=== PATIENT | male | born 1960 | race Caucasian/White ===

== ENCOUNTER 2016-10-26 22:23 | Emergency (ER) | payer BC, OTHER ==
[~2016-10-26] VITALS: Ht 188 cm; Wt 117.3 kg
[~2016-10-26 22:23] MED LIST: ACET-1256 PO; ASPI81TA21 PO; EZET10TA47 PO; GLC/500 PO; GLIP-197 PO; METO50TA7 PO; MULTTAB58 PO; OMEG10007 PO; ROSU40TA PO
[2016-10-26 22:45] VITALS: TEMP 37.2; Ht 188 cm; Wt 117.3 kg
[2016-10-26] MEDS ORDERED: ONDANSETRON INJ 2 MG/ML 2 ML VIAL IV STA (23:39)
[2016-10-26] MEDS ORDERED: MoRPHine SULFATE 10 MG/ML CARP/VIAL IV STA (23:39)
[2016-10-26] MEDS ORDERED: SODIUM CHLORIDE 0.9% 1000ML 1,000 ML IV STA (23:39)
--- NOTE | 2016-10-26 23:52 | EMERGENCY ROOM VISIT NOTE ---
History Report prepared by Yolanda: Fadi Negro Under the Supervision of: Dr. Yadiel Benitez M.D. First contact with patient: 23:32 Chief Complaint: CONGESTION Stated Complaint: CLL ACTING UP AND CHEST COLD Nursing Triage Summary: c/o non productive cough for a few days, body aches, neck pain. hx CLL. pt reports he has been soaking in steamy bath and breaks up his lungs and is able to cough up white sputum. denies fevers. History of Present Illness The patient is a 56 year old male with a history of CLL who presents to the Emergency Room with complaints of a persistent cough for the past three days. The cough produces white sputum. The patient has a history of CLL and feels like his lymph nodes are more swollen than baseline. He does not take any medications for CLL, including pain medications. He also has complaints of generalized body aches. He denies any fevers, sore throat, rhinorrhea, urinary symptoms or bowel changes. He had Ibuprofen at home. He was in the ED with similar symptoms last year. He has a contact at work with bronchitis. The patient was not vaccinated for influenza this year. Source of History: patient Onset: past three days Position: other (respiratory) Quality: other (cough) Timing: other (persistent) Associated Symptoms: No fevers, No sorethroat, No urinary symptoms Review of Systems See HPI for pertinent positives & negatives. A total of 10 systems reviewed and were otherwise negative. Past Medical & Surgical Medical Problems: (1) CAD (coronary artery disease) (2) DM2 (diabetes mellitus, type 2) (3) H/O cardiac arrest (4) History of left heart catheterization (5) HLD (hyperlipidemia) (6) HTN (hypertension) (7) ICD (implantable cardioverter-defibrillator) in place (8) Lymphadenopathy, abdominal Family History Diabetes mellitus FATHER FH: heart disease FATHER (CHF) BROTHER ( of aneurysm age 44) SISTER (Open Heart Surgery at age 18 ) Social History Smoking Status: Current Every Day Smoker Alcohol Use: none Drug Use: none Marital Status: Housing Status: lives with family Occupation Status: employed Current/Historical Medications Scheduled Aspirin Enteric Coated (Ecotrin Or Generic), 81 MG PO DAILY Ezetimibe (Zetia), 10 MG PO DAILY Fish Oil ([place]-3), 3 CAP PO DAILY Glipizide (Glipizide Er), 2 TAB PO DAILY Metformin Hcl (Glucophage), 1,000 MG PO DAILY Metoprolol Succ (Toprol Xl) (Toprol-Xl), 50 MG PO DAILY Multiple Vitamin (Multivitamin), 1 TAB PO DAILY Oseltamivir (Tamiflu), 75 MG PO BID Rosuvastatin Calcium (Crestor), 40 MG PO DAILY Scheduled PRN Acetaminophen (Tylenol), 500 MG PO DIRECTED PRN for Pain Allergies Coded Allergies: Latex (Verified Allergy, Mild, hives, 10/26/16) Amoxicillin (Verified Allergy, Unknown, HIVES, 10/26/16) Physical Exam Vital Signs Date Time Temp Pulse Resp B/P Pulse Ox O2 Delivery O2 Flow Rate FiO2 10/27/16 01:12 69 18 135/59 99 10/26/16 23:15 96 Room Air 10/26/16 22:45 37.2 82 20 144/82 96 Room Air 10/26/16 22:45 96 Room Air Physical Exam GENERAL: Patient is uncomfortable appearing and in moderate distress. HEENT: No acute trauma, normocephalic atraumatic, mucous membranes moist, no nasal congestion, no scleral icterus. NECK: No stridor, no adenopathy, no meningismus, trachea is midline. LUNGS: No dyspnea. Clear to auscultation and equal bilaterally. No wheeze, no rhonchi. Mild periodic cough. HEART: Regular rate and rhythm. No murmurs, rubs, gallops appreciated. ABDOMEN: Vague diffuse tenderness to palpation. Soft, bowel sounds positive, no masses appreciated, no peritonitis. BACK: No midline tenderness, no CVA tenderness EXTREMITIES: Normal motion all extremities, no cyanosis, no edema. NEUROLOGIC: Alert and oriented, no acute motor or sensory deficits, no focal weakness, cranial nerves grossly intact. SKIN: No rash, no jaundice, no diaphoresis. Medical Decision & Procedures ER Provider Diagnostic Interpretation: X ray results are stated below per my interpretation: Chest: 1 view: No infiltrate, no effusion, normal cardiac border. ICD left upper chest with leads intact. Laboratory Results 10/26/16 23:50 Red Blood Count 4.49, Mean Corpuscular Volume 86.2, Mean Corpuscular Hemoglobin 31.8, Mean Corpuscular Hemoglobin Concent 37.0, Mean Platelet Volume 10.1, Neutrophils (%) (Auto) 29.8, Lymphocytes (%) (Auto) 64.3, Monocytes (%) (Auto) 4.1, Eosinophils (%) (Auto) 1.5, Basophils (%) (Auto) 0.1, Neutrophils # (Auto) 3.17, Lymphocytes # (Auto) 6.82, Monocytes # (Auto) 0.43, Eosinophils # (Auto) 0.16, Basophils # (Auto) 0.01 10/26/16 23:50 Test 10/26/16 00:00 10/26/16 23:50 Influenza Type A Antigen Neg for Influ A (NEG) Influenza Type B Antigen POS for Influ B (NEG) White Blood Count 10.61 K/uL (4.8-10.8) Red Blood Count 4.49 M/uL (4.7-6.1) Hemoglobin 14.3 g/dL (14.0-18.0) Hematocrit 38.7 % (42-52) Mean Corpuscular Volume 86.2 fL (80-100) Mean Corpuscular Hemoglobin 31.8 pg (25-34) Mean Corpuscular Hemoglobin Concent 37.0 g/dl (32-36) Platelet Count 151 K/uL (130-400) Mean Platelet Volume 10.1 fL (7.4-10.4) Neutrophils (%) (Auto) 29.8 % Lymphocytes (%) (Auto) 64.3 % Monocytes (%) (Auto) 4.1 % Eosinophils (%) (Auto) 1.5 % Basophils (%) (Auto) 0.1 % Neutrophils # (Auto) 3.17 K/uL (1.4-6.5) Lymphocytes # (Auto) 6.82 K/uL (1.2-3.4) Monocytes # (Auto) 0.43 K/uL (0.11-0.59) Eosinophils # (Auto) 0.16 K/uL (0-0.5) Basophils # (Auto) 0.01 K/uL (0-0.2) RDW Standard Deviation 41.3 fL (36.4-46.3) RDW Coefficient of Variation 13.0 % (11.5-14.5) Immature Granulocyte % (Auto) 0.2 % Immature Granulocyte # (Auto) 0.02 K/uL (0.00-0.02) Smudge Cells PRESENT Anion Gap 7.0 mmol/L (3-11) Est Creatinine Clear Calc Drug Dose 132.1 ml/min Estimated GFR () 112.4 Estimated GFR (Non- 97.0 BUN/Creatinine Ratio 14.5 (10-20) Calcium Level 9.2 mg/dl (8.5-10.1) Total Bilirubin 0.6 mg/dl (0.2-1) Direct Bilirubin 0.1 mg/dl (0-0.2) Aspartate Amino Transf (AST/SGOT) 12 U/L (15-37) Alanine Aminotransferase (ALT/SGPT) 23 U/L (12-78) Alkaline Phosphatase 87 U/L (45-117) Troponin I < 0.015 ng/ml (0-0.045) Total Protein 7.1 gm/dl (6.4-8.2) Albumin 3.7 gm/dl (3.4-5.0) Lipase 148 U/L (73-393) Laboratory results as reviewed by me. Medications Administered Medications (Trade) Dose Ordered Sig/Radha Route Start Time Stop Time Status Last Admin Dose Admin Morphine Sulfate (MoRPHine SULFATE INJ) 6 mg NOW STAT IV 10/26/16 23:39 10/26/16 23:41 DC 10/27/16 00:05 6 MG Ondansetron HCl 4 mg 4 mg NOW STAT IV 10/26/16 23:39 10/26/16 23:41 DC 10/27/16 00:04 4 MG Sodium Chloride (Nss 1000ml) 1,000 ml @ 999 mls/hr Q1H1M STAT IV 10/26/16 23:39 10/27/16 00:39 DC 10/27/16 00:05 999 MLS/HR Oxycodone/ Acetaminophen (Percocet 5/ 325MG Home Pack) 1 homepack UD ONCE PO 10/27/16 01:15 10/27/16 01:16 DC 10/27/16 01:11 1 HOMEPACK Oseltamivir Phosphate (Tamiflu Cap) 75 mg NOW STAT PO 10/27/16 01:01 10/27/16 01:03 DC 10/27/16 01:01 75 MG ECG Indication: weakness Rate (beats per minute): 76 Rhythm: normal sinus Findings: no acute ischemic change, no ectopy ED Course 2333: The patient was evaluated in room C1B. A complete history and physical exam was performed. 2339: NSS 1000 ml @ 999 mls/hr, Zofran 4 mg IV, Morphine Sulfate 6 mg IV. 0100: The patient is feeling better. He is okay with going home. Discussed the findings with him. He understands the discharge instructions. 0101: Tamiflu 75 mg PO. 0115: The [place] Prescription Drug Monitoring Program was reviewed regarding this patient. He has had no recent narcotic prescriptions. 0115: Percocet 5/325 mg PO homepack. Medical Decision Differential: Sepsis, Infectious (UTI/Pneumonia/Meningitis/etc), Metabolic/ Electrolyte Abnormality, Cardiac, Hepatic, Endocrine, Toxicologic, Neurologic, amongst other pathologies entertained. 56 yr old with history of CLL and CAD arrives with body aches, chills, cough and fatigue. Flu B positive. WBC OK today without acute abnormlities. Labs look good. Unremarkable EKG and negative trop. Given IV fluids and small dose morphine for discomfort. Discussed flu care and with symptoms < 72 hours and medical history seems reasonable starting Tamiflu. Given initial dosing here. Stable and looking improved. Stressed rest, fluids, etc. RTED at any time if worsening or other concerns. [place] Drug Monitoring Program Search Results: patient reviewed within database, no issues identified Impression Primary Impression: Influenza B Scribe Attestation The scribe's documentation has been prepared under my direction and personally reviewed by me in its entirety. I confirm that the note above accurately reflects all work, treatment, procedures, and medical decision making performed by me. Departure Information Dispostion Home / Self-Care Prescriptions Oseltamivir (Tamiflu) 75 Mg Cap 75 MG PO BID, #10 CAP Prov: Yadiel Benitez M.D. 10/27/16 Referrals Demetrius Leung D.O. (PCP) Forms HOME CARE DOCUMENTATION FORM, IMPORTANT VISIT INFORMATION Patient Instructions ED Flu, My [facility] Additional Instructions You have received a narcotic pain medication. These medications may cause drowsiness and should not be used with other sedative medications. Do not drive , drink alcohol, perform dangerous activities, nor make important decisions after taking these medications. [facility] use or inappropriate use may lead to addiction.
[2016-10-27 00:12] LABS: HEMATOCRIT 38.7 % (42-52); MEAN CELL VOLUME 86.2 fL (80-100); MEAN CORPUSCULAR HEMOGLOBIN 31.8 pg (25-34); MEAN PLATELET VOLUME 10.1 fL (7.4-10.4); PLATELET COUNT 151 K/uL (130-400); RED BLOOD COUNT 4.49 M/uL (4.7-6.1); WHITE BLOOD COUNT 10.61 K/uL (4.8-10.8)
[2016-10-27 00:31] LABS: ALT/SGPT 23 U/L (12-78); AST/SGOT 12 U/L (15-37); BLOOD UREA NITROGEN 12 mg/dl (7-18); BUN/CREATININE RATIO 14.5 (10-20); CALCIUM 9.2 mg/dl (8.5-10.1); CARBON DIOXIDE 29 mmol/L (21-32); CHLORIDE 102 mmol/L (98-107); CREATININE 0.83 mg/dl (0.60-1.40); GLUCOSE 200 mg/dl (70-99); POTASSIUM 3.9 mmol/L (3.5-5.1); SODIUM 138 mmol/L (136-145)
[2016-10-27 00:36] LABS: ALKALINE PHOSPHATASE 87 U/L (45-117)
[2016-10-27 00:44] LABS: BASO % 0.1 %; BASO ABS # 0.01 K/uL (0-0.2); COMPLETE YES; EOS % 1.5 %; IG% 0.2 %; LYMPH % 64.3 %; LYMPH ABS # 6.82 K/uL (1.2-3.4); MONO % 4.1 %; NEUT % 29.8 %; SMUDGE CELLS PRESENT
[2016-10-27] MEDS ORDERED: OSELTAMIVIR PHOSPHATE 75 MG CAP PO STA (01:01)
[2016-10-27] MEDS ORDERED: OSEL75CA12 PO (01:02)
[2016-10-27 01:12] VITALS: BP 135/59; PULSE 69; O2SAT 99
[2016-10-27] MEDS ORDERED: PERCOCET HOME PACK PO ONE (01:15)
--- NOTE | 2016-10-27 08:05 | DIAGNOSTIC IMAGING REPORT ---
CHEST ONE VIEW PORTABLE CLINICAL HISTORY: cough, congestion dyspnea COMPARISON STUDY: 10/06/2015 FINDINGS: Stable fullness mid mediastinum. Lungs are considered clear. Slight chronic basilar interstitial prominence. Permanent unipolar cardiac pacemaker/defibrillator. IMPRESSION: Chronic change. No acute process. Electronically signed by: Hong Castro M.D. 10/27/2016 8:03 AM Dictated Date/Time: 10/27/2016 8:02 AM
== END 2016-10-27 01:16 | disposition home or self-care (01) ==
LOC: C.EDB 22:26 → C.EDC 10-27 01:16
DX: J11.1 Influenza due to unidentified influenza virus with other respiratory manifestations (principal); E11.9 Type 2 diabetes mellitus without complications; I10 Essential (primary) hypertension; E78.5 Hyperlipidemia, unspecified; I25.10 Atherosclerotic heart disease of native coronary artery without angina pectoris; Z98.61 Coronary angioplasty status; Z95.810 Presence of automatic (implantable) cardiac defibrillator; F17.200 Nicotine dependence, unspecified, uncomplicated; Z79.82 Long term (current) use of aspirin; Z79.84 Long term (current) use of oral hypoglycemic drugs; Z79.899 Other long term (current) drug therapy; Z88.1 Allergy status to other antibiotic agents; Z91.040 Latex allergy status; Z83.3 Family history of diabetes mellitus; Z82.49 Family history of ischemic heart disease and other diseases of the circulatory system

== ENCOUNTER 2017-11-19 | Observation (INO) | payer SELFPAY ==
[~2017-11-19] VITALS: Ht 188 cm; Wt 113.2 kg
[~2017-11-19] MED LIST changes: +ASPI-319 PO; -ASPI81TA21 PO; -METO50TA7 PO; +METO50TA8 PO
[2017-11-19 00:47] LABS: HEMATOCRIT 39.2 % (42-52); HEMOGLOBIN 14.4 g/dL (14.0-18.0); MEAN CELL VOLUME 86.9 fL (80-100); MEAN CORPUSCULAR HEMOGLOBIN 31.9 pg (25-34); MEAN CORPUSCULAR HGB CONC 36.7 g/dl (32-36); MEAN PLATELET VOLUME 9.5 fL (7.4-10.4); NUCLEATED RED BLOOD CELL ABS 0.08 K/uL (0-0); PLATELET COUNT 205 K/uL (130-400); RED CELL DISTRIBUTION WIDTH CV 13.2 % (11.5-14.5); RED CELL DISTRIBUTION WIDTH SD 41.7 fL (36.4-46.3); WHITE BLOOD COUNT 18.69 K/uL (4.8-10.8)
[2017-11-19] MEDS ORDERED: IBUP-1050 PO (00:59)
[2017-11-19 01:04] LABS: ALBUMIN 3.6 gm/dl (3.4-5.0); ALT/SGPT 16 U/L (12-78); AST/SGOT 8 U/L (15-37); BLOOD UREA NITROGEN 10 mg/dl (7-18); CARBON DIOXIDE 25 mmol/L (21-32); CREATININE 0.82 mg/dl (0.60-1.40); GLUCOSE 201 mg/dl (70-99); LIPASE 279 U/L (73-393); POTASSIUM 3.7 mmol/L (3.5-5.1); SODIUM 138 mmol/L (136-145)
[2017-11-19 01:09] LABS: ALKALINE PHOSPHATASE 89 U/L (45-117); TOTAL PROTEIN 7.3 gm/dl (6.4-8.2)
[2017-11-19 01:31] LABS: BASO % 0.2 %; BASO ABS # 0.04 K/uL (0-0.2); EOS % 1.5 %; EOS ABS # 0.28 K/uL (0-0.5); IG# 0.04 K/uL (0.00-0.02); LYMPH % 55.1 %; MONO % 8.8 %; MONO ABS # 1.65 K/uL (0.11-0.59); NEUT % 34.2 %; NEUT ABS # 6.38 K/uL (1.4-6.5)
[2017-11-19] MEDS ORDERED: MoRPHine SULFATE 4 MG/ML 1 ML CARP\\VIAL IV STA (02:22)
[2017-11-19] MEDS ORDERED: ONDANSETRON INJ 2 MG/ML 2 ML VIAL IV STA (02:22)
[2017-11-19] MEDS ORDERED: OPTIRAY 320 IV PRN (02:30)
[2017-11-19] MEDS ORDERED: NITROGLYCERIN 0.4 MG SL PER TAB CHARGE SL STA (03:24)
[2017-11-19] MEDS ORDERED: ASPIRIN 81 MG CHEW PO STA (03:24)
[2017-11-19] MEDS ORDERED: ACETAMINOPHEN 325 MG TAB PO PRN (04:30)
[2017-11-19] MEDS ORDERED: POLYETHYLENE (MIRALAX) 17 GM PACK PO PRN (04:30)
[2017-11-19] MEDS ORDERED: ONDANSETRON INJ 2 MG/ML 2 ML VIAL IV PRN (04:30)
[2017-11-19] MEDS ORDERED: NITROGLYCERIN 0.4 MG SL PER TAB CHARGE SL PRN (04:30)
[2017-11-19] MEDS ORDERED: GLUCAGON FOR INJ 1 MG VIAL SQ PRN (04:45)
[2017-11-19] MEDS ORDERED: DEXTROSE 50% 50 ML SYR IV PRN (04:45)
[2017-11-19] MEDS ORDERED: GLUCOSE 40% GEL 15 GM TUBE PO PRN (04:45)
[2017-11-19] MEDS ORDERED: GLUCOSE 10 TABS/TUBE PO PRN (04:45)
--- NOTE | 2017-11-19 04:52 | EMERGENCY ROOM VISIT NOTE ---
History First contact with patient: 00:08 Chief Complaint: REFERRED BY DOCTOR Stated Complaint: ABDOMINAL PAIN,CHEST-BACK PAIN,TOLD BY PCP TO COME History of Present Illness The patient is a 57 year old male who presents to the Emergency Room with complaints of chest pain that goes to his back with ongoing abdominal pain. Patient has CLL and has not been taking his medications for 2 years. He also has not been taking any of his other medications to include his is diabetic, heart and blood pressure and cholesterol medicines. He states he cannot afford them as he does not have insurance. Patient states he had CAT scans done on Monday agrees with this. He does not know the results. Patient states she has had chest pain for the past few days it is constant but goes to his back. He is mildly short of breath. Nothing makes it better or worse. He has had abdominal pain for the past 5 days. Pain is 7 out of 10 throughout the abdomen. Nothing makes it better or worse. Patient denies fever, chills, productive cough, vomiting, diarrhea, urinary symptoms. No leg pain or swelling. No history of PEs. He has had a heart attack in the past and has a stent. Review of Systems An 10 system review of systems was completed with positives and pertinent negatives listed in the HPI. Past Medical/Surgical History Medical Problems: (1) CAD (coronary artery disease) (2) Chest pain (3) DM2 (diabetes mellitus, type 2) (4) H/O cardiac arrest (5) History of left heart catheterization (6) HLD (hyperlipidemia) (7) HTN (hypertension) (8) ICD (implantable cardioverter-defibrillator) in place (9) Lymphadenopathy, abdominal Family History Diabetes mellitus FATHER FH: heart disease FATHER (CHF) BROTHER ( of aneurysm age 44) SISTER (Open Heart Surgery at age 18 ) Social History Smoking Status: Current Every Day Smoker Alcohol Use: none Drug Use: none Marital Status: Housing Status: lives with family Occupation Status: employed Current/Historical Medications Scheduled Multiple Vitamin (Multivitamin), 1 TAB PO DAILY Scheduled PRN Ibuprofen (Advil), 400 MG PO BID PRN for Pain Physical Exam Vital Signs Date Time Temp Pulse Resp B/P (MAP) Pulse Ox O2 Delivery O2 Flow Rate FiO2 11/19/17 02:56 64 18 134/66 94 Room Air 11/19/17 01:18 68 18 146/75 93 Room Air 11/19/17 00:35 71 11/19/17 00:09 36.8 81 18 159/81 98 Room Air Physical Exam VITALS: Vitals are noted on the nurse's note and reviewed by myself. Vital signs hypertensive. GENERAL: Pleasant male, in no acute distress, nondiaphoretic, well-developed well-nourished. SKIN: The skin was without rashes, erythema, edema, or bruising. There is no tenting of the skin. Capillary reflex less than 2 seconds. HEAD: Normocephalic atraumatic. EARS: External auditory canals clear, tympanic membranes pearly oro without erythema or effusion bilaterally. EYES: Pupils equal round and reactive to light and accommodation. Conjunctivae without injection, sclerae without icterus. Extraocular movements intact. NOSE: Patent, turbinates without inflammation or discharge MOUTH: Mucous membranes moist. Pharynx without erythema or exudate. Uvula midline. Airway patent. Tongue does not deviate. NECK: Supple without nuchal rigidity. No lymphadenopathy. No thyromegaly. Cervical spine is nontender. No JVD. HEART: Regular rate and rhythm without murmurs gallops or rubs. LUNGS: Clear to auscultation bilaterally without wheezes, rales or rhonchi. No retractions or accessory muscle use. ABDOMEN: Positive bowel sounds x 4. Normal tympanic percussion. Soft, mildly diffusely tender without localized pain, without masses or organomegaly. Don sign negative. No guarding or rebound tenderness. No CVA tenderness MUSCULOSKELETAL: No muscle atrophy, erythema, or edema noted. NEURO: Patient was alert and oriented to person place and time. Normal sensation to light and sharp touch. No focal neurological deficits. Medical Decision & Procedures Laboratory Results 11/19/17 00:35 Red Blood Count 4.51, Mean Corpuscular Volume 86.9, Mean Corpuscular Hemoglobin 31.9, Mean Corpuscular Hemoglobin Concent 36.7, Mean Platelet Volume 9.5, Neutrophils (%) (Auto) 34.2, Lymphocytes (%) (Auto) 55.1, Monocytes (%) (Auto) 8.8, Eosinophils (%) (Auto) 1.5, Basophils (%) (Auto) 0.2, Neutrophils # (Auto) 6.38, Lymphocytes # (Auto) 10.30, Monocytes # (Auto) 1.65, Eosinophils # (Auto) 0.28, Basophils # (Auto) 0.04 11/19/17 00:35 Test 11/19/17 00:35 11/19/17 00:36 White Blood Count 18.69 K/uL (4.8-10.8) Red Blood Count 4.51 M/uL (4.7-6.1) Hemoglobin 14.4 g/dL (14.0-18.0) Hematocrit 39.2 % (42-52) Mean Corpuscular Volume 86.9 fL (80-100) Mean Corpuscular Hemoglobin 31.9 pg (25-34) Mean Corpuscular Hemoglobin Concent 36.7 g/dl (32-36) Platelet Count 205 K/uL (130-400) Mean Platelet Volume 9.5 fL (7.4-10.4) Neutrophils (%) (Auto) 34.2 % Lymphocytes (%) (Auto) 55.1 % Monocytes (%) (Auto) 8.8 % Eosinophils (%) (Auto) 1.5 % Basophils (%) (Auto) 0.2 % Neutrophils # (Auto) 6.38 K/uL (1.4-6.5) Lymphocytes # (Auto) 10.30 K/uL (1.2-3.4) Monocytes # (Auto) 1.65 K/uL (0.11-0.59) Eosinophils # (Auto) 0.28 K/uL (0-0.5) Basophils # (Auto) 0.04 K/uL (0-0.2) RDW Standard Deviation 41.7 fL (36.4-46.3) RDW Coefficient of Variation 13.2 % (11.5-14.5) Immature Granulocyte % (Auto) 0.2 % Immature Granulocyte # (Auto) 0.04 K/uL (0.00-0.02) Nucleated RBC Absolute Count (auto) 0.08 K/uL (0-0) Nucleated Red Blood Cells % 0.4 % Smudge Cells PRESENT D-Dimer 610 ug/L FEU (0-500) Anion Gap 6.0 mmol/L (3-11) Est Creatinine Clear Calc Drug Dose 130.4 ml/min Estimated GFR () 112.2 Estimated GFR (Non- 96.8 BUN/Creatinine Ratio 12.6 (10-20) Calcium Level 9.0 mg/dl (8.5-10.1) Total Bilirubin 0.6 mg/dl (0.2-1) Direct Bilirubin 0.1 mg/dl (0-0.2) Aspartate Amino Transf (AST/SGOT) 8 U/L (15-37) Alanine Aminotransferase (ALT/SGPT) 16 U/L (12-78) Alkaline Phosphatase 89 U/L (45-117) Troponin I < 0.015 ng/ml (0-0.045) Total Protein 7.3 gm/dl (6.4-8.2) Albumin 3.6 gm/dl (3.4-5.0) Lipase 279 U/L (73-393) Bedside Troponin I < 0.030 ng/ml (0-0.045) Medications Administered Medications (Trade) Dose Ordered Sig/Radha Route Start Time Stop Time Status Last Admin Dose Admin Morphine Sulfate (MoRPHine SULFATE INJ) 4 mg NOW STAT IV 11/19/17 02:22 11/19/17 02:23 DC 11/19/17 02:52 4 MG Ondansetron HCl (Zofran Inj) 4 mg NOW STAT IV 11/19/17 02:22 11/19/17 02:23 DC 11/19/17 02:51 4 MG ED Course Prior records/ancillary studies reviewed. Triage Nursing notes reviewed. Additional history obtained from family. The patient's history was concerning for chest pain. Differential diagnosis: Etiologies such as cardiac ischemia, aortic dissection, pulmonary embolism, pneumonia, pneumothorax, musculoskeletal, infections, pericarditis, myocarditis , esophageal rupture, gastrointestinal, as well as others were entertained. Physical examination: As above. ER treatment provided: Morphine, Zofran, aspirin, nitroglycerin On reassessment the patient felt better. Diagnostic interpretation by me: The electrocardiogram was normal sinus, normal intervals, T-wave inversions in lead III and 4 with flattening in V5 and 6, rate is 70, EKG compared to prior EKG with new T-wave changes. Impression normal sinus rhythm with T-wave changes interpreted by myself The labs revealed negative troponin. Elevated d-dimer. Hyperglycemia without DKA Imaging studies: CTA was negative PE per stat radiology. Diffuse lymphadenopathy with patient's known CLL Chest x-ray with no acute consolidation, pneumothorax or free of my interpretation Consultation: A consultation was placed with the hospitalist, Dr Storey. The case was discussed and diagnostics were reviewed. The patient was evaluated in the ER for further treatment. HEART SCORE: Hx: high/mod/low suspicion: 1 ECG: ST depression/nonspecific changes/normal: 1 Age: Greater than 65/45-64/less than 45: 1 Risk factors: (Hypertension, hyperlipidemia, diabetes, coronary disease, tobacco use, cocaine use): 4 Troponin: Greater than 2 times normal limits/1-2 times normal limits/normal: 0 Total: 7 Exam and history seem consistent with chest pain with a person with multiple risk factors. Patient does have new EKG changes. First troponin was negative. CT is negative for PE. Patient has known CLL. Patient has not been on any medications in 2 years. He will be evaluated by medicine for possible admission. By the evaluation outlined above emergent etiologies such as cardiac ischemia, aortic dissection, pulmonary embolism, pneumonia, pneumothorax, infections, pericarditis, myocarditis, gastrointestinal, as well as others were deemed relatively unlikely. The pt informed about the findings as listed above. All questions were answered and pleased with the treatment Case reviewed with my attending The chart was completed utilizing [employer] Speech voice recognition software. Grammatical errors, random word insertions, pronoun errors, and incomplete sentences are an occassional consequence of this system due to software limitations, ambient noise, and hardware issues. Any formal questions or concerns about the content, text, or information contained within the body of this dictation should be directly addressed to the physician special events assistant for clarification. Medical Decision As above Medication Reconcilliation Current Medication List: was personally reviewed by me Blood Pressure Screening Patient's blood pressure: Elevated blood pressure Blood pressure disposition: Referred to PCP Impression Primary Impression: Precordial chest pain Additional Impression: CLL (chronic lymphocytic leukemia) Departure Information Dispostion Being Evaluated By Hospitalist Condition GOOD Referrals Indio Rebolledo M.D. (PCP) Patient Instructions My [facility] Problem Qualifiers
[2017-11-19] MEDS ORDERED: IV FLUIDS COMPLETED PRN (05:00)
[2017-11-19] MEDS ORDERED: MoRPHine SULFATE 4 MG/ML 1 ML CARP\\VIAL IV PRN (05:15)
[2017-11-19 05:37] VITALS: BP 150/68; PULSE 71; TEMP 36.7; O2SAT 97; BMI 31.6
--- NOTE | 2017-11-19 07:03 | DIAGNOSTIC IMAGING REPORT ---
CT ANGIOGRAM OF THE CHEST CLINICAL HISTORY: Atypical chest pain. COMPARISON STUDY: Chest CT dated 05/31/2011. Chest x-ray dated 11/19/2017. TECHNIQUE: Following the IV administration of 119 cc of Optiray 320, CT angiogram of the chest was performed from the upper abdomen to the thoracic inlet utilizing the pulmonary embolus protocol. Images are reviewed in the axial, sagittal, and coronal planes. 3-D MIPS images are created and assessed. IV contrast was administered without complication. A dose lowering technique was utilized adhering to the principles of ALARA. CT DOSE: 713.24 mGy.cm FINDINGS: Thyroid: Imaged portions of the thyroid gland are normal in size and attenuation. Thoracic aorta: There is mild atherosclerotic calcification of the thoracic aorta, which is normal in caliber and demonstrates standard 3-vessel arch anatomy. No dissection is seen. Pulmonary vasculature: The pulmonary trunk is normal in caliber. There are no filling defects identified in main, lobar, or segmental pulmonary branches to suggest pulmonary embolus. Heart: A single lead cardiac pacemaker is present in the left chest wall. The heart is top normal in size and without pericardial effusion. The coronary arteries are densely calcified. Lungs and pleural spaces: There is no airspace consolidation or pleural effusion. Mild diffuse peribronchial thickening suggests reactive airway disease. The trachea and central airways are clear. Lower neck: There is supraclavicular lymphadenopathy identified. The largest node is on the right measuring 4.0 x 2.4 cm. Mediastinum: There is bulky mediastinal lymphadenopathy. Prevascular nodes measure up to 1.3 cm in short axis. A left paratracheal node seen on image #199 measures 3.5 x 2.3 cm. A subcarinal node measures 7.1 x 2.5 cm. Key: There is bilateral hilar adenopathy. Hilar nodes measure up to 1.7 cm in short axis. Axillae: There is bulky bilateral axillary and subpectoral lymphadenopathy. The largest axillary node on the right measures 4.5 x 1.8 cm. Upper abdomen: There is upper abdominal lymphadenopathy. A portacaval node on image #7 measures 7.5 x 4.5 cm. Gastrohepatic nodes measure up to 2.1 cm in short axis. Retrocaval nodes measure up to 2.6 cm in short axis. Retrocrural nodes measure up to 1.5 cm in short axis. The spleen is enlarged, measuring over 15 cm in length. There is a 2.0 cm myelolipoma noted in the right adrenal gland. A tiny hiatal hernia is identified. Skeletal structures: No lytic or blastic bony lesions are seen. Mild degenerative change is seen in the shoulders and thoracic spine. IMPRESSION: 1. There is no evidence of pulmonary embolus in the main, lobar, or segmental pulmonary arteries. 2. There is no airspace consolidation or pleural effusion. Mild diffuse peribronchial thickening suggests reactive airway disease. Clinical correlation will be required. 3. There is bulky supraclavicular, axillary, mediastinal, hilar, upper abdominal, and retroperitoneal lymphadenopathy. The spleen is enlarged. The findings are most consistent with a lymphoproliferative disorder such as lymphoma. Correlation with the patient's medical/oncological history will be required. 4. A cardiac pacemaker is noted. Electronically signed by: Deepak Manuel M.D. 11/19/2017 7:02 AM Dictated Date/Time: 11/19/2017 6:52 AM
[2017-11-19] MEDS: ALUMINUM/MAGNESIUM/SIMETH (MAALOX MAX) 30 ML UDC PO PRN ×2 (07:30→19:25)
[2017-11-19] MEDS: EZETIMIBE 10MG TAB PO SCH (07:31)
[2017-11-19] MEDS: ASPIRIN 81 MG ECTAB PO SCH (07:31)
[2017-11-19] MEDS: MULTIVITAMIN TAB PO SCH (07:31)
[2017-11-19] MEDS: METOPROLOL SUCC 50MG EXT REL TAB PO SCH (07:31)
[2017-11-19 07:49] VITALS: BP 124/69; PULSE 84; TEMP 37; O2SAT 96
[2017-11-19] MEDS ORDERED: PNEUMOCOCCAL ADMINISTRATION CHARGE ONE (08:00)
[2017-11-19] MEDS ORDERED: PNEUMOCOCCAL POLYSACCHARIDES 25 MCG/0.5 ML VIAL/SYR IM. ONE (08:00)
[2017-11-19] MEDS: INSULIN ASPART 100 UNITS/ML 3 ML PEN SC SCH ×4 (08:15→21:00)
--- NOTE | 2017-11-19 08:19 | HISTORY & PHYSICAL EXAMINATION ---
DATE OF ADMISSION: 11/19/2017 CHIEF COMPLAINT: Abdominal pain, chest pain. HISTORY OF PRESENT ILLNESS: This is a 57-year-old male with a past medical history significant for CAD, status post stent, history of systolic CHF, type 2 diabetes, history of cardiac arrest, status post AICD, GERD, hypertension, CLL, hyperlipidemia, presents with chest pain and abdominal pain. The patient says, he is not taking his medications since about [id number] years, not following with his doctors regularly. The patient states since last several days he is having abdominal pain. He saw his family doctor and a CAT scan of the abdomen and pelvis was done, do not know the results, but then lately his pain is going to chest which prompted him to come to the ER. When he came in, the patient's pain was about 8-9/10 in severity. Chest pain was going into the back. Also having lower abdomen and right upper quadrant pain. Denies any associated shortness of breath, no sweating, no nausea, no vomiting, no dizziness, no headaches, no blurred visions, no headache. No runny nose, no sore throat, no difficulty swallowing. No cough. Appetite okay. He is generally constipated. Normal bladder movements. No swelling in the legs. Currently, resting comfortably and hemodynamically stable. ALLERGIES: TO AMOXICILLIN. PAST MEDICAL HISTORY: As above. PAST SURGICAL HISTORY: Cardiac catheterization, ICD implant. MEDICATIONS: The patient is not taking any medications, was supposed to be on aspirin and Zetia, fish oil, glipizide, metformin, Toprol-XL, multivitamins, and tramadol. FAMILY HISTORY: Significant for mother had diabetes, heart disease, CHF. Sister had open heart surgery at age of 18. SOCIAL HISTORY: . Smoking for a long time, but lately trying to cut back with only 1 pack per a week. No alcohol use, no drug use. REVIEW OF SYMPTOMS: As per HPI. Rest of review of systems are negative. PHYSICAL EXAMINATION: GENERAL: The patient is moderate built. The patient is obese, not in distress. VITAL SIGNS: Temperature 36.8, pulse 64, respiratory rate 18, blood pressure 130/66, oxygen 94% on room air. HEENT: No pallor, no icterus. Pupils equal, round, and reactive to light. NECK: No JVD, no neck masses, no carotid bruit. CARDIOVASCULAR SYSTEM: S1, S2 heard, regular rate and rhythm. No murmurs. ABDOMEN: Soft, bowel sounds present. Some mild discomfort in lower abdomen. No guarding or rigidity. No distention. CENTRAL NERVOUS SYSTEM: Cranial nerves II-XII grossly intact. Nonfocal. EXTREMITIES: No edema, no erythema. LABORATORIES: WBC 18, hemoglobin 14.4, hematocrit 39.2, platelets 205. Sodium 138, potassium 3.7, chloride 107, bicarb 25, BUN 10, creatinine 0.8, serum glucose 201, calcium 9. Total bilirubin 0.6, direct bilirubin 0.1, AST 8, ALT 16, alkaline phosphatase 89. Troponin 1 less than 0.015. Lipase 279. D-dimer 610. Chest x-ray, no acute findings. EKG: Normal sinus rhythm, rate of 70, some Q-waves in inferior leads, no acute ST changes seen. ASSESSMENT AND PLAN: This is a 57-year-old male who presents with abdominal pain, followed by chest pain, history of coronary artery disease, status post stent, history of cardiac arrest, status post ICD, noncompliant with medications, stating he is not taking his medications for the last [id number] year because he has no insurance.He was supposed to be on aspirin, Zetia, and Toprol-XL which we will place him on. We will check the fasting lipid profile. Initial troponin and EKG were negative. We will follow the serial cardiac enzymes, echocardiogram, and consult cardiology in the a.m. for further recommendation. 2. Abdominal pain. The patient has a history of mild hepatosplenomegaly from CLL, recently had a CAT scan done as an outpatient, do not have the results. We will monitor. 3. History of CLL. He has somewhat aggressive-type of CLL, hematology-oncology wanted to follow at a tertiary care center for any clinical trial, but the patient refused and he is supposed to be followed periodically regularly, but he is not following. We will advise him to follow with hematology-oncology and PCP on a regular basis. 4. Diabetes. He was supposed to be on Glucotrol and metformin, not taking his medications. We will check his HbA1c levels. We will place him on insulin sliding scale while the patient is in the hospital. 5. History of hypertension, not taking his medications. We will start Toprol-XL and monitor the blood pressure. 6. DVT prophylaxis, SCDs and TEDs for now. 7. Disposition: We will observe on tele floor. Expect to discharge home and follow with his family doctor. LEVEL 1 FULL CODE. Social Service to help with discharge planning and medications. MARIA VICTORIA
--- NOTE | 2017-11-19 08:26 | DIAGNOSTIC IMAGING REPORT ---
SINGLE VIEW CHEST CLINICAL HISTORY: Atypical chest pain. FINDINGS: An AP, portable, upright chest radiograph is compared to study dated 10/26/2016. The examination is degraded by portable technique and patient rotation. A single lead cardiac AICD partially obscures the left lower chest. The heart is top normal for projection and there is atherosclerotic calcification of the thoracic aorta. The pulmonary vasculature is noncongested. The lungs and pleural spaces are clear. No pneumothorax is seen. The bony thorax is grossly intact. IMPRESSION: No acute cardiopulmonary abnormality. Electronically signed by: Deepak Manuel M.D. 11/19/2017 8:24 AM Dictated Date/Time: 11/19/2017 8:23 AM
--- NOTE | 2017-11-19 09:47 | Progress Note ---
Internal Med Progress Note Date of Service: Nov 19, 2017. Provider Documentation: SUBJECTIVE: Seen and examined at bedside States having mild chest pain and abdominal pain Reports intermittent cough with clear expectoration States chest pain improved with NTG Last BM was 2 days ago Denies nausea, vomiting, blood in stools, diarrhea, SOB, dizziness Has been not taking medications for about 1 1/2 yrs secondary to financial issues OBJECTIVE: Vital Signs-as noted below Physical Exam: General Appearance:Moderately built and nourished, no apparent distress Head: normocephalic, Atraumatic Eyes: normal inspection, EOMI, PERRL Neck: supple, Trachea midline Respiratory/Chest: Normal breath sounds, CTA Cardiovascular: S1, S2, No murmur Abdomen/GI:Soft, epigastric, RLQ, LLQ, Hypogastric regions, Bowel sounds present Extremities/Musculoskelatal:normal inspection, no edema Neurologic/Psych:AAOX3, grossly no focal neurological deficits Skin: normal color, warm Lab data as noted below. ASSESSMENT & PLAN: Patient is a 57 yr male with PMH of CLL, DM II, CAD S/P stent S/P AICD and other problems who has not been taking medications for last 1 1/2 years presents with abdominal and chest pain. Chest Pain: R/O ACS Risk factors: H/O CAD s/p stent, cardiac arrest S/P AICD, HTN, HLP, Tobacco use disorder, DM II H/O non compliance to medications Troponin X 2:Negative EKG:No signs of acute Ischemia CTA: No evidence of PE, consolidation or pleural effusion ECHO: EF:55-60%, small pericardial effusion A1C: pending Continue Aspirin,Zetia, metoprolol, NTG PRN Oxygen PRN Cardiology consulted Abdominal pain: h/o mild hepatosplenomegaly from CLL CTA:consistent with a lymphoproliferative disorder, splenomegaly bowel regimen for constipation CT Abd on 11/13/17 done as outpatient: results pending Get ABD USD pain control monitor H/O CLL Not on any treatment currently Not following with Oncology Known to Advised to follow with tertiary care center for any clinical trial, but patient refused in past Oncology consulted DM II: Currently not taking meds Non compliance Was on Metformin and glipizide previously HbA1c:pending Continue ISS, Lantus Monitor BGs H/O HTN: No taking meds Started on Metoprolol monitor DVT Px: SCDs Code Status: Full Code Disposition: Expect to discharge home when stable Social Service to help with discharge planning and Insurance issues. PROCEDURES: ECHO: The left ventricle is normal in size. * There is moderate concentric left ventricular hypertrophy. * Left ventricular systolic function is normal. * Ejection Fraction = 55-60%. * Grade I diastolic dysfunction, (abnormal relaxation pattern). * No significant valvular pathology. * Small pericardial effusion. Vital Signs: Date Time Temp Pulse Resp B/P (MAP) Pulse Ox O2 Delivery O2 Flow Rate FiO2 11/19/17 08:00 Room Air 11/19/17 07:49 37.0 84 18 124/69 (87) 96 11/19/17 05:37 36.7 71 20 150/68 97 Room Air 11/19/17 04:58 76 18 138/84 98 Room Air 11/19/17 02:56 64 18 134/66 94 Room Air 11/19/17 01:18 68 18 146/75 93 Room Air 11/19/17 00:35 71 11/19/17 00:09 36.8 81 18 159/81 98 Room Air Lab Results: Results Past 24 Hours Test 11/19/17 00:35 11/19/17 00:36 11/19/17 06:36 11/19/17 06:37 Range/Units White Blood Count 18.69 4.8-10.8 K/uL Red Blood Count 4.51 4.7-6.1 M/uL Hemoglobin 14.4 14.0-18.0 g/dL Hematocrit 39.2 42-52 % Mean Corpuscular Volume 86.9 80-100 fL Mean Corpuscular Hemoglobin 31.9 25-34 pg Mean Corpuscular Hemoglobin Concent 36.7 32-36 g/dl Platelet Count 205 130-400 K/uL Mean Platelet Volume 9.5 7.4-10.4 fL Neutrophils (%) (Auto) 34.2 % Lymphocytes (%) (Auto) 55.1 % Monocytes (%) (Auto) 8.8 % Eosinophils (%) (Auto) 1.5 % Basophils (%) (Auto) 0.2 % Neutrophils # (Auto) 6.38 1.4-6.5 K/uL Lymphocytes # (Auto) 10.30 1.2-3.4 K/uL Monocytes # (Auto) 1.65 0.11-0.59 K/uL Eosinophils # (Auto) 0.28 0-0.5 K/uL Basophils # (Auto) 0.04 0-0.2 K/uL RDW Standard Deviation 41.7 36.4-46.3 fL RDW Coefficient of Variation 13.2 11.5-14.5 % Immature Granulocyte % (Auto) 0.2 % Immature Granulocyte # (Auto) 0.04 0.00-0.02 K/uL Nucleated RBC Absolute Count (auto) 0.08 0-0 K/uL Nucleated Red Blood Cells % 0.4 % Smudge Cells PRESENT D-Dimer 610 0-500 ug/L FEU Sodium Level 138 136-145 mmol/L Potassium Level 3.7 3.5-5.1 mmol/L Chloride Level 107 98-107 mmol/L Carbon Dioxide Level 25 21-32 mmol/L Anion Gap 6.0 3-11 mmol/L Blood Urea Nitrogen 10 7-18 mg/dl Creatinine 0.82 0.60-1.40 mg/dl Est Creatinine Clear Calc Drug Dose 130.4 ml/min Estimated GFR () 112.2 Estimated GFR (Non- 96.8 BUN/Creatinine Ratio 12.6 10-20 Random Glucose 201 70-99 mg/dl Calcium Level 9.0 8.5-10.1 mg/dl Total Bilirubin 0.6 0.2-1 mg/dl Direct Bilirubin 0.1 0-0.2 mg/dl Aspartate Amino Transf (AST/SGOT) 8 15-37 U/L Alanine Aminotransferase (ALT/SGPT) 16 12-78 U/L Alkaline Phosphatase 89 45-117 U/L Troponin I < 0.015 0-0.045 ng/ml Total Protein 7.3 6.4-8.2 gm/dl Albumin 3.6 3.4-5.0 gm/dl Lipase 279 73-393 U/L Bedside Troponin I < 0.030 0-0.045 ng/ml Triglycerides Level 170 0-150 mg/dl Cholesterol Level 186 0-200 mg/dl HDL Cholesterol 26 mg/dl LDL Cholesterol, Calculated 126 mg/dl VLDL Cholesterol, Calculated 34 mg/dl Cholesterol/HDL Ratio 7.2 Hepatitis C Antibody Screen NEG NEG Bedside Glucose 159 70-99 mg/dl
--- NOTE | 2017-11-19 09:55 | ECHOCARDIOGRAM REPORT ---
*NOTICE TO RECEIVING [employer] This information is strictly Confidential and protected under [place] law. [place] law prohibits you from making any further disclosure of this information unless further disclosure is expressly permitted by the written consent of the person to whom it pertains or is authorized by law. A general authorization for the release of medical or other information is not sufficient for this purpose. Hospital accepts no responsibility if the information is made available to any other person, INCLUDING THE PATIENT. Interpretation Summary * Name: BRY CRAWFORD Study Date: 11/19/2017 06:54 AM BP: 124/69 mmHg * Patient Location: C.2T\S\S242\S\2 HR: 63 * : 1960 (M/d/yyyy) Gender: Male Height: 74 in * Age: 57 yrs Ethnicity: [place] Weight: 251 lb * Ordering Physician: Robin Storey * Referring Physician: Indio Rebolledo * Performed By: Rico Tolliver RDCS * * Reason For Study: Chest pain * BSA: 2.4 m2 * -- Conclusions -- * The left ventricle is normal in size. * There is moderate concentric left ventricular hypertrophy. * Left ventricular systolic function is normal. * Ejection Fraction = 55-60%. * Grade I diastolic dysfunction, (abnormal relaxation pattern). * No significant valvular pathology. Procedure Details * A complete two-dimensional transthoracic echocardiogram was performed (2D, M-mode, Doppler and color flow Doppler). * The study was diagnostic quality. Left Ventricle * The left ventricle is normal in size. * There is moderate concentric left ventricular hypertrophy. * Left ventricular systolic function is normal. * Ejection Fraction = 55-60%. Right Ventricle * The right ventricle is normal size. * The right ventricular systolic function is normal. Atria * The left atrium is mildly dilated. * Right atrial size is normal. * The interatrial septum is intact with no evidence for an atrial septal defect. Mitral Valve * The mitral valve anatomy is normal. * Significant mitral regurgitation is absent. Tricuspid Valve * The tricuspid valve anatomy is normal. * Significant tricuspid regurgitation is absent. Aortic Valve * The aortic valve is normal in structure and function. Pulmonic Valve * The pulmonic valve is not well seen, but is grossly normal. * There is no significant pulmonary regurgitation. Great Vessels * The aortic root and proximal ascending aorta are normal sized. Pericardium/Pleural * Small pericardial effusion. Left Ventricular Diastolic Function * Grade I diastolic dysfunction, (abnormal relaxation pattern). MMode 2D Measurements and Calculations IVSd 1.3 cm IVSs 1.7 cm LVIDd 4.7 cm LVIDs 3.1 cm LVPWd 1.3 cm LVPWs 1.8 cm IVS/LVPW 1.0 FS 34.1 % EDV(Teich) 102.3 ml ESV(Teich) 37.8 ml EF(Teich) 63.1 % EDV(cubed) 103.7 ml ESV(cubed) 29.6 ml EF(cubed) 71.4 % % IVS thick 32.3 % % LVPW thick 44.4 % LV mass(C)d 231.3 grams LV mass(C)dI 96.6 grams/m\S\2 LV mass(C)s 217.6 grams LV mass(C)sI 90.9 grams/m\S\2 SV(Teich) 64.5 ml SI(Teich) 27.0 ml/m\S\2 SV(cubed) 74.1 ml SI(cubed) 31.0 ml/m\S\2 EPSS 0.85 cm Ao root diam 3.6 cm Ao root area 10.0 cm\S\2 ACS 2.1 cm LA dimension 4.5 cm asc Aorta Diam 3.6 cm LA/Ao 1.3 LVOT diam 2.3 cm LVOT area 4.3 cm\S\2 LVAd ap4 35.0 cm\S\2 LVLd ap4 9.0 cm EDV(MOD-sp4) 113.6 ml EDV(sp4-el) 116.1 ml LVAs ap4 20.9 cm\S\2 LVLs ap4 7.7 cm ESV(MOD-sp4) 49.3 ml ESV(sp4-el) 48.4 ml EF(MOD-sp4) 56.6 % EF(sp4-el) 58.3 % LVAd ap2 36.5 cm\S\2 LVLd ap2 9.7 cm EDV(MOD-sp2) 115.9 ml EDV(sp2-el) 117.6 ml LVAs ap2 21.1 cm\S\2 LVLs ap2 7.5 cm ESV(MOD-sp2) 50.5 ml ESV(sp2-el) 50.8 ml EF(MOD-sp2) 56.4 % EF(sp2-el) 56.8 % LVLd %diff 5.4 % EDV(MOD-bp) 123.9 ml LVLs %diff 1.9 % ESV(MOD-bp) 48.4 ml EF(MOD-bp) 60.9 % SV(MOD-sp4) 64.2 ml SI(MOD-sp4) 26.8 ml/m\S\2 SV(MOD-sp2) 65.4 ml SI(MOD-sp2) 27.3 ml/m\S\2 SV(MOD-bp) 75.5 ml SI(MOD-bp) 31.5 ml/m\S\2 SV(sp4-el) 67.7 ml SI(sp4-el) 28.3 ml/m\S\2 SV(sp2-el) 66.8 ml SI(sp2-el) 27.9 ml/m\S\2 Doppler Measurements and Calculations MV E max tremayne 78.2 cm/sec MV A max tremayne 102.7 cm/sec MV E/A 0.76 MV dec time 0.26 sec Ao V2 max 132.9 cm/sec Ao max PG 7.1 mmHg Ao max PG (full) 3.7 mmHg JEREMIAH(V,A) 3.0 cm\S\2 JEREMIAH(V,D) 3.0 cm\S\2 LV V1 max PG 3.4 mmHg LV V1 max 91.7 cm/sec PA V2 max 97.5 cm/sec PA max PG 3.8 mmHg
--- NOTE | 2017-11-19 10:00 | ECHOCARDIOGRAM REPORT ---
*NOTICE TO RECEIVING [employer] This information is strictly Confidential and protected under [place] law. [place] law prohibits you from making any further disclosure of this information unless further disclosure is expressly permitted by the written consent of the person to whom it pertains or is authorized by law. A general authorization for the release of medical or other information is not sufficient for this purpose. Hospital accepts no responsibility if the information is made available to any other person, INCLUDING THE PATIENT. Interpretation Summary * Name: BRY CRAWFORD Study Date: 11/19/2017 06:54 AM BP: 124/69 mmHg * Patient Location: C.2T\S\S242\S\2 HR: 63 * : 1960 (M/d/yyyy) Gender: Male Height: 74 in * Age: 57 yrs Ethnicity: [place] Weight: 251 lb * Ordering Physician: Robin Storey * Referring Physician: Indio Rebolledo * Performed By: Rico Tolliver RDCS * * Reason For Study: Chest pain * BSA: 2.4 m2 * -- Conclusions -- * The left ventricle is normal in size. * There is moderate concentric left ventricular hypertrophy. * Left ventricular systolic function is normal. * Ejection Fraction = 55-60%. * Grade I diastolic dysfunction, (abnormal relaxation pattern). * No significant valvular pathology. * Small pericardial effusion. Procedure Details * A complete two-dimensional transthoracic echocardiogram was performed (2D, M-mode, Doppler and color flow Doppler). * The study was diagnostic quality. Left Ventricle * The left ventricle is normal in size. * There is moderate concentric left ventricular hypertrophy. * Left ventricular systolic function is normal. * Ejection Fraction = 55-60%. Right Ventricle * The right ventricle is normal size. * The right ventricular systolic function is normal. Atria * The left atrium is mildly dilated. * Right atrial size is normal. * The interatrial septum is intact with no evidence for an atrial septal defect. Mitral Valve * The mitral valve anatomy is normal. * Significant mitral regurgitation is absent. Tricuspid Valve * The tricuspid valve anatomy is normal. * Significant tricuspid regurgitation is absent. Aortic Valve * The aortic valve is normal in structure and function. Pulmonic Valve * The pulmonic valve is not well seen, but is grossly normal. * There is no significant pulmonary regurgitation. Great Vessels * The aortic root and proximal ascending aorta are normal sized. Pericardium/Pleural * Small pericardial effusion. Left Ventricular Diastolic Function * Grade I diastolic dysfunction, (abnormal relaxation pattern). MMode 2D Measurements and Calculations IVSd 1.3 cm IVSs 1.7 cm LVIDd 4.7 cm LVIDs 3.1 cm LVPWd 1.3 cm LVPWs 1.8 cm IVS/LVPW 1.0 FS 34.1 % EDV(Teich) 102.3 ml ESV(Teich) 37.8 ml EF(Teich) 63.1 % EDV(cubed) 103.7 ml ESV(cubed) 29.6 ml EF(cubed) 71.4 % % IVS thick 32.3 % % LVPW thick 44.4 % LV mass(C)d 231.3 grams LV mass(C)dI 96.6 grams/m\S\2 LV mass(C)s 217.6 grams LV mass(C)sI 90.9 grams/m\S\2 SV(Teich) 64.5 ml SI(Teich) 27.0 ml/m\S\2 SV(cubed) 74.1 ml SI(cubed) 31.0 ml/m\S\2 EPSS 0.85 cm Ao root diam 3.6 cm Ao root area 10.0 cm\S\2 ACS 2.1 cm LA dimension 4.5 cm asc Aorta Diam 3.6 cm LA/Ao 1.3 LVOT diam 2.3 cm LVOT area 4.3 cm\S\2 LVAd ap4 35.0 cm\S\2 LVLd ap4 9.0 cm EDV(MOD-sp4) 113.6 ml EDV(sp4-el) 116.1 ml LVAs ap4 20.9 cm\S\2 LVLs ap4 7.7 cm ESV(MOD-sp4) 49.3 ml ESV(sp4-el) 48.4 ml EF(MOD-sp4) 56.6 % EF(sp4-el) 58.3 % LVAd ap2 36.5 cm\S\2 LVLd ap2 9.7 cm EDV(MOD-sp2) 115.9 ml EDV(sp2-el) 117.6 ml LVAs ap2 21.1 cm\S\2 LVLs ap2 7.5 cm ESV(MOD-sp2) 50.5 ml ESV(sp2-el) 50.8 ml EF(MOD-sp2) 56.4 % EF(sp2-el) 56.8 % LVLd %diff 5.4 % EDV(MOD-bp) 123.9 ml LVLs %diff 1.9 % ESV(MOD-bp) 48.4 ml EF(MOD-bp) 60.9 % SV(MOD-sp4) 64.2 ml SI(MOD-sp4) 26.8 ml/m\S\2 SV(MOD-sp2) 65.4 ml SI(MOD-sp2) 27.3 ml/m\S\2 SV(MOD-bp) 75.5 ml SI(MOD-bp) 31.5 ml/m\S\2 SV(sp4-el) 67.7 ml SI(sp4-el) 28.3 ml/m\S\2 SV(sp2-el) 66.8 ml SI(sp2-el) 27.9 ml/m\S\2 Doppler Measurements and Calculations MV E max tremayne 78.2 cm/sec MV A max tremayne 102.7 cm/sec MV E/A 0.76 MV dec time 0.26 sec Ao V2 max 132.9 cm/sec Ao max PG 7.1 mmHg Ao max PG (full) 3.7 mmHg JEREMIAH(V,A) 3.0 cm\S\2 JEREMIAH(V,D) 3.0 cm\S\2 LV V1 max PG 3.4 mmHg LV V1 max 91.7 cm/sec PA V2 max 97.5 cm/sec PA max PG 3.8 mmHg
[2017-11-19] MEDS ORDERED: DOCUSATE SODIUM 100 MG CAP PO PRN (10:15)
--- NOTE | 2017-11-19 11:36 | DIAGNOSTIC IMAGING REPORT ---
KUB CLINICAL HISTORY: Generalized abdominal pain. FINDINGS: 2 AP views of the abdomen are correlated with abdominal CT dated 10/05/2015. There is a nonobstructed abdominal bowel gas pattern noting moderate colonic fecal retention. No evidence of intraperitoneal free air is seen on these supine images. Excreted IV contrast is present in the bladder. There are no abnormal abdominal calcifications. The skeletal structures appear osteopenic. Mild spondylotic change is noted in the lumbar spine. A pacemaker lead is noted in the lower chest. IMPRESSION: Nonobstructed abdominal bowel gas pattern noting moderate colonic fecal retention. Electronically signed by: Deepak Manuel M.D. 11/19/2017 11:35 AM Dictated Date/Time: 11/19/2017 11:33 AM
--- NOTE | 2017-11-19 12:18 | DIAGNOSTIC IMAGING REPORT ---
ULTRASOUND ABDOMEN COMPLETE CLINICAL HISTORY: Generalized abdominal pain. COMPARISON STUDY: Abdominal CT dated 10/05/2015. TECHNIQUE: Real-time, grayscale, and color flow sonography of the abdomen was performed. Images are reviewed in the transverse and longitudinal planes. FINDINGS: Liver: The liver is enlarged, measuring 21.1 cm in length. The liver demonstrates heterogeneously increased echotexture consistent with hepatic steatosis. There is no intrahepatic biliary ductal dilatation. The main portal vein is patent. Gallbladder: The gallbladder is normal in appearance. No gallstones are identified. There is no gallbladder wall thickening or pericholecystic fluid. A sonographic Don's sign is reportedly absent. The common bile duct measures up to 0.3 cm in diameter. Pancreas: Visualized portions of the pancreatic head and body are normal in appearance. Spleen: The spleen is enlarged, measuring over 18 cm in length. The splenic vein is patent. Kidneys: The kidneys are normal in size and echotexture. There is no hydronephrosis. The right kidney measures 13.2 cm in length and the left kidney measures 14.1 cm in length. No shadowing calculi are identified. Abdominal vasculature: There is atherosclerotic calcification of the abdominal aorta. The distal abdominal aorta is ectatic and measures up to 2.7 cm. Ascites: None. Abdomen: Upper abdominal lymphadenopathy is identified. Aggregate measures 9.6 x 5.5 x 6.3 cm. IMPRESSION: 1. No acute sonographic abnormality is identified. No gallstones are seen. 2. Hepatomegaly and hepatic steatosis. 3. Splenomegaly. 4. Bulky upper abdominal lymphadenopathy is identified and suggests a lymphoproliferative order. Correlation with the medical/oncological history will be required. Electronically signed by: Deepak Manuel M.D. 11/19/2017 12:16 PM Dictated Date/Time: 11/19/2017 12:13 PM
[2017-11-19 12:25] VITALS: BP 136/74; PULSE 88; TEMP 36.9; O2SAT 99
[2017-11-19 13:09] LABS: CKMB < 0.5 ng/ml (0.5-3.6)
--- NOTE | 2017-11-19 13:17 | Cardiology Consultation ---
Cardiology Consultation Date of Service Nov 19, 2017. Cardiology Consultation Indication: Consultation for chest pain History: This is a 57-year-old male patient who in 2008 received a stent within the PDA of the left circumflex artery. He did well until 2010 and then had a cardiac arrest. He was transferred to [facility] in [place]. He underwent a cardiac catheterization that revealed an occlusion of the PDA of the left circumflex artery. He recovered neurologically and received a secondary prevention ICD. The patient has not been compliant with follow-up cardiac care. He follows with no local primary contracts specialist. He last saw Dr. Brewer, electrophysiology, at [facility] approximately a year ago. The patient also has chronic lymphocytic leukemia and has been under the care of Dr. Moore locally. He was admitted with abdominal discomfort and just not feeling well. During his interview he mentioned that the discomfort sometimes radiates into his chest. During my interview the patient states that this discomfort he does not feel is from his heart. The majority and the reason why he came into the hospital is for lower abdominal pain. He has had a CT of the chest that does not show pulmonary emboli but does show a lot of lymphadenopathy. His ultrasound shows hepatosplenomegaly along with lymphadenopathy. The findings are consistent with a lymphoproliferative disorder. Allergies: Latex Reported Home Medications Medications Dose Route/Sig Max Daily Dose Days Date Category Advil (Ibuprofen) 200 Mg Tab 400 Mg PO BID PRN 11/19/17 Reported Multivitamin (Multiple Vitamin) 1 Tab Tab 1 Tab PO DAILY 08/18/12 Reported Past medical history: As outlined above the patient has coronary artery disease with a previous stent to the PDA of the left circumflex artery in 2008. In 2010 he had a cardiac arrest at which time he had a repeat cardiac catheterization that revealed previous stent to be occluded. He received a secondary prevention ICD at [facility]. 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 He is on no chronic cardiac medications. He also has a history of CLL which is followed by hematology oncology locally. Social history: Patient is a non-smoker Family medical history: Noncontributory General: The patient denies weight change, night sweats, fever, chills. Head: The patient denies headache and prior head trauma. Cardiovascular: The patient denies chest pain or chest discomfort, dyspnea on exertion, palpitations, PND, orthopnea, edema, spontaneous shortness of breath, syncope and near syncope. Pulmonary: The patient denies cough, wheeze, pleurisy, hemoptysis, sputum, and excessive snoring. Gastrointestinal: The patient denies nausea, vomiting, diarrhea, constipation, bloating, hematemesis, hematochezia, and abdominal pain. Skin: The patient denies diaphoresis and rash. Musculoskeletal: The patient denies joint pain, joint swelling, myalgia, back pain, neck pain and prior injuries. Neurological: The patient denies prior stroke and seizures Vital Signs Past 12 Hours Date Time Temp Pulse Resp B/P (MAP) Pulse Ox O2 Delivery O2 Flow Rate FiO2 11/19/17 12:25 36.9 88 18 136/74 (94) 99 11/19/17 12:00 Room Air 11/19/17 08:00 Room Air 11/19/17 07:49 37.0 84 18 124/69 (87) 96 11/19/17 05:37 36.7 71 20 150/68 97 Room Air 11/19/17 04:58 76 18 138/84 98 Room Air 11/19/17 02:56 64 18 134/66 94 Room Air 11/19/17 01:18 68 18 146/75 93 Room Air General Appearance: Alert and Oriented x3. NAD. Head: Normocephalic Atraumatic. Eyes: PERRLA, EOMI, conjunctiva and sclera clear Neck: Supple. No carotid bruits noted. No JVD. No HJD. Respiratory: Breath sounds clear to auscultation bilaterally. No w/r/r. Cardiovascular: Reg rate and rhythm. S1 and S2 noted. No murmurs, rubs, gallops. PMI non displace. Abdomen: Normal bowel sounds, soft nontender. no abdominal bruits. Extremities: No edema, no clubbing or cyanosis. distal pulses 2/4 bilaterally. Neuro: No focal deficits. Psychiatric: Normal affect. Last 24 Hours Test 11/19/17 00:35 11/19/17 00:36 11/19/17 06:36 11/19/17 06:37 White Blood Count 18.69 K/uL Red Blood Count 4.51 M/uL Hemoglobin 14.4 g/dL Hematocrit 39.2 % Mean Corpuscular Volume 86.9 fL Mean Corpuscular Hemoglobin 31.9 pg Mean Corpuscular Hemoglobin Concent 36.7 g/dl Platelet Count 205 K/uL Mean Platelet Volume 9.5 fL Neutrophils (%) (Auto) 34.2 % Lymphocytes (%) (Auto) 55.1 % Monocytes (%) (Auto) 8.8 % Eosinophils (%) (Auto) 1.5 % Basophils (%) (Auto) 0.2 % Neutrophils # (Auto) 6.38 K/uL Lymphocytes # (Auto) 10.30 K/uL Monocytes # (Auto) 1.65 K/uL Eosinophils # (Auto) 0.28 K/uL Basophils # (Auto) 0.04 K/uL RDW Standard Deviation 41.7 fL RDW Coefficient of Variation 13.2 % Immature Granulocyte % (Auto) 0.2 % Immature Granulocyte # (Auto) 0.04 K/uL Nucleated RBC Absolute Count (auto) 0.08 K/uL Nucleated Red Blood Cells % 0.4 % Smudge Cells PRESENT D-Dimer 610 ug/L FEU Sodium Level 138 mmol/L Potassium Level 3.7 mmol/L Chloride Level 107 mmol/L Carbon Dioxide Level 25 mmol/L Anion Gap 6.0 mmol/L Blood Urea Nitrogen 10 mg/dl Creatinine 0.82 mg/dl Est Creatinine Clear Calc Drug Dose 130.4 ml/min Estimated GFR () 112.2 Estimated GFR (Non- 96.8 BUN/Creatinine Ratio 12.6 Random Glucose 201 mg/dl Calcium Level 9.0 mg/dl Total Bilirubin 0.6 mg/dl Direct Bilirubin 0.1 mg/dl Aspartate Amino Transf (AST/SGOT) 8 U/L Alanine Aminotransferase (ALT/SGPT) 16 U/L Alkaline Phosphatase 89 U/L Troponin I < 0.015 ng/ml Total Protein 7.3 gm/dl Albumin 3.6 gm/dl Lipase 279 U/L Bedside Troponin I < 0.030 ng/ml Triglycerides Level 170 mg/dl Cholesterol Level 186 mg/dl HDL Cholesterol 26 mg/dl LDL Cholesterol, Calculated 126 mg/dl VLDL Cholesterol, Calculated 34 mg/dl Cholesterol/HDL Ratio 7.2 Hepatitis C Antibody Screen NEG Bedside Glucose 159 mg/dl Test 11/19/17 12:06 11/19/17 12:11 Creatine Kinase MB < 0.5 ng/ml Creatine Kinase MB Ratio Troponin I < 0.015 ng/ml EKG reveals a sinus rhythm with an old inferior septal wall infarct Echocardiogram: * The left ventricle is normal in size. * There is moderate concentric left ventricular hypertrophy. * Left ventricular systolic function is normal. * Ejection Fraction = 55-60%. * Grade I diastolic dysfunction, (abnormal relaxation pattern). * No significant valvular pathology. * Small pericardial effusion. Impression: 1. Noncardiac chest pain 2. Medical noncompliance 3. Chronic lymphocytic leukemia Recommendations: The patient's cardiac markers thus far have been negative. I think his chest pain is atypical. He should be worked up for his abdominal pain and treated for his CLL. I do not believe any additional cardiac testing is indicated at this time.
[2017-11-19 16:05] VITALS: BP 136/73; PULSE 58; TEMP 37.1; O2SAT 98
[2017-11-19] MEDS: KETOROLAC TROMETHAMINE 15 MG/ML VIAL IV PRN (19:25)
[2017-11-19 20:33] VITALS: BP 158/72; PULSE 63; TEMP 37.1; O2SAT 96
[2017-11-19 20:56] LABS: CKMB 0.6 ng/ml (0.5-3.6)
[2017-11-19] MEDS: INSULIN GLARGINE SOLOSTAR 100 UNITS/ML 3 ML PEN SC SCH (21:13)
[2017-11-19] MEDS: DOCUSATE SODIUM/SENNA 50/8.6MG TAB PO SCH (21:14)
[2017-11-19 23:40] VITALS: BP 150/64; PULSE 61; TEMP 36.8; O2SAT 98
[2017-11-20] MEDS ORDERED: LACTULOSE SYRUP 20 GM/30 ML UDC PO STA (00:52)
[2017-11-20] MEDS ORDERED: BISACODYL 10 MG SUPP PR STA (00:52)
[2017-11-20] MEDS: KETOROLAC TROMETHAMINE 15 MG/ML VIAL IV PRN (01:05)
[2017-11-20 03:45] VITALS: BP 148/86; PULSE 66; TEMP 36.7; O2SAT 98
[2017-11-20 06:35] LABS: HEMOGLOBIN A1C 9.7 % (4.5-5.6)
[2017-11-20 07:09] LABS: HEMATOCRIT 39.7 % (42-52); HEMOGLOBIN 14.1 g/dL (14.0-18.0); MEAN CELL VOLUME 87.8 fL (80-100); MEAN CORPUSCULAR HEMOGLOBIN 31.2 pg (25-34); MEAN CORPUSCULAR HGB CONC 35.5 g/dl (32-36); MEAN PLATELET VOLUME 9.6 fL (7.4-10.4); PLATELET COUNT 188 K/uL (130-400); RED CELL DISTRIBUTION WIDTH CV 13.4 % (11.5-14.5); RED CELL DISTRIBUTION WIDTH SD 42.6 fL (36.4-46.3); WHITE BLOOD COUNT 16.62 K/uL (4.8-10.8)
[2017-11-20 07:44] LABS: CALCIUM 8.9 mg/dl (8.5-10.1); CREATININE 0.92 mg/dl (0.60-1.40); POTASSIUM 4.1 mmol/L (3.5-5.1)
[2017-11-20 08:06] LABS: BASO % 0.2 %; BASO ABS # 0.03 K/uL (0-0.2); EOS % 2.1 %; EOS ABS # 0.35 K/uL (0-0.5); IG# 0.03 K/uL (0.00-0.02); LYMPH % 56.4 %; LYMPH ABS # 9.38 K/uL (1.2-3.4); MONO % 5.4 %; MONO ABS # 0.89 K/uL (0.11-0.59); NEUT % 35.7 %; NEUT ABS # 5.94 K/uL (1.4-6.5)
[2017-11-20 08:39] VITALS: BP 155/79; PULSE 68; TEMP 36.6; O2SAT 99
[2017-11-20] MEDS: METOPROLOL SUCC 50MG EXT REL TAB PO SCH (08:49)
[2017-11-20] MEDS: EZETIMIBE 10MG TAB PO SCH (08:49)
[2017-11-20] MEDS: INSULIN GLARGINE SOLOSTAR 100 UNITS/ML 3 ML PEN SC SCH (08:54)
[2017-11-20] MEDS: INSULIN ASPART 100 UNITS/ML 3 ML PEN SC SCH ×2 (08:54→12:35)
[2017-11-20] MEDS: DOCUSATE SODIUM/SENNA 50/8.6MG TAB PO SCH (08:54)
[2017-11-20] MEDS: ALUMINUM/MAGNESIUM/SIMETH (MAALOX MAX) 30 ML UDC PO PRN (08:59)
[2017-11-20] MEDS: ASPIRIN 81 MG ECTAB PO SCH (09:59)
[2017-11-20] MEDS: MULTIVITAMIN TAB PO SCH (09:59)
--- NOTE | 2017-11-20 10:26 | Medical Consult ---
Consultation Date of Consultation: Nov 20, 2017. Attending Physician: Corwin Molina MD Reason for Consultation: Consultation for CLL while hospitalized as patient has been noncompliant with outpatient follow up History of Present Illness Mr. Jo is a 57 yo M known to the consulting Hematology service. He established with Dr. Moore for CLL and has not followed up since 2016. Reportedly he has not had insurance and also has been off all of his medications. He has a PMH significant for CAD with cardiac arrest, s/p AICD, T2DM, GERD, HTN. He came to [facility] over the weekend for persistent abdominal pain that started radiating to chest and back. He had a CT of chest/abdomen/pelvis on 11/13/17 with [email or web address] but this has not been yet resulted. His cardiac work up thus far has been negative. Cardiology was consulted and feels this is not cardiac in nature. He had CTA in work up which reveals neck and intrathoracic adenopathy. Negative for PE. Additional history obtained from the patient at bedside. He states over the past few weeks he has had abdominal pain associated with constipation and nausea. He had BM on Monday and another today. He is now taking stool softener. He states prior to admission pain was radiating into his chest and back. He states his pain is now dissipated from chest, less than 5/10 in abdomen. He states in 2010 he weighed 309 and during this hospitalization he weighs 244; he thinks he has lost weight over past few years. He denies fevers, sweats, recurrent infections and he has not noted his adenopathy. 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 Past Medical/Surgical History Medical Problems: (1) CLL (chronic lymphocytic leukemia) Status: Acute (2) Influenza B Status: Acute (3) Intra-abdominal lymphadenopathy Status: Acute (4) Intractable back pain Status: Acute (5) Precordial chest pain Status: Acute (6) Retroperitoneal lymphadenopathy Status: Acute Family History Diabetes mellitus FATHER FH: heart disease FATHER (CHF) BROTHER ( of aneurysm age 44) SISTER (Open Heart Surgery at age 18 ) Social History Smoking Status: Current Every Day Smoker Drug Use: none Marital Status: Housing Status: lives with family Occupation Status: employed Allergies Coded Allergies: Latex (Verified Allergy, Mild, hives, 10/26/16) Current Inpatient Medications Current Inpatient Medications Medications (Trade) Dose Ordered Sig/Radha Route Start Time Stop Time Status Last Admin Dose Admin Ioversol (Optiray 320) 100 ml UD PRN IV 11/19/17 02:30 11/23/17 02:29 Acetaminophen (Tylenol Tab) 650 mg Q4H PRN PO 11/19/17 04:30 12/19/17 04:29 Al Hydrox/Mg Hydrox/Simethicone (Maalox Max Susp) 15 ml Q4H PRN PO 11/19/17 04:30 12/19/17 04:29 11/20/17 08:59 15 ML Ondansetron HCl (Zofran Inj) 4 mg Q6H PRN IV 11/19/17 04:30 12/19/17 04:29 Nitroglycerin (Nitrostat Tab) 0.4 mg UD PRN SL 11/19/17 04:30 12/19/17 04:29 11/19/17 05:56 0.4 MG Polyethylene (Miralax Powder Packet) 17 gm DAILY PRN PO 11/19/17 04:30 12/19/17 04:29 11/19/17 12:16 17 GM Multivitamins (Multivitamin Tab) 1 tab DAILY PO 11/19/17 09:00 12/19/17 08:59 11/20/17 09:59 1 TAB Aspirin (Ecotrin Tab) 81 mg QAM PO 11/19/17 09:00 12/19/17 08:59 11/20/17 09:59 81 MG EZETIMIBE (Zetia Tab) 10 mg QAM PO 11/19/17 09:00 12/19/17 08:59 11/20/17 08:49 10 MG Metoprolol Succinate (Toprol Xl Tab) 50 mg QAM PO 11/19/17 09:00 12/19/17 08:59 11/20/17 08:49 50 MG Insulin Aspart (novoLOG ASPART) SLIDING SCALE G... ACHS SC 11/19/17 07:00 12/19/17 06:59 11/20/17 08:54 1 UNITS Glucose (Glucose 40% Gel) 15-30 GRAMS 15 GRAMS... UD PRN PO 11/19/17 04:45 12/19/17 04:44 Glucose (Glucose Chew Tab) 4-8 Tablets 4 Tabl... UD PRN PO 11/19/17 04:45 12/19/17 04:44 Dextrose (Dextrose 50% 50ML Syringe) 25-50ML OF 50% DW IV FOR... UD PRN IV 11/19/17 04:45 12/19/17 04:44 Glucagon (Glucagon Inj) 1 mg UD PRN SQ 11/19/17 04:45 12/19/17 04:44 Miscellaneous (Iv Fluids Completed) 1 ea PRN PRN N/A 11/19/17 05:00 11/19/18 04:59 Insulin Glargine (Lantus Solostar Pen) 5 units BID SC 11/19/17 21:00 12/19/17 20:59 11/20/17 08:54 5 UNITS Ketorolac Tromethamine (Toradol Inj) 15 mg Q6H PRN IV 11/19/17 17:00 11/21/17 16:59 11/20/17 01:05 15 MG Senna/Docusate Sodium (Senokot S Tab) 1 tab BID PO 11/19/17 21:00 12/19/17 20:59 11/19/17 21:14 1 TAB Review of Systems Constitutional: + weight loss, No fever, No chills, No fatigue Respiratory: No cough, No shortness of breath Cardiovascular: + chest pain, No edema Abdomen: + pain, + nausea, + constipation, No GI bleeding Neurologic: No vertigo Hematologic / Lymphatic: + swollen lymph nodes, No night sweats Physical Exam Date Time Temp Pulse Resp B/P (MAP) Pulse Ox O2 Delivery O2 Flow Rate FiO2 11/20/17 08:39 36.6 68 18 155/79 (104) 99 Room Air 11/20/17 04:00 Room Air 11/20/17 03:45 36.7 66 18 148/86 (106) 98 Room Air 11/20/17 00:00 Room Air 11/19/17 23:40 36.8 61 20 150/64 (92) 98 Room Air 11/19/17 20:33 37.1 63 16 158/72 (100) 96 Room Air 11/19/17 20:00 Room Air 11/19/17 16:05 37.1 58 18 136/73 (94) 98 Room Air 11/19/17 16:00 Room Air 11/19/17 12:25 36.9 88 18 136/74 (94) 99 11/19/17 12:00 Room Air General Appearance: WD/WN, no apparent distress ENT: hearing grossly normal Neck: supple, + adenopathy present Respiratory/Chest: lungs clear, normal breath sounds, no respiratory distress Cardiovascular: no edema Abdomen/GI: soft, no organomegaly (by palpation) Extremities/Musculoskelatal: no calf tenderness, no pedal edema Neurologic/Psych: alert, oriented x 3 Lymphatic: + axillary node abnormality (bilateral, right greater than left) Laboratory Results 11/19/17 00:35 Red Blood Count 4.51, Mean Corpuscular Volume 86.9, Mean Corpuscular Hemoglobin 31.9, Mean Corpuscular Hemoglobin Concent 36.7, Mean Platelet Volume 9.5, Neutrophils (%) (Auto) 34.2, Lymphocytes (%) (Auto) 55.1, Monocytes (%) (Auto) 8.8, Eosinophils (%) (Auto) 1.5, Basophils (%) (Auto) 0.2, Neutrophils # (Auto) 6.38, Lymphocytes # (Auto) 10.30, Monocytes # (Auto) 1.65, Eosinophils # (Auto) 0.28, Basophils # (Auto) 0.04 11/20/17 06:48 Red Blood Count 4.52, Mean Corpuscular Volume 87.8, Mean Corpuscular Hemoglobin 31.2, Mean Corpuscular Hemoglobin Concent 35.5, Mean Platelet Volume 9.6, Neutrophils (%) (Auto) 35.7, Lymphocytes (%) (Auto) 56.4, Monocytes (%) (Auto) 5.4, Eosinophils (%) (Auto) 2.1, Basophils (%) (Auto) 0.2, Neutrophils # (Auto) 5.94, Lymphocytes # (Auto) 9.38, Monocytes # (Auto) 0.89, Eosinophils # (Auto) 0.35, Basophils # (Auto) 0.03 11/19/17 00:35 11/20/17 06:48 Test 11/19/17 00:35 11/19/17 00:36 11/19/17 06:36 11/19/17 06:37 White Blood Count 18.69 K/uL (4.8-10.8) Red Blood Count 4.51 M/uL (4.7-6.1) Hemoglobin 14.4 g/dL (14.0-18.0) Hematocrit 39.2 % (42-52) Mean Corpuscular Volume 86.9 fL (80-100) Mean Corpuscular Hemoglobin 31.9 pg (25-34) Mean Corpuscular Hemoglobin Concent 36.7 g/dl (32-36) Platelet Count 205 K/uL (130-400) Mean Platelet Volume 9.5 fL (7.4-10.4) Neutrophils (%) (Auto) 34.2 % Lymphocytes (%) (Auto) 55.1 % Monocytes (%) (Auto) 8.8 % Eosinophils (%) (Auto) 1.5 % Basophils (%) (Auto) 0.2 % Neutrophils # (Auto) 6.38 K/uL (1.4-6.5) Lymphocytes # (Auto) 10.30 K/uL (1.2-3.4) Monocytes # (Auto) 1.65 K/uL (0.11-0.59) Eosinophils # (Auto) 0.28 K/uL (0-0.5) Basophils # (Auto) 0.04 K/uL (0-0.2) RDW Standard Deviation 41.7 fL (36.4-46.3) RDW Coefficient of Variation 13.2 % (11.5-14.5) Immature Granulocyte % (Auto) 0.2 % Immature Granulocyte # (Auto) 0.04 K/uL (0.00-0.02) Nucleated RBC Absolute Count (auto) 0.08 K/uL (0-0) Nucleated Red Blood Cells % 0.4 % Smudge Cells PRESENT D-Dimer 610 ug/L FEU (0-500) Anion Gap 6.0 mmol/L (3-11) Est Creatinine Clear Calc Drug Dose 130.4 ml/min Estimated GFR () 112.2 Estimated GFR (Non- 96.8 BUN/Creatinine Ratio 12.6 (10-20) Calcium Level 9.0 mg/dl (8.5-10.1) Total Bilirubin 0.6 mg/dl (0.2-1) Direct Bilirubin 0.1 mg/dl (0-0.2) Aspartate Amino Transf (AST/SGOT) 8 U/L (15-37) Alanine Aminotransferase (ALT/SGPT) 16 U/L (12-78) Alkaline Phosphatase 89 U/L (45-117) Troponin I < 0.015 ng/ml (0-0.045) Total Protein 7.3 gm/dl (6.4-8.2) Albumin 3.6 gm/dl (3.4-5.0) Lipase 279 U/L (73-393) Bedside Troponin I < 0.030 ng/ml (0-0.045) Estimated Average Glucose 232 mg/dl Hemoglobin A1c 9.7 % (4.5-5.6) Triglycerides Level 170 mg/dl (0-150) Cholesterol Level 186 mg/dl (0-200) HDL Cholesterol 26 mg/dl LDL Cholesterol, Calculated 126 mg/dl VLDL Cholesterol, Calculated 34 mg/dl Cholesterol/HDL Ratio 7.2 Hepatitis C Antibody Screen NEG (NEG) Bedside Glucose 159 mg/dl (70-99) Test 11/19/17 12:06 11/19/17 12:11 11/19/17 16:36 11/19/17 20:24 Bedside Glucose 151 mg/dl (70-99) 138 mg/dl (70-99) Creatine Kinase MB < 0.5 ng/ml (0.5-3.6) 0.6 ng/ml (0.5-3.6) Creatine Kinase MB Ratio (0-3.0) (0-3.0) Troponin I < 0.015 ng/ml (0-0.045) < 0.015 ng/ml (0-0.045) Test 11/19/17 20:38 11/20/17 06:48 11/20/17 07:06 11/20/17 08:28 Bedside Glucose 137 mg/dl (70-99) 146 mg/dl (70-99) White Blood Count 16.62 K/uL (4.8-10.8) Red Blood Count 4.52 M/uL (4.7-6.1) Hemoglobin 14.1 g/dL (14.0-18.0) Hematocrit 39.7 % (42-52) Mean Corpuscular Volume 87.8 fL (80-100) Mean Corpuscular Hemoglobin 31.2 pg (25-34) Mean Corpuscular Hemoglobin Concent 35.5 g/dl (32-36) Platelet Count 188 K/uL (130-400) Mean Platelet Volume 9.6 fL (7.4-10.4) Neutrophils (%) (Auto) 35.7 % Lymphocytes (%) (Auto) 56.4 % Monocytes (%) (Auto) 5.4 % Eosinophils (%) (Auto) 2.1 % Basophils (%) (Auto) 0.2 % Neutrophils # (Auto) 5.94 K/uL (1.4-6.5) Lymphocytes # (Auto) 9.38 K/uL (1.2-3.4) Monocytes # (Auto) 0.89 K/uL (0.11-0.59) Eosinophils # (Auto) 0.35 K/uL (0-0.5) Basophils # (Auto) 0.03 K/uL (0-0.2) RDW Standard Deviation 42.6 fL (36.4-46.3) RDW Coefficient of Variation 13.4 % (11.5-14.5) Immature Granulocyte % (Auto) 0.2 % Immature Granulocyte # (Auto) 0.03 K/uL (0.00-0.02) Smudge Cells PRESENT Anion Gap 6.0 mmol/L (3-11) Est Creatinine Clear Calc Drug Dose 115.7 ml/min Estimated GFR () 105.1 Estimated GFR (Non- 90.7 BUN/Creatinine Ratio 18.1 (10-20) Uric Acid 5.0 mg/dl (2.6-7.2) Calcium Level 8.9 mg/dl (8.5-10.1) Magnesium Level 2.0 mg/dl (1.8-2.4) Lactate Dehydrogenase 247 U/L (87-241) CTA from 11/19/17: Thyroid: Imaged portions of the thyroid gland are normal in size and attenuation. Thoracic aorta: There is mild atherosclerotic calcification of the thoracic aorta, which is normal in caliber and demonstrates standard 3-vessel arch anatomy. No dissection is seen. Pulmonary vasculature: The pulmonary trunk is normal in caliber. There are no filling defects identified in main, lobar, or segmental pulmonary branches to suggest pulmonary embolus. Heart: A single lead cardiac pacemaker is present in the left chest wall. The heart is top normal in size and without pericardial effusion. The coronary arteries are densely calcified. Lungs and pleural spaces: There is no airspace consolidation or pleural effusion. Mild diffuse peribronchial thickening suggests reactive airway disease. The trachea and central airways are clear. Lower neck: There is supraclavicular lymphadenopathy identified. The largest node is on the right measuring 4.0 x 2.4 cm. Mediastinum: There is bulky mediastinal lymphadenopathy. Prevascular nodes measure up to 1.3 cm in short axis. A left paratracheal node seen on image #199 measures 3.5 x 2.3 cm. A subcarinal node measures 7.1 x 2.5 cm. Key: There is bilateral hilar adenopathy. Hilar nodes measure up to 1.7 cm in short axis. Axillae: There is bulky bilateral axillary and subpectoral lymphadenopathy. The largest axillary node on the right measures 4.5 x 1.8 cm. Upper abdomen: There is upper abdominal lymphadenopathy. A portacaval node on image #7 measures 7.5 x 4.5 cm. Gastrohepatic nodes measure up to 2.1 cm in short axis. Retrocaval nodes measure up to 2.6 cm in short axis. Retrocrural nodes measure up to 1.5 cm in short axis. The spleen is enlarged, measuring over 15 cm in length. There is a 2.0 cm myelolipoma noted in the right adrenal gland. A tiny hiatal hernia is identified. Skeletal structures: No lytic or blastic bony lesions are seen. Mild degenerative change is seen in the shoulders and thoracic spine. Abdominal US from 11/19/17: Liver: The liver is enlarged, measuring 21.1 cm in length. The liver demonstrates heterogeneously increased echotexture consistent with hepatic steatosis. There is no intrahepatic biliary ductal dilatation. The main portal vein is patent. Gallbladder: The gallbladder is normal in appearance. No gallstones are identified. There is no gallbladder wall thickening or pericholecystic fluid. A sonographic Don's sign is reportedly absent. The common bile duct measures up to 0.3 cm in diameter. Pancreas: Visualized portions of the pancreatic head and body are normal in appearance. Spleen: The spleen is enlarged, measuring over 18 cm in length. The splenic vein is patent. Kidneys: The kidneys are normal in size and echotexture. There is no hydronephrosis. The right kidney measures 13.2 cm in length and the left kidney measures 14.1 cm in length. No shadowing calculi are identified. Abdominal vasculature: There is atherosclerotic calcification of the abdominal aorta. The distal abdominal aorta is ectatic and measures up to 2.7 cm. Ascites: None. Abdomen: Upper abdominal lymphadenopathy is identified. Aggregate measures 9.6 x 5.5 x 6.3 cm. Assessment & Plan 1. CLL 2. Diffuse bulky adenopathy 3. 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 with his diffuse bulky adenopathy * I recommended he have a biopsy of cervical or axillary nodes, but patient states he needs to leave hospital today and he is not going to wait to have a biopsy * Patient has been considerably noncompliant, likely due to lack of insurance * He states he understands the importance of follow up and that he will need close follow up after discharge to have biopsy done of his adenopathy * Explained that high grade lymphoma is treatable and he needs to be compliant * He repeatedly said he would follow up * I asked for his most current contact information and he states his cell is and email is [email or web address] Thanks for the consult. Discussed case with Drs. Bradshaw and Oscar. I have discussed the patient's case, impression and plan with Jessica Conroy. Her note reflects my findings and plan. Patient was discharged before I could see him in the hospital. Patient is known to Dr. moore, he will continue to have follow-up with her. Dr. Connor Bradshaw Hem/Onc
--- NOTE | 2017-11-20 11:20 | PROGRESS NOTE ---
DATE: 11/20/2017 The patient seen and examined. Chart, medications, telemetry reviewed. SUBJECTIVE: The patient notes no complaints since last night, had a large bowel movement and feels substantially improved. Notes no chest pain, shortness of breath, tachy palpitations. Does freely admit he has not been taking his medications as previously prescribed. Notes no recent anginal symptoms. Notes no tachy palpitations, orthopnea, PND or peripheral edema. Notes no defibrillator activation. Appetite has been generally good. Notes no acute weight loss or gain. Notes no signs or symptoms of fluid retention. OBJECTIVE: VITAL SIGNS: Heart rate is 68, blood pressure is 155/79. NECK: Thick. There is no distinct jugular venous distention. LUNGS: Clear to auscultation. CARDIOVASCULAR: Regular with normal S1, S2. There is no S3 gallop. ABDOMEN: Soft, nontender. EXTREMITIES: Without cyanosis or clubbing. There is no peripheral edema. DATA: EKG reviewed in the morning reveals sinus rhythm, poor R-wave progression across the anterior precordial leads consistent with prior anterior infarct unchanged. No acute ST segment abnormalities. Laboratory studies since admission revealed normal troponins. Echocardiogram as per review by Dr. Cruz yesterday demonstrates generally preserved LV systolic function and acute cardiac findings. IMPRESSION: A 57-year-old male admitted with atypical pain and discomfort appears noncardiac in nature. RECOMMENDATIONS: We would recommend the patient to resume usual cardiac medications with the patient long absence. The patient previously on Toprol-XL, aspirin, Zetia, diabetes medications as per primary service. We would recommend discharge to outpatient management with stress testing to be performed in the next 2-3 weeks' time as routine followup. We would be glad to see patient in a routine cardiac clinic visit to establish our cardiac care closer to the local area with continued EP follow up with Dr. Brewer. Patient to be seen as an outpatient in the next months' time.
[2017-11-20 11:47] VITALS: Ht 188 cm; Wt 113.2 kg
[2017-11-20 12:00] VITALS: BP 154/89; PULSE 59; TEMP 37.1; O2SAT 97
--- NOTE | 2017-11-20 12:02 | Progress Note ---
Internal Med Progress Note Date of Service: Nov 20, 2017. Provider Documentation: SUBJECTIVE: Seen and examined at bedside Constipation resolved Minimal abdominal pain Eager to get discharged Denies chest pain, nausea, SOB, dizziness Discussed with case management regarding discharge planning OBJECTIVE: Vital Signs-as noted below Physical Exam: General Appearance:Moderately built and nourished, no apparent distress Head: normocephalic, Atraumatic Eyes: normal inspection, EOMI, PERRL Neck: supple, Trachea midline Respiratory/Chest: Normal breath sounds, CTA Cardiovascular: S1, S2, No murmur Abdomen/GI:Soft, non tender, Bowel sounds present Extremities/Musculoskelatal:normal inspection, no edema Neurologic/Psych:AAOX3, grossly no focal neurological deficits Skin: normal color, warm Lab data as noted below. ASSESSMENT & PLAN: Patient is a 57 yr male with PMH of CLL, DM II, CAD S/P stent S/P AICD and other problems who has not been taking medications for last 1 1/2 years presents with abdominal and chest pain. Chest Pain: R/O ACS Risk factors: H/O CAD s/p stent, cardiac arrest S/P AICD, HTN, HLP, Tobacco use disorder, DM II H/O non compliance to medications Troponin X 2:Negative EKG:No signs of acute Ischemia CTA: No evidence of PE, consolidation or pleural effusion ECHO: EF:55-60%, small pericardial effusion Continue Aspirin,Zetia, metoprolol, NTG PRN Oxygen PRN Appreciate Cardiology Input Needs stress test as outpatient Abdominal pain: h/o mild hepatosplenomegaly from CLL CTA:consistent with a lymphoproliferative disorder, splenomegaly bowel regimen for constipation CT Abd on 11/13/17 done as outpatient: results pending ABD USD:Hepatomegaly and hepatic steatosis, Splenomegaly abdominal lymphadenopathy KUB:Nonobstructed abdominal bowel gas pattern noting moderate colonic fecal retention. pain control monitor H/O CLL Not on any treatment currently Not following with Oncology Known to Advised to follow with tertiary care center for any clinical trial, but patient refused in past Oncology consulted DM II: Currently not taking meds Non compliance Was on Metformin and glipizide previously HbA1c:9.7 Continue ISS, Lantus Monitor BGs Patient prefers to be discharged on only oral meds for now Advised to follow up with PCP regarding Insulin therapy H/O HTN: No taking meds continue Metoprolol monitor DVT Px: SCDs Code Status: Full Code Disposition: Plan to discharge home today Social Service to help with discharge planning and Insurance issues. Follow up with on 11/24/17 at 12:45pm Follow up with your Oncologist Follow up with your Electric Locomotive Crane Operator on 11/22/17 AT 3:15PM Seek immediate medical attention if your symptoms reoccur or worsen PROCEDURES: ECHO: The left ventricle is normal in size. * There is moderate concentric left ventricular hypertrophy. * Left ventricular systolic function is normal. * Ejection Fraction = 55-60%. * Grade I diastolic dysfunction, (abnormal relaxation pattern). * No significant valvular pathology. * Small pericardial effusion. Vital Signs: Date Time Temp Pulse Resp B/P (MAP) Pulse Ox O2 Delivery O2 Flow Rate FiO2 11/20/17 08:39 36.6 68 18 155/79 (104) 99 Room Air 11/20/17 08:00 Room Air 11/20/17 04:00 Room Air 11/20/17 03:45 36.7 66 18 148/86 (106) 98 Room Air 11/20/17 00:00 Room Air 11/19/17 23:40 36.8 61 20 150/64 (92) 98 Room Air 11/19/17 20:33 37.1 63 16 158/72 (100) 96 Room Air 11/19/17 20:00 Room Air 11/19/17 16:05 37.1 58 18 136/73 (94) 98 Room Air 11/19/17 16:00 Room Air 11/19/17 12:25 36.9 88 18 136/74 (94) 99 Lab Results: Results Past 24 Hours Test 11/19/17 16:36 11/19/17 20:24 11/19/17 20:38 11/20/17 06:48 Range/Units Bedside Glucose 138 137 70-99 mg/dl Creatine Kinase MB 0.6 0.5-3.6 ng/ml Creatine Kinase MB Ratio 0-3.0 Troponin I < 0.015 0-0.045 ng/ml White Blood Count 16.62 4.8-10.8 K/uL Red Blood Count 4.52 4.7-6.1 M/uL Hemoglobin 14.1 14.0-18.0 g/dL Hematocrit 39.7 42-52 % Mean Corpuscular Volume 87.8 80-100 fL Mean Corpuscular Hemoglobin 31.2 25-34 pg Mean Corpuscular Hemoglobin Concent 35.5 32-36 g/dl Platelet Count 188 130-400 K/uL Mean Platelet Volume 9.6 7.4-10.4 fL Neutrophils (%) (Auto) 35.7 % Lymphocytes (%) (Auto) 56.4 % Monocytes (%) (Auto) 5.4 % Eosinophils (%) (Auto) 2.1 % Basophils (%) (Auto) 0.2 % Neutrophils # (Auto) 5.94 1.4-6.5 K/uL Lymphocytes # (Auto) 9.38 1.2-3.4 K/uL Monocytes # (Auto) 0.89 0.11-0.59 K/uL Eosinophils # (Auto) 0.35 0-0.5 K/uL Basophils # (Auto) 0.03 0-0.2 K/uL RDW Standard Deviation 42.6 36.4-46.3 fL RDW Coefficient of Variation 13.4 11.5-14.5 % Immature Granulocyte % (Auto) 0.2 % Immature Granulocyte # (Auto) 0.03 0.00-0.02 K/uL Smudge Cells PRESENT Sodium Level 137 136-145 mmol/L Potassium Level 4.1 3.5-5.1 mmol/L Chloride Level 103 98-107 mmol/L Carbon Dioxide Level 28 21-32 mmol/L Anion Gap 6.0 3-11 mmol/L Blood Urea Nitrogen 17 7-18 mg/dl Creatinine 0.92 0.60-1.40 mg/dl Est Creatinine Clear Calc Drug Dose 115.7 ml/min Estimated GFR () 105.1 Estimated GFR (Non- 90.7 BUN/Creatinine Ratio 18.1 10-20 Random Glucose 142 70-99 mg/dl Uric Acid 5.0 2.6-7.2 mg/dl Calcium Level 8.9 8.5-10.1 mg/dl Magnesium Level 2.0 1.8-2.4 mg/dl Test 11/20/17 07:06 11/20/17 08:28 Range/Units Bedside Glucose 146 70-99 mg/dl Lactate Dehydrogenase 247 87-241 U/L
[2017-11-20] MEDS ORDERED: GLC500 PO ×2 (12:22→12:36)
[2017-11-20] MEDS ORDERED: ASPI-320 PO ×2 (12:22→12:36)
[2017-11-20] MEDS ORDERED: GLIP10TA10 PO ×2 (12:22→12:36)
[2017-11-20] MEDS ORDERED: EZET10TA47 PO (12:22)
[2017-11-20] MEDS ORDERED: ATOR-54 PO (12:36)
[2017-11-20] MEDS ORDERED: DOCU-94 PO (12:36)
[2017-11-20] MEDS ORDERED: TPRSR50 PO (12:36)
--- NOTE | 2017-11-20 12:38 | Discharge Summary ---
Discharge Summary Date of Service Nov 20, 2017. Discharge Summary Admission Date: Nov 19, 2017 at 04:30 Discharge Date: Nov 20, 2017 Discharge Disposition: Home Principal Diagnosis: Atypical chest pain, abdominal pain Procedures: CTA: 1. There is no evidence of pulmonary embolus in the main, lobar, or segmental pulmonary arteries. 2. There is no airspace consolidation or pleural effusion. Mild diffuse peribronchial thickening suggests reactive airway disease. Clinical correlation will be required. 3. There is bulky supraclavicular, axillary, mediastinal, hilar, upper abdominal, and retroperitoneal lymphadenopathy. The spleen is enlarged. The findings are most consistent with a lymphoproliferative disorder such as lymphoma. Correlation with the patient's medical/oncological history will be required. 4. A cardiac pacemaker is noted. ABD USD: 1. No acute sonographic abnormality is identified. No gallstones are seen. 2. Hepatomegaly and hepatic steatosis. 3. Splenomegaly. 4. Bulky upper abdominal lymphadenopathy is identified and suggests a lymphoproliferative order. Correlation with the medical/oncological history will be required. KUB: Nonobstructed abdominal bowel gas pattern noting moderate colonic fecal retention. ECHO: * The left ventricle is normal in size. * There is moderate concentric left ventricular hypertrophy. * Left ventricular systolic function is normal. * Ejection Fraction = 55-60%. * Grade I diastolic dysfunction, (abnormal relaxation pattern). * No significant valvular pathology. * Small pericardial effusion. Consultations: Cardiology, Oncology Pending Studies/Follow-Up: Follow up with on 11/24/17 at 12:45pm Follow up with your Oncologist Follow up with your Outfitter Cabin on 11/22/17 AT 3:15PM Seek immediate medical attention if your symptoms reoccur or worsen Medication Reconciliation New Medications: Atorvastatin (Lipitor) 20 Mg Tab 1 TAB PO DAILY for 30 Days, #30 TAB 1 Refill Docusate Sodium (Colace) 100 Mg Cap 1 CAP PO BID PRN for constipation for 15 Days, #30 CAP Metoprolol Succinate (Metoprolol Succinate ER) 50 Mg Tabcr 50 MG PO QAM for 30 Days, #30 EA 1 Refill Continued Medications: Aspirin (Aspirin EC Low Dose) 81 Mg Ectab 81 MG PO DAILY for 30 Days, #30 EA 1 Refill (This prescription has been renewed) Glipizide (Glipizide) 10 Mg Tab 10 MG PO BIDM for 30 Days, #60 TAB 1 Refill (This prescription has been renewed) Ibuprofen (Advil) 200 Mg Tab 400 MG PO BID PRN for Pain, TAB Metformin HCl (Metformin HCl) 500 Mg Tab 500 MG PO BID for 30 Days, #60 TAB 1 Refill (This prescription has been renewed) Multiple Vitamin (Multivitamin) 1 Tab Tab 1 TAB PO DAILY, TAB Discontinued Medications: Ezetimibe (Zetia) 10 Mg Tab 1 TAB PO DAILY for 30 Days, #30 TAB 5 Refills Admission Information HPI (per Admitting provider): CHIEF COMPLAINT: Abdominal pain, chest pain. HISTORY OF PRESENT ILLNESS: This is a 57-year-old male with a past medical history significant for CAD, status post stent, history of systolic CHF, type 2 diabetes, history of cardiac arrest, status post AICD, GERD, hypertension, CLL, hyperlipidemia, presents with chest pain and abdominal pain. The patient says, he is not taking his medications since about [id number] years, not following with his doctors regularly. The patient states since last several days he is having abdominal pain. He saw his family doctor and a CAT scan of the abdomen and pelvis was done, do not know the results, but then lately his pain is going to chest which prompted him to come to the ER. When he came in, the patient's pain was about 8-9/10 in severity. Chest pain was going into the back. Also having lower abdomen and right upper quadrant pain. Denies any associated shortness of breath, no sweating, no nausea, no vomiting, no dizziness, no headaches, no blurred visions, no headache. No runny nose, no sore throat, no difficulty swallowing. No cough. Appetite okay. He is generally constipated. Normal bladder movements. No swelling in the legs. Currently, resting comfortably and hemodynamically stable. Physical Exam (per Admitting): PHYSICAL EXAMINATION: GENERAL: The patient is moderate built. The patient is obese, not in distress. VITAL SIGNS: Temperature 36.8, pulse 64, respiratory rate 18, blood pressure 130/66, oxygen 94% on room air. HEENT: No pallor, no icterus. Pupils equal, round, and reactive to light. NECK: No JVD, no neck masses, no carotid bruit. CARDIOVASCULAR SYSTEM: S1, S2 heard, regular rate and rhythm. No murmurs. ABDOMEN: Soft, bowel sounds present. Some mild discomfort in lower abdomen. No guarding or rigidity. No distention. CENTRAL NERVOUS SYSTEM: Cranial nerves II-XII grossly intact. Nonfocal. EXTREMITIES: No edema, no erythema. Hospital Course Patient is a 57 yr male with PMH of CLL, DM II, CAD S/P stent S/P AICD and other problems who has not been taking medications for last 1 1/2 years presents with abdominal and chest pain. Chest Pain: R/O ACS Risk factors: H/O CAD s/p stent, cardiac arrest S/P AICD, HTN, HLP, Tobacco use disorder, DM II H/O non compliance to medications Troponin X 2:Negative EKG:No signs of acute Ischemia CTA: No evidence of PE, consolidation or pleural effusion ECHO: EF:55-60%, small pericardial effusion Continue Aspirin,Zetia, metoprolol, NTG PRN Oxygen PRN Appreciate Cardiology Input Needs stress test as outpatient Abdominal pain: h/o mild hepatosplenomegaly from CLL CTA:consistent with a lymphoproliferative disorder, splenomegaly bowel regimen for constipation CT Abd on 11/13/17 done as outpatient: results pending ABD USD:Hepatomegaly and hepatic steatosis, Splenomegaly abdominal lymphadenopathy KUB:Nonobstructed abdominal bowel gas pattern noting moderate colonic fecal retention. 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 Follow up with on 11/24/17 at 12:45pm Follow up with your Oncologist as advised Follow up with your Outfitter Cabin on 11/22/17 AT 3:15PM Seek immediate medical attention if your symptoms reoccur or worsen PROCEDURES: ECHO: The left ventricle is normal in size. * There is moderate concentric left ventricular hypertrophy. * Left ventricular systolic function is normal. * Ejection Fraction = 55-60%. * Grade I diastolic dysfunction, (abnormal relaxation pattern). * No significant valvular pathology. * Small pericardial effusion. Total time spent on discharge = 33 minutes This includes examination of the patient, discharge planning, medication reconciliation, and communication with other providers. Discharge Instructions Discharge Instructions Date of Service Nov 20, 2017. Admission Reason for Admission: Chest Pain Discharge Discharge Diagnosis / Problem: Atypical chest pain, abdominal pain Discharge Goals Goal(s): Decrease discomfort, Improve function Activity Recommendations Activity Limitations: resume your previous activity Exercise/Sports Limitations: as tolerated . Instructions / Follow-Up Instructions / Follow-Up Follow up with on 11/24/17 at 12:45pm Follow up with your Oncologist Follow up with your Outfitter Cabin on 11/22/17 AT 3:15PM Seek immediate medical attention if your symptoms reoccur or worsen Current Hospital Diet Patient's current hospital diet: AHA Diet (Heart Healthy), Diabetes Type 2 Diet Discharge Diet Recommended Diet: AHA Diet (Heart Healthy), Diabetes Type 2 Diet Pending Studies Studies pending at discharge: no Laboratory Results Hemoglobin A1c Test 11/19/17 06:36 Range/Units Estimated Average Glucose 232 mg/dl Hemoglobin A1c 9.7 H 4.5-5.6 % Lipid Panel Test 11/19/17 06:36 Range/Units Triglycerides Level 170 H 0-150 mg/dl Cholesterol Level 186 0-200 mg/dl HDL Cholesterol 26 mg/dl Cholesterol/HDL Ratio 7.2 LDL Cholesterol, Calculated 126 mg/dl Medical Emergencies . Who to Call and When: Medical Emergencies: If at any time you feel your situation is an emergency, please call 911 immediately. . Non-Emergent Contact Non-Emergency issues call your: Primary Care Provider, Outfitter Cabin, Oncologist Call Non-Emergent contact if: you have a fever, your pain is not controlled, your pain is worsening, your pain is unusual for you, your pain is concerning you, you have any medication questions Seek immediate medical attention if your symptoms reoccur or worsen . . "Provider Documentation" section prepared by Corwin Molina. . <Electronically signed by Corwin Molina MD> Signed: 11/20/17 1237 Signed: The status of this report is Signed * If report status is Draft, the document has not been finalized by the responsible provider.
[2017-11-20 13:20] VITALS: BP 154/89; PULSE 59; TEMP 37.1; O2SAT 97
== END 2017-11-20 13:55 | disposition home or self-care (01) ==
LOC: C.EDB 00:01 → C.2T 04:30 → ENRESERV 04:43
PROVIDERS: ADMIT Internal Medicine; ATTEND Internal Medicine
DX: R07.89 Other chest pain (principal); R10.9 Unspecified abdominal pain; C91.10 Chronic lymphocytic leukemia of B-cell type not having achieved remission; Z91.19 Patient's noncompliance with other medical treatment and regimen; E11.9 Type 2 diabetes mellitus without complications; K21.9 Gastro-esophageal reflux disease without esophagitis; I25.10 Atherosclerotic heart disease of native coronary artery without angina pectoris; F17.200 Nicotine dependence, unspecified, uncomplicated; I10 Essential (primary) hypertension; Z91.040 Latex allergy status; Z95.810 Presence of automatic (implantable) cardiac defibrillator; Z83.3 Family history of diabetes mellitus; Z82.49 Family history of ischemic heart disease and other diseases of the circulatory system

== ENCOUNTER 2017-12-05 10:38 | Day surgery (SDC) | payer OTHER ==
[2017-12-01 13:41] VITALS: BMI 31.0
[~2017-12-05] VITALS: Ht 188 cm; Wt 109.5 kg
[~2017-12-05 10:38] MED LIST changes: -ASPI-319 PO; +ASPI81TA28 PO; +ATOR-22 PO; +ATROPINE SULFATE 0.1 MG/ML 5ML SYR IV PRN; +DOCU100C31 PO; -EZET10TA47 PO; +EpHEDrine SULFATE INJ 50 MG/ML AMP IV PRN; -GLIP-197 PO; +GLIP10TA10 PO; +HYDROmorphone INJ 2 MG/ML SYR/VIAL IV PRN; +LACTATED RINGER'S 1000ML 1,000 ML IV SCH; +MORP15TA PO; +ONDANSETRON INJ 2 MG/ML 2 ML VIAL IV PRN; +PHENYLEPHRINE 100MCG/ML 5ML SYR IV PRN; -ROSU40TA PO
[2017-12-05 11:08] VITALS: BP 124/81; PULSE 80; TEMP 36.6; O2SAT 96; Ht 188 cm; Wt 109.5 kg
[2017-12-05] MEDS ORDERED: PROPOFOL IV EMULSION 10 MG/ML 20 ML VIAL ONE (12:31)
[2017-12-05] MEDS ORDERED: DEXAMETHASONE SOD INJ 4 MG/ML VIAL ONE (12:31)
[2017-12-05] MEDS ORDERED: LIDOCAINE HCL 2% 2 ML VIAL (20MG/ML) ONE (12:31)
[2017-12-05] MEDS ORDERED: FENTANYL CITRATE INJ 50 MCG/1 ML 2 ML VIAL ONE (12:31)
[2017-12-05] MEDS ORDERED: MIDAZOLAM HCL 1 MG/ML 2ML VIAL ONE ×2 (12:31→13:05)
[2017-12-05] MEDS ORDERED: ONDANSETRON INJ 2 MG/ML 2 ML VIAL ONE (12:31)
[2017-12-05] MEDS ORDERED: BUPIVACAINE 0.5 % 5 MG/1 ML MPF 30ML VIAL ONE (12:36)
--- NOTE | 2017-12-05 12:52 | History & Physical Bridge Note ---
H&P Re-Evaluation Bridge Note: I have examined the patient, reviewed the History & Physical and in the interval since the performance of the History & Physical I have noted the following changes of clinical significance: No changes noted
[2017-12-05] MEDS ORDERED: LIDOCAINE/EPINEPHRINE 1% 20 ML VIAL ONE (13:19)
[2017-12-05] MEDS ORDERED: FLUMAZENIL 0.1 MG/1 ML 10 ML VIAL IV ONE (13:31)
[2017-12-05] MEDS ORDERED: SODIUM CHLORIDE 0.9% 1000ML 1,000 ML IV SCH (13:44)
--- NOTE | 2017-12-05 13:44 | [facility] Post Operative Brief Note ---
Immediate Operative Summary Operative Date December 05, 2017. Pre-Operative Diagnosis Lymphadenopathy Post-Operative Diagnosis Lymphadenopathy Procedure(s) Performed Excisional biopsy of left inguinal lymph node Surgeon Dr. Hong Fontana MD Fast Brim Pouncer Surgeon(s) None Estimated Blood Loss 2ml Findings Consistent with Post-Op Diagnosis Specimens A. Left inguinal lymph node Drains None Anesthesia Type MAC Complication(s) none
[2017-12-05] MEDS ORDERED: IBUPROFEN 600 MG TAB PO PRN (13:45)
[2017-12-05] MEDS ORDERED: ONDANSETRON INJ 2 MG/ML 2 ML VIAL IV PRN (13:45)
[2017-12-05] MEDS ORDERED: OXYCODONE/ACETAMINOPHEN 5-325 TAB PO PRN (13:45)
--- NOTE | 2017-12-05 13:49 | Discharge Instructions ---
Discharge Instructions Date of Service December 05, 2017. Admission Reason for Admission: Enlarged Lymph Nodes Discharge Discharge Diagnosis / Problem: Same Discharge Goals Goal(s): Diagnostic testing Activity Recommendations Activity Limitations: per Instructions/Follow-up section Lifting Limitations: no more than 10 pounds (for 1 week) Shower/Bathe: tomorrow (shower only) . Instructions / Follow-Up Instructions / Follow-Up MEDICATIONS: Resume previous medications unless instructed otherwise by your surgeon. * Ibuprofen 600 mg every 6 hours with food * Tylenol 650 mg every 4 hours, as needed for pain SPECIAL CARE INSTRUCTIONS: * May shower in 24 hours. Let water run over area and pat dry. * Leave steri-strips on for 7 days and then remove. * Call the surgeon's office with any questions or concerns - (ex. temperature higher than 101 degrees F, excessive bleeding or pain). FOLLOW UP VISIT: If not already scheduled, please call the office to schedule a one week follow- up appointment. Office number Current Hospital Diet Patient's current hospital diet: Discharge Diet Recommended Diet: Regular Diet Procedures Procedures Performed: Excisional biopsy of left inguinal lymph node Pending Studies Studies pending at discharge: yes List of pending studies: Pathology Laboratory Results Hemoglobin A1c Test 11/19/17 06:36 Range/Units Estimated Average Glucose 232 mg/dl Hemoglobin A1c 9.7 H 4.5-5.6 % Lipid Panel Test 11/19/17 06:36 Range/Units Triglycerides Level 170 H 0-150 mg/dl Cholesterol Level 186 0-200 mg/dl HDL Cholesterol 26 mg/dl Cholesterol/HDL Ratio 7.2 LDL Cholesterol, Calculated 126 mg/dl Medical Emergencies . Who to Call and When: Medical Emergencies: If at any time you feel your situation is an emergency, please call 911 immediately. . Non-Emergent Contact Non-Emergency issues call your: Primary Care Provider, Surgeon Call Non-Emergent contact if: your pain is worsening, wound has increased redness, wound has increased pain . "Provider Documentation" section prepared by Hong Fontana. .
--- NOTE | 2017-12-05 14:06 | Anesthesiology Progress Note ---
Anesthesia Post Op Note Date & Time December 05, 2017 at 14:05 Vital Signs Pain Intensity: 0 Vital Signs Past 12 Hours Date Time Temp Pulse Resp B/P (MAP) Pulse Ox O2 Delivery O2 Flow Rate FiO2 12/05/17 14:00 67 15 113/72 100 Oxymask 10 12/05/17 13:50 36.1 67 13 108/68 100 Oxymask 10 12/05/17 11:08 36.6 80 16 124/81 (95) 96 Room Air Notes Mental Status: alert / awake / arousable, participated in evaluation Pt Amnestic to Procedure: Yes Nausea / Vomiting: adequately controlled Pain: adequately controlled Airway Patency, RR, SpO2: stable & adequate BP & HR: stable & adequate Hydration State: stable & adequate Anesthetic Complications: no major complications apparent
--- NOTE | 2017-12-05 14:18 | OPERATIVE REPORT ---
DATE OF OPERATION: 12/05/2017 PREOPERATIVE DIAGNOSIS: Lymphadenopathy. POSTOPERATIVE DIAGNOSIS: Same. PROCEDURE: Excisional biopsy of left inguinal lymph node. SURGEON: Hong Fontana MD FINDINGS: The patient had an approximately 1 cm lymph node in the left inguinal region. There were other lymph nodes that were palpable, but they were much deeper. The lymph node was round. There was no hilum. It was somewhat friable. TECHNIQUE: The patient was given intravenous sedation and the area was prepped and draped in the usual sterile fashion. The area had been previously marked and the incision area was then anesthetized with a 50:50 mixture of 1% Xylocaine with epinephrine and 0.5% Marcaine. A skin incision was made, carried down through the subcutaneous tissue to the external fascia which was opened. The lymph node was easily identified. It was away from the surrounding tissues using the LigaSure device. Once it was completely freed, it was sent for pathology. The wound was irrigated. It was inspected for bleeding and none was seen. The deep tissues were closed with running 2-0 Vicryl. The superficial subcutaneous tissue was closed with running 3-0 Vicryl and skin was closed with 4-0 Monocryl in a running subcuticular fashion. Skin was cleansed, dried, benzoin placed, Steri-Strips applied. The estimated blood loss was 2 mL. Sponge, needle and instrument counts were correct prior to closure. The patient tolerated the surgical procedure without complication and was transferred to recovery. I attest to the content of the Intraoperative Record and any orders documented therein. Any exception s are noted below.
[2017-12-05 14:20] VITALS: BP 121/72; PULSE 67; TEMP 36.9; O2SAT 95
[2017-12-05 14:50] VITALS: BP 130/75; PULSE 64; O2SAT 95
[2017-12-05 15:20] VITALS: BP 109/65; PULSE 70; TEMP 37; O2SAT 97
== END 2017-12-05 15:30 | disposition home or self-care (01) ==
LOC: C.ACU 10:38
PROVIDERS: ATTEND Surgery
DX: C91.10 Chronic lymphocytic leukemia of B-cell type not having achieved remission (principal); I25.10 Atherosclerotic heart disease of native coronary artery without angina pectoris; I10 Essential (primary) hypertension; E11.9 Type 2 diabetes mellitus without complications; E78.5 Hyperlipidemia, unspecified; F17.200 Nicotine dependence, unspecified, uncomplicated; I25.2 Old myocardial infarction; Z98.61 Coronary angioplasty status; Z79.82 Long term (current) use of aspirin

== ENCOUNTER → 2017-12-13 | Outpatient (CLI) | payer OTHER ==
[~2017-12-13] MED LIST changes: -ATROPINE SULFATE 0.1 MG/ML 5ML SYR IV PRN; -EpHEDrine SULFATE INJ 50 MG/ML AMP IV PRN; -HYDROmorphone INJ 2 MG/ML SYR/VIAL IV PRN; -LACTATED RINGER'S 1000ML 1,000 ML IV SCH; -MORP15TA PO; -MULTTAB58 PO; -ONDANSETRON INJ 2 MG/ML 2 ML VIAL IV PRN; -PHENYLEPHRINE 100MCG/ML 5ML SYR IV PRN
--- NOTE | 2017-12-14 08:05 | DIAGNOSTIC IMAGING REPORT ---
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 TECHNIQUE: PET/CT was performed from the skull base through the proximal thighs following the intravenous administration of 9.858 mCi of F18-FDG. Blood glucose level 64 mg/dL. The injection was performed at 1:45 PM and imaging began at 2:[address] was performed for attenuation correction purposes and anatomic localization. COMPARISON: Noncontrast CT of the abdomen and pelvis from 10/05/2015 and CTA chest from 11/19/2017. CT DOSE (mGy.cm): The estimated cumulative dose is 1156.30. FINDINGS: Head and neck: Numerous FDG avid and pathologically enlarged lymph nodes in the bilateral cervical regions involving the anterior and posterior cervical triangles. Index right cervical node measures 4.0 x 1.7 cm (series 2 image 47; max SUV 9.50). Chest: Left subclavian implanted cardiac device with single lead to the right ventricular apex. Numerous FDG avid pathologically enlarged lymph nodes in the bilateral axillae, supraclavicular fossae, mediastinum, and celia. Index right axillary lymph node measures 4.8 x 2.3 cm (series 2 image 72; max SUV 7.03). Atherosclerosis of the aorta. Normal heart size. Coronary artery calcification. No pericardial or pleural effusion. No FDG avid focal infiltrate or nodule. Airways patent. Abdomen and pelvis: Numerous FDG avid pathologically enlarged retroperitoneal lymph nodes throughout the abdomen and pelvis. These minimally extends into the inguinal regions bilaterally. Index right common iliac lymph node measures 3.9 x 3.5 cm (series 2 image 186; max SUV 8.19). The spleen is enlarged, measuring 17.4 cm in maximal sagittal dimension. FDG avidity of the spleen (max SUV 3.23) is only minimally elevated relative to the liver (max SUV 2.77). Normal distribution of radiotracer in the genitourinary and gastrointestinal tracts. Gallstones suggested. Musculoskeletal: No FDG-avid or destructive osseous lesion. IMPRESSION: 1. Initial PET/CT demonstrates multifocal FDG avid lymphadenopathy throughout the neck, chest, abdomen, and pelvis consistent with lymphoproliferative disease. The spleen may also be involved. Electronically signed by: Abe Wheeler M.D. 12/14/2017 8:04 AM Dictated Date/Time: 12/13/2017 4:19 PM
== END | disposition home or self-care (01) ==
LOC: C.PET 12:04
PROVIDERS: ATTEND Internal Medicine Hematology & Oncology
DX: C91.90 Lymphoid leukemia, unspecified not having achieved remission (principal)

== ENCOUNTER 2021-05-17 20:07 | Observation (INO) ==
[2021-05-17] MEDS ORDERED: VANCOMYCIN CONSULT ACTIVE PRN (22:30)
[2021-05-17] MEDS ORDERED: PIPERACILLIN/TAZOBACTAM 4.5 GM/120 ML BAG IV ONE (22:30)
[2021-05-17] MEDS ORDERED: PIPERACILL/TAZOBAC CONSULT ACTIVE PRN (22:30)
[2021-05-17] MEDS ORDERED: SODIUM CHLORIDE 0.9% 1000ML 1,000 ML IV SCH (22:30)
[2021-05-17] MEDS ORDERED: VANCOMYCIN HCL 2,250 MG in SODIUM CHLORIDE 0.9% 500 ML IV ONE (22:30)
--- NOTE | 2021-05-17 22:39 | Emergency Department Note ---
History of Present Illness General Chief complaint: Infection, Wound Stated complaint: R INFECTED FOOT Time Seen by Provider: 05/17/21 22:19 History of Present Illness Maximum Pain Intensity: 7 This is a 60-year-old male presenting to the emergency department for evaluation of right fifth toe redness worsening over the past few days. The patient had a corn/callus removed from the toe earlier this week, and subsequently has developed redness and swelling. The patient is a diabetic and with history of CLL. Additionally he has established coronary artery disease with previous cardiac arrest and neuropathy. He rates his current discomfort a 7/10 and believes that his shoes may be contributing to some of his discomfort. He has not had fever or chills. He is able to ambulate. He has not noticed any significant drainage or discharge from the toe. He is not compliant with his diabetic medication. Home Medications Medication Instructions Recorded Confirmed Type omega 2-cxa-cxg-fish oil 60 mg-90 2 cap PO DAILY #60 cap 07/16/19 05/17/21 Rx mg-500 mg capsule (Fish Oil) metoprolol succinate 50 mg 50 mg PO QAM #90 tab 09/25/19 05/17/21 Rx tablet,extended release 24 hr metformin 500 mg tablet 2,000 mg PO DAILY tab 03/12/20 05/17/21 History glipizide 10 mg tablet, extended 20 mg PO DAILY #60 tab 12/07/20 05/17/21 Rx release 24 hr rosuvastatin 40 mg tablet 40 mg PO DAILY 05/17/21 05/17/21 History Allergies Allergy/AdvReac Type Severity Reaction Status Date / Time aluminum Allergy Intermediate TEETH Verified 05/17/21 22:55 TINGLE latex Allergy Mild hives Verified 05/17/21 22:55 CASSANDRA Inhibitors Allergy Unknown Unknown Verified 05/18/21 02:58 Penicillins Allergy Unknown Amoxicillin Verified 05/18/21 02:58 okay, per patient Past Med/Surg History Medical History Anemia Cancer CLL (CHEMO TX) LAST TX 05/31/18 Cardiac arrest 2010 Chronic lymphocytic leukemia (CLL), B-cell Constipation Diabetes mellitus, type 2 DM2 (diabetes mellitus, type 2) Dyslipidemia H/O cardiac arrest HTN (hypertension) Hyperlipidemia Hypertension 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 (implantable cardioverter-defibrillator) in place 2010 IMPLANTED Lung nodule Male erectile disorder of organic origin Migraine with aura and without status migrainosus, not intractable Myocardial Infarction 2002 Nausea Osteoarthritis Pacemaker IMPLANTED 2010 ([facility]) MONITORS DEVICE Peripheral neuropathy Sciatica Sudden cardiac Thoracic back pain Surgical History History of anesthesia reaction APPY PROCEDURE-COULDN'T BREATHE>COMBATIVE History of appendectomy History of arthroscopy RT History of arthroscopy of knee History of cardiac cath 2003 History of colonoscopy History of heart artery stent 2002 (1 STENT) History of tooth extraction History of vascular access device A-PORT INSERTION Family History Father Diabetes Sister Congenital heart disease Diabetes Mother Hypertension Brother Myocardial infarction Denies family history of Ovarian cancer Prostate cancer Breast cancer Colorectal cancer Social History Smoking Status: Current every day smoker Tobacco Type: Cigarettes Cigarettes Per Day: 1/2 PPD; Second Hand Exposure: Yes (PAST HISTORY); Hx Alcohol Use: No Hx Substance Use: No Preferred Language: Kazakh Communication Ability: Effective Process Project Engineer Required: No Beliefs That Will Affect Care: None Current Living Situation: Alone Feels Safe at Home: Yes Safety Concerns: Feels Safe At This Time Assistive Devices: Glasses Review of Systems A total of 10 systems reviewed and were otherwise negative Physical Exam Vital Signs Vital Signs - 24 hr 05/17/21 20:09 05/18/21 01:00 Temperature 36.6 C Temperature Source Temporal Artery Scan Pulse Rate 90 Pulse Rate [Right Finger] 67 Respiratory Rate 16 19 Respiratory Effort / Characteristics Non-Labored Respiratory Depth Normal Blood Pressure [Right Arm] 139/75 Blood Pressure Mean [Right Arm] 96 Pulse Oximetry 96 98 Oxygen Delivery Method Room Air Room Air Sepsis Recent Fever Within 48 Hours No Sepsis New/Unexplained Change in Mental Status No Sepsis Action Taken by Nursing No Action Required VITALS: Vitals are noted on the nurse's note and reviewed by myself. Vital signs stable. GENERAL: Well-developed, well-nourished, white male, who is in no acute distress and resting comfortably. Patient is cooperative with the examination. HEAD: Normocephalic atraumatic. HEART: Regular rate and rhythm without murmurs gallops or rubs. LUNGS: Clear to auscultation bilaterally without wheezes, rales or rhonchi. No retractions or accessory muscle use. ABDOMEN: Positive normal bowel sounds x 4. Soft, nontender, without masses or organomegaly. No guarding or rebound tenderness. MUSCULOSKELETAL: There appears to be erythematous ulceration along the lateral aspect of the right fifth toe. There is purulent drainage and discharge which was sent for culture. Lymphangitic streaking is noted from the toe into the top of the right foot. NEURO: Patient was alert and oriented to person place and time. CN II through XII grossly intact. Course Administered Medications Piperacillin Sod/Tazobactam (Sod 3.375 gm/ Dextrose) 115 mls @ 28.75 mls/hr IV Q8H [facility] [place]; Protocol Stop: 05/25/21 05:59 Last Admin: 05/18/21 04:59 Dose: 28.8 mls/hr Documented by: [id number] Insulin Aspart (Insulin Aspart 100 Units/Ml 3 Ml Pen) 0 units SC ACHS [facility] [place] Stop: 06/17/21 03:59 Last Admin: 05/18/21 04:58 Dose: 6 units Documented by: [id number] Cosigned by: [id number] Insulin Glargine (Insulin Glargine Solostar 100 Units/Ml 3 Ml Pen) 10 units SC DAILY [facility] [place] Stop: 06/17/21 03:59 Last Admin: 05/18/21 04:58 Dose: 10 units Documented by: [id number] Cosigned by: [id number] Discontinued Medications Hydrocodone Bitart/Acetaminophen (Hydrocodone/Acetamophen 5/325mg Tab) Confirm Administered Dose 1 tab PO .STK-MED ONE Stop: 05/18/21 03:07 Last Admin: 05/18/21 03:09 Dose: 1 tab Documented by: [id number] Sodium Chloride (Nss 1000ml) 1,000 mls @ 999 mls/hr IV .Q1H1M [facility] Stop: 05/17/21 23:30 Last Infusion: 05/18/21 01:04 Dose: 0 mls/hr Documented by: [id number] Admin: 05/17/21 23:43 Dose: 999 mls/hr Documented by: [id number] Vancomycin HCl 2,250 mg/ (Sodium Chloride) 545 mls @ 200 mls/hr IV NOW ONE Stop: 05/18/21 01:13 Last Infusion: 05/18/21 04:29 Dose: 0 mls/hr Documented by: [id number] Admin: 05/18/21 01:01 Dose: 200 mls/hr Documented by: [id number] Piperacillin Sod/Tazobactam Sod (Zosyn) 4.5 gm in 120 mls @ 240 mls/hr IV NOW ONE Stop: 05/17/21 22:59 Last Infusion: 05/18/21 00:23 Dose: 0 mls/hr Documented by: [id number] Admin: 05/17/21 23:43 Dose: 240 mls/hr Documented by: [id number] Medical Decision Making Differential Diagnosis Differential diagnosis includes: Etiologies such as cellulitis, abscess, osteomyelitis, MRSA infection, DVT, necrotizing fasciitis, dermatitis, drug eruption, as well as others were entertained Laboratory Data Result diagrams: 05/18/21 05:30 05/17/21 23:38 Lab Results 05/17/21 05/17/21 05/17/21 Range/Units 21:48 23:05 23:05 WBC 9.71 (4.8-10.8) K/uL RBC 4.19 L (4.7-6.1) M/uL Hgb 13.2 L (14.0-18.0) g/dL Hct 37.0 L (42-52) % MCV 88.3 (80-100) fL MCH 31.5 (25-34) pg MCHC 35.7 (32-36) g/dL RDW Std Deviation 41.2 (36.4-46.3) fL RDW Coeff of Francisco 12.8 (11.5-14.5) % Plt Count 179 (130-400) K/uL MPV 9.8 (7.4-10.4) fL Immature Gran % (Auto) 0.2 % Neut % (Auto) 75.1 % Lymph % (Auto) 16.3 % Sampson % (Auto) 5.8 % Eos % (Auto) 2.3 % Baso % (Auto) 0.3 % Neut # (Auto) 7.30 H (1.4-6.5) K/uL Lymph # (Auto) 1.58 (1.2-3.4) K/uL Sampson # (Auto) 0.56 (0.11-0.59) K/uL Eos # (Auto) 0.22 (0-0.5) K/uL Baso # (Auto) 0.03 (0-0.2) K/uL Immature Gran # (Auto) 0.02 (0.00-0.02) K/uL ESR (0-20) mm/hr Sodium (136-145) mmol/L Potassium (3.5-5.1) mmol/L Chloride (98-107) mmol/L Carbon Dioxide (21-32) mmol/L Anion Gap (3-11) BUN (7-18) mg/dl Creatinine (0.6-1.4) mg/dl Est Cr Clr Drug Dosing ml/min Est GFR ( Amer) ml/min Est GFR (Non-Af Amer) ml/min BUN/Creatinine Ratio (10-20) Glucose (70-99) mg/dl Lactate (0.4-2.0) mmol/L Uric Acid (2.6-7.2) mg/dl Calcium (8.5-10.1) mg/dl Total Bilirubin (0.2-1) mg/dl AST (15-37) U/L ALT (12-78) U/L Alkaline Phosphatase (45-117) U/L C-Reactive Protein (0-0.29) mg/dl Total Protein (6.4-8.2) gm/dl Albumin (3.4-5.0) gm/dl Globulin (2.5-4.0) gm/dl Albumin/Globulin Ratio (0.9-2) Beta-Hydroxybutyric Acd (0.2-2.81) mg/dl COVID-19 Eval Order Covid19 at [facility] SARS-CoV-2 (PCR) NEGATIVE (Negative) 05/17/21 05/17/21 05/17/21 Range/Units 23:38 23:38 Unknown WBC (4.8-10.8) K/uL RBC (4.7-6.1) M/uL Hgb (14.0-18.0) g/dL Hct (42-52) % MCV (80-100) fL MCH (25-34) pg MCHC (32-36) g/dL RDW Std Deviation (36.4-46.3) fL RDW Coeff of Francisco (11.5-14.5) % Plt Count (130-400) K/uL MPV (7.4-10.4) fL Immature Gran % (Auto) % Neut % (Auto) % Lymph % (Auto) % Sampson % (Auto) % Eos % (Auto) % Baso % (Auto) % Neut # (Auto) (1.4-6.5) K/uL Lymph # (Auto) (1.2-3.4) K/uL Sampson # (Auto) (0.11-0.59) K/uL Eos # (Auto) (0-0.5) K/uL Baso # (Auto) (0-0.2) K/uL Immature Gran # (Auto) (0.00-0.02) K/uL ESR 43 H (0-20) mm/hr Sodium 134 L (136-145) mmol/L Potassium 4.0 (3.5-5.1) mmol/L Chloride 102 (98-107) mmol/L Carbon Dioxide 25 (21-32) mmol/L Anion Gap 6.0 (3-11) BUN 15 (7-18) mg/dl Creatinine 1.12 (0.6-1.4) mg/dl Est Cr Clr Drug Dosing 90.1 ml/min Est GFR ( Amer) 81.2 ml/min Est GFR (Non-Af Amer) 70.0 ml/min BUN/Creatinine Ratio 13.2 (10-20) Glucose 426 H* (70-99) mg/dl Lactate 1.0 (0.4-2.0) mmol/L Uric Acid 5.7 (2.6-7.2) mg/dl Calcium 9.2 (8.5-10.1) mg/dl Total Bilirubin 0.7 (0.2-1) mg/dl AST 6 L (15-37) U/L ALT 11 L (12-78) U/L Alkaline Phosphatase 104 (45-117) U/L C-Reactive Protein 4.45 H (0-0.29) mg/dl Total Protein 6.7 (6.4-8.2) gm/dl Albumin 3.2 L (3.4-5.0) gm/dl Globulin 3.5 (2.5-4.0) gm/dl Albumin/Globulin Ratio 0.9 (0.9-2) Beta-Hydroxybutyric Acd 2.18 (0.2-2.81) mg/dl COVID-19 Eval Order SARS-CoV-2 (PCR) (Negative) MDM Narrative Physical exam and history were performed. Nursing notes, EMR, and Medication List were personally reviewed. Patient appears to have ulceration that appears infected to the right fifth toe. The patient is diabetic with multiple comorbidities including CAD. IV access was established and labs were obtained. X-ray was performed. Blood and wound cultures were gathered. The patient was empirically started on vancomycin and Zosyn here in the ER. The patient's blood work is as above and was reviewed. He does not have a significantly elevated white blood cell count or gross anemia. Glucose is elevated at over 400. He does have an elevated sed rate and CRP. Transaminases are not diagnostic. Covid is negative. X-ray was performed and does not show obvious foreign body with official radiology read pending at the time of this dictation. Overall the patient does not appear well for discharge home. He is a diabetic with infected ulcer and labs concerning for possible osteomyelitis. The case was discussed with the on-call hospitalist team who agreed to evaluate the patie nt here in the ER. Please see their dictation for further patient course, plan, and disposition. The chart was completed utilizing [employer] Speech Voice Recognition Software. Grammatical errors, random word insertions, pronoun errors, and incomplete sentences are an occasional consequence of this system due to software limitations, ambient noise, and hardware issues. Any formal questions or conc erns about the content, text, or information contained within the body of this dictation should be directly addressed to the provider for clarification. . Impression & Plan Ulcer of toe due to diabetes, Cellulitis, Hyperglycemia due to type 2 diabetes mellitus Discharge Plan Visit Data Chief Complaint: Infection, Wound Stated Complaint: R INFECTED FOOT ED Provider: Gustavo Schwarz ED Midlevel Provider: Alphonso Fair Discharge Problem: Ulcer of toe due to diabetes, Cellulitis, Hyperglycemia due to type 2 diabetes mellitus Patient Disposition: Admitted As Inpatient Discharge Instructions Interventions: ED Discharge Assessment Last Done: 05/18/21 01:53
[2021-05-17 23:02] LABS: Basophils # (auto) 0.03 K/uL (0-0.2); Basophils % (auto) 0.3 %; Eosinophils # (auto) 0.22 K/uL (0-0.5); Eosinophils % (auto) 2.3 %; Hemoglobin 13.2 g/dL (14.0-18.0); Immature Granulocytes # (auto) 0.02 K/uL (0.00-0.02); Immature Granulocytes % (auto) 0.2 %; Lymphocytes # (auto) 1.58 K/uL (1.2-3.4); Lymphocytes % (auto) 16.3 %; Mean Corpuscular Hemoglobin 31.5 pg (25-34); Mean Corpuscular Hgb Conc 35.7 g/dL (32-36); Mean Corpuscular Volume 88.3 fL (80-100); Mean Platelet Volume 9.8 fL (7.4-10.4); Monocytes # (auto) 0.56 K/uL (0.11-0.59); Monocytes % (auto) 5.8 %; Neutrophils % (auto) 75.1 %; Platelet Count 179 K/uL (130-400); RDW Coefficient of Variation 12.8 % (11.5-14.5); RDW Standard Deviation 41.2 fL (36.4-46.3); Red Blood Count 4.19 M/uL (4.7-6.1); White Blood Count 9.71 K/uL (4.8-10.8)
[2021-05-18 00:20] LABS: Albumin Globulin Ratio 0.9 (0.9-2); Albumin Level 3.2 gm/dl (3.4-5.0); BUN Creatinine Ratio 13.2 (10-20); Bilirubin,Total 0.7 mg/dl (0.2-1); C Reactive Protein 4.45 mg/dl (0-0.29); Calcium 9.2 mg/dl (8.5-10.1); Creatinine Clr Calc Pharmacy 90.1 ml/min; Est GFR (African American) 81.2 ml/min; Globulin 3.5 gm/dl (2.5-4.0); Total Protein 6.7 gm/dl (6.4-8.2)
[2021-05-18 00:46] LABS: Beta-Hydroxybutyrate 2.18 mg/dl (0.2-2.81)
--- NOTE | 2021-05-18 01:38 | History & Physical Report ---
Date of Service May 18, 2021 Assessment & Plan (1) Ulcer of toe due to diabetes: Plan: Mr. Jo is a 60 yo gentleman with PMHx of uncontrolled type II diabetes who presented to the ED for evaluation of a R toe ulcer. - ulcer appears to be infected with ascending lymphangitis - SIRS criteria not met, not septic - patient is predisposed to foot ulcers due to underlying diabetes and neuropathy - associated elevated ESR and CRP - Foot XR read pending - consider ordering MRI in morning to rule out osteomyelitis (of note, patient will need to have ICD made MRI compatible by device rep before MRI can be obtained) - wound culture obtained, follow - blood culture obtained, follow - continue empiric IV vanco and zosyn - deescalate as culture results become available - HECTOR ordered given hx of diabetic ulcer, dyslipidemia and tobacco use (2) Uncontrolled type 2 diabetes mellitus with neurologic complication: Plan: - last A1c was 9.8 in 01/2021 - check A1c on admission - home regimen consists of Metformin 2,000mg daily and glipizide 20mg daily - hold oral agents while inpatient - blood sugar checks ACHS - start basal insulin 10 units and SSI - adjust as necessary - patient would benefit from diabetes education (3) Dyslipidemia: Plan: - continue Crestor - consider starting daily baby ASA (4) Tinea pedis: Plan: - lotramin ordered (5) Tobacco abuse: Plan: - current smoker - nicotine patch ordered - recommend cessation DVT ppx: Lovenox Dispo: Med/Surg Diet; Heart healthy, carb consistent Code: Full, I discussed with patient History of Present Illness Primary Care Provider: Ez Hassan MD Mr. Jo is a 60 yo gentleman with a PMHx of poorly controlled type II diabetes, HTN, HLD and current tobacco smoker who came to the ED for evaluation of a painful toe. He got new shoes about 2 weeks ago - the lateral edges of the shoes have been rubbing against his pinky toes. He says he developed a corn initially on both pinky toes - however today the heaped up skin feel off on the right, exposing an underlying wound. The right pinky toe is red, slightly swollen and painful. He has seen a wet spot in his sock, so he believes the toe is draining fluid. He denies any fever/chills. He is able to ambulate without difficulty. Of note, he had a cardiac arrest during a previous admission. He subsequently had an ICD placed. No personal or family history of gout. Sx: Current tobacco smoker; 1/2 pack per day. No etoh. In the ED, he afebrile with normal vitals. His WBC was normal, lactate not elevated. ESR was 43, CRP at 4.45. hgb was mildly low at 13.2, MCV at 88. His glucose was 426; beta hydroxybutyrate was not elevated. CMP was otherwise normal. Wound and blood cultures obtained. covid 19 neg. Foot XR obtained. He was started on IV vanco and zosyn. Allergies Allergy/AdvReac Type Severity Reaction Status Date / Time aluminum Allergy Intermediate TEETH Verified 05/17/21 22:55 TINGLE latex Allergy Mild hives Verified 05/17/21 22:55 CASSANDRA Inhibitors Allergy Unknown Unknown Verified 05/18/21 02:58 Penicillins Allergy Unknown Amoxicillin Verified 05/18/21 02:58 okay, per patient Home Medications Medication Instructions Recorded Confirmed Type omega 5-vvu-uhb-fish oil 60 mg-90 2 cap PO DAILY #60 cap 07/16/19 05/17/21 Rx mg-500 mg capsule (Fish Oil) metoprolol succinate 50 mg 50 mg PO QAM #90 tab 09/25/19 05/17/21 Rx tablet,extended release 24 hr metformin 500 mg tablet 2,000 mg PO DAILY tab 03/12/20 05/17/21 History glipizide 10 mg tablet, extended 20 mg PO DAILY #60 tab 12/07/20 05/17/21 Rx release 24 hr rosuvastatin 40 mg tablet 40 mg PO DAILY 05/17/21 05/17/21 History Past Med/Surg History Medical History Anemia Cancer CLL (CHEMO TX) LAST TX 05/31/18 Cardiac arrest 2010 Chronic lymphocytic leukemia (CLL), B-cell Constipation Diabetes mellitus, type 2 DM2 (diabetes mellitus, type 2) Dyslipidemia H/O cardiac arrest HTN (hypertension) Hyperlipidemia Hypertension 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 (implantable cardioverter-defibrillator) in place 2010 IMPLANTED Lung nodule Male erectile disorder of organic origin Migraine with aura and without status migrainosus, not intractable Myocardial Infarction 2002 Nausea Osteoarthritis Pacemaker IMPLANTED 2010 ([facility] [facility]) MONITORS DEVICE Peripheral neuropathy Sciatica Sudden cardiac Thoracic back pain Surgical History History of anesthesia reaction APPY PROCEDURE-COULDN'T BREATHE>COMBATIVE History of appendectomy History of arthroscopy RT History of arthroscopy of knee History of cardiac cath 2002 History of colonoscopy History of heart artery stent 2002 (1 STENT) History of tooth extraction History of vascular access device A-PORT INSERTION Family History Father Diabetes Sister Congenital heart disease Diabetes Mother Hypertension Brother Myocardial infarction Denies family history of Ovarian cancer Prostate cancer Breast cancer Colorectal cancer Social History Smoking Status: Current every day smoker Tobacco Type: Cigarettes Cigarettes Per Day: 1/2 PPD; Second Hand Exposure: Yes (PAST HISTORY); Hx Alcohol Use: No Hx Substance Use: No Preferred Language: Yi Communication Ability: Effective Train Conductor Required: No Beliefs That Will Affect Care: None Current Living Situation: Alone Feels Safe at Home: Yes Safety Concerns: Feels Safe At This Time Assistive Devices: Glasses Review of Systems Review of Systems: All systems reviewed & are unremarkable except as noted in HPI & below Physical Exam Constitutional: WD/WN, vitals as above cooperative; no acute distress Eyes: + anicteric sclerae ENMT: external ear and nose normal, oropharynx normal Neck: trachea midline Respiratory: normal respiratory effort; no labored breathing Auscultation: + wheezes (on expiration ); no crackles, no rales and no rhonchi Cardiovascular: RRR, no murmur, no edema Heart Sounds: normal S1 and normal S2 Extremities: + pedal edema (on R) Gastrointestinal (Abdomen): normal bowel sounds, soft, nontender, no hepatosplenomegaly Musculoskeletal: Head/Neck/Chest: normocephalic and head atraumatic Skin: no rashes, warm and dry + ulcer (lateral aspect of R pinky toe; no obivous drainage; surrounding erythema) and + nails dystrophic + scale in between toes Neurologic: erythema appears to be ascending up foot Psychiatric: A+Ox3, euthymic affect Results & Data Results & Data ([facility]) Vital Signs (Past 12 Hours) Vital Signs Temp Pulse Pulse Resp BP Pulse Ox 05/18/21 01:00 67 19 139/75 98 05/17/21 20:09 36.6 C 90 16 96 Supervising Physician Co-Signing Physician Notes Attending addendum: I have physically seen this patient, have supervised the medical residents activities, and agree with the H&P unless as otherwise noted. Assessment and Plan: Diabetic foot infection/right toe ulcer- Vancomycin IV and Zosyn IV empirically Foot x-ray initially not suggestive of osteomyelitis Further imaging may be needed, such as MRI ABIs ordered Diabetes mellitus-uncontrolled with last A1c 9.8 on 02/10 Placed on Accu-Cheks before meals and at bedtime with NovoLog coverage per scale For now, start basal Lantus insulin 10 units every morning Dyslipidemia- Continue rosuvastatin Check fasting lipid panel Tobacco abuse- Encourage cessation Remaining orders and notations as noted Resident Activity Tracking Resident Involvement: Resident Care Provided Care Provided: Adult Hospital Medicine
[2021-05-18] MEDS ORDERED: DEXTROSE 50% 50 ML SYRINGE IV PRN (02:10)
[2021-05-18] MEDS ORDERED: GLUCOSE 40% GEL 15 GM TUBE PO PRN (02:10)
[2021-05-18] MEDS ORDERED: CARBOHYDRATES FOR HYPOGLYCEMIA PO PRN (02:10)
[2021-05-18] MEDS ORDERED: POLYETHYLENE (MIRALAX) 17 GM PACK PO PRN (02:10)
[2021-05-18] MEDS ORDERED: ONDANSETRON INJ 2 MG/ML 2 ML VIAL IV PRN (02:10)
[2021-05-18] MEDS ORDERED: ACETAMINOPHEN 325 MG TAB PO PRN (02:10)
[2021-05-18] MEDS ORDERED: GLUCAGON FOR INJ 1 MG VIAL SQ PRN (02:10)
[2021-05-18] MEDS ORDERED: GLUCOSE 10 TABS/TUBE PO PRN (02:10)
[2021-05-18] MEDS ORDERED: HYDROCODONE/ACETAMOPHEN 5/325MG TAB PO PRN ×2 (02:15)
[2021-05-18] MEDS ORDERED: HYDROCODONE/ACETAMOPHEN 5/325MG TAB PO ONE (03:06)
[2021-05-18 03:13] LABS: Uric Acid 5.7 mg/dl (2.6-7.2)
[2021-05-18] MEDS ORDERED: INSULIN GLARGINE SOLOSTAR 100 UNITS/ML 3 ML PEN SC SCH (04:00)
[2021-05-18] MEDS: INSULIN ASPART 100 UNITS/ML 3 ML PEN SC SCH ×5 (04:58→21:35)
[2021-05-18] MEDS: PIPERACILLIN/TAZOBACTAM 3.375 GM in DEXTROSE 5% 100 ML IV SCH ×3 (04:59→22:25)
[2021-05-18 05:40] LABS: Basophils # (auto) 0.02 K/uL (0-0.2); Basophils % (auto) 0.2 %; Eosinophils # (auto) 0.21 K/uL (0-0.5); Eosinophils % (auto) 2.4 %; Immature Granulocytes # (auto) 0.01 K/uL (0.00-0.02); Immature Granulocytes % (auto) 0.1 %; Lymphocytes # (auto) 1.39 K/uL (1.2-3.4); Lymphocytes % (auto) 16.1 %; Mean Corpuscular Hemoglobin 30.8 pg (25-34); Mean Corpuscular Hgb Conc 35.3 g/dL (32-36); Mean Corpuscular Volume 87.4 fL (80-100); Mean Platelet Volume 9.7 fL (7.4-10.4); Monocytes # (auto) 0.39 K/uL (0.11-0.59); Monocytes % (auto) 4.5 %; Neutrophils # (auto) 6.61 K/uL (1.4-6.5); Neutrophils % (auto) 76.7 %; Platelet Count 173 K/uL (130-400); RDW Standard Deviation 41.7 fL (36.4-46.3); Red Blood Count 3.89 M/uL (4.7-6.1); White Blood Count 8.63 K/uL (4.8-10.8)
--- NOTE | 2021-05-18 07:51 | XRay Report ---
XR foot RT min 3V routine CLINICAL HISTORY: R 5th toe infx with streaking to foot. Diabetic. TECHNIQUE: 3 views of the right foot were obtained. Comparison: None available at the time of this dictation. FINDINGS: No fractures are present. The alignment is anatomic. No bony erosions are seen. Soft tissue swelling is seen about the fifth digit. IMPRESSION: No bony erosions are seen to suggest acute osteomyelitis. ACT 112: Negative or not required by law. Electronically signed by: Bautista Jenkins M.D. 05/18/2021 7:49 AM
[2021-05-18 08:16] LABS: Estimated Average Glucose 358 mg/dl; Hemoglobin A1C 14.1 % (4.5-5.6)
--- NOTE | 2021-05-18 10:36 | Ultrasound Report ---
US ankle/brachial index comp CLINICAL HISTORY: foot ulcers COMPARISON STUDY: None. FINDINGS: The right ankle-brachial index measured with the dorsalis pedis artery was 0.92 and the pos terior tibial artery was 1.01. The left ankle-brachial index measured with the dorsalis pedis artery was 0.91 and the posterior tibial artery was 1.01. IMPRESSION: Normal bilateral ankle brachial indices as described above. ACT 112: Negative or not required by law. Electronically signed by: Sergio Lind M.D. 05/18/2021 10:34 AM
[2021-05-18] MEDS: ENOXAPARIN INJ 40 MG/0.4 ML SYR SQ SCH (10:45)
[2021-05-18] MEDS: CLOTRIMAZOLE 1% CR 15 GM TUBE EXT SCH ×2 (10:45→20:55)
[2021-05-18] MEDS: NICOTINE 14 MG/24 HR PATCH TD SCH (10:46)
[2021-05-18] MEDS: ROSUVASTATIN CALCIUM 20 MG TAB PO SCH (10:46)
[2021-05-18] MEDS: METOPROLOL SUCC 50MG EXT REL TAB PO SCH (10:46)
[2021-05-18] MEDS ORDERED: VANCOMYCIN HCL 1,250 MG in SODIUM CHLORIDE 0.9% 250 ML IV SCH (12:00)
--- NOTE | 2021-05-18 13:52 | Hospitalist Progress Note ---
Date of Service May 18, 2021 Assessment & Plan (1) Cellulitis: Plan: -Mild cellulitis coming from a diabetic foot ulcer on the right fifth toe -Patient afebrile without leukocytosis but does have a mildly elevated ESR and CRP -No evidence of sepsis syndrome -Patient on Zosyn (which I agree with as it provides both gram-positive but also gram-negative including antipseudomonal coverage in the setting of diabetes mellitus) -No history of MRSA. Hold off on MRSA agents for now -Arterial Doppler orderedresults pending -obtain a CT scan of the lower extremity to further assess for obvious abscess/osteomyelitis. Cannot obtain an MRI given ICD (2) Ulcer of toe due to diabetes: Plan: -See above -Consult wound nurse-- appreciate recommendations. For now, clean with soap and water. pat dry. apply santyl. cover with nonadherent pad and cover with gauze. -WC obtained (3) Hyperglycemia due to type 2 diabetes mellitus: Plan: -Lengthy discussion with patient regarding the importance of good glycemic control and complications of uncontrolled diabetes mellitus/hyperglycemia -Patient has been initiated on Lantus/log -Increase Lantus per weight and current blood sugar readings and continue analog with sliding scale/correction dosing -Patient will go home on insulin. Consult certified adaptive physical educator and nutritionappreciate recommendations -Since new start insulin, will stop SQ given risk of hypoglycemia. -Patient may be continued on his Metformin; however, will hold for now given CT scan with contrast being done and risk for contrast nephropathy (4) Neuropathy: Plan: -See above (5) CAD (coronary artery disease): Plan: -Lengthy discussion with patient regarding importance of good glycemic control and link to CAD. He vocalizes understanding -Patient is on statin therapy but noted to not be on aspirin. Will consider addition of aspirin following CT scan (to ensure patient will not need surgical intervention) -Continue beta-blockade (6) HTN (hypertension): Plan: -Continue metoprolol as prior to hospitalization Plan: -Plan of care discussed with Dr. Sellers. Further orders as warranted. Admission and Anticipated Discharge Date Admission Date: May 18, 2021 Subjective Patient seen on daily rounds today. Hospitalized the overnight hours with a diabetic foot ulcer and hyperglycemia (426) in the setting of uncontrolled diabetes mellitus. Patient reports to a longstanding history of uncontrolled diabetes mellitus. Takes Metformin 2000 mg daily and glipizide 20 mg daily. Subsequently, because of his uncontrolled diabetes mellitusdoes have diabetic neuropathy. Recently bought a new pair of boots and has been working 19 hours a days and subsequently got a blister on his right fifth toe. 2 to 3 days ago, noticed that his sock was wet from drainage from the toe. Last evening, he had redness spanning from the toe and up the top of the foot prompting him to come to the emergency department. He denies any fevers or chills. Patient was hemodynamically stable and afebrile. His white blood cell count was normal. His sed rate was however slightly elevated at 43 with a mildly elevated CRP of 4.45. Again, blood sugar was elevated at 426 with a normal anion gap and normal beta hydroxybutyric acid. X-ray of the foot showed evidence of ulcer without osteomyelitis. He was subsequently hospitalized for further evaluation and care. Review of Systems Review of Systems: All systems reviewed and are unremarkable except as noted in HPI and below Denies fevers, chills, headache, nasal congestion, sore throat, cough, chest pain, shortness of breath, palpitations, orthopnea, PND, abdominal pain, nausea, vomiting, diarrhea, constipation, dysuria, hematuria, frequency, back pain, joint pain or swelling, easy bruising or bleeding. Physical Exam Physical Exam: General: Resting comfortably in his hospital bed. He does not appear ill or toxic. NAD. HEENT: Head is AT/NC buccal mucosa is moist and pink Neck: No JVD. Negative hepatojugular reflex Cardiac: RRR but distant heart sounds Lungs: Distant without W/R/R Abdomen: Normoactive X4. Soft and nontender in all quadrants. Extremities: No peripheral clubbing cyanosis or edema Neuro: A&O X4 cranial nerves II through XII are grossly intact no focal neuro deficits Skin: Right fifth toe with lateral stage II ulcer with surrounding erythema and lymphangitic streaking along the top of the foot. No purulent drainage noted. Psych: Appropriate affect pleasant and cooperative Results & Data Results & Data ([facility]) Vital Signs (Past 12 Hours) Vital Signs Temp Pulse Pulse Resp BP BP Pulse Ox 05/18/21 08:00 36.6 C 70 18 112/80 98 05/18/21 02:27 36.6 C 78 18 139/69 98 05/18/21 01:53 65 19 138/76 99 Diagnostic Findings 05/18/21 05:30 05/17/21 23:38 ESR: 43 CRP: 4.45 Lactic acid: 1.0 Anion gap: 6.0 Beta hydroxybutyric acid: 2.18 A1C: 14.1% PG Care Time/CCT Total # of Minutes Spent Total Time Spent with Patient: Total time spent is greater than 50% in coordination of care (as documented) at patient's floor/unit and/or counseling patient: Coding Level of Care Code None Diagnoses Cellulitis L03.90 Ulcer of toe due to diabetes E11.621; L97.509 Hyperglycemia due to type 2 diabetes mellitus E11.65 Neuropathy G62.9 CAD (coronary artery disease) I25.10 HTN (hypertension) I10
[2021-05-18] MEDS: COLLAGENASE OINT 30 GM TUBE EXT SCH (15:25)
[2021-05-18] MEDS ORDERED: OPTIRAY 320 100ml IV ONE (17:53)
--- NOTE | 2021-05-18 19:48 | Billing Data ---
Date of Service May 18, 2021 Coding Level of Care Code 01767 Initial Inpt Care Lvl 3
--- NOTE | 2021-05-18 20:23 | CT Scan Report ---
CT foot RT w con HISTORY: 60 years-old Male ? osteo/abscess chronic pain and swelling of the right foot. Soft tissue infection of the fifth toe. COMPARISON: Right foot radiographs 05/17/2021 TECHNIQUE: Multiple axial CT images of the right foot were obtained following the intravenous adminis tration of 93 of Optiray 320. A dose lowering technique was used consistent with the principals of SABRINA CRAWFORD. FINDINGS: Arterial calcifications. Diffuse muscle atrophy, likely secondary to chronic denervation changes. Mil d to moderate subcutaneous edema is most pronounced dorsally and also within the fifth digit. No absc ess. Tendons and ligaments are better evaluated by MRI technique. No gross tendon or ligamentous inju ry identified. There is no large joint effusion. Moderate sized enthesophytes of the calcaneus. Mild to moderate multifocal osteoarthritis of the foot . No acute fracture, dislocation or definite osseous erosion identified. Midfoot alignment appears an atomic. No osteochondral defects of the talus. IMPRESSION: 1. Mild to moderate subcutaneous edema of the foot, most pronounced within the fifth digit. No absces s. 2. No acute fracture, dislocation or osseous erosion. 3. Mild to moderate multifocal osteoarthritis. ACT 112: Negative or not required by law. The above report was generated using voice recognition software. It may contain grammatical, syntax o r spelling errors. Electronically signed by: Carroll Dee M.D. 05/18/2021 8:22 PM
[2021-05-18] MEDS: INSULIN GLARGINE SOLOSTAR 100 UNITS/ML 3 ML PEN SC SCH (21:36)
[2021-05-19] MEDS: PIPERACILLIN/TAZOBACTAM 3.375 GM in DEXTROSE 5% 100 ML IV SCH ×3 (05:44→21:08)
[2021-05-19 06:08] LABS: Basophils # (auto) 0.02 K/uL (0-0.2); Basophils % (auto) 0.2 %; Eosinophils # (auto) 0.23 K/uL (0-0.5); Eosinophils % (auto) 2.8 %; Hematocrit (blood only) 34.9 % (42-52); Hemoglobin 12.2 g/dL (14.0-18.0); Immature Granulocytes # (auto) 0.01 K/uL (0.00-0.02); Immature Granulocytes % (auto) 0.1 %; Lymphocytes % (auto) 19.7 %; Mean Corpuscular Hemoglobin 30.7 pg (25-34); Mean Corpuscular Volume 87.7 fL (80-100); Mean Platelet Volume 9.3 fL (7.4-10.4); Monocytes % (auto) 4.9 %; Neutrophils # (auto) 5.86 K/uL (1.4-6.5); Neutrophils % (auto) 72.3 %; Platelet Count 169 K/uL (130-400); RDW Standard Deviation 41.9 fL (36.4-46.3); Red Blood Count 3.98 M/uL (4.7-6.1); White Blood Count 8.12 K/uL (4.8-10.8)
[2021-05-19 06:46] LABS: BUN Creatinine Ratio 11.2 (10-20); Calcium 8.7 mg/dl (8.5-10.1); Creatinine Clr Calc Pharmacy 109.7 ml/min; Est GFR (African American) 102.9 ml/min; Est GFR (Non-African American) 88.8 ml/min; Magnesium 2.1 mg/dl (1.8-2.4); Potassium 3.9 mmol/L (3.5-5.1)
[2021-05-19] MEDS: INSULIN GLARGINE SOLOSTAR 100 UNITS/ML 3 ML PEN SC SCH ×2 (09:37→21:10)
[2021-05-19] MEDS: INSULIN ASPART 100 UNITS/ML 3 ML PEN SC SCH ×4 (09:37→21:09)
[2021-05-19] MEDS: ROSUVASTATIN CALCIUM 20 MG TAB PO SCH (09:38)
[2021-05-19] MEDS: NICOTINE 14 MG/24 HR PATCH TD SCH (09:38)
[2021-05-19] MEDS: METOPROLOL SUCC 50MG EXT REL TAB PO SCH (09:38)
[2021-05-19] MEDS: CLOTRIMAZOLE 1% CR 15 GM TUBE EXT SCH ×2 (09:39→21:08)
[2021-05-19] MEDS: COLLAGENASE OINT 30 GM TUBE EXT SCH (09:39)
[2021-05-19] MEDS: ENOXAPARIN INJ 40 MG/0.4 ML SYR SQ SCH (13:40)
--- NOTE | 2021-05-19 15:20 | Hospitalist Progress Note ---
Date of Service May 19, 2021 Assessment & Plan (1) Ulcer of toe due to diabetes: Plan: Mr. Jo is a 60 yo gentleman with PMHx of uncontrolled type II diabetes who presented to the ED for evaluation of a R toe ulcer. - ulcer appears to be infected with ascending lymphangitis (prelim culture: Staph Aureus) - SIRS criteria not met, not septic - patient is predisposed to foot ulcers due to underlying diabetes and neuropathy - associated elevated ESR and CRP - CT done with contrast (as patient with ICD and could not do MRI) but no evidence of abscess or osteo - HECTOR showing adequate flow - Zosyn/Vanco given in the Ed. Zosyn continued (given DM and risk fo Gram - infection). Prelim culture showing Staph. Add Dapto (as opposed to Vanco as will take time to become therapeutic). Will tailor abx regimen based on final culture data. (2) Uncontrolled type 2 diabetes mellitus with neurologic complication: Plan: -Uncontrolled. A1c significantly elevated at 14.1% -Lengthy discussion with patient regarding the importance of good glycemic control and complications of uncontrolled diabetes mellitus/hyperglycemia -Patient has been initiated on Lantus/log. Blood sugars coming down nicely (130-190 and patient does not have any S/S of hypoglycemia with this) -Increase Lantus slightly with continued monitoring. Continue log. Plan will be for likely discharge with both Lantus and log -chemical educator and nutrition consultedappreciate recommendations -JACOB stopped due to addition of insulin and risk for hypoglycemia -Metformin is currently on hold given CT scan with contrast given yesterday and risk for contrast nephropathy but plan will be to resume this upon discharge - (3) Dyslipidemia: Plan: - continue Crestor - consider starting daily baby ASA (4) Tinea pedis: Plan: - lotramin ordered (5) Tobacco abuse: Plan: - current smokerlengthy discussion with patient regarding importance of tobacco cessation and this impeding wound healing - nicotine patch ordered - recommend cessation Plan: -Awaiting final culture data -Plan for hopeful discharge within the next 18 to 24 hours -Plan of care will be discussed with Dr. Sellers. Further orders as warranted. Admission and Anticipated Discharge Date Admission Date: May 18, 2021 Subjective Patient seen on daily rounds today. Overall vocalizes no significant complaints or concerns. Remains on IV antibiotic therapy (Zosyn) for diabetic foot ulcer. In addition, started on insulin due to hyperglycemia in the setting of uncontrolled diabetes mellitus. Blood sugars are coming down nicely and averaging 1 30-1 90. He reports that he believes the numbness/tingling in his feet seems better with control of his blood sugars. He is not feeling dizzy/lightheaded, palpitations, diaphoresis or any other signs/symptoms of hypoglycemia. Is receiving Santyl to the right diabetic foot ulcer. On exam today, it seems like the top has unroofed and he is now having purulent drainage but I was able to express. I did obtain a wound culture that is now showing preliminary growth of a staph species. Was given vancomycin upfront in the ED. Currently on Zosyn. Review of Systems Review of Systems: All systems reviewed and are unremarkable except as noted in HPI and below Denies fevers, chills, headache, nasal congestion, sore throat, cough, chest pain, shortness of breath, palpitations, orthopnea, PND, abdominal pain, nausea, vomiting, diarrhea, constipation, dysuria, hematuria, frequency, back pain, joint pain or swelling, easy bruising or bleeding, skin lesions or rashes. Physical Exam Physical Exam: General: Resting comfortably in his hospital bed. Does not appear ill or toxic. NAD. HEENT: Head is AT/NC buccal mucosa is moist and pink Neck: No JVD. Negative hepatojugular reflex Cardiac: RRR without M/G/R Lungs: CTA without W/R/R Abdomen: Normoactive X4. Soft and nontender in all quadrants. Extremities: Patient's right fifth toe has a superficial (stage I-II) ulcer that has since unroofed. I am able to express mucopurulent drainage from the lateral aspect. The erythema on top of the foot has overall improved. It remains but no longer has lymphangitic streaking. Neuro: A&O X4 cranial nerves II through XII are grossly intact no focal neuro deficits Skin: No obvious skin lesions or rashes Psych: Appropriate affect pleasant and cooperative Results & Data Results & Data ([facility]) Vital Signs (Past 12 Hours) Vital Signs Temp Pulse Resp BP Pulse Ox 05/19/21 07:35 37 C 60 16 127/65 96 Laboratory Results 05/19/21 05:53 05/19/21 05:53 Comments: Comment Right 5th toe abscess/ulcer Procedure Result Verified Site Gram Stain Final 05/18/21 Gram Stain Result Rare WBCs Seen Moderate Gram Positive Cocci Surface Wound Culture Preliminary 05/19/21 Organism 1 Staphylococcus species Quantity Many Sens Sensitivities to Follow +MixWound Plus Low Counts of Probable Skin Kim Diagnostic Findings HECTOR: IMPRESSION: Normal bilateral ankle brachial indices as described above. CT scan of the right lower extremity (with contrast): IMPRESSION: 1. Mild to moderate subcutaneous edema of the foot, most pronounced within the fifth digit. No abscess. 2. No acute fracture, dislocation or osseous erosion. 3. Mild to moderate multifocal osteoarthritis. PG Care Time/CCT Total # of Minutes Spent Total Time Spent with Patient: Total time spent is greater than 50% in coordination of care (as documented) at patient's floor/unit and/or counseling patient: Coding Level of Care Code 94354 Subseq Hosp Care Lvl 3 Diagnoses Ulcer of toe due to diabetes E11.621; L97.509 Uncontrolled type 2 diabetes mellitus with neurologic complication E11.49; E11.65 Dyslipidemia E78.5 Tinea pedis B35.3 Tobacco abuse Z72.0
[2021-05-19] MEDS ORDERED: DAPTOmycin 325 MG in SYRINGE 0 ML IV SCH (16:00)
[2021-05-20] MEDS: PIPERACILLIN/TAZOBACTAM 3.375 GM in DEXTROSE 5% 100 ML IV SCH ×2 (05:29→13:29)
[2021-05-20 07:07] LABS: Basophils # (auto) 0.02 K/uL (0-0.2); Basophils % (auto) 0.3 %; Eosinophils # (auto) 0.22 K/uL (0-0.5); Eosinophils % (auto) 2.8 %; Hematocrit (blood only) 36.4 % (42-52); Hemoglobin 12.5 g/dL (14.0-18.0); Immature Granulocytes # (auto) 0.01 K/uL (0.00-0.02); Immature Granulocytes % (auto) 0.1 %; Lymphocytes # (auto) 1.51 K/uL (1.2-3.4); Lymphocytes % (auto) 19.1 %; Mean Corpuscular Hemoglobin 30.6 pg (25-34); Mean Corpuscular Hgb Conc 34.3 g/dL (32-36); Mean Corpuscular Volume 89.2 fL (80-100); Mean Platelet Volume 9.7 fL (7.4-10.4); Monocytes % (auto) 5.1 %; Neutrophils # (auto) 5.74 K/uL (1.4-6.5); Neutrophils % (auto) 72.6 %; Platelet Count 191 K/uL (130-400); RDW Coefficient of Variation 12.8 % (11.5-14.5); RDW Standard Deviation 41.1 fL (36.4-46.3); Red Blood Count 4.08 M/uL (4.7-6.1)
[2021-05-20 07:39] LABS: BUN Creatinine Ratio 10.7 (10-20); C Reactive Protein 4.36 mg/dl (0-0.29); Calcium 8.9 mg/dl (8.5-10.1); Est GFR (African American) 94.2 ml/min; Est GFR (Non-African American) 81.3 ml/min; Magnesium 1.9 mg/dl (1.8-2.4)
[2021-05-20] MEDS: METOPROLOL SUCC 50MG EXT REL TAB PO SCH (08:39)
[2021-05-20] MEDS: ENOXAPARIN INJ 40 MG/0.4 ML SYR SQ SCH (08:39)
[2021-05-20] MEDS: NICOTINE 14 MG/24 HR PATCH TD SCH (08:41)
[2021-05-20] MEDS: INSULIN ASPART 100 UNITS/ML 3 ML PEN SC SCH ×2 (10:41→13:21)
[2021-05-20] MEDS: INSULIN GLARGINE SOLOSTAR 100 UNITS/ML 3 ML PEN SC SCH (10:45)
[2021-05-20] MEDS: COLLAGENASE OINT 30 GM TUBE EXT SCH (10:46)
[2021-05-20] MEDS: CLOTRIMAZOLE 1% CR 15 GM TUBE EXT SCH (10:46)
--- NOTE | 2021-05-20 16:35 | Discharge Summary ---
Date of Service May 20, 2021 Admission HPI Per Admitting Provider Mr. Jo is a 60 yo gentleman with a PMHx of poorly controlled type II diabetes, HTN, HLD and current tobacco smoker who came to the ED for evaluation of a painful toe. He got new shoes about 2 weeks ago - the lateral edges of the shoes have been rubbing against his pinky toes. He says he developed a corn initially on both pinky toes - however today the heaped up skin feel off on the right, exposing an underlying wound. The right pinky toe is red, slightly swollen and painful. He has seen a wet spot in his sock, so he believes the toe is draining fluid. He denies any fever/chills. He is able to ambulate without difficulty. Of note, he had a cardiac arrest during a previous admission. He subsequently had an ICD placed. No personal or family history of gout. Sx: Current tobacco smoker; 1/2 pack per day. No etoh. In the ED, he afebrile with normal vitals. His WBC was normal, lactate not elevated. ESR was 43, CRP at 4.45. hgb was mildly low at 13.2, MCV at 88. His glucose was 426; beta hydroxybutyrate was not elevated. CMP was otherwise normal. Wound and blood cultures obtained. covid 19 neg. Foot XR obtained. He was started on IV vanco and zosyn. Principal Diagnosis 1. Infected diabetic foot ulcerMSSA with michelle sensitivity 2. Hyperglycemia 3. Uncontrolled diabetes mellitus with A1c of 14.1%new start to insulin 4. Tobacco abuse Discharge Exam General: Resting comfortably in his hospital bed. Does not appear ill or toxic. NAD. HEENT: Head is AT/NC buccal mucosa is moist and pink Neck: No JVD. Negative hepatojugular reflex Cardiac: RRR without M/G/R Lungs: CTA without W/R/R Abdomen: Normoactive X4. Soft and nontender in all quadrants. Extremities: Patient's right fifth toe has a superficial (stage I-II) ulcer that has since unroofed. Granulomatous sloughing noted. The bright erythema on the top of the foot has improved. He does have some vascular changes noted. No longer with lymphangitic streaking. Peripheral pulses intact and symmetrical. Cap refill +2. Neuro: A&O X4 cranial nerves II through XII are grossly intact no focal neuro deficits Skin: No obvious skin lesions or rashes Psych: Appropriate affect pleasant and cooperative Discharge Data Allergies Allergy/AdvReac Type Severity Reaction Status Date / Time aluminum Allergy Intermediate TEETH Verified 05/17/21 22:55 TINGLE latex Allergy Mild hives Verified 05/17/21 22:55 CASSANDRA Inhibitors Allergy Unknown Unknown Verified 05/18/21 02:58 Penicillins Allergy Unknown Amoxicillin Verified 05/18/21 02:58 john, per patient Consultations 05/18/21 01:08 ED Decision to Admit Stat 05/20/21 12:22 Consult [facility] lisw Routine To schedule for wound clinic follow-up Ordered Studies 05/18/21 10:00 US ankle/brachial index comp Routine IMPRESSION: Normal bilateral ankle brachial indices as described above. 05/18/21 12:39 CT foot RT w con Routine IMPRESSION: 1. Mild to moderate subcutaneous edema of the foot, most pronounced within the fifth digit. No abscess. 2. No acute fracture, dislocation or osseous erosion. 3. Mild to moderate multifocal osteoarthritis. Diabetes Follow up Diabetes Follow-up Needed for HgbA1c >9% Hospital Course (1) Ulcer of toe due to diabetes: Mr. Jo is a 60 yo gentleman with PMHx of uncontrolled type II diabetes who presented to the ED for evaluation of a R toe ulcer. - started after buying a new pair of boots and working 10+ hours a day for 19 consecutive days. Developed a blister/corn on the right fifth toe that subsequently developed into an ulcer - ulcer appears to be infected with ascending lymphangitis - SIRS criteria not met, not septic - patient is predisposed to foot ulcers due to underlying diabetes and neuropathy - associated elevated ESR (43) and CRP (4.45). Did not have fever or leukocytosis. - CT done with contrast (as patient with ICD and could not do MRI) but no evidence of abscess or osteo - HECTOR showing adequate flow - Zosyn/Vanco given empirically - Overall improvement noted of the lymphangitic streaking/superimposed cellulitis. Does have vascular changes noted at the base of the toe (dusky rubor). - wound care provided and patient given Santyl initially which causes deroofing of ulcer. At this time, will follow up with wound clinic +/- debridement. Otherwise, to keep wound clean and dry. Use soap and water. Pat dry. Apply triple antibiotic. Nonadherent pad. Wrap with gauze. Leave open to air when sleeping - stable for D/C to home with continued abx therapy (duricef given PCN allergy)-- MSSA with pansensitivity (2) Uncontrolled type 2 diabetes mellitus with neurologic complication: -Uncontrolled. A1c significantly elevated at 14.1% -Lengthy discussion with patient regarding the importance of good glycemic cont rol and complications of uncontrolled diabetes mellitus/hyperglycemia -Initiated lantus/log with uptitration while in house. Current BS: 133 - 172 - 179 - 194 -in service educator and nutrition consultedappreciate recommendations -JACOB stopped due to addition of insulin and risk for hypoglycemia -Metformin held while in house given CT scan with contrast given and risk for contrast nephropathy but will resume this upon D/C -D/C to home today with insulin and Metformin. Stop Glipizide --Lantus 26 units it am (am instead of pm as largest meal in the am and would fit lifestyle better) --Novolog 6U TID with meals -PCP to further titrate insulin accordingly based on blood sugars (see recommendations as outlined in patient instructions) (3) Dyslipidemia: - continue Crestor - consider starting daily baby ASA (4) Tinea pedis: - lotramin ordered (5) Tobacco abuse: - current smokerlengthy discussion with patient regarding importance of tobacco cessation and this impeding wound healing - nicotine patch ordered - recommend cessation Total Time Total Time Spent Total Time Spent (In Minutes): 60 min including time spent with patient/education, preparation documentation and coordination of care Discharge Plan Discharge Items Patient Disposition: Home - Home Health Services Reason For Visit: DIABETIC ULCER Discharge Diagnosis: 1. Infected Diabetic Foot Ulcer 2. Uncontrolled Diabetes 3. Hyperglycemic-- improving Activity: Resume your previous activity Non-emergency contact: Primary Care Provider and Specialist Call non-emergency contact if: you have any medication questions Follow-up/Referrals: Ez Hassan MD [Primary Care Provider] - 05/25/21 11:00 am (APPT WITH [facility]) Raiza Nielson DO, FACEP [Physician] - 06/02/21 10:00 am Diet: Carb Consistent or DM2 Addtl Attending Provider Instructions: - you were hospitalized with an infected diabetic foot ulcer (Staph. Aureus-- Sensitive--> NOT MRSA) - Complete full course of antibiotic therapy - follow wound care instructions: keep area clean and dry (antibacterial soap and water). Pat dry. Apply triple antibiotic ointment. Cover with nonadherent (just over the wound) pad and then wrap with gauze. Do this daily. - I would advise that you leave the foot OPEN TO AIR to sleep - Follow up with the wound clinic. Further wound care at their discretion - In addition to this wound, you were hospitalized given your elevated blood sugars (>400). - your A1c (remember that this is the average of your blood sugars over the past 3 months) was 14.1% (We would like to see this <7.5% - You have been started on insulin -Lantus 26 Units in the morning (this is the long acting that we talking about) -Novolog 6 units with breakfast, lunch and dinner (This is short acting). Ideally, would be given ~15 min prior to you starting your meal. SKIP THIS IF YOU SKIP A MEAL!!!! - You can continue your Metformin but stop the Glipizide (as this in conjunction with insulin can cause HYPOglycemia-- or a blood sugar that is too low) - as discussed, the insulin pens do not need to be refrigerated. - Check your blood sugars 4x/day (for now)-- 2 hours after each meal (goal is a blood sugar <180) and at bedtime (goal is blood sugar of <120). - In addition to insulin, you need to maintain a carb consistent diet (45 gram of TOTAL CARBS per meal and a total of 45 grams/24 hours in snacks-- this can be 1 snack or multiple throughout the day totaling 45G) - If you feel as if your blood sugars is too low (shaky, sweaty, nervous, heart racing, nausea, vomiting, confused)-- CHECK YOU BLOOD SUGAR. If your blood sugar is <70, Remember the "Rule of 15"=eat 15 grams of carbs and repeat blood sugars in 15 min. Repeat this until your blood sugar is >70 - Keep track of your dietary intake and your blood gars readings and follow up with your PCP: 7-10 days - As we discussed, uncontrolled blood sugars will not only cause issues with wound healing but also increase the risk of heart attack, limb loss, renal failure, loss of vision, erectile dysfunction, stroke and progressive neuropathy. Remember, the blood carries oygen and with your blood sugars being uncontrolled, this affects the ability of your blood to oxygenate your eyes, legs, kidneys, heart, brain, etc. - Last, you need to stop smoking (as this also poses issues with getting oxygen to your organs/legs) and this wound might not heal - Return to the ED for new or worsening symptoms Pending Studies at Discharge: Yes Stand-Alone Forms: [facility], Opioid Pain Management, Work/School Release, Smoking Cessation Medications and DC Order Prescriptions: New cefadroxil 500 mg capsule 500 mg PO BID Qty: 17 RF: 0 Lantus Solostar U-100 Insulin 100 unit/mL (3 mL) insulin pen 26 unit subcut DAILY Qty: 15 RF: 0 insulin aspart U-100 [Novolog Flexpen U-100 Insulin] 100 unit/mL (3 mL) insulin pen 6 unit subcut .TIDac Qty: 15 RF: 0 (DME) pen needle, diabetic [BD Ally 2nd Gen Pen Needle] 32 gauge x 5/32" needle See Rx Instructions .Route Qty: 100 RF: 0 alcohol swabs [Alcohol Pads] Pads, Medicated 1 pad topical DIRECTED Qty: 200 RF: 0 hydrocodone-acetaminophen 5-325 mg Tablet 1 tab PO Q6H PRN (Reason: pain) Qty: 24 RF: 0 Continued metoprolol succinate 50 mg tablet extended release 24 hr 50 mg PO QAM Qty: 90 RF: 3 metformin 500 mg tablet 2,000 mg PO DAILY RF: 0 omega 6-koo-tvb-fish oil [Fish Oil] 60-90-500 mg capsule 2 cap PO DAILY Qty: 60 RF: 6 rosuvastatin 40 mg tablet 40 mg PO DAILY RF: 0 Discontinued glipizide 10 mg tablet extended release 24hr 20 mg PO DAILY Qty: 60 RF: 1 Discharge Orders: Discharge Order (Routine); Ordered 05/20/21 Ordered By: Sandy Marshall/Other Patient Handouts: Facts About Dietary Fat, Hypoglycemia (Low Blood Sugar), Diabetes Treat Severe Foot Infecs, Hypoglycemia Steps Admission Data Admit Date/Time: 05/18/21 01:28 Attending Provider: Jose D Sellers Admit Provider: Gisella Villanueva Primary Care Provider: Ez Hassan Other Providers: Jose D Sellers Other Interventions: Discharge Summary Assessment (RN) Last Done: 05/20/21 16:12 Supervising Physician Co-Signing Physician Notes I supervised Sandy Coombs PA-C on the care of this patient. I interviewed and examined the patient independently of her. The plan is as written in her note except for any following changes/exceptions: None Doing well today. No major issues. Sugars are 215 after lunch. Discharge on oral abx and new insulin regimen for his diabetes. Coding Level of Care Code 79657 OBS Care - Discharge Diagnoses Ulcer of toe due to diabetes E11.621; L97.509 Uncontrolled type 2 diabetes mellitus with neurologic complication E11.49; E11.65 Dyslipidemia E78.5 Tinea pedis B35.3 Tobacco abuse Z72.0
== END 2021-05-20 16:53 | disposition home health service (06) ==
LOC: EDINP 20:07 → ED 20:07 → SUATTDRO 05-18 01:28 → EDINP 05-18 01:53 → 3N 05-18 19:12
DX: F17.200 Nicotine dependence, unspecified, uncomplicated; Z95.0 Presence of cardiac pacemaker; Z91.040 Latex allergy status; I25.2 Old myocardial infarction; L97.519 Non-pressure chronic ulcer of other part of right foot with unspecified severity; Z88.8 Allergy status to other drugs, medicaments and biological substances; E11.65 Type 2 diabetes mellitus with hyperglycemia; E78.5 Hyperlipidemia, unspecified; I10 Essential (primary) hypertension; E11.42 Type 2 diabetes mellitus with diabetic polyneuropathy; Z79.899 Other long term (current) drug therapy; M19.90 Unspecified osteoarthritis, unspecified site; Z88.0 Allergy status to penicillin; B35.3 Tinea pedis; C91.10 Chronic lymphocytic leukemia of B-cell type not having achieved remission; Z79.84 Long term (current) use of oral hypoglycemic drugs

== ENCOUNTER 2022-09-07 16:48 | Observation (INO) ==
--- NOTE | 2022-09-07 16:59 | ED Triage Note ---
Date of Service September 07, 2022 History of Present Illness This patient was briefly evaluated while in triage. An abbreviated physical exam was performed. This patient is a 61-year-old Male with past medical history of heart disease, diabetes, cardiac arrest, who presents to the ED for evaluation of strokelike symptoms. Patient was texting his daughter and she reports that he was not making any sense. Symptoms started 3 hours ago. Physical Exam VITALS: Vitals are noted on the nurse's note and reviewed by myself. GENERAL: This is a 61-year-old male, in no acute distress, well-developed well- nourished. SKIN: The skin was without rashes. NEURO: Patient was alert and oriented, does seem to have some trouble word finding. Initial orders for labs and / or imaging were placed and patient was placed in the waiting area until a bed is available. Please see further documentation for the full ED course.
--- NOTE | 2022-09-07 17:03 | Emergency Department Note ---
Impression & Plan Stroke-like symptom, CAD (coronary artery disease), HTN (hypertension), Tobacco abuse ED Provider Note NAME: BRY CRAWFORD AGE: 61 SEX: M : 1960 ARRIVES VIA: Walk-In INFORMANT: Patient, ED PROVIDER(S): Lloyd Monae MD CHIEF COMPLAINT: leg weakness, ambulatory dysfunction, strokelike symptoms MEDICAL DECISION MAKING: Code stroke was initiated in triage due to the patient's acute symptom onset. The patient was immediately taken to CT where the patient did have CT head CT angiography was ordered along with IV established and blood work completed. I did initiate a telestroke phone call as the patient did have some symptoms last week but seem to acutely worsen at 2 PM. I did speak w/ Dr. Taylor who did evaluate the patient on the stroke cart. Decision was made that the patient is not a TNK candidate as the patient has had some the symptoms since Monday. The patient's blood work did show very mild leukocytosis with a white count of 11. Mild anemia hemoglobin of 13. Platelet count is normal. Kidney function grossly unremarkable. BSG was elevated in the 200s. Magnesium slightly low and was ordered for replete meant. I did discuss the case with the on-call stroke teleneurologist who recommended an MRI of the brain. If the patient did have signs of stroke the patient may receive Plavix. He did recommend that the patient receive 324 of aspirin at this time. Given the patient strokelike symptoms I did speak the on-call hospitalist Dr. Hendrix and the patient was admitted to the medicine service. Critical Care: I have personally spent 37 minutes of critical care time in direct management of this patient. This includes bedside care, interpretation of diagnostic studies, and testing, discussion with consultants, patient, and family members, and other require inpatient management activities. This 37 minutes is in excess of all separately billable procedures. Prior /Outside records reviewed: I did review the patient's most recent primary care note with Dr. Villanueva. During his most recent visit he was advised to resume taking his baby aspirin but apparently was not taking at that time. The patient had resumed taking his Crestor per outpatient provider. Did review the pat ient's CT with and without IV contrast of the brain completed by [facility] from January 25, 2019 showed no acute abnormality. Differential diagnosis: Infection, dehydration, metabolic abnormality, hypo/hyperglycemia, electrolyte disturbance, anemia, hypoxia, cardiac sources, intracerebral event, toxicologic, neurologic, as well as other pathologies. Diagnostics, as interpreted by me: ECG: Normal sinus rhythm, rate of 78, normal intervals and normal axis no significant change from comparison EKG. Cardiac monitoring: An order was placed for continuous cardiac monitoring. The monitor shows a rate of 72 with sinus rhythm. Patient was placed on pulse oximetry Medical decision rules: none Imaging studies: See below HPI: Initial history was obtained from the daughter who was present at bedside. She states that he did have some symptoms last week including some gait imbalance and disequilibrium with associated vertigo for which she was prescribed meclizine but not taking but seem to acutely worsen around 2 PM today where the patient did have lightheadedness and dizziness and then had some difficulty with moving his right leg to where she thought that she might have some associated foot drop. Patient also does have ambulatory dysfunction where he would seem to sway. No reported recent falls. Patient is a smoker but no reported alcohol or drug use. Daughter states that he is compliant with his medications. Per review of medical history the patient is a prior history of hypertension hyperlipidemia AICD in place status post cardiac arrest and known history of CAD. Patient is on aspirin. PAST MEDICAL HISTORY: See Below PAST SURGICAL HISTORY: See Below SOCIAL HISTORY: See Below HOME MEDICATIONS: See Below ALLERGIES: See Below VITALS: See Below PHYSICAL EXAMINATION: GENERAL: NAD, wearing a mask, non-toxic. EYE EXAM: Normal conjunctiva. PERRL, no anisocoria and EOM's grossly intact w/o pain. NECK: Supple, no nuchal rigidity, no adenopathy, non-tender. No signs of meningismus. FROM of the neck with good chin to chest and neck extension. No stridor. LUNGS: Clear to auscultation. Normal chest wall mechanics. HEART: NSR, no MRG. ABDOMEN: Abdomen soft, non-tender, normo-active bowel sounds, no masses, no rebound or guarding. BACK: No CVA TTP. SKIN: No rashes and no bruising. UPPER EXTREMITIES: Upper extremities are grossly normal. LOWER EXTREMITIES: Grossly normal, no edema. NEURO EXAM: A&O x3, cranial nerves II-XII grossly intact, normal speech, moves all 4 extremities, mild weakness and drift of RLE. No sensory deficits. 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 Dyslipidemia H/O cardiac arrest HTN (hypertension) Hyperlipidemia Hypertension 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 (implantable cardioverter-defibrillator) in place 2010 IMPLANTED Lung nodule Male erectile disorder of organic origin Myocardial Infarction 2002 Osteoarthritis Pacemaker IMPLANTED 2010 ([employer] [facility]) MONITORS DEVICE Peripheral neuropathy Personal history of diabetic foot ulcer Sciatica Thoracic back pain Surgical History History of anesthesia reaction APPY PROCEDURE-COULDN'T BREATHE>COMBATIVE History of appendectomy History of arthroscopy RT History of arthroscopy of knee History of cardiac cath 2002 History of colonoscopy History of heart artery stent 2002 (1 STENT) History of tooth extraction History of vascular access device A-PORT INSERTION Family History Father Diabetes Sister Congenital heart disease Diabetes Mother Hypertension Brother Myocardial infarction Denies family history of Ovarian cancer Prostate cancer Breast cancer Colorectal cancer Social History Smoking Status: Current every day smoker Tobacco Type: Cigarettes Cigarettes Per Day: 0.5 packs/day; Second Hand Exposure: No; Do You Dip or Chew Tobacco: No; Tobacco Cessation Education Requested by Patient: No Hx Alcohol Use: Yes Alcohol type: beer Alcohol Intake Frequency: Monthly or Less Hx Substance Use: No Preferred Language: Danish Communication Ability: Effective [employer] Required: No Beliefs That Will Affect Care: None Current Living Situation: Alone Current Living Situation Comment: Lives along Other Information That Helps Us Care for You: No Feels Safe at Home: Yes Safety Concerns: Feels Safe At This Time caffeine: Yes Assistive Devices: Glasses Allergies Allergies Allergy/AdvReac Type Severity Reaction Status Date / Time aluminum Allergy Intermediate TEETH Verified 09/05/22 10:48 TINGLE latex Allergy Mild hives Verified 09/05/22 10:48 CASSANDRA Inhibitors Allergy Unknown Unknown Verified 09/05/22 10:48 Home Meds Previous Rx's Medication Instructions Recorded insulin glargine 100 unit/mL (3 45 unit (0.45 mL) subcut DAILY #15 08/19/22 mL) subcutaneous pen (Lantus mL Solostar U-100 Insulin) flash glucose sensor (FreeStyle #2 ea 08/23/22 Semaj 2 Sensor kit) insulin aspart U-100 100 unit/mL 15 unit (0.15 mL) subcut .COMPLEX 08/23/22 (3 mL) subcutaneous pen (Novolog #15 mL FlexPen U-100 Insulin aspart) losartan 25 mg tablet 25 mg PO DAILY #30 tabs 08/23/22 metformin 500 mg tablet 2,000 mg PO DAILY #360 tabs 08/23/22 pen needle, diabetic 32 gauge x #100 ea 08/23/22" (BD Ally 2nd Gen Pen Needle) rosuvastatin 40 mg tablet 40 mg PO DAILY 90 days #90 tabs 08/23/22 aspirin 81 mg tablet,delayed 81 mg PO DAILY #30 tabs 09/05/22 release (Adult Aspirin Regimen) metoprolol succinate 50 mg 50 mg PO QAM #90 tabs 09/05/22 tablet,extended release 24 hr Results & Data (ED) Vital Signs Vital Signs - 24 hr 09/07/22 16:50 09/07/22 17:21 09/07/22 17:23 Pulse Rate 84 Pulse Rate [Apical] 77 Pulse Rate from SpO2 Sensor Pulse Rhythm [Apical] Regular Respiratory Rate 18 18 Respiratory Effort / Characteristics Non-Labored Spontaneous Non-Labored Spontaneous Respiratory Depth Normal Normal Respiratory Pattern Regular Blood Pressure 158/87 H Blood Pressure [Right Arm] 195/87 H Blood Pressure Mean 110 Blood Pressure Mean [Right Arm] 123 Blood Pressure Position [Right Arm] Lying Pulse Oximetry 98 98 98 Oxygen Delivery Method Room Air Room Air Room Air Sepsis Recent Fever Within 48 Hours No Sepsis New/Unexplained Change in Mental Status N/A Sepsis Action Taken by Nursing No Action Required 09/07/22 18:14 09/07/22 17:24 09/07/22 17:30 Pulse Rate 79 77 74 Pulse Rate [Apical] Pulse Rate from SpO2 Sensor 77 Pulse Rhythm [Apical] Respiratory Rate 20 19 Respiratory Effort / Characteristics Respiratory Depth Respiratory Pattern Blood Pressure Blood Pressure [Right Arm] Blood Pressure Mean Blood Pressure Mean [Right Arm] Blood Pressure Position [Right Arm] Pulse Oximetry 98 Oxygen Delivery Method Sepsis Recent Fever Within 48 Hours Sepsis New/Unexplained Change in Mental Status Sepsis Action Taken by Nursing 09/07/22 17:38 09/07/22 17:38 09/07/22 18:01 Pulse Rate 77 76 Pulse Rate [Apical] Pulse Rate from SpO2 Sensor Pulse Rhythm [Apical] Respiratory Rate 23 19 Respiratory Effort / Characteristics Respiratory Depth Respiratory Pattern Blood Pressure 146/90 H Blood Pressure [Right Arm] Blood Pressure Mean 108 Blood Pressure Mean [Right Arm] Blood Pressure Position [Right Arm] Pulse Oximetry Oxygen Delivery Method Sepsis Recent Fever Within 48 Hours Sepsis New/Unexplained Change in Mental Status Sepsis Action Taken by Nursing 09/07/22 18:30 09/07/22 18:39 09/07/22 18:49 Pulse Rate 70 83 Pulse Rate [Apical] Pulse Rate from SpO2 Sensor Pulse Rhythm [Apical] Respiratory Rate 16 32 H Respiratory Effort / Characteristics Respiratory Depth Respiratory Pattern Blood Pressure 167/89 H Blood Pressure [Right Arm] Blood Pressure Mean 115 Blood Pressure Mean [Right Arm] Blood Pressure Position [Right Arm] Pulse Oximetry Oxygen Delivery Method Sepsis Recent Fever Within 48 Hours Sepsis New/Unexplained Change in Mental Status Sepsis Action Taken by [facility] Medications Current Medication List: was personally reviewed by me Laboratory Data Attestation: I reviewed the patient's lab results. 09/08/22 07:50 09/08/22 07:50 Lab Results 09/07/22 09/07/22 09/07/22 Range/Units 17:19 17:21 17:21 WBC 11.05 H (4.8-10.8) K/ul RBC 4.26 L (4.70-6.10) M/uL Hgb 13.0 L (14.0-18.0) g/dl Hct 36.7 L (42.0-52.0) % MCV 86.2 (80.0-100.0) fL MCH 30.5 (25.0-34.0) pg MCHC 35.4 (32.0-36.0) g/dL RDW Std Deviation 40.1 (36.4-46.3) fL RDW Coeff of Francisco 13.0 (11.5-14.5) % Plt Count 212 (130-400) K/uL MPV 10.2 (9.4-12.4) fL Immature Gran % (Auto) 0.4 % Neut % (Auto) 69.5 % Lymph % (Auto) 21.4 % Sear[place] % (Auto) 5.1 % Eos % (Auto) 3.0 % Baso % (Auto) 0.6 % Neut # (Auto) 7.68 H (1.40-6.50) K/uL Lymph # (Auto) 2.37 (1.2-3.4) K/uL [place] # (Auto) 0.56 (0.11-0.59) K/uL Eos # (Auto) 0.33 (0-0.50) K/uL Baso # (Auto) 0.07 (0-0.2) K/uL Immature Gran # (Auto) 0.04 (0.01-0.20) K/uL PT 10.3 (9.0-12.0) Seconds INR 1.0 (0.9-1.1) APTT 25.4 (21.0-31.0) Seconds PTT Ratio 0.9 Sodium (136-145) mmol/L Potassium (3.5-5.1) mmol/L Chloride (98-107) mmol/L Carbon Dioxide (21-32) mmol/L Anion Gap (3-11) BUN (6-23) mg/dl Creatinine (0.6-1.4) mg/dl Est Cr Clr Drug Dosing ml/min Est GFR ( Amer) ml/min Est GFR (Non-Af Amer) ml/min BUN/Creatinine Ratio (10-20) Glucose (70-99(Fasting)) mg/dl POC Glucose 205 H (70-99) mg/dl Calcium (8.5-10.1) mg/dl Magnesium (1.7-2.4) mg/dl Total Bilirubin (0.2-1.0) mg/dl AST (13-39) U/L ALT (7-52) U/L Alkaline Phosphatase (34-104) U/L Troponin I High Sens (0-20) pg/ml Total Protein (6.0-8.3) gm/dl Albumin (3.4-5.0) gm/dl Globulin (2.5-4.0) gm/dl Albumin/Globulin Ratio (0.9-2) SARS-CoV-2, RNA, NAAT (NEGATIVE) 09/07/22 09/07/22 Range/Units 17:21 19:05 WBC (4.8-10.8) K/ul RBC (4.70-6.10) M/uL Hgb (14.0-18.0) g/dl Hct (42.0-52.0) % MCV (80.0-100.0) fL MCH (25.0-34.0) pg MCHC (32.0-36.0) g/dL RDW Std Deviation (36.4-46.3) fL RDW Coeff of Francisco (11.5-14.5) % Plt Count (130-400) K/uL MPV (9.4-12.4) fL Immature Gran % (Auto) % Neut % (Auto) % Lymph % (Auto) % Searcy % (Auto) % Eos % (Auto) % Baso % (Auto) % Neut # (Auto) (1.40-6.50) K/uL Lymph # (Auto) (1.2-3.4) K/uL Searcy # (Auto) (0.11-0.59) K/uL Eos # (Auto) (0-0.50) K/uL Baso # (Auto) (0-0.2) K/uL Immature Gran # (Auto) (0.01-0.20) K/uL PT (9.0-12.0) Seconds INR (0.9-1.1) APTT (21.0-31.0) Seconds PTT Ratio Sodium 136 (136-145) mmol/L Potassium 4.2 (3.5-5.1) mmol/L Chloride 105 (98-107) mmol/L Carbon Dioxide 27 (21-32) mmol/L Anion Gap 4 (3-11) BUN 23 (6-23) mg/dl Creatinine 1.10 (0.6-1.4) mg/dl Est Cr Clr Drug Dosing 79.9 ml/min Est GFR ( Amer) 82.4 ml/min Est GFR (Non-Af Amer) 71.1 ml/min BUN/Creatinine Ratio 20.9 H (10-20) Glucose 206 H (70-99(Fasting)) mg/dl POC Glucose (70-99) mg/dl Calcium 9.5 (8.5-10.1) mg/dl Magnesium 1.6 L (1.7-2.4) mg/dl Total Bilirubin 0.5 (0.2-1.0) mg/dl AST 11 L (13-39) U/L ALT 12 (7-52) U/L Alkaline Phosphatase 74 (34-104) U/L Troponin I High Sens 11.5 (0-20) pg/ml Total Protein 6.6 (6.0-8.3) gm/dl Albumin 4.1 (3.4-5.0) gm/dl Globulin 2.5 (2.5-4.0) gm/dl Albumin/Globulin Ratio 1.6 (0.9-2) SARS-CoV-2, RNA, NAAT NEGATIVE (NEGATIVE) Administered Medications Insulin Aspart (Insulin Aspart Per Unit) 0 units SC ACHS CRISTINA Stop: 10/07/22 21:39 Last Admin: 09/08/22 12:01 Dose: 5 units Documented By: MISAEL Co-signed By: JAYANT Admin: 09/08/22 08:27 Dose: 6 units Documented By: MISAEL Co-signed By: AMELIE Admin: 09/08/22 01:59 Dose: Not Given Documented By: SOBIA Losartan Potassium (Losartan Potassium 25 Mg Tab) 25 mg PO DAILY CRISTINA Stop: 10/08/22 08:59 Last Admin: 09/08/22 08:13 Dose: 25 mg Documented By: MISAEL Metoprolol Succinate (Metoprolol Succ 50mg Ext Rel Tab) 50 mg PO QAM CRISTINA Stop: 10/08/22 08:59 Last Admin: 09/08/22 08:13 Dose: 50 mg Documented By: MISAEL Rosuvastatin Calcium (Rosuvastatin Calcium 20 Mg Tab) 40 mg PO DAILY CRISTINA Stop: 10/08/22 08:59 Last Admin: 09/08/22 08:13 Dose: 40 mg Documented By: MISAEL Discontinued Medications Aspirin (Aspirin Chew 324 Mg) 324 mg PO NOW STA Stop: 09/07/22 18:28 Last Admin: 09/07/22 18:44 Dose: 324 mg Documented By: JOYAW Magnesium Sulfate/Dextrose (Magnesium Sulfate / D5w) 1 gm in 100 mls @ 100 mls/hr IV Q1H CRISTINA Stop: 09/07/22 20:27 Last Infusion: 09/07/22 20:54 Dose: 0 mls/hr Documented By: Admin: 09/07/22 19:54 Dose: 100 mls/hr Documented By: Infusion: 09/07/22 19:53 Dose: 0 mls/hr Documented By: Admin: 09/07/22 18:45 Dose: 100 mls/hr Documented By: NDW Insulin Glargine (Lantus Per Unit Charge) 23 units SQ BID CRISTINA Stop: 10/07/22 21:39 Last Admin: 09/08/22 01:57 Dose: 23 units Documented By: SOBIA Co-signed By: OSIEL Ioversol (Optiray 320 500ml) 108 ml IV ONCE ONE Stop: 09/07/22 17:11 Last Admin: 09/07/22 17:12 Dose: 108 ml Documented By: JOHNATHON Imaging Data Radiologist's Impression: Head CT 09/07/22 16:58 CT OF THE HEAD WITHOUT CONTRAST CLINICAL HISTORY: neuro deficit, acute stroke suspected COMPARISON STUDY: Head CT May 31, 2011. TECHNIQUE: Helical axial images of the head were obtained without IV contrast. Automated exposure control was utilized for the study. A dose lowering technique was utilized adhering to the principles of ALARA. FINDINGS: No acute intracranial hemorrhage, midline shift or mass effect is present. White matter hypodensity suggests small vessel disease. The ventricular system is unremarkable. The basal cisterns are patent. No extra-axial collections are present. There are no findings to suggest acute dural sinus thrombosis or acute territorial infarct. There are secretions within the right maxillary sinus. IMPRESSION: No acute intracranial findings. ACT 112: Negative or not required by law. Electronically signed by: Cody Lawson M.D. 09/07/2022 5:24 PM Head CTA 09/07/22 16:58 CT angio head w con CLINICAL HISTORY: neuro deficit, acute stroke suspected TECHNIQUE: Contiguous axial CT images of the head were acquired from the base of the skull to the vertex without intravenous contrast administration. CT angiography of the head and neck was performed following intravenous administration of iodinated contrast. Coronal and sagittal MIPS were obtained from the axial data set and were submitted for review. Automated dose lowering techniques and/or adjustment according to patient size were utilized for this examination. All measurements were calculated based on NASCET criteria. Comparison: Comparison is made to CT head 09/07/2022 FINDINGS: CTA Head: The anterior and posterior cerebral circulations are patent. There is stenosis of the right A2 segment which is likely chronic. IMPRESSION: Stenosis of the right A2 segment is noted, likely chronic. No abnormalities of the posterior circulation. Assessment of stenosis of the internal carotid arteries is based on NASCET crite [email or web address]. ACT 112: Negative or not required by law. Electronically signed by: Bautista Jenkins M.D. 09/07/2022 5:51 PM Neck CTA 09/07/22 16:58 CT angio neck with con CLINICAL HISTORY: neuro deficit, acute stroke suspected TECHNIQUE: Contiguous axial CT images of the head were acquired from the base of the skull to the vertex without intravenous contrast administration. CT angiography of the head and neck was performed following intravenous administration of iodinated contrast. Coronal and sagittal MIPS were obtained from the axial data set and were submitted for review. Automated dose lowering techniques and/or adjustment according to patient size were utilized for this examination. All measurements were calculated based on NASCET criteria. CT DOSE: 1497.88 mGy.cm Comparison: None available at the time of this dictation. FINDINGS: Lungs and soft tissues are unremarkable. CTA Neck: A 3 vessel aortic arch is shown. There is no significant atherosclerotic plaque in the aortic arch or the origins of the innominate, left common carotid, and left subclavian arteries. The common carotid, external carotid, cervical segments of the internal carotid arteries, and the cervical segments of the vertebral arteries are patent without hemodynamically significant stenosis. The vertebral arteries are codominant. There is nonhemodynamically significant stenosis of the left V4 segment. CTA Head: The anterior and posterior cerebral circulations are patent. No hemodynamically significant stenosis, aneurysm, dissection, or arteriovenous malformation is shown. IMPRESSION: 1. No occlusion, hemodynamically significant stenosis, or dissection in the major cervical arteries. Nonhemodynamically significant stenosis is seen in the left V4 segment. 2. No occlusion, hemodynamically significant stenosis, aneurysm, dissection, or arteriovenous malformation in the major intracranial arteries. Assessment of stenosis of the internal carotid arteries is based on NASCET criteria. ACT 112: Negative or not required by law. Electronically signed by: Bautista Jenkins M.D. 09/07/2022 5:31 PM Discharge Plan Visit Data Chief Complaint: Stroke/CVA Symptoms Stated Complaint: EQUILIBRIUM ISSUES,HEADACHE,LOSS BALANCE ED Provider: Lloyd Monae Discharge Problem: Stroke-like symptom, CAD (coronary artery disease), HTN (hypertension), Tobacco abuse Patient Disposition: Admitted As Inpatient Discharge Instructions Interventions: ED Discharge Assessment Last Done: 09/07/22 21:41
[2022-09-07] MEDS ORDERED: OPTIRAY 320 500ml IV ONE (17:10)
--- NOTE | 2022-09-07 17:27 | CT Scan Report ---
CT OF THE HEAD WITHOUT CONTRAST CLINICAL HISTORY: neuro deficit, acute stroke suspected COMPARISON STUDY: Head CT May 31, 2011. TECHNIQUE: Helical axial images of the head were obtained without IV contrast. Automated exposure con trol was utilized for the study. A dose lowering technique was utilized adhering to the principles o f ALARA. FINDINGS: No acute intracranial hemorrhage, midline shift or mass effect is present. White matter hyp odensity suggests small vessel disease. The ventricular system is unremarkable. The basal cisterns ar e patent. No extra-axial collections are present. There are no findings to suggest acute dural sinus thrombosis or acute territorial infarct. There are secretions within the right maxillary sinus. IMPRESSION: No acute intracranial findings. ACT 112: Negative or not required by law. Electronically signed by: Cody Lawson M.D. 09/07/2022 5:24 PM
--- NOTE | 2022-09-07 17:33 | CT Scan Report ---
CT angio neck with con CLINICAL HISTORY: neuro deficit, acute stroke suspected TECHNIQUE: Contiguous axial CT images of the head were acquired from the base of the skull to the alex jorge without intravenous contrast administration. CT angiography of the head and neck was performed f ollowing intravenous administration of iodinated contrast. Coronal and sagittal MIPS were obtained fr om the axial data set and were submitted for review. Automated dose lowering techniques and/or adjus tment according to patient size were utilized for this examination. All measurements were calculated based on NASCET criteria. CT DOSE: 1497.88 mGy.cm Comparison: None available at the time of this dictation. FINDINGS: Lungs and soft tissues are unremarkable. CTA Neck: A 3 vessel aortic arch is shown. There is no significant atherosclerotic plaque in the aor tic arch or the origins of the innominate, left common carotid, and left subclavian arteries. The c ommon carotid, external carotid, cervical segments of the internal carotid arteries, and the cervical segments of the vertebral arteries are patent without hemodynamically significant stenosis. The vert ebral arteries are codominant. There is nonhemodynamically significant stenosis of the left V4 segmen t. CTA Head: The anterior and posterior cerebral circulations are patent. No hemodynamically significan t stenosis, aneurysm, dissection, or arteriovenous malformation is shown. IMPRESSION: 1. No occlusion, hemodynamically significant stenosis, or dissection in the major cervical arteries. Nonhemodynamically significant stenosis is seen in the left V4 segment. 2. No occlusion, hemodynamically significant stenosis, aneurysm, dissection, or arteriovenous malfor mation in the major intracranial arteries. Assessment of stenosis of the internal carotid arteries is based on NASCET criteria. ACT 112: Negative or not required by law. Electronically signed by: Bautista Jenkins M.D. 09/07/2022 5:31 PM
[2022-09-07 17:44] LABS: Basophils # (auto) 0.07 K/uL (0-0.2); Basophils % (auto) 0.6 %; Eosinophils # (auto) 0.33 K/uL (0-0.50); Hematocrit (blood only) 36.7 % (42.0-52.0); Immature Granulocytes # (auto) 0.04 K/uL (0.01-0.20); Immature Granulocytes % (auto) 0.4 %; Lymphocytes # (auto) 2.37 K/uL (1.2-3.4); Lymphocytes % (auto) 21.4 %; Mean Corpuscular Hemoglobin 30.5 pg (25.0-34.0); Mean Corpuscular Hgb Conc 35.4 g/dL (32.0-36.0); Mean Corpuscular Volume 86.2 fL (80.0-100.0); Mean Platelet Volume 10.2 fL (9.4-12.4); Monocytes # (auto) 0.56 K/uL (0.11-0.59); Monocytes % (auto) 5.1 %; Neutrophils # (auto) 7.68 K/uL (1.40-6.50); Neutrophils % (auto) 69.5 %; Platelet Count 212 K/uL (130-400); RDW Standard Deviation 40.1 fL (36.4-46.3); Red Blood Count 4.26 M/uL (4.70-6.10); White Blood Count 11.05 K/ul (4.8-10.8)
--- NOTE | 2022-09-07 17:52 | CT Scan Report ---
CT angio head w con CLINICAL HISTORY: neuro deficit, acute stroke suspected TECHNIQUE: Contiguous axial CT images of the head were acquired from the base of the skull to the alex jorge without intravenous contrast administration. CT angiography of the head and neck was performed f ollowing intravenous administration of iodinated contrast. Coronal and sagittal MIPS were obtained fr om the axial data set and were submitted for review. Automated dose lowering techniques and/or adjus tment according to patient size were utilized for this examination. All measurements were calculated based on NASCET criteria. Comparison: Comparison is made to CT head 09/07/2022 FINDINGS: CTA Head: The anterior and posterior cerebral circulations are patent. There is stenosis of the righ t A2 segment which is likely chronic. IMPRESSION: Stenosis of the right A2 segment is noted, likely chronic. No abnormalities of the posterior circulat ion. Assessment of stenosis of the internal carotid arteries is based on NASCET criteria. ACT 112: Negative or not required by law. Electronically signed by: Bautista Jenkins M.D. 09/07/2022 5:51 PM
[2022-09-07 17:58] LABS: Albumin Globulin Ratio 1.6 (0.9-2); Albumin Level 4.1 gm/dl (3.4-5.0); BUN Creatinine Ratio 20.9 (10-20); Bilirubin,Total 0.5 mg/dl (0.2-1.0); Calcium 9.5 mg/dl (8.5-10.1); Creatinine Clr Calc Pharmacy 79.9 ml/min; Est GFR (African American) 82.4 ml/min; Est GFR (Non-African American) 71.1 ml/min; Globulin 2.5 gm/dl (2.5-4.0); Magnesium 1.6 mg/dl (1.7-2.4); Potassium 4.2 mmol/L (3.5-5.1); Total Protein 6.6 gm/dl (6.0-8.3)
[2022-09-07 18:03] LABS: Troponin I High Sensitivity 11.5 pg/ml (0-20)
[2022-09-07 18:12] LABS: Partial Thromboplastin Ratio 0.9; Partial Thromboplastin Time 25.4 Seconds (21.0-31.0); Prothrombin Time 10.3 Seconds (9.0-12.0)
[2022-09-07] MEDS ORDERED: ASPIRIN CHEW 324 MG PO STA (18:27)
--- NOTE | 2022-09-07 18:41 | History & Physical Report ---
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 Is not compliant with aspirin. Balance worsened 2 PM day of admission with additional right leg weakness CThead no acute findings. CTA-H/N without acute findings, significant stenosis, or dissection - Given is noncompliant with aspirin recommend resuming this - Not a TNKase candidate due to sx beginning as early as last Monday - MRI pending? Compatibility, pending review - If evidence of CVA on MRI --> Load with plaavix, then daily. - AICD pending interrogation - Echo pending - SBP goal <180 - Mg low, repletion ordered. Trend Reviewed medication with patient extensively at bedside. Discussed importance of antiplatelet, lipid agent, DM control to help minimize risk of stroke recurrence and the limited treatments available for stroke. Patient expressed understanding of this, and is willing to take antiplatelet daily in addition to statin Rossi medications at this time. CAD Inferior wall [place] 09/2008 with PCI of left PDA and SUNG Continue aspirin daily Sudden cardiac arrest May 2011 with ROSC. Occluded distal left circumflex, chronic, was treated medically ICD placed for secondary prevention. Device replaced 09/2021. No further episodes of V. tach since initial episode 2018 -hs trop normal, 2 hour pending - AICD interrogation pending Hypertension Losartan continued Metoprolol continued Hyperlipidemia: Rosuvastatin continued. Lipids pending T2DM - Basal 9u BID, CF 45, Ratio 15 weight based - Based on home basal of 45u: lantus 23u BID CF 20 Ratio 6 - Pharmacy consulted given significant difference between weight/basal dosing calcuations DVT prophylaxis: Lovenox Diet: Heart healthy Disposition: Telemetry for CVA eval Code: Full (2) ICD (implantable cardioverter-defibrillator) battery depletion: (3) History of ventricular tachycardia: (4) HTN (hypertension): (5) Hyperlipidemia: (6) Dyslipidemia: (7) Diabetic peripheral neuropathy associated with type 2 diabetes mellitus: (8) Chronic lymphocytic leukemia (CLL), B-cell: (9) CAD (coronary artery disease): History of Present Illness Primary Care Provider: Ez Hassan MD Patient is a 61-year-old male with past medical history of ICD for sudden cardiac successfully resuscitated, hyperlipidemia, CAD, hypertension, CLLB-cell, type II DM with neuropathy, and diabetic foot ulcer who presents for stroke/CVA eval. Patient was given aspirin in the ER and magnesium.Patient presented as a stroke alert due to acute onset of gait and balance and vertigo. Patient with vertigo for which she takes meclizine at home, but with acute worsening around 2 PM with lightheadedness and dizziness followed by weakness of the right leg and concern for foot drop. Patient is on aspirin. No prior strokes, does have a history of hypertension/hyperlipidemia/AICD 2/2 cardiac arrest and CAD, and with history of tobacco use. ER evaluation: CTA head/neck: No signs nephric and stenosis, occlusion, dissection, or AV malformation. CThead is without acute findings. Patient has a WBC of 11, coags are normal, sodium/potassium are normal, renal function is normal at baseline and admitting creatinine is 1.10, glucose is 206, magnesium is low at 1.6, high-sensitivity troponin is normal. Patient seen at the bedside. 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 He reports he is on multiple medications, but that these also make him feel poorly and has not been taking his aspirin lately. Has not taken metformin recently. Is frustrated by his blood sugars, and notes that the medicines sometimes make him feel poor and does not have a clear understanding of why he is on several of these. Reviewed med list extensively with patient at bedside, discussed stroke and LA risk. Patient reports he was told to stop taking a baby aspirin despite having history of a stent, thinks this is because it was occluded and was unlikely to help him. Denies chest pain, chest pressure, fever, chills, sweats, nausea, vomiting at time of assessment. Feels generally normal at bedside, was a little dizzy after going to the bathroom but is not dizzy at time of assessment. He feels his real estate services coordinator strength remains at his poor baseline, but is not acutely worsened. Strength in his right leg feels normal. Medical History: Reviewed Medications: Reviewed Surgical History: Reviewed Allergies: Reviewed Social History: Reviewed Code Status: Full Code Allergies Allergy/AdvReac Type Severity Reaction Status Date / Time aluminum Allergy Intermediate TEETH Verified 09/05/22 10:48 TINGLE latex Allergy Mild hives Verified 09/05/22 10:48 CASSANDRA Inhibitors Allergy Unknown Unknown Verified 09/05/22 10:48 Home Medications Medication Instructions Recorded Confirmed Type insulin glargine 100 unit/mL (3 45 unit (0.45 mL) subcut DAILY #15 08/19/22 09/07/22 Rx mL) subcutaneous pen (Lantus mL Solostar U-100 Insulin) flash glucose sensor (FreeStyle #2 ea 08/23/22 09/07/22 Rx Semaj 2 Sensor kit) insulin aspart U-100 100 unit/mL 15 unit (0.15 mL) subcut .COMPLEX 08/23/22 09/07/22 Rx (3 mL) subcutaneous pen (Novolog #15 mL FlexPen U-100 Insulin aspart) losartan 25 mg tablet 25 mg PO DAILY #30 tabs 08/23/22 09/07/22 Rx metformin 500 mg tablet 2,000 mg PO DAILY #360 tabs 08/23/22 09/07/22 Rx pen needle, diabetic 32 gauge x #100 ea 08/23/22 09/07/22 Rx 5/32" (BD Ally 2nd Gen Pen Needle) rosuvastatin 40 mg tablet 40 mg PO DAILY 90 days #90 tabs 08/23/22 09/07/22 Rx aspirin 81 mg tablet,delayed 81 mg PO DAILY #30 tabs 09/05/22 09/07/22 Rx release (Adult Aspirin Regimen) metoprolol succinate 50 mg 50 mg PO QAM #90 tabs 09/05/22 09/07/22 Rx tablet,extended release 24 hr Past Med/Surg History Medical History Anemia Cancer CLL (CHEMO TX) LAST TX 05/31/18 Cardiac arrest 2010 Chronic lymphocytic leukemia (CLL), B-cell Diabetic peripheral neuropathy associated with type 2 diabetes mellitus Dyslipidemia H/O cardiac arrest HTN (hypertension) Hyperlipidemia Hypertension 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 (implantable cardioverter-defibrillator) in place 2010 IMPLANTED Lung nodule Male erectile disorder of organic origin Myocardial Infarction 2002 Osteoarthritis Pacemaker IMPLANTED 2010 ([facility]ARD[facility]) MONITORS DEVICE Peripheral neuropathy Personal history of diabetic foot ulcer Sciatica Thoracic back pain Surgical History History of anesthesia reaction APPY PROCEDURE-COULDN'T BREATHE>COMBATIVE History of appendectomy History of arthroscopy RT History of arthroscopy of knee History of cardiac cath 2002 History of colonoscopy History of heart artery stent 2002 (1 STENT) History of tooth extraction History of vascular access device A-PORT INSERTION Family History Father Diabetes Sister Congenital heart disease Diabetes Mother Hypertension Brother Myocardial infarction Denies family history of Ovarian cancer Prostate cancer Breast cancer Colorectal cancer Social History Smoking Status: Current every day smoker Tobacco Type: Cigarettes Cigarettes Per Day: 1/2 PPD; Second Hand Exposure: Yes (PAST HISTORY); Hx Alcohol Use: No Hx Substance Use: No Preferred Language: Maori Communication Ability: Effective 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 NAD. Cooperative. HEENT: Atraumatic, normocephalic. PERLAA. EoM intact. Vision/hearing intact Pulm: CTAB A&P. -wheezes, -rales, -rhonchi. Symmetrical chest rise. No increased work of breathing. No respiratory distress. Cardiac: RRR, -mrg. Radial pulses intact and symmetrical. Abdominal: Nontender, nondistended, soft. BS present. Ext: 5/5 hip flexion, ankle dorsiflexion/plantarflexion, and real estate services coordinator strength although real estate services coordinator fatigues easily and R hip flexion qualitatively weaker than L. Sensation to soft touch intactin all 4 extremities. Results & Data Results & Data ([facility]) Vital Signs (Past 12 Hours) Vital Signs Pulse Pulse Resp BP BP Pulse Ox O2 Del Method 09/07/22 18:14 79 09/07/22 17:23 77 18 195/87 H 98 Room Air 09/07/22 17:21 98 Room Air 09/07/22 16:50 84 18 158/87 H 98 Room Air PG Care Time/CCT Total # of Minutes Spent Total Time Spent with Patient: Total time spent is greater than 50% in coordination of care (as documented) at patient's floor/unit and/or counseling patient: Coding Level of Care Code 30639 INT INP/OBS CARE MIN Diagnoses Stroke-like symptom R29.90 ICD (implantable cardioverter-defibrillator) battery depletion Z45.02 History of ventricular tachycardia Z86.79 HTN (hypertension) I10 Hyperlipidemia E78.5 Dyslipidemia E78.5 Diabetic peripheral neuropathy associated with type 2 diabetes mellitus E11.42 Chronic lymphocytic leukemia (CLL), B-cell C91.10 CAD (coronary artery disease) I25.10
[2022-09-07] MEDS: MAGNESIUM SULFATE / D5W 1 GM/100 ML BAG IV SCH ×2 (18:45→19:54)
[2022-09-07] MEDS ORDERED: CARBOHYDRATES FOR HYPOGLYCEMIA PO PRN (21:40)
[2022-09-07] MEDS ORDERED: ACETAMINOPHEN 325 MG TAB PO PRN (21:40)
[2022-09-07] MEDS ORDERED: PHARMACIST DISCHARGE MED REC CONSULT PRN (21:40)
[2022-09-07] MEDS ORDERED: GLUCOSE 40% GEL 15 GM TUBE PO PRN (21:40)
[2022-09-07] MEDS ORDERED: GLUCOSE 10 TAB/TUBE PO PRN (21:40)
[2022-09-07] MEDS ORDERED: PHARMACY GLYCEMIC MGMT CONSULT PRN (21:40)
[2022-09-07] MEDS ORDERED: GLUCAGON FOR INJ 1 MG VIAL SQ PRN (21:40)
[2022-09-07] MEDS ORDERED: LANTUS PER UNIT CHARGE SQ SCH (21:40)
[2022-09-07] MEDS ORDERED: DEXTROSE 50% 50 ML SYRINGE IV PRN (21:40)
[2022-09-08] MEDS: INSULIN ASPART PER UNIT SC SCH ×3 (01:59→12:01)
[2022-09-08 08:30] LABS: Basophils # (auto) 0.05 K/uL (0-0.2); Basophils % (auto) 0.6 %; Eosinophils # (auto) 0.33 K/uL (0-0.50); Eosinophils % (auto) 3.7 %; Hematocrit (blood only) 38.2 % (42.0-52.0); Hemoglobin 13.5 g/dl (14.0-18.0); Immature Granulocytes # (auto) 0.03 K/uL (0.01-0.20); Immature Granulocytes % (auto) 0.3 %; Lymphocytes # (auto) 2.05 K/uL (1.2-3.4); Lymphocytes % (auto) 22.7 %; Mean Corpuscular Hemoglobin 30.3 pg (25.0-34.0); Mean Corpuscular Hgb Conc 35.3 g/dL (32.0-36.0); Mean Corpuscular Volume 85.8 fL (80.0-100.0); Mean Platelet Volume 10.2 fL (9.4-12.4); Monocytes # (auto) 0.42 K/uL (0.11-0.59); Monocytes % (auto) 4.6 %; Neutrophils # (auto) 6.16 K/uL (1.40-6.50); Neutrophils % (auto) 68.1 %; Platelet Count 197 K/uL (130-400); RDW Coefficient of Variation 13.2 % (11.5-14.5); RDW Standard Deviation 40.6 fL (36.4-46.3); Red Blood Count 4.45 M/uL (4.70-6.10); White Blood Count 9.04 K/ul (4.8-10.8)
[2022-09-08 08:47] LABS: BUN Creatinine Ratio 18.8 (10-20); Calcium 9.3 mg/dl (8.5-10.1); Creatinine Clr Calc Pharmacy 108.8 ml/min; Est GFR (African American) 97.1 ml/min; Est GFR (Non-African American) 83.8 ml/min; Potassium 4.5 mmol/L (3.5-5.1)
[2022-09-08] MEDS ORDERED: LOSARTAN POTASSIUM 25 MG TAB PO SCH (09:00)
[2022-09-08] MEDS ORDERED: ROSUVASTATIN CALCIUM 20 MG TAB PO SCH (09:00)
[2022-09-08] MEDS ORDERED: METOPROLOL SUCC 50MG EXT REL TAB PO SCH (09:00)
--- NOTE | 2022-09-08 09:10 | Hospitalist Progress Note ---
Date of Service September 08, 2022 Assessment & Plan (1) Stroke-like symptom: Plan: Acute issue possible serious risk consider TIA with initial imaging negative pending MRI brain Waxing and waning symptoms as an outpatient with associated right leg weakness CThead no acute findings. CTA-H/N without acute findings, significant stenosis, or dissection -Resuming antiplatelet on aspirin - Not a TNKase candidate due to sx beginning as early as last Monday outside of timeframe window for thrombolytic therapy - - AICD pending interrogation - Echo pending -Acute hypomagnesemia which may affect arrhythmia, repletion Admitting physician reviewed medication with patient extensively at bedside. Discussed importance of antiplatelet, lipid agent, DM control to help minimize risk of stroke recurrence and the limited treatments available for stroke. Patient expressed understanding of this, and is willing to take antiplatelet daily in addition to statin Rossi medications at this time. CAD chronic and stable Inferior wall [place] 09/2008 with PCI of left PDA and SUNG Continue aspirin daily Sudden cardiac arrest May 2011 with ROSC. Occluded distal left circumflex, chronic, was treated medically ICD placed for secondary prevention. Device replaced 09/2021. No further episodes of V. tach since initial episode 2018 -hs trop normal, 2 hour pending - AICD interrogation pending Hypertension chronic and stable continue home management with losartan and metoprolol Hyperlipidemia: Chronic and stable continue rosuvastatin lipid labs reviewed in the morning of 216 showed total cholesterol of 111 T2DM chronic continue patient treatment unclear if stable hemoglobin A1c is pending - Basal 9u BID, CF 45, Ratio 15 weight based - Based on home basal of 45u: lantus 23u BID CF 20 Ratio 6 - Pharmacy consulted given significant difference between weight/basal dosing calculations DVT prophylaxis: Lovenox Diet: Heart healthy Disposition: Telemetry for CVA eval Code: Full (2) ICD (implantable cardioverter-defibrillator) battery depletion: (3) History of ventricular tachycardia: (4) HTN (hypertension): (5) Hyperlipidemia: (6) Dyslipidemia: (7) Diabetic peripheral neuropathy associated with type 2 diabetes mellitus: (8) Chronic lymphocytic leukemia (CLL), B-cell: (9) CAD (coronary artery disease): Admission and Anticipated Discharge Date Admission Date: September 07, 2022 Results & Data Results & Data ([facility]) Vital Signs (Past 12 Hours) Vital Signs Temp Pulse Pulse Pulse Resp BP Pulse Ox 09/08/22 07:55 97.5 F L 63 16 133/74 95 09/08/22 01:46 69 09/08/22 05:00 97.7 F 68 18 160/89 H 97 09/08/22 05:20 97.7 F 65 18 156/75 H 95 09/08/22 01:15 97.7 F 68 18 160/89 H 97 09/07/22 21:46 67 20 172/77 H 97 09/07/22 21:46 09/07/22 21:26 66 Pulse Ox O2 Del Method O2 Del Method 09/08/22 07:55 Room Air 09/08/22 01:46 09/08/22 05:00 Room Air 09/08/22 05:20 Room Air 09/08/22 01:15 Room Air 09/07/22 21:46 Room Air 09/07/22 21:46 97 Room Air 09/07/22 21:26 PG Care Time/CCT Total # of Minutes Spent Total Time Spent with Patient: Total time spent is greater than 50% in coordination of care (as documented) at patient's floor/unit and/or counseling patient: Coding Diagnoses Stroke-like symptom R29.90 ICD (implantable cardioverter-defibrillator) battery depletion Z45.02 History of ventricular tachycardia Z86.79 HTN (hypertension) I10 Hyperlipidemia E78.5 Dyslipidemia E78.5 Diabetic peripheral neuropathy associated with type 2 diabetes mellitus E11.42 Chronic lymphocytic leukemia (CLL), B-cell C91.10 CAD (coronary artery disease) I25.10
--- NOTE | 2022-09-08 10:10 | Electrocardiogram Report ---
Test Reason : Blood Pressure : / mmHG Vent. Rate : 078 BPM Atrial Rate : 078 BPM P-R Int : 174 ms QRS Dur : 106 ms QT Int : 416 ms P-R-T Axes : 026 000 -29 degrees QTc Int : 474 ms Normal sinus rhythm possible Inferior infarct , age undetermined Abnormal ECG When compared with ECG of 20-NOV-2017 06:44, No significant change was found Confirmed by Ez Polk ([id number]) on 09/08/2022 10:10:24 AM Referred By: REFERRED SELF Confirmed By:Mirza Polk
[2022-09-08 11:39] LABS: Estimated Average Glucose 194 mg/dl; Hemoglobin A1C 8.4 % (4.5-5.6)
--- NOTE | 2022-09-08 13:36 | Magnetic Resonance Report ---
MR brain wo con HISTORY: 61 years-old Male RLE drift/weakness acute dizziness with weakness and strokelike symptoms COMPARISON: Head CT 09/07/2022 TECHNIQUE: Multiplanar multisequence MRI of the brain was obtained without the use of IV contrast. 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 There is no restricted diffusio n to suggest acute or subacute infarct. Midline structures are unremarkable. Degenerative changes of the cervical spine. Partially empty sella. No acute intracranial hemorrhage, midline shift, abnormal extra-axial collection, hydrocephalus or intracranial mass. Mild involutional changes. Mild T2/FLAIR hyperintense foci noted throughout the white matter. Probable hemangioma the left parietal calvarium, 2.4 cm. Cerebral venous sinuses and major arterial f low voids are patent. Unremarkable orbits and soft tissues. Mild to moderate mucosal thickening of th e right maxillary sinus with air-fluid level. Mastoid air cells are clear. IMPRESSION: 1. No acute intracranial abnormality. No acute or subacute infarct. 2. Suggestion of mild chronic microvascular ischemic disease. 3. Mild to moderate right maxillary sinus disease. ACT 112: Negative or not required by law. The above report was generated using voice recognition software. It may contain grammatical, syntax o r spelling errors. Electronically signed by: Carroll Dee M.D. 09/08/2022 1:34 PM
--- NOTE | 2022-09-08 14:03 | Pharmacy Report ---
Pharmacy Glycemic Short Note 2 - Date of Service September 08, 2022 - Glycemic Short BSG Results (Last 24 hours): 09/07/22 09/07/22 09/07/22 17:19 17:21 22:22 Glucose 206 H POC Glucose 205 H 132 H 09/08/22 09/08/22 09/08/22 01:46 07:43 07:50 Glucose 119 H POC Glucose 125 H 124 H 09/08/22 11:37 Glucose POC Glucose 130 H OUTPATIENT ANTIDIABETIC REGIMEN: * Novolog 15 units prior to meals/snacks - max of 60 units/day * Lantus 35 units SQ daily ASSESSMENT: * 61 y/o M admitted for stroke like symptoms. Patient with history of Type 2 diabetes managed at home on basal and bolus insulins. * Patient received 23 units of basal insulin last night. Fasting BSG today was 119 m/dl. Continued basal insulin at same dose tonight. * Novolog was ordered based on wt and stress of 2. Carb ratio tightened slightly this morning. PLAN FOR INPATIENT GLYCEMIC CONTROL: * Basal insulin * Lantus 23 units SQ HS * Bolus insulin * NovoLog per scale ACHS or Q6hrs while NPO * Goal Range: Low 110 mg/dL - High 140 mg/dL * Correction Factor: 20 mg/dL/unit * Nutritional / Prandial insulin per carb ratio of 1 unit per 9 grams CHO consumed
[2022-09-08] MEDS ORDERED: STROKE PATIENT DISCHARGE STA (16:07)
--- NOTE | 2022-09-08 16:49 | Discharge Summary ---
Date of Service September 08, 2022 Admission HPI Per Admitting Provider Patient is a 61-year-old male with past medical history of ICD for sudden cardiac successfully resuscitated, hyperlipidemia, CAD, hypertension, CLLB-cell, type II DM with neuropathy, and diabetic foot ulcer who presents for stroke/CVA eval. Patient was given aspirin in the ER and magnesium.Patient presented as a stroke alert due to acute onset of gait and balance and vertigo. Patient with vertigo for which she takes meclizine at home, but with acute worsening around 2 PM with lightheadedness and dizziness followed by weakness of the right leg and concern for foot drop. Patient is on aspirin. No prior strokes, does have a history of hypertension/hyperlipidemia/AICD 2/2 cardiac arrest and CAD, and with history of tobacco use. ER evaluation: CTA head/neck: No signs nephric and stenosis, occlusion, dissection, or AV malformation. CThead is without acute findings. Patient has a WBC of 11, coags are normal, sodium/potassium are normal, renal function is normal at baseline and admitting creatinine is 1.10, glucose is 206, magnesium is low at 1.6, high-sensitivity troponin is normal. Patient seen at the bedside. Reports he has had balance issues in the last week, right leg weakness which was worse today but may have been present Monday, and chronically worsened narcotics agent strength which he thinks has been worse for the last 3 days. He reports he is on multiple medications, but that these also make him feel poorly and has not been taking his aspirin lately. Has not taken metformin recently. Is frustrated by his blood sugars, and notes that the medicines sometimes make him feel poor and does not have a clear understanding of why he is on several of these. Reviewed med list extensively with patient at bedside, discussed stroke and VT risk. Patient reports he was told to stop taki ng a baby aspirin despite having history of a stent, thinks this is because it was occluded and was unlikely to help him. Denies chest pain, chest pressure, fever, chills, sweats, nausea, vomiting at time of assessment. Feels generally normal at bedside, was a little dizzy after going to the bathroom but is not dizzy at time of assessment. He feels his narcotics agent strength remains at his poor baseline, but is not acutely worsened. Strength in his right leg feels normal. Medical History: Reviewed Medications: Reviewed Surgical History: Reviewed Allergies: Reviewed Social History: Reviewed Code Status: Full Code Principal Diagnosis TIA Discharge Exam The patient appeared stable Vital signs as documented. Lungs are clear to auscultation and appear unlabored Cardiac exam, Rhythm is regular.. No murmurs, rubs or gallops. Neurologic exam is alert and oriented,still some lower extremity weakness Discharge Data Allergies Allergy/AdvReac Type Severity Reaction Status Date / Time aluminum Allergy Intermediate TEETH Verified 09/05/22 10:48 TINGLE latex Allergy Mild hives Verified 09/05/22 10:48 CASSANDRA Inhibitors Allergy Unknown Unknown Verified 09/05/22 10:48 Ordered Studies 09/07/22 16:58 CT angio head w con Stat CT angio neck with con Stat CT head/brain wo con Stat 09/08/22 18:27 MR brain wo con Stat Hospital Course (1) Stroke-like symptom: Acute issue possible serious risk consider TIA patient MRI of brain did not confirm any strokelike injury. Education was gi soni to the patient regarding dual antiplatelet therapy for 3 weeks plus to importance of modifying his risk factors both medication and lifestyle modification with the hopes that lifestyle modification could lead to reduction of medications in the long run Outpatient physical therapy ordered CThead no acute findings. CTA-H/N without acute findings, significant stenosis, or dissection -Resuming antiplatelet on aspirin - Not a TNKase candidate due to sx beginning as early as last Monday outside of timeframe window for thrombolytic therapy - - AICD ordered interrogation not completed prior to discharge -Acute hypomagnesemia which may affect arrhythmia, repletion Admitting physician reviewed medication with patient extensively at bedside. Discussed importance of antiplatelet, lipid agent, DM control to help minimize risk of stroke recurrence and the limited treatments available for stroke. Patient expressed understanding of this, and is willing to take antiplatelet daily in addition to statin and diabetic medications at this time. 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 Occluded distal left circumflex, chronic, was treated medically ICD placed for secondary prevention. Device replaced 09/2021. No further episodes of V. tach since initial episode 2018 -Troponin negative x2 Hypertension chronic and stable continue home management with losartan and metoprolol Hyperlipidemia: Chronic and stable continue rosuvastatin lipid labs reviewed in the morning of 09/08 showed total cholesterol of 111 T2DM chronic continue patient treatment unclear if stable hemoglobin A1c is pending -Resume home Lantus and standard short acting insulin 15 units 3 times daily recommend conversation with primary care provider and possible outpatient consumer educator to initiate sliding scale insulin therapy at home rather than the standard dosing these on also continue his metformin (2) ICD (implantable cardioverter-defibrillator) battery depletion: (3) History of ventricular tachycardia: (4) HTN (hypertension): (5) Hyperlipidemia: (6) Dyslipidemia: (7) Diabetic peripheral neuropathy associated with type 2 diabetes mellitus: (8) Chronic lymphocytic leukemia (CLL), B-cell: (9) CAD (coronary artery disease): Total Time Total Time Spent Total Time Spent (In Minutes): It required greater than 30 minutes to prepare this patient for discharge Discharge Plan Discharge Items Patient Disposition: Home - Self-Care Reason For Visit: EQUILIBRIUM ISSUES,HEADACHE,LOSS BALANCE Discharge Diagnosis: tia Activity: Per Instructions section Activity Comment: follow up with Physical therapy Non-emergency contact: Primary Care Provider Call non-emergency contact if: your symptoms worsen Follow-up/Referrals: Ez Hassan MD [Primary Care Provider] - 09/19/22 2:00 pm (APPT. WITH Buck SIDHU PA-C) Diet: Carb Consistent or DM2 Addtl Attending Provider Instructions: please take you home medicines as below and add plavix therapy, after 3 weeks stop aspirin and take plavix therapy alone follow up with your primary care for discussion about sliding scale insulin and if appropriate referral to nutrition and consumer educator Risk Factors for Stroke: You can reduce your chances of stroke by working with your medical provider to adopt a healthy lifestyle. Some specific ways to lower your chance of stroke are: * If you are a smoker, now is the time to stop smoking cigarettes * If you are diabetic, improve the control of your blood sugars * Avoid excessive amounts of alcohol * Control high blood pressure * Lose weight if you are overweight * Be sure to lead an active lifestyle * Eat a healthy diet low in salt, cholesterol and fat You should know about other risk factors for stroke that you are unable to control. These include: * Age 55 years or older * Male gender * Certain racial groups: , or / * Family History of Stroke, Mini stroke or Heart Attack * Sickle Cell Disease Follow Up: It is important for you to keep your follow up appointments with your medical provider. Who to Call and When: Medical Emergencies: Call 911 immediately if you experience any of the following warning signs and symptoms of Stroke: * Sudden numbness or weakness of the face, arm or leg, especially on one side of the body * Sudden confusion, trouble speaking or understanding * Sudden trouble seeing in one or both eyes * Sudden trouble walking, dizziness, loss of balance or coordination * Sudden severe headache with no cause Do not delay calling 911 if you experience any warning signs or symptoms of a stroke. Delay in seeking medical attention may affect what treatments can be given to you. . Pending Studies at Discharge: No Stand-Alone Forms: My [facility] [employer], Smoking Cessation, Medications to Prevent Stroke Medications and DC Order Prescriptions: New clopidogrel [Plavix] 75 mg tablet 75 mg PO DAILY Qty: 30 3RF Rx Instructions: tia treatment Continued insulin glargine [Lantus Solostar U-100 Insulin] 100 unit/mL (3 mL) insulin pen 45 unit subcut DAILY Qty: 15 5RF (DME) FreeStyle Semaj 2 Sensor Kit See Rx Instructions .Route Qty: 2 11RF Rx Instructions: As directed aspirin [Adult Aspirin Regimen] 81 mg tablet,delayed release (DR/EC) 81 mg PO DAILY Qty: 30 2RF metoprolol succinate 50 mg tablet extended release 24 hr 50 mg PO QAM Qty: 90 3RF rosuvastatin 40 mg tablet 40 mg PO DAILY 90 Days Qty: 90 3RF metformin 500 mg tablet 2,000 mg PO DAILY Qty: 360 3RF insulin aspart U-100 [Novolog FlexPen U-100 Insulin] 100 unit/mL (3 mL) insulin pen 15 unit subcut .COMPLEX Qty: 15 4RF Rx Instructions: 15 units subcutaneously ; 15 min prior to meals or snacks. SKIP DOSE IF YOU SKIP A MEAL. Max 60 units/day; (DME) pen needle, diabetic [BD Ally 2nd Gen Pen Needle] 32 gauge x 5/32" needle See Rx Instructions .Route Qty: 100 11RF Rx Instructions: TESTS 4 TIMES DAILY losartan 25 mg tablet 25 mg PO DAILY Qty: 30 2RF Discharge Orders: Discharge Order (Routine); Ordered 09/08/22 Ordered By: Elias Marshall/Other Patient Handouts: Managing Type 2 Diabetes Admission Data Admit Date/Time: 09/07/22 19:06 Attending Provider: Elias Leiva Admit Provider: Abe Hednrix Primary Care Provider: Ez Hassan Other Interventions: Discharge Summary Assessment (RN) Last Done: 09/08/22 16:11 Coding Level of Care Code HOSP INP/OBS DISCH >30 MIN Diagnoses Stroke-like symptom R29.90 ICD (implantable cardioverter-defibrillator) battery depletion Z45.02 History of ventricular tachycardia Z86.79 HTN (hypertension) I10 Hyperlipidemia E78.5 Dyslipidemia E78.5 Diabetic peripheral neuropathy associated with type 2 diabetes mellitus E11.42 Chronic lymphocytic leukemia (CLL), B-cell C91.10 CAD (coronary artery disease) I25.10 Associated angina: without angina Coronary Disease-Associated Artery/Lesion type: [place] artery [place] vs. transplanted heart: [place] heart
[2022-09-08] MEDS ORDERED: ENOXAPARIN INJ 40 MG/0.4 ML SYR SQ SCH (19:15)
[2022-09-08] MEDS ORDERED: LANTUS PER UNIT CHARGE SQ SCH (21:00)
--- NOTE | 2022-09-09 10:02 | Pharmacy Report ---
Pharmacist Stroke Counseling - Date of Service September 09, 2022 - Scope: Pharmacy has been consulted to provide medication discharge counseling for this patient admitted with possible transient ischemic attack as per the Pharmacist Discharge Counseling for Stroke Patients Protocol. - Medications on Discharge: New Rx's Medication Instructions Recorded insulin glargine 100 unit/mL (3 45 unit (0.45 mL) subcut DAILY #15 08/19/22 mL) subcutaneous pen (Lantus mL Solostar U-100 Insulin) flash glucose sensor (FreeStyle #2 ea 08/23/22 Semaj 2 Sensor kit) insulin aspart U-100 100 unit/mL 15 unit (0.15 mL) subcut .COMPLEX 08/23/22 (3 mL) subcutaneous pen (Novolog #15 mL FlexPen U-100 Insulin aspart) losartan 25 mg tablet 25 mg PO DAILY #30 tabs 08/23/22 metformin 500 mg tablet 2,000 mg PO DAILY #360 tabs 08/23/22 pen needle, diabetic 32 gauge x #100 ea 08/23/2232" (BD Ally 2nd Gen Pen Needle) rosuvastatin 40 mg tablet 40 mg PO DAILY 90 days #90 tabs 08/23/22 aspirin 81 mg tablet,delayed 81 mg PO DAILY #30 tabs 09/05/22 release (Adult Aspirin Regimen) metoprolol succinate 50 mg 50 mg PO QAM #90 tabs 09/05/22 tablet,extended release 24 hr clopidogrel 75 mg tablet (Plavix) 75 mg PO DAILY #30 tabs 09/08/22 - Action: The above medications, specifically ones for stroke treatment/prophylaxis, have been reviewed in detail with the patient via phone on day after discharge. This includes indication, common adverse reactions, drug interactions, and medication administration. Medication counseling has been employed using the teach-back method to ensure understanding. - Outcome: The patient demonstrated understanding of the medications. Additional comments: Spoke over the phone with patient today- he was very pleasant and receptive to counseling. Reviewed new medications to prevent stroke including Aspirin, Plavix and Rosuvastatin (which he was already on). Emphasized to take Aspirin + Plavix for 21 days then stop the Aspirin. Patient repeated this back to me and verbalized understanding. Discussed why they are being used and common side effects in great detail. Reviewed how to use the medications, what to do if doses are missed, common drug interactions, common side effects, what to watch out for while using the medications. Also mentioned to him about the Metformin and Insulin therapies. He said he had no questions regarding these but his glucometer broke. Asked him to contact his PCP's office about replacement since it was important to check his blood sugars while on insulin. I left call back number if any questions about medications. Thank you for allowing pharmacy to be involved in the care of this patient. Please call [phone] with any additional questions
== END 2022-09-08 17:13 | disposition home or self-care (01) ==
LOC: ED 16:48 → EDINP 16:48 → SUATTDRO 19:06 → 2W 21:41

== ENCOUNTER 2022-10-12 17:40 | Inpatient (IN) ==
[2022-10-12] MEDS ORDERED: SODIUM CHLORIDE 0.9% 1000ML 1,000 ML IV ONE ×2 (18:02→21:10)
--- NOTE | 2022-10-12 18:06 | Emergency Department Note ---
Impression & Plan Headache, Arm paresthesia, right, Chest pain ED Provider Note NAME: BRY CRAWFORD AGE: 61 SEX: M : 1960 ARRIVES VIA: Walk-In INFORMANT: Patient ED PROVIDER(S): Christian Sutherland DO CHIEF COMPLAINT: FORD and right arm numb HPI: Patient is a 61-year-old male with a past medical history of V. tach, cardiac arrest, CAD, hypertension, diabetes and hyperlipidemia with a TIA that presents to the ER for headache and right arm numbness. He notes he went to bed last night around 830 and got up around 730 and noticed the headache and the right arm numbness. Headache is in the frontal regions. Denies any noticeable weakness. No change in vision but does have some blurriness. No chest pain or shortness of breath currently but he did have some chest pain earlier today. No belly pain, nausea, vomiting, or diarrhea. No dysuria, urgency, or frequency. No other exacerbating or remitting factors. PAST MEDICAL HISTORY:See Below PAST SURGICAL HISTORY:See Below FAMILY HISTORY:See Below SOCIAL HISTORY:See Below HOME MEDICATIONS:See Below ALLERGIES:See Below VITALS:See Below PHYSICAL EXAMINATION: GENERAL: Sitting up in bed, alert, well appearing, well nourished, no distress, non-toxic EYE EXAM: normal conjunctiva. PERRL and EOM's intact. OROPHARYNX: no exudate, no erythema, lips, buccal mucosa, and tongue normal and mucous membranes are moist NECK: supple, no nuchal rigidity, no adenopathy, non-tender LUNGS: Clear to auscultation. Normal chest wall mechanics HEART: no murmurs, S1 normal and S2 normal ABDOMEN: abdomen soft, non-tender, normo-active bowel sounds, no masses, no rebound or guarding. BACK: Back is symmetrical on inspection and there is no deformity, no midline tenderness, no CVA tenderness. SKIN: no rashes and no bruising UPPER EXTREMITIES: upper extremities are grossly normal. LOWER EXTREMITIES: No pitting edema. NEURO EXAM: Normal sensorium, cranial nerves II-XII intact, normal speech, no weakness of arms, no weakness of legs. No drift. Finger to nose intact. Gross sensation intact. MEDICAL DECISION MAKING: Patient is a 61-year-old male who presents ER for above-stated complaint which include right arm numbness, headache and chest pain. IV was established blood work was obtained. Labs show no significant leukocytosis or anemia. BMP with a slightly elevated chloride at 108. LFTs bilirubin was unremarkable. COVID was negative. CT angios of the head and neck show moderate stenosis of the right A2 segment but no other acute pathology. Patient was updated bedside. Symptoms started over 12 hours ago. Not a candidate for tPA. Updated bedside. Discussed with the hospitalist admitted for further work-up Dr. Espinosa. Triage Nursing notes reviewed. Limited review of prior medical records performed Vital Signs: reviewed and remarkable for HTN Differential diagnosis: Differential Diagnosis includes but is not limited to headache, tension headache, cluster headache, migraine, subarachnoid hemorrhage, meningitis, mass, central venous thrombus, concussion, trauma and epidural/subdural hemorrhage. ER treatment provided: See below Diagnostics interpreted by me include EKG and cardiac monitoring as listed below: -Cardiac Monitoring: An order was placed for continuous cardiac monitoring. The monitor shows a rate of 65 with sius rhythm. -ECG: Sinus rhythm at 64 Normal axis No PVCs QTc 451 -Laboratory studies:Interpreted by me as stated above in MDM and shown below. 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 IMPLANTED Lung nodule Male erectile disorder of organic origin Myocardial Infarction 2002 Osteoarthritis Pacemaker IMPLANTED 2010 ([employer]) MONITORS DEVICE Peripheral neuropathy Personal history of diabetic foot ulcer Sciatica Thoracic back pain Surgical History History of anesthesia reaction APPY PROCEDURE-COULDN'T BREATHE>COMBATIVE History of appendectomy History of arthroscopy RT History of arthroscopy of knee History of cardiac cath 2003 History of colonoscopy History of heart artery stent 2002 (1 STENT) History of tooth extraction History of vascular access device A-PORT INSERTION Family History Father Diabetes Sister Congenital heart disease Diabetes Mother Hypertension Brother Myocardial infarction Denies family history of Ovarian cancer Prostate cancer Breast cancer Colorectal cancer Social History Smoking Status: Never smoker Tobacco Type: Cigarettes Cigarettes Per Day: 0.5 packs/day; Second Hand Exposure: No; Hx Alcohol Use: Yes Alcohol type: beer Alcohol Intake Frequency: Monthly or Less Hx Substance Use: No Preferred Language: Kazakh Communication Ability: Effective Speech/Language Therapist Required: No Beliefs That Will Affect Care: None Current Living Situation: Alone Current Living Situation Comment: Lives along Feels Safe at Home: Yes caffeine: Yes Assistive Devices: Walker Allergies Allergies Allergy/AdvReac Type Severity Reaction Status Date / Time CASSANDRA Inhibitors Allergy Unknown Unknown Verified 10/12/22 18:35 Home Meds Previous Rx's Medication Instructions Recorded metformin 500 mg tablet 2,000 mg PO DAILY #360 tabs 08/23/22 pen needle, diabetic 32 gauge x #100 ea 08/23/22" (BD Ally 2nd Gen Pen Needle) rosuvastatin 40 mg tablet 40 mg PO DAILY 90 days #90 tabs 08/23/22 metoprolol succinate 50 mg 50 mg PO QAM #90 tabs 09/05/22 tablet,extended release 24 hr clopidogrel 75 mg tablet (Plavix) 75 mg PO DAILY #30 tabs 09/08/22 flash glucose sensor (FreeStyle #2 ea 09/09/22 Semaj 2 Sensor kit) insulin aspart U-100 100 unit/mL 15 unit (0.15 mL) subcut .COMPLEX 09/09/22 (3 mL) subcutaneous pen (Novolog #15 mL FlexPen U-100 Insulin aspart) insulin glargine 100 unit/mL (3 42 unit (0.42 mL) subcut DAILY #15 09/09/22 mL) subcutaneous pen (Lantus mL Solostar U-100 Insulin) losartan 50 mg tablet 50 mg PO DAILY 30 days #30 tabs 09/16/22 Results & Data (ED) Vital Signs Vital Signs - 24 hr 10/12/22 17:43 10/12/22 18:10 10/12/22 18:23 Temperature 36.4 C L Temperature Source Temporal Artery Scan Pulse Rate 74 64 Pulse Rate [Left Apical] 67 Respiratory Rate 20 18 Respiratory Effort / Characteristics Non-Labored Spontaneous Respiratory Depth Normal Respiratory Pattern Regular Blood Pressure 188/93 H Blood Pressure [Right Arm] 145/86 H Blood Pressure Mean 124 Blood Pressure Mean [Right Arm] 105 Pulse Oximetry 99 100 Oxygen Delivery Method Room Air Room Air Sepsis Recent Fever Within 48 Hours No Sepsis New/Unexplained Change in Mental Status No Sepsis Action Taken by Nursing No Action Required 10/12/22 18:10 10/12/22 18:30 10/12/22 18:55 Temperature Temperature Source Pulse Rate 66 67 Pulse Rate [Left Apical] Respiratory Rate Respiratory Effort / Characteristics Respiratory Depth Respiratory Pattern Blood Pressure 145/86 H 126/77 Blood Pressure [Right Arm] Blood Pressure Mean 105 93 Blood Pressure Mean [Right Arm] Pulse Oximetry 100 99 97 Oxygen Delivery Method Room Air Room Air Sepsis Recent Fever Within 48 Hours Sepsis New/Unexplained Change in Mental Status Sepsis Action Taken by Nursing 10/12/22 19:00 10/12/22 19:30 10/12/22 20:30 Temperature Temperature Source Pulse Rate 60 66 62 Pulse Rate [Left Apical] Respiratory Rate 20 15 21 Respiratory Effort / Characteristics Respiratory Depth Respiratory Pattern Blood Pressure 131/73 134/79 149/79 H Blood Pressure [Right Arm] Blood Pressure Mean 92 97 102 Blood Pressure Mean [Right Arm] Pulse Oximetry 98 100 Oxygen Delivery Method Sepsis Recent Fever Within 48 Hours Sepsis New/Unexplained Change in Mental Status Sepsis Action Taken by Nursing 10/12/22 21:00 Temperature Temperature Source Pulse Rate 58 L Pulse Rate [Left Apical] Respiratory Rate 14 Respiratory Effort / Characteristics Respiratory Depth Respiratory Pattern Blood Pressure 159/82 H Blood Pressure [Right Arm] Blood Pressure Mean 107 Blood Pressure Mean [Right Arm] Pulse Oximetry 96 Oxygen Delivery Method Sepsis Recent Fever Within 48 Hours Sepsis New/Unexplained Change in Mental Status Sepsis Action Taken by Nursing Laboratory Data 10/12/22 19:07 10/12/22 19:07 Lab Results 10/12/22 10/12/22 10/12/22 Range/Units 19:07 19:07 21:23 WBC 9.63 (4.8-10.8) K/ul RBC 4.49 L (4.70-6.10) M/uL Hgb 13.7 L (14.0-18.0) g/dl Hct 39.7 L (42.0-52.0) % MCV 88.4 (80.0-100.0) fL MCH 30.5 (25.0-34.0) pg MCHC 34.5 (32.0-36.0) g/dL RDW Std Deviation 43.5 (36.4-46.3) fL RDW Coeff of Francisco 13.3 (11.5-14.5) % Plt Count 213 (130-400) K/uL MPV 10.0 (9.4-12.4) fL Immature Gran % (Auto) 0.3 % Neut % (Auto) 67.2 % Lymph % (Auto) 24.5 % Izard % (Auto) 4.5 % Eos % (Auto) 3.0 % Baso % (Auto) 0.5 % Neut # (Auto) 6.47 (1.40-6.50) K/uL Lymph # (Auto) 2.36 (1.2-3.4) K/uL Izard # (Auto) 0.43 (0.11-0.59) K/uL Eos # (Auto) 0.29 (0-0.50) K/uL Baso # (Auto) 0.05 (0-0.2) K/uL Immature Gran # (Auto) 0.03 (0.01-0.20) K/uL Sodium 139 (136-145) mmol/L Potassium 4.4 (3.5-5.1) mmol/L Chloride 108 H (98-107) mmol/L Carbon Dioxide 25 (21-32) mmol/L Anion Gap 6 (3-11) BUN 21 (6-23) mg/dl Creatinine 1.10 (0.6-1.4) mg/dl Est Cr Clr Drug Dosing 92.6 ml/min Est GFR ( Amer) 82.4 ml/min Est GFR (Non-Af Amer) 71.1 ml/min BUN/Creatinine Ratio 19.1 (10-20) Glucose 169 H (70-99(Fasting)) mg/dl Calcium 9.7 (8.6-10.3) mg/dl Total Bilirubin 0.7 (0.2-1.0) mg/dl AST 11 L (13-39) U/L ALT 12 (7-52) U/L Alkaline Phosphatase 83 (34-104) U/L Troponin I High Sens 10.6 (0-20) pg/ml Total Protein 6.9 (6.0-8.3) gm/dl Albumin 4.2 (3.4-5.0) gm/dl Globulin 2.7 (2.5-4.0) gm/dl Albumin/Globulin Ratio 1.6 (0.9-2) SARS-CoV-2, RNA, NAAT NEGATIVE (NEGATIVE) Administered Medications Discontinued Medications Diphenhydramine HCl (Diphenhydramine 50 Mg/Ml Vial) 25 mg IV NOW STA Stop: 10/12/22 21:11 Last Admin: 10/12/22 21:17 Dose: 25 mg Documented By: ALANNAH Sodium Chloride (Nss 1000ml) 1,000 mls @ 999 mls/hr IV .Q1H1M ONE Stop: 10/12/22 19:02 Last Infusion: 10/12/22 19:22 Dose: 0 mls/hr Documented By: Admin: 10/12/22 18:08 Dose: 999 mls/hr Documented By: [facility] Sodium Chloride (Nss 1000ml) 1,000 mls @ 999 mls/hr IV .Q1H1M ONE Stop: 10/12/22 22:10 Last Infusion: 10/12/22 22:18 Dose: 0 mls/hr Documented By: Admin: 10/12/22 21:17 Dose: 999 mls/hr Documented By: ALANNAH Ioversol (Optiray 320 500ml) 112 ml IV ONCE ONE Stop: 10/12/22 20:15 Last Admin: 10/12/22 20:14 Dose: 112 ml Documented By: JOHNATHON Ketorolac Tromethamine (Ketorolac Tromethamine 15 Mg/Ml Vial) 10 mg IV NOW ONE Stop: 10/12/22 21:11 Last Admin: 10/12/22 21:17 Dose: 10 mg Documented By: ALANNAH Imaging Data Radiologist's Impression: Head CTA 10/12/22 18:02 Exam(s): CTA HEAD W/WO Contrast EXAM: CT Angiography Head Without and With Intravenous Contrast CLINICAL HISTORY: Reason for exam: FORD r arm numb. TECHNIQUE: Axial computed tomographic angiography images of the head without and with intravenous contrast. CTDI is 29.7 mGy and DLP is 14.85 mGy-cm. Automated exposure control was utilized for the study. A dose lowering technique was utilized adhering to the principles of ALARA. MIP reconstructed images were created and reviewed. CONTRAST: 112 mL Optiray 320. COMPARISON: MRI brain 09/08/22 FINDINGS: VASCULATURE: Right internal carotid artery: Calcific plaque intracranial right ICA without stenosis. No aneurysm. Right anterior cerebral artery: Moderate-severe stenosis right A2 segment (series 5, images 1 [id number]). Right MAXIMO otherwise adequately patent. No aneurysm. Right middle cerebral artery: Unremarkable. No occlusion or significant stenosis. No aneurysm. Right posterior cerebral artery: Unremarkable. No occlusion or significant stenosis. No aneurysm. Right vertebral artery: Unremarkable as visualized. Left internal carotid artery: Calcific plaque intracranial left ICA without stenosis. No aneurysm. Left anterior cerebral artery: Unremarkable. No occlusion or significant stenosis. No aneurysm. Left middle cerebral artery: Unremarkable. No occlusion or significant stenosis. No aneurysm. Left posterior cerebral artery: Unremarkable. No occlusion or significant stenosis. No aneurysm. Left vertebral artery: Unremarkable as visualized. Basilar artery: Unremarkable. No occlusion or significant stenosis. No aneurysm. HEAD: Brain: Intracranial atherosclerosis. Chronic lacunar infarct right putamen and left internal capsule. Moore-white matter differentiation maintained. No acute intracranial hemorrhage, mass-effect, or edema. Age-related cortical cerebral volume loss. Ventricles: Unremarkable. No ventriculomegaly. Bones/joints: Unremarkable. Soft tissues: Unremarkable. Sinuses: Mucosal thickening in the right maxillary sinus, similar to prior exam. Paranasal sinuses otherwise clear. Mastoid air cells: Unremarkable as visualized. No mastoid effusion. IMPRESSION: 1. Patent intracranial circulation. 2. Intracranial atherosclerosis. 3. Moderate-severe stenosis A2 segment of the right MAXIMO. Electronically signed by: José Luis Candelario M.D. 10/12/22 20:43 PM Neck CTA 10/12/22 18:02 Exam(s): CTA NECK With Contrast EXAM: CT Angiography Neck With Intravenous Contrast CLINICAL HISTORY: Reason for exam: FORD r arm numb. TECHNIQUE: Routine carotid CT angiography protocol was performed with intravenous contrast. NASCET criteria using the distal ICAs for comparison were used for evaluation of stenoses. CTDI is 15.22 mGy and DLP is 627.68 mGy-cm. Automated exposure control was utilized for the study. A dose lowering technique was utilized adhering to the principles of ALARA. MIP reconstructed images were created and reviewed. CONTRAST: 112 mL Optiray 320 COMPARISON: 09/07/22 FINDINGS: VASCULATURE: Right common carotid artery: Unremarkable. No occlusion or significant stenosis. No dissection. Right internal carotid artery: Unremarkable. Extracranial segment is patent with no occlusion or significant stenosis. No dissection. Right external carotid artery: Unremarkable. No occlusion. Right vertebral artery: Unremarkable. No occlusion or significant stenosis. No dissection. Left common carotid artery: Unremarkable. No occlusion or significant stenosis. No dissection. Left internal carotid artery: Unremarkable. Extracranial segment is patent with no occlusion or significant stenosis. No dissection. Left external carotid artery: Unremarkable. No occlusion. Left vertebral artery: Unremarkable. No occlusion or significant stenosis. No dissection. Other vasculature: Conventional aortic arch branch anatomy. NECK: Bones/joints: Unremarkable. No acute fracture or dislocation. Soft tissues: Unremarkable. Lung apices: Visualized lung grijalva are clear. Tubes, lines and devices: Left chest wall ICD. CAROTID STENOSIS REFERENCE USING NASCET CRITERIA: % ICA stenosis = (1 - narrowest ICA diameter/diameter of distal cervical ICA) x 100. Mild - <50% stenosis. Moderate - 50-69% stenosis. Severe - 70-94% stenosis. Near occlusion - 95-99% stenosis. Occluded - 100% stenosis. IMPRESSION: No dissection, hemodynamically significant stenosis, or occlusion. Electronically signed by: José Luis Candelario M.D. 10/12/22 20:48 PM Discharge Plan Visit Data Chief Complaint: Headache Stated Complaint: BAD MIGRAINE,NUMBNESS IN ARMS ED Provider: Christian Sutherland Discharge Problem: Headache, Arm paresthesia, right, Chest pain Patient Disposition: Admitted As Inpatient Discharge Instructions Interventions: ED Discharge Assessment Last Done: 10/12/22 22:59
[2022-10-12 19:36] LABS: Basophils # (auto) 0.05 K/uL (0-0.2); Basophils % (auto) 0.5 %; Eosinophils # (auto) 0.29 K/uL (0-0.50); Hematocrit (blood only) 39.7 % (42.0-52.0); Hemoglobin 13.7 g/dl (14.0-18.0); Immature Granulocytes # (auto) 0.03 K/uL (0.01-0.20); Immature Granulocytes % (auto) 0.3 %; Lymphocytes # (auto) 2.36 K/uL (1.2-3.4); Lymphocytes % (auto) 24.5 %; Mean Corpuscular Hemoglobin 30.5 pg (25.0-34.0); Mean Corpuscular Hgb Conc 34.5 g/dL (32.0-36.0); Mean Corpuscular Volume 88.4 fL (80.0-100.0); Monocytes # (auto) 0.43 K/uL (0.11-0.59); Monocytes % (auto) 4.5 %; Neutrophils # (auto) 6.47 K/uL (1.40-6.50); Neutrophils % (auto) 67.2 %; Platelet Count 213 K/uL (130-400); RDW Coefficient of Variation 13.3 % (11.5-14.5); RDW Standard Deviation 43.5 fL (36.4-46.3); Red Blood Count 4.49 M/uL (4.70-6.10); White Blood Count 9.63 K/ul (4.8-10.8)
[2022-10-12 19:48] LABS: Albumin Globulin Ratio 1.6 (0.9-2); Albumin Level 4.2 gm/dl (3.4-5.0); BUN Creatinine Ratio 19.1 (10-20); Bilirubin,Total 0.7 mg/dl (0.2-1.0); Calcium 9.7 mg/dl (8.6-10.3); Creatinine Clr Calc Pharmacy 92.6 ml/min; Est GFR (African American) 82.4 ml/min; Est GFR (Non-African American) 71.1 ml/min; Globulin 2.7 gm/dl (2.5-4.0); Potassium 4.4 mmol/L (3.5-5.1); Total Protein 6.9 gm/dl (6.0-8.3)
[2022-10-12 19:55] LABS: Troponin I High Sensitivity 10.6 pg/ml (0-20)
[2022-10-12] MEDS ORDERED: OPTIRAY 320 500ml IV ONE (20:14)
--- NOTE | 2022-10-12 20:44 | CT Scan Report ---
Exam(s): CTA HEAD W/WO Contrast EXAM: CT Angiography Head Without and With Intravenous Contrast CLINICAL HISTORY: Reason for exam: FORD r arm numb. TECHNIQUE: Axial computed tomographic angiography images of the head without and with intravenous contrast. CTDI is 29.7 mGy and DLP is 14.85 mGy-cm. Automated exposure control was utilized for the study. A dose lowering technique was utilized adhering to the principles of ALARA. MIP reconstructed images were created and reviewed. CONTRAST: 112 mL Optiray 320. COMPARISON: MRI brain 09/08/22 FINDINGS: VASCULATURE: Right internal carotid artery: Calcific plaque intracranial right ICA without stenosis. No aneurysm. Right anterior cerebral artery: Moderate-severe stenosis right A2 segment (series 5, images 1 [id number]). Right MAXIMO otherwise adequately patent. No aneurysm. Right middle cerebral artery: Unremarkable. No occlusion or significant stenosis. No aneurysm. Right posterior cerebral artery: Unremarkable. No occlusion or significant stenosis. No aneurysm. Right vertebral artery: Unremarkable as visualized. Left internal carotid artery: Calcific plaque intracranial left ICA without stenosis. No aneurysm. Left anterior cerebral artery: Unremarkable. No occlusion or significant stenosis. No aneurysm. Left middle cerebral artery: Unremarkable. No occlusion or significant stenosis. No aneurysm. Left posterior cerebral artery: Unremarkable. No occlusion or significant stenosis. No aneurysm. Left vertebral artery: Unremarkable as visualized. Basilar artery: Unremarkable. No occlusion or significant stenosis. No aneurysm. HEAD: Brain: Intracranial atherosclerosis. Chronic lacunar infarct right putamen and left internal capsule. Moore-white matter differentiation maintained. No acute intracranial hemorrhage, mass-effect, or edema. Age-related cortical cerebral volume loss. Ventricles: Unremarkable. No ventriculomegaly. Bones/joints: Unremarkable. Soft tissues: Unremarkable. Sinuses: Mucosal thickening in the right maxillary sinus, similar to prior exam. Paranasal sinuses otherwise clear. Mastoid air cells: Unremarkable as visualized. No mastoid effusion. IMPRESSION: 1. Patent intracranial circulation. 2. Intracranial atherosclerosis. 3. Moderate-severe stenosis A2 segment of the right MAXIMO. Electronically signed by: José Luis Candelario M.D. 10/12/22 20:43 PM
--- NOTE | 2022-10-12 20:49 | CT Scan Report ---
Exam(s): CTA NECK With Contrast EXAM: CT Angiography Neck With Intravenous Contrast CLINICAL HISTORY: Reason for exam: FORD r arm numb. TECHNIQUE: Routine carotid CT angiography protocol was performed with intravenous contrast. NASCET criteria using the distal ICAs for comparison were used for evaluation of stenoses. CTDI is 15.22 mGy and DLP is 627.68 mGy-cm. Automated exposure control was utilized for the study. A dose lowering technique was utilized adhering to the principles of ALARA. MIP reconstructed images were created and reviewed. CONTRAST: 112 mL Optiray 320 COMPARISON: 09/07/22 FINDINGS: VASCULATURE: Right common carotid artery: Unremarkable. No occlusion or significant stenosis. No dissection. Right internal carotid artery: Unremarkable. Extracranial segment is patent with no occlusion or significant stenosis. No dissection. Right external carotid artery: Unremarkable. No occlusion. Right vertebral artery: Unremarkable. No occlusion or significant stenosis. No dissection. Left common carotid artery: Unremarkable. No occlusion or significant stenosis. No dissection. Left internal carotid artery: Unremarkable. Extracranial segment is patent with no occlusion or significant stenosis. No dissection. Left external carotid artery: Unremarkable. No occlusion. Left vertebral artery: Unremarkable. No occlusion or significant stenosis. No dissection. Other vasculature: Conventional aortic arch branch anatomy. NECK: Bones/joints: Unremarkable. No acute fracture or dislocation. Soft tissues: Unremarkable. Lung apices: Visualized lung grijalva are clear. Tubes, lines and devices: Left chest wall ICD. CAROTID STENOSIS REFERENCE USING NASCET CRITERIA: % ICA stenosis = (1 - narrowest ICA diameter/diameter of distal cervical ICA) x 100. Mild - <50% stenosis. Moderate - 50-69% stenosis. Severe - 70-94% stenosis. Near occlusion - 95-99% stenosis. Occluded - 100% stenosis. IMPRESSION: No dissection, hemodynamically significant stenosis, or occlusion. Electronically signed by: José Luis Candelario M.D. 10/12/22 20:48 PM
[2022-10-12] MEDS ORDERED: diphenhydrAMINE 50 MG/ML VIAL IV STA (21:10)
[2022-10-12] MEDS ORDERED: KETOROLAC TROMETHAMINE 15 MG/ML VIAL IV ONE (21:10)
--- NOTE | 2022-10-12 22:22 | History & Physical Report ---
Date of Service October 12, 2022 Assessment & Plan (1) Headache: Plan: 61yo male presenting with headache - bifrontal with sharp right temporal pain. He reports some transient right facial numbness and some ongoing right forearm numbness. Recent hospitalization for TIA. Patient has completed 21 days of DAPT with ASA and Plavix and now continues on daily Plavix. He is on high dose Rosuvastatin as well. He reports compliance with his medications. No neurological deficits - right facial tingling has resolved. He still has right forearm numbness. CTA Head and neck with no acute findings - Right A2 stenosis again noted. -Observation to medical with telemetry -Neuro checks per protocol -Continue Plavix and Rosuvastatin -Check ESR with AM labs -Tylenol as needed for headache Consider use of Toradol for short term as needed if Tylenol is not sufficient (2) Chest pain: Plan: Patient with very brief episode of substernal chest discomfort, now resolved. Troponin is unremarkable. EKG with no acute ischemic changes. He has an AICD in place following sudden cardiac with successful resuscitation - no discharges reported. -Trend troponin -Continue Plavix and Rosuvastatin (3) HTN (hypertension): Plan: Blood pressure elevated at 159/82 -Continue Metoprolol XL 50 mg po daily -Continue Losartan 50 mg po daily -Continue to monitor (4) Diabetes: Plan: Last PwaP1N=4.4 on 09/08/22 -Lantus 20u BID, ISS -Goal blood sugar 110 - 140 (5) Hyperlipidemia: Plan: Chronic -Continue Rosuvastatin (6) CAD (coronary artery disease): Plan: With brief episode of chest pain as above. Troponin and EKG unremarkable. Patient with no further episodes of chest pain -front desk monitor -Trend troponin -Continue Plavix and Crestor -Continue Metoprolol and Losartan (7) ICD (implantable cardioverter-defibrillator) in place: Plan: Noted. No discharges F/E/N -[place]ock. Electroltyes WNL. AHA/CC diet as tolerated Ppx - SCD Code - DNR/DNI per discussion with patient Dispo - Observation to medical with telemetry History of Present Illness Chief Complaint: head ache, facial tingling, chest discomfort Primary Care Provider: Gisella Villanueva MD Alcidesqueenie Jo is a pleasant 61yo male with history of sudden cardiac s/p successful resuscitation with subsequent ICD placement, HTN, HLP, DM and CAD presenting with headache, facial tingling and chest discomfort. Patient woke this morning and noted to have a headache - the headache did not wake him from sleep. Pain is fairly severe, bandlike across his forehead, constant pressure. He also has a severe stabbing pain over his right samaritan that is worse with coughing. He had some right facial tingling last evening before going to bed which as since resolved. He denies facial droop, slurred speech. He has some dental pain, specifically front maxillary teeth where he has a bridge in place. Also with episode of blurry vision which has resolved. He had a brief episode of substernal chest discomfort prior to arrival this evening which has since resolved. He denies fever, chills, cough, SOB, abdominal pain, nausea, vomiting, diarrhea or constipation He denies focal numbness/tingling or weakness. He denies ear pain, jaw claudication, congestion No additional complaints at this time Patient was admitted 09/07 - 09/08/22 with TIA symptoms. No stroke found. CTA head with right A2 stenosis most likely chronic. Allergies Allergy/AdvReac Type Severity Reaction Status Date / Time CASSANDRA Inhibitors Allergy Unknown Unknown Verified 10/12/22 18:35 Home Medications Medication Instructions Recorded Confirmed Type metformin 500 mg tablet 2,000 mg PO DAILY #360 tabs 08/23/22 10/12/22 Rx pen needle, diabetic 32 gauge x #100 ea 08/23/22 09/16/22 Rx 5/32" (BD Ally 2nd Gen Pen Needle) rosuvastatin 40 mg tablet 40 mg PO DAILY 90 days #90 tabs 08/23/22 10/12/22 Rx metoprolol succinate 50 mg 50 mg PO QAM #90 tabs 09/05/22 10/12/22 Rx tablet,extended release 24 hr clopidogrel 75 mg tablet (Plavix) 75 mg PO DAILY #30 tabs 09/08/22 10/12/22 Rx flash glucose sensor (FreeStyle #2 ea 09/09/22 09/16/22 Rx Semaj 2 Sensor kit) insulin aspart U-100 100 unit/mL 15 unit (0.15 mL) subcut .COMPLEX 09/09/22 10/12/22 Rx (3 mL) subcutaneous pen (Novolog #15 mL FlexPen U-100 Insulin aspart) insulin glargine 100 unit/mL (3 42 unit (0.42 mL) subcut DAILY #15 09/09/22 0 10/12/22 Rx mL) subcutaneous pen (Lantus mL Solostar U-100 Insulin) losartan 50 mg tablet 50 mg PO DAILY 30 days #30 tabs 09/16/22 10/12/22 Rx Past Med/Surg History Medical History (Updated 10/13/22 @ 01:06 by Sommer Espinosa DO) Anemia Cardiac arrest 2010 Chronic lymphocytic leukemia (CLL), B-cell Diabetes Diabetic peripheral neuropathy associated with type 2 diabetes mellitus Dyslipidemia Hyperlipidemia Hypertension ICD (implantable cardioverter-defibrillator) in place 2010 IMPLANTED Lung nodule Male erectile disorder of organic origin Myocardial Infarction 2002 Osteoarthritis Personal history of diabetic foot ulcer Sciatica Surgical History History of anesthesia reaction APPY PROCEDURE-COULDN'T BREATHE>COMBATIVE History of appendectomy History of arthroscopy RT History of arthroscopy of knee History of cardiac cath 2002 History of colonoscopy History of heart artery stent 2002 (1 STENT) History of tooth extraction History of vascular access device A-PORT INSERTION Family History Father Diabetes Sister Congenital heart disease Diabetes Mother Hypertension Brother Myocardial infarction Denies family history of Ovarian cancer Prostate cancer Breast cancer Colorectal cancer Social History Smoking Status: Never smoker Tobacco Type: Cigarettes Cigarettes Per Day: 0.5 packs/day; Second Hand Exposure: No; Hx Alcohol Use: Yes Alcohol type: beer Alcohol Intake Frequency: Monthly or Less Hx Substance Use: No Preferred Language: Sinhala Communication Ability: Effective Squad Boss Required: No Beliefs That Will Affect Care: None Current Living Situation: Alone Current Living Situation Comment: Lives along Feels Safe at Home: Yes caffeine: Yes Assistive Devices: Walker Review of Systems Review of Systems: All systems reviewed & are unremarkable except as noted in HPI & below Physical Exam Physical Exam: General: patient resting comfortably, NAD, non-toxic in appearance, AA&O x 4 Skin: warm, dry, intact, no rashes or lesions HEENT: NC/AT, PERRL, EOMI, anicteric sclera, conjunctiva without injection, external ear normal to inspection and nontender, nares patent, moist mucus membranes, dentition intact, no oropharyngeal lesions, neck supple, trachea midline, no LAD, no thyromegaly, no JVD, no temporal tenderness Heart: +S1/S2, regular, no m/r/g Lungs: equal air entry bilaterally, no rales/rhonchi/wheezes Abd: +BS, soft, NT/ND, no masses/organomegaly/ascites Ext: warm, 2+ pulses in UE/LE bilaterally, no clubbing/cyanosis or edema Neuro: nonfocal, patient AA&O x 4, speech intact, no facial droop, moving all extremities on command with equal strength 5/5 Results & Data Results & Data Vital Signs (Past 12 Hours) Vital Signs Temp Pulse Pulse Resp BP BP Pulse Ox 10/12/22 21:00 58 L 14 159/82 H 96 10/12/22 20:30 62 21 149/79 H 100 10/12/22 19:30 66 15 134/79 98 10/12/22 19:00 60 20 131/73 10/12/22 18:55 97 10/12/22 18:30 67 126/77 99 10/12/22 18:10 66 145/86 H 100 10/12/22 18:23 64 10/12/22 18:10 67 18 145/86 H 100 10/12/22 17:43 36.4 C L 74 20 188/93 H 99 O2 Del Method 10/12/22 21:00 10/12/22 20:30 10/12/22 19:30 10/12/22 19:00 10/12/22 18:55 10/12/22 18:30 Room Air 10/12/22 18:10 Room Air 10/12/22 18:23 10/12/22 18:10 Room Air 10/12/22 17:43 Room Air Laboratory Results Laboratory Results WBC 9.63 K/ul (4.8-10.8) 10/12/22 19:07 RBC 4.49 M/uL (4.70-6.10) L 10/12/22 19:07 Hgb 13.7 g/dl (14.0-18.0) L 10/12/22 19:07 Hct 39.7 % (42.0-52.0) L 10/12/22 19:07 MCV 88.4 fL (80.0-100.0) 10/12/22 19:07 MCH 30.5 pg (25.0-34.0) 10/12/22 19:07 MCHC 34.5 g/dL (32.0-36.0) 10/12/22 19:07 RDW Std Deviation 43.5 fL (36.4-46.3) 10/12/22 19:07 RDW Coeff of Francisco 13.3 % (11.5-14.5) 10/12/22 19:07 Plt Count 213 K/uL (130-400) 10/12/22 19:07 MPV 10.0 fL (9.4-12.4) 10/12/22 19:07 Immature Gran % (Auto) 0.3 % 10/12/22 19:07 Neut % (Auto) 67.2 % 10/12/22 19:07 Lymph % (Auto) 24.5 % 10/12/22 19:07 [place] % (Auto) 4.5 % 10/12/22 19:07 Eos % (Auto) 3.0 % 10/12/22 19:07 Baso % (Auto) 0.5 % 10/12/22 19:07 Neut # (Auto) 6.47 K/uL (1.40-6.50) 10/12/22 19:07 Lymph # (Auto) 2.36 K/uL (1.2-3.4) 10/12/22 19:07 [place] # (Auto) 0.43 K/uL (0.11-0.59) 10/12/22 19:07 Eos # (Auto) 0.29 K/uL (0-0.50) 10/12/22 19:07 Baso # (Auto) 0.05 K/uL (0-0.2) 10/12/22 19:07 Immature Gran # (Auto) 0.03 K/uL (0.01-0.20) 10/12/22 19:07 Sodium 139 mmol/L (136-145) 10/12/22 19:07 Potassium 4.4 mmol/L (3.5-5.1) 10/12/22 19:07 Chloride 108 mmol/L (98-107) H 10/12/22 19:07 Carbon Dioxide 25 mmol/L (21-32) 10/12/22 19:07 Anion Gap 6 (3-11) 10/12/22 19:07 BUN 21 mg/dl (6-23) 10/12/22 19:07 Creatinine 1.10 mg/dl (0.6-1.4) 10/12/22 19:07 Est Cr Clr Drug Dosing 92.6 ml/min 10/12/22 19:07 Est GFR ( Amer) 82.4 ml/min 10/12/22 19:07 Est GFR (Non-Af Amer) 71.1 ml/min 10/12/22 19:07 BUN/Creatinine Ratio 19.1 (10-20) 10/12/22 19:07 Glucose 169 mg/dl (70-99(Fasting)) H 10/12/22 19:07 Calcium 9.7 mg/dl (8.6-10.3) 10/12/22 19:07 Phosphorus 3.0 mg/dl (2.5-4.9) 10/12/22 19:07 Magnesium 1.8 mg/dl (1.7-2.4) 10/12/22 19:07 Total Bilirubin 0.7 mg/dl (0.2-1.0) 10/12/22 19:07 AST 11 U/L (13-39) L 10/12/22 19:07 ALT 12 U/L (7-52) 10/12/22 19:07 Alkaline Phosphatase 83 U/L (34-104) 10/12/22 19:07 Troponin I High Sens 10.6 pg/ml (0-20) 10/12/22 19:07 Total Protein 6.9 gm/dl (6.0-8.3) 10/12/22 19:07 Albumin 4.2 gm/dl (3.4-5.0) 10/12/22 19:07 Globulin 2.7 gm/dl (2.5-4.0) 10/12/22 19:07 Albumin/Globulin Ratio 1.6 (0.9-2) 10/12/22 19:07 SARS-CoV-2, RNA, NAAT NEGATIVE (NEGATIVE) 10/12/22 21:23 Impressions Head CTA 10/12/22 18:02 Exam(s): CTA HEAD W/WO Contrast EXAM: CT Angiography Head Without and With Intravenous Contrast CLINICAL HISTORY: Reason for exam: FORD r arm numb. TECHNIQUE: Axial computed tomographic angiography images of the head without and with intravenous contrast. CTDI is 29.7 mGy and DLP is 14.85 mGy-cm. Automated exposure control was utilized for the study. A dose lowering technique was utilized adhering to the principles of ALARA. MIP reconstructed images were created and reviewed. CONTRAST: 112 mL Optiray 320. COMPARISON: MRI brain 09/08/22 FINDINGS: VASCULATURE: Right internal carotid artery: Calcific plaque intracranial right ICA without stenosis. No aneurysm. Right anterior cerebral artery: Moderate-severe stenosis right A2 segment (series 5, images 1 [id number]). Right MAXIMO otherwise adequately patent. No aneurysm. Right middle cerebral artery: Unremarkable. No occlusion or significant stenosis. No aneurysm. Right posterior cerebral artery: Unremarkable. No occlusion or significant stenosis. No aneurysm. Right vertebral artery: Unremarkable as visualized. Left internal carotid artery: Calcific plaque intracranial left ICA without stenosis. No aneurysm. Left anterior cerebral artery: Unremarkable. No occlusion or significant stenosis. No aneurysm. Left middle cerebral artery: Unremarkable. No occlusion or significant stenosis. No aneurysm. Left posterior cerebral artery: Unremarkable. No occlusion or significant stenosis. No aneurysm. Left vertebral artery: Unremarkable as visualized. Basilar artery: Unremarkable. No occlusion or significant stenosis. No aneurysm. HEAD: Brain: Intracranial atherosclerosis. Chronic lacunar infarct right putamen and left internal capsule. Moore-white matter differentiation maintained. No acute intracranial hemorrhage, mass-effect, or edema. Age-related cortical cerebral volume loss. Ventricles: Unremarkable. No ventriculomegaly. Bones/joints: Unremarkable. Soft tissues: Unremarkable. Sinuses: Mucosal thickening in the right maxillary sinus, similar to prior exam. Paranasal sinuses otherwise clear. Mastoid air cells: Unremarkable as visualized. No mastoid effusion. IMPRESSION: 1. Patent intracranial circulation. 2. Intracranial atherosclerosis. 3. Moderate-severe stenosis A2 segment of the right MAXIMO. Electronically signed by: José Luis Candelario M.D. 10/12/22 20:43 PM Neck CTA 10/12/22 18:02 Exam(s): CTA NECK With Contrast EXAM: CT Angiography Neck With Intravenous Contrast CLINICAL HISTORY: Reason for exam: FORD r arm numb. TECHNIQUE: Routine carotid CT angiography protocol was performed with intravenous contrast. NASCET criteria using the distal ICAs for comparison were used for evaluation of stenoses. CTDI is 15.22 mGy and DLP is 627.68 mGy-cm. Automated exposure control was utilized for the study. A dose lowering technique was utilized adhering to the principles of ALARA. MIP reconstructed images were created and reviewed. CONTRAST: 112 mL Optiray 320 COMPARISON: 09/07/22 FINDINGS: VASCULATURE: Right common carotid artery: Unremarkable. No occlusion or significant stenosis. No dissection. Right internal carotid artery: Unremarkable. Extracranial segment is patent with no occlusion or significant stenosis. No dissection. Right external carotid artery: Unremarkable. No occlusion. Right vertebral artery: Unremarkable. No occlusion or significant stenosis. No dissection. Left common carotid artery: Unremarkable. No occlusion or significant stenosis. No dissection. Left internal carotid artery: Unremarkable. Extracranial segment is patent with no occlusion or significant stenosis. No dissection. Left external carotid artery: Unremarkable. No occlusion. Left vertebral artery: Unremarkable. No occlusion or significant stenosis. No dissection. Other vasculature: Conventional aortic arch branch anatomy. NECK: Bones/joints: Unremarkable. No acute fracture or dislocation. Soft tissues: Unremarkable. Lung apices: Visualized lung grijalva are clear. Tubes, lines and devices: Left chest wall ICD. CAROTID STENOSIS REFERENCE USING NASCET CRITERIA: % ICA stenosis = (1 - narrowest ICA diameter/diameter of distal cervical ICA) x 100. Mild - <50% stenosis. Moderate - 50-69% stenosis. Severe - 70-94% stenosis. Near occlusion - 95-99% stenosis. Occluded - 100% stenosis. IMPRESSION: No dissection, hemodynamically significant stenosis, or occlusion. Electronically signed by: José Luis Candelario M.D. 10/12/22 20:48 PM PG Care Time/CCT Total # of Minutes Spent Total Time Spent with Patient: Total time spent is greater than 50% in coordination of care (as documented) at patient's floor/unit and/or counseling patient: Coding Level of Care Code 89464 INT INP/OBS CARE 3/75MIN Diagnoses Headache R51.9 Chest pain R07.9 HTN (hypertension) I10 Diabetes E11.9 Hyperlipidemia E78.5 CAD (coronary artery disease) I25.10 Associated angina: without angina Coronary Disease-Associated Artery/Lesion type: [place] artery [place] vs. transplanted heart: [place] heart ICD (implantable cardioverter-defibrillator) in place Z95.810 (6) CAD (coronary artery disease) Associated angina: without angina Coronary Disease-Associated Artery/Lesion t ype: [place] artery [place] vs. transplanted heart: [place] heart Qualified Code(s): I25.10 - Atherosclerotic heart disease of [place] coronary artery without angina pectoris
[2022-10-12] MEDS ORDERED: CARBOHYDRATES FOR HYPOGLYCEMIA PO PRN (23:01)
[2022-10-12] MEDS ORDERED: GLUCOSE 40% GEL 15 GM TUBE PO PRN (23:01)
[2022-10-12] MEDS ORDERED: GLUCOSE 10 TAB/TUBE PO PRN (23:01)
[2022-10-12] MEDS ORDERED: GLUCAGON FOR INJ 1 MG VIAL SQ PRN (23:01)
[2022-10-12] MEDS ORDERED: DEXTROSE 50% 50 ML SYRINGE IV PRN (23:01)
[2022-10-12] MEDS ORDERED: ONDANSETRON INJ 2 MG/ML 2 ML VIAL IV PRN (23:01)
[2022-10-12 23:47] LABS: Magnesium 1.8 mg/dl (1.7-2.4)
[2022-10-13] MEDS ORDERED: KETOROLAC TROMETHAMINE 15 MG/ML VIAL IV ONE (03:49)
[2022-10-13 07:22] LABS: Hematocrit (blood only) 33.6 % (42.0-52.0); Hemoglobin 11.7 g/dl (14.0-18.0); Mean Corpuscular Hemoglobin 30.5 pg (25.0-34.0); Mean Corpuscular Hgb Conc 34.8 g/dL (32.0-36.0); Mean Corpuscular Volume 87.7 fL (80.0-100.0); Mean Platelet Volume 10.3 fL (9.4-12.4); Platelet Count 189 K/uL (130-400); RDW Coefficient of Variation 13.6 % (11.5-14.5); RDW Standard Deviation 43.7 fL (36.4-46.3); Red Blood Count 3.83 M/uL (4.70-6.10)
[2022-10-13 07:25] LABS: BUN Creatinine Ratio 16.9 (10-20); Calcium 8.8 mg/dl (8.6-10.3); Creatinine Clr Calc Pharmacy 86.5 ml/min; Est GFR (African American) 75.7 ml/min; Est GFR (Non-African American) 65.3 ml/min; Potassium 4.4 mmol/L (3.5-5.1)
[2022-10-13 07:31] LABS: Troponin I High Sensitivity 8.2 pg/ml (0-20)
[2022-10-13] MEDS: ACETAMINOPHEN 325 MG TAB PO PRN ×2 (09:09→16:46)
[2022-10-13] MEDS: LANTUS PER UNIT CHARGE SQ SCH ×2 (09:21→21:06)
[2022-10-13] MEDS: INSULIN ASPART PER UNIT CHARGE SC SCH ×4 (09:22→21:05)
[2022-10-13] MEDS: METOPROLOL SUCC 50MG EXT REL TAB PO SCH (09:45)
[2022-10-13] MEDS: LOSARTAN POTASSIUM 50 MG TAB PO SCH (09:45)
[2022-10-13] MEDS: ROSUVASTATIN CALCIUM 20 MG TAB PO SCH (09:46)
[2022-10-13] MEDS: CLOPIDOGREL BISULFATE 75 MG TAB PO SCH (09:46)
--- NOTE | 2022-10-13 13:06 | Neurology Consultation ---
Date of Consultation October 13, 2022 Assessment & Plan (1) TIA (transient ischemic attack): (2) Stroke-like symptom: Plan 61-year-old male presenting with recurrent strokelike symptoms. He does have some residual right lower extremity dysmetria related to his [facility]. He now presents with an episode of transient right upper extremity numbness and headache. Per my review of his previous and recent neuroimaging, I do appreciate what looks like evolving lacunar infarcts within the right putamen and left internal capsule. There was perhaps only subtle restricted diffusion on the previous brain MRI although the most recent CT of the head (done with CT angiography) does appear suggestive of small lacunar strokes in these regions that was less evident on the previous CT of the head. There is no evidence of acute or subacute stroke in either anterior cerebral artery territory. I do not think the moderate to severe stenosis of the right A2 segment is clinically relevant at this time. (Right anterior cerebral artery stroke or TIA would present with left leg weakness.) Stroke risk factors for this patient include poorly controlled diabetes mellitus, hypertension, dyslipidemia, and tobacco use. I would recommend continuing with dual antiplatelet therapy for another 3 weeks, after which, may transition to clopidogrel monotherapy. Patient should continue with rosuvastatin at the current dosage, 40 mg/day. Permissive hypertension appropriate acutely, systolic blood pressure 140 to 160 mmHg. However, current blood pressure acceptable. 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 Would recommend an up-to-date brain MRI with and without contrast. Consider obtaining a transthoracic echocardiogram with bubble study. Tobacco cessation counseling. History of Present Illness Reason for Consultation: Headache, paresthesia, concern for stroke Requesting Physician: Dr. Burks Attending Physician: Nakul Burks History of Present Illness The patient is a 61-year-old male who had presented to the emergency department on September 07, 2022 complaining of poor balance, vertigo, and right leg weakness. Symptoms began the previous week but became acutely worse that day, with associated lightheadedness, dizziness. A CT of the head including CT angiogram of the head and neck were fairly unrevealing, he does have a chronic stenosis of the right A2 segment. A brain MRI was negative for acute infarct but did reveal chronic cerebrovascular disease. He was discharged on September 08 and did see his primary care physician for a follow-up appointment on September 16 who noted his history of poorly controlled type 2 diabetes mellitus, coronary artery disease. He had been discharged with recommendation for dual antiplatelet therapy for 21 days, to be followed by Plavix only. His losartan dosage was increased. He was also referred to physical therapy. Past medical history is also notable for cardiac arrest about 10 years ago with placement of an ICD, hypertension, hyperlipidemia, tobacco use, about 1/2 pack of cigarettes per day. The patient presented again to the emergency department yesterday for further assessment of acute right upper extremity numbness, headache, and chest pain. His symptoms were apparently present upon awakening early yesterday morning. He denied experiencing any associated weakness. He underwent another CT angiogram of the head and neck that was negative for significant vascular lesion. He does have a moderate to severe stenosis of the A2 segment of the right anterior cerebral artery which would not be related to his symptoms. I did independently review these images, including the CT of the head done September 07, as well as the brain MRI done September 08. Per my review, there does appear to be evidence of evolving, lacunar infarcts within the posterior right putamen and left internal capsule. This finding is best appreciated when comparing head CTs. There is subtle associated restricted diffusion on MRI done September 08, although no definitive reduced signal on corresponding ADC map. Currently, the patient reports resolution of his right upper extremity numbness, headache, dizziness, or other acute symptoms. He does continue to report some mild difficulty with coordination for the right leg and associated poor balance, he has been ambulating with a walker and has been getting some outpatient physical therapy. Allergies Allergy/AdvReac Type Severity Reaction Status Date / Time CASSANDRA Inhibitors Allergy Unknown Unknown Verified 10/12/22 18:35 Home Medications Medication Instructions Recorded Confirmed Type metformin 500 mg tablet 2,000 mg PO DAILY #360 tabs 08/23/22 10/12/22 Rx pen needle, diabetic 32 gauge x #100 ea 08/23/22 09/16/22 Rx 5/32" (BD Ally 2nd Gen Pen Needle) rosuvastatin 40 mg tablet 40 mg PO DAILY 90 days #90 tabs 08/23/22 10/12/22 Rx metoprolol succinate 50 mg 50 mg PO QAM #90 tabs 09/05/22 10/12/22 Rx tablet,extended release 24 hr clopidogrel 75 mg tablet (Plavix) 75 mg PO DAILY #30 tabs 09/08/22 10/12/22 Rx flash glucose sensor (FreeStyle #2 ea 09/09/22 09/16/22 Rx Semaj 2 Sensor kit) insulin aspart U-100 100 unit/mL 15 unit (0.15 mL) subcut .COMPLEX 09/09/22 10/12/22 Rx (3 mL) subcutaneous pen (Novolog #15 mL FlexPen U-100 Insulin aspart) insulin glargine 100 unit/mL (3 42 unit (0.42 mL) subcut DAILY #15 09/09/22 10/12/22 Rx mL) subcutaneous pen (Lantus mL Solostar U-100 Insulin) losartan 50 mg tablet 50 mg PO DAILY 30 days #30 tabs 09/16/22 10/12/22 Rx Patient History Medical History (Updated 10/13/22 @ 13:07 by Demetrius Hills MD) Anemia Cardiac arrest 2010 Chronic lymphocytic leukemia (CLL), B-cell Diabetes Diabetic peripheral neuropathy associated with type 2 diabetes mellitus Dyslipidemia Hyperlipidemia Hypertension ICD (implantable cardioverter-defibrillator) in place 2010 IMPLANTED Lung nodule Male erectile disorder of organic origin Myocardial Infarction 2003 Osteoarthritis Personal history of diabetic foot ulcer Sciatica Surgical History History of anesthesia reaction APPY PROCEDURE-COULDN'T BREATHE>COMBATIVE History of appendectomy History of arthroscopy RT History of arthroscopy of knee History of cardiac cath 2002 History of colonoscopy History of heart artery stent 2002 (1 STENT) History of tooth extraction History of vascular access device A-PORT INSERTION Family History Father Diabetes Sister Congenital heart disease Diabetes Mother Hypertension Brother Myocardial infarction Denies family history of Ovarian cancer Prostate cancer Breast cancer Colorectal cancer Social History Smoking Status: Current every day smoker Tobacco Type: Cigarettes Cigarettes Per Day: 10; Second Hand Exposure: No; Hx Alcohol Use: No Hx Substance Use: No Preferred Language: Syriac Communication Ability: Effective Pants Busheler Required: No Beliefs That Will Affect Care: None Current Living Situation: Alone Current Living Situation Comment: home alone Feels Safe at Home: Yes caffeine: Yes Assistive Devices: Walker Review of Systems Constitutional: no fever and no chills Eyes: no blind spots and no diplopia Ear, Nose, Mouth, Throat: no hearing loss Respiratory: no cough and no dyspnea Cardiovascular: no chest pain and no palpitations Gastrointestinal: no nausea and no vomiting Genitourinary: no dysuria Musculoskeletal: no neck pain and no myalgia Integumentary: no rash and no lesions Neurologic: as per Subjective / HPI, + gait abnormality, + localized weakness, + loss of sensation and + paresthesia Psychiatric: no depression and no anxiety Hematologic / Lymphatic: no easy bleeding and no easy bruising Exam (Neuro) Constitutional: well developed and well nourished Eyes: normal visual grijalva by confrontation, PERRL and EOM intact bilaterally; no fundoscopic abnormality and no papilledema Cardiovascular: Vessels: normal carotid upstroke; no carotid bruit Neurologic: Oriented to:: Person, Place and Time Memory: Short Term Intact and Remote Intact Attention: Span Intact and Concentration Intact Speech Fluency: negative Dysarthria or Dysfluency Fund of Knowledge: Current Events, Past History and Vocabulary Cranial Nerves: Normal II, III, IV, , V, VII, VIII, IX, X, XI and XII Motor Strength: Normal Upper Extremities; negative Normal Lower Extremities (right leg dysmetria, reduced movement initiation) Motor Tone: Normal Lower Extremities and Normal Upper Extremities Muscle Bulk/Involuntary Movements: No Involuntary Movements; negative Muscle Atrophy Sensation: Light Touch Intact and Proprioception Intact; negative Pain/Temperature Intact or Vibration Intact Coordination: Limited Balance and Heel-Martin Abnormal Laterality: Right; negative Dysdiadochokinesia or Finger-Nose Abnormal Deep Tendon Reflexes: Rt Triceps: 1+, Lt Triceps: 1+, Rt Biceps: 1+, Lt Biceps: 1+, Rt Brachioradialis: 1+, Lt Brachioradialis: 1+, Rt Patellar: 1+, Lt Patellar: 1+, Rt Ankle: 1+ and Lt Ankle: 1+ Special Tests: negative Babinski Present Gait: Ataxic Results & Data Vital Signs (Past 12 Hours) Vital Signs Temp Pulse Pulse Resp BP Pulse Ox O2 Del Method 10/13/22 11:19 36.7 C 52 L 16 129/77 98 Room Air 10/13/22 09:44 67 143/62 H 10/13/22 07:00 36.7 C 59 L 22 143/73 H 98 Room Air 10/13/22 03:57 36.5 C 58 L 14 142/78 H 99 Room Air 10/13/22 02:46 59 L 10/13/22 02:40 54 L 18 125/84 96 Laboratory Results WBC 7.60, hemoglobin 11.7, hematocrit 33.6, platelet count 189, ESR 21, sodium 139, potassium 4.4, BUN 20, creatinine 1.18, glucose 241, hemoglobin A1c 8.4, AST 11, ALT 12, high-sensitivity troponin 7.9, triglycerides 115, cholesterol 111, LDL 60, VLDL 23, HDL [address] of the head, CT angiography of the neck, recent CT of the head, CT angiography of the neck, and previous brain MRI are as described in the HPI, I reviewed the images as well as the radiologist's interpretation of these tests. Again, per my review, there does appear to be evidence of evolving, small lacunar strokes within the right putamen and left internal capsule. Electrocardiogram revealed a normal sinus rhythm, 64 bpm. PG Care Time/CCT Total # of Minutes Spent Total Time Spent with Patient: Total time spent is greater than 50% in coordination of care (as documented) at patient's floor/unit and/or counseling patient: Coding Level of Care Code 05151 INT INP/OBS CARE 3/75MIN Diagnoses TIA (transient ischemic attack) G45.9 Stroke-like symptom R29.90
--- NOTE | 2022-10-13 14:07 | Electrocardiogram Report ---
Test Reason : Blood Pressure : / mmHG Vent. Rate : 064 BPM Atrial Rate : 064 BPM P-R Int : 178 ms QRS Dur : 112 ms QT Int : 438 ms P-R-T Axes : 021 -10 089 degrees QTc Int : 451 ms Normal sinus rhythm possible Inferior infarct (cited on or before 05-NOV-2008) Abnormal ECG When compared with ECG of 07-SEP-2022 17:19, No significant change was found Confirmed by Ez Polk ([id number]) on 10/13/2022 2:07:34 PM Referred By: REFERRED SELF Confirmed By:Mirza Polk
--- NOTE | 2022-10-13 17:51 | Hospitalist Progress Note ---
Date of Service October 13, 2022 Assessment & Plan (1) Headache: Plan: 61yo male presenting with headache - bifrontal with sharp right temporal pain. He reports some transient right facial numbness and some ongoing right forearm numbness. Recent hospitalization for TIA. Patient has completed 21 days of DAPT with ASA and Plavix and now continues on daily Plavix. He is on high dose Rosuvastatin as well. He reports compliance with his medications. No neurological deficits - right facial tingling has resolved. He still has right forearm numbness. CTA Head and neck with no acute findings - Right A2 stenosis again noted. Consulted Neuro given his repeat admission. Possible Transient cerebral ischemic attack vs acute lacunar infarct -Neuro recommended obtaining an MRI with and without contrast of the brain -Due to his ICD patient needs a cardiac rep to place this in MRI mode -will likely need to keep overnight as unsure that study will be completed today. -Continue Plavix and Rosuvastatin -reviewed labs -Tylenol as needed for headache (2) Chest pain: Plan: Patient with very brief episode of substernal chest discomfort, now resolved. Troponin is unremarkable. EKG with no acute ischemic changes. He has an AICD in place following sudden cardiac with successful resuscitation - no discharges reported. -Continue Plavix and Rosuvastatin (3) HTN (hypertension): Plan: Blood pressure elevated at 159/82 -Continue Metoprolol XL 50 mg po daily -Continue Losartan 50 mg po daily -Continue to monitor (4) Diabetes: Plan: Last [id number]=2.4 on 09/08/22 -Lantus 20u BID, ISS -Goal blood sugar 110 - 140 (5) Hyperlipidemia: Plan: Chronic -Continue Rosuvastatin (6) CAD (coronary artery disease): Plan: With brief episode of chest pain as above. Troponin and EKG unremarkable. Patient with no further episodes of chest pain -equipment monitor phototypesetting -Trend troponin -Continue Plavix and Crestor -Continue Metoprolol and Losartan (7) ICD (implantable cardioverter-defibrillator) in place: Plan: Noted. No discharges F/E/N -[place]. Electroltyes WNL. AHA/CC diet as tolerated Ppx - SCD Code - DNR/DNI per discussion with patient Dispo - Observation to medical with telemetry Admission and Anticipated Discharge Date Admission Date: October 12, 2022 Subjective Patient reports feeling well. He has no new complaints. He is waiting for his MRI as he would like to be discharged. He is frustrated that it cannot be done today. Review of Systems Review of Systems: All systems reviewed & are unremarkable except as noted in HPI & below Physical Exam Constitutional: WD/WN, vitals as above Neck: trachea midline, no thyromegaly Respiratory: breathing comfortably, not using accessory muscles to breath. Results & Data Results & Data Vital Signs (Past 12 Hours) Vital Signs Temp Pulse Pulse Resp BP Pulse Ox O2 Del Method 10/13/22 15:53 36.5 C 61 16 145/76 H 98 Room Air 10/13/22 15:49 67 10/13/22 15:46 59 L 10/13/22 11:19 36.7 C 52 L 16 129/77 98 Room Air 10/13/22 09:44 67 143/62 H 10/13/22 07:00 36.7 C 59 L 22 143/73 H 98 Room Air PG Care Time/CCT Total # of Minutes Spent Total Time Spent with Patient: Total time spent is greater than 50% in coordination of care (as documented) at patient's floor/unit and/or counseling patient: Coding Level of Care Code 69101 SUB INP/OBS CARE 2/35MIN Diagnoses Headache R51.9 Chest pain R07.9 HTN (hypertension) I10 Diabetes E11.9 Hyperlipidemia E78.5 CAD (coronary artery disease) I25.10 Associated angina: without angina Coronary Disease-Associated Artery/Lesion type: solomon artery [place] vs. transplanted heart: solomon heart ICD (implantable cardioverter-defibrillator) in place Z95.810 (6) CAD (coronary artery disease) Associated angina: without angina Coronary Disease-Associated Artery/Lesion type: solomon artery [place] vs. transplanted heart: solomon heart Qualified Code(s): I25.10 - Atherosclerotic heart disease of solomon coronary artery without angina pectoris
[2022-10-14] MEDS: INSULIN ASPART PER UNIT CHARGE SC SCH ×2 (08:56→12:21)
[2022-10-14] MEDS: LANTUS PER UNIT CHARGE SQ SCH (08:57)
[2022-10-14] MEDS: METOPROLOL SUCC 50MG EXT REL TAB PO SCH (08:59)
[2022-10-14] MEDS: LOSARTAN POTASSIUM 50 MG TAB PO SCH (08:59)
[2022-10-14] MEDS: CLOPIDOGREL BISULFATE 75 MG TAB PO SCH (08:59)
[2022-10-14] MEDS: ROSUVASTATIN CALCIUM 20 MG TAB PO SCH (08:59)
[2022-10-14] MEDS ORDERED: GADOBUTROL 65ML VIAL IV ONE (09:58)
[2022-10-14] MEDS: ACETAMINOPHEN 325 MG TAB PO PRN (10:29)
--- NOTE | 2022-10-14 10:43 | Magnetic Resonance Report ---
Brain MRI WITH AND WITHOUT CONTRAST HISTORY: Migraines. Blurred vision. stroke, right sides weakness, numbness TECHNIQUE: Multiplanar multisequence MRI of the brain was performed both before and after the intrave nous administration of contrast. COMPARISON STUDY: Brain MRI 09/08/2022. FINDINGS: There is a 1.1 cm focus of restricted diffusion seen at the posterior limb of the left inte rnal capsule on image 13. This is consistent with an acute infarct. Incidental note is made of a part ially empty sella, unchanged. Otherwise, the midline structures are intact. Small focus of edema asso ciated with the left internal capsule infarct. There is an old punctate lacunar infarct within the ri ght internal capsule/thalamus. The major vascular flow-voids at the skull base are well-maintained. T here is no mass, hematoma, or midline shift. The ventricles and sulci are within normal limits for ag e. Mild mucosal thickening within the right maxillary sinus. The mastoid air cells are clear. Presume d mild microvascular ischemic changes again noted. Faint focus of enhancement is associated with the left internal capsule infarct is noted. This is likely due to the expected post infarct changes. Ther e is mild motion artifact. IMPRESSION: 1. A small acute infarct involving the posterior limb of the left internal capsule which measures 1.1 cm. 2. There is an old punctate lacunar infarct within the right thalamus/internal capsule. 3. Mild microvascular ischemic changes again noted. 4. This report was called/faxed to the referring physician following dictation. ACT 112: Negative or not required by law. Electronically signed by: Sergio Lind M.D. 10/14/2022 10:42 AM
--- NOTE | 2022-10-14 13:51 | Discharge Summary ---
Date of Service October 14, 2022 Admission HPI Per Admitting Provider Alcides Jo is a pleasant 61yo male with history of sudden cardiac s/p successful resuscitation with subsequent ICD placement, HTN, HLP, DM and CAD presenting with headache, facial tingling and chest discomfort. Patient woke this morning and noted to have a headache - the headache did not wake him from sleep. Pain is fairly severe, bandlike across his forehead, constant pressure. He also has a severe stabbing pain over his right christianity that is worse with coughing. He had some right facial tingling last evening before going to bed which as since resolved. He denies facial droop, slurred speech. He has some dental pain, specifically front maxillary teeth where he has a bridge in place. Also with episode of blurry vision which has resolved. He had a brief episode of substernal chest discomfort prior to arrival this evening which has since resolved. He denies fever, chills, cough, SOB, abdominal pain, nausea, vomiting, diarrhea or constipation He denies focal numbness/tingling or weakness. He denies ear pain, jaw claudication, congestion No additional complaints at this time Patient was admitted 09/07 - 09/08/22 with TIA symptoms. No stroke found. CTA head with right A2 stenosis most likely chronic. Principal Diagnosis acute lacunar stroke Discharge Exam Constitutional WD/WN, vitals as above Eyes PERRL, conjunctivae normal, anicteric sclerae ENMT external ear and nose normal, oropharynx normal Neck trachea midline, no thyromegaly Gastrointestinal (Abdomen) normal bowel sounds, soft, nontender, no hepatosplenomegaly Musculoskeletal no cyanosis or clubbing, extremities motor strength 5/5 normal strength. Neurologic moves all extremities and awake Discharge Data Allergies Allergy/AdvReac Type Severity Reaction Status Date / Time CASSANDRA Inhibitors Allergy Unknown Unknown Verified 10/12/22 18:35 Consultations 10/12/22 21:11 ED Decision to Admit Stat 10/13/22 10:22 Consult Neurology Routine Ordered Studies 10/12/22 18:02 CT angio head wo/w Stat CT angio neck with con Stat 10/14/22 18:40 MR brain wo/w con Routine Hospital Course (1) Headache: 61yo male presenting with headache - bifrontal with sharp right temporal pain. He reports some transient right facial numbness and some ongoing right forearm numbness. Recent hospitalization for TIA. Patient has completed 21 days of DAPT with ASA and Plavix and now continues on daily Plavix. He is on high dose Rosuvastatin as well. He reports compliance with his medications. No neurological deficits - right facial tingling has resolved. He still has right forearm numbness. CTA Head and neck with no acute findings - Right A2 stenosis again noted. Consulted Neuro given his repeat admission. Possible Transient cerebral ischemic attack vs acute lacunar infarct MRI confirmed lacunar infarct -will continue Plavix and Rosuvastatin -reviewed labs -will add aspirin -tobacco cessation discussion completed -added nicotine patch for discharge -will add amlodipine at a lower dose 2.5 mg HS to better control his blood pressure will add trulicity to his diabetic regimen as his blood sugar is elevated. -Tylenol as needed for headache (2) Chest pain: Patient with very brief episode of substernal chest discomfort, now resolved. Troponin is unremarkable. EKG with no acute ischemic changes. He has an AICD in place following sudden cardiac with successful resuscitation - no discharges reported. -Continue Plavix and Rosuvastatin (3) HTN (hypertension): Blood pressure elevated at 159/82 -Continue Metoprolol XL 50 mg po daily -Continue Losartan 50 mg po daily -Continue to monitor (4) Diabetes: Last [id number]=2.4 on 09/08/22 -Lantus 20u BID, ISS -Goal blood sugar 110 - 140 [place] resume his home meds: metformin and insulin will add trulicty to his home regimen (5) Hyperlipidemia: Chronic -Continue Rosuvastatin (6) CAD (coronary artery disease): With brief episode of chest pain as above. Troponin and EKG unremarkable. Patient with no further episodes of chest pain -conveyor monitor -Trend troponin -Continue Plavix and Crestor -Continue Metoprolol and Losartan (7) ICD (implantable cardioverter-defibrillator) in place: no discharges Total Time Total Time Spent Total Time Spent (In Minutes): 32 Discharge Plan Discharge Items Patient Disposition: Home - Self-Care Reason For Visit: HEADACHE, CHEST DISCOMFORT Discharge Diagnosis: stroke Activity: Resume your previous activity Non-emergency contact: Primary Care Provider Call non-emergency contact if: you have any medication questions Follow-up/Referrals: Kendrick Stubbs PA-C [Physician Scouring Pads Supervisor] - 10/25/22 4:00 pm Chloe Alvarez PA-C [Physician Scouring Pads Supervisor] - 10/20/22 10:30 am Diet: Carb Consistent or DM2 Addtl Attending Provider Instructions: Good afternoon Mr. Jo, Sadly it appears you suffered a stroke. When a stroke occurs, you have irreversible loss of brain tissue. This can be caused by a lac of blood flow to brain caused by either bleeding aor a blockage in an artery. Your strokes are small, but these were strokes. To help decrease the risk of getting a stroke, we would need to work on decreasing your risk factors. The biggest risk factors you have is smoking. Smoking can cause damage to small vessels and is likely playing a large role with your recurrent strokes. This is something that you will need to work on. I can prescribe you nicotine patches to help you quit. And you can talk to your Primary care provider for other options. On average, it can take people 4-5 tries to successfully quit, however some patients are able to quit on the first try and others may need more. In short, do not get frustrated and keep on trying. The second part is trying medications to help decrease your blood sugar. I understand you are on metformin and lantus. It appears you are already on max dose for metformin. You will benefit from a thrid medication. Having your blood sugars better controlled will help decrease and damage to your arteries that can cause a stroke. I will try to schedule an appointment with your PCP and sales and management trainee. You may benefit from a 30 day front desk monitor. or interrogation of your defibrillator to check for atrial fibirallation. I will defer this to your sales and management trainee. It was a pleasure and I hope you can enjoy your birthday. Risk Factors for Stroke: You can reduce your chances of stroke by working with your medical provider to adopt a healthy lifestyle. Some specific ways to lower your chance of stroke are: * If you are a smoker, now is the time to stop smoking cigarettes * If you are diabetic, improve the control of your blood sugars * Avoid excessive amounts of alcohol * Control high blood pressure * Lose weight if you are overweight * Be sure to lead an active lifestyle * Eat a healthy diet low in salt, cholesterol and fat You should know about other risk factors for stroke that you are unable to control. These include: * Age 55 years or older * Male gender * Certain racial groups: , or / * Family History of Stroke, Mini stroke or Heart Attack * Sickle Cell Disease Follow Up: It is important for you to keep your follow up appointments with your medical provider. Who to Call and When: Medical Emergencies: Call 911 immediately if you experience any of the following warning signs and symptoms of Stroke: * Sudden numbness or weakness of the face, arm or leg, especially on one side of the body * Sudden confusion, trouble speaking or understanding * Sudden trouble seeing in one or both eyes * Sudden trouble walking, dizziness, loss of balance or coordination * Sudden severe headache with no cause Do not delay calling 911 if you experience any warning signs or symptoms of a stroke. Delay in seeking medical attention may affect what treatments can be given to you. . Follow-up with his sales and management trainee for pacer/defibrillator interrogation, rule out atrial fibrillation. Pending Studies at Discharge: No Stand-Alone Forms: My [employer], Smoking Cessation Medications and DC Order Prescriptions: New amlodipine 2.5 mg tablet 2.5 mg PO PM Qty: 30 0RF aspirin 81 mg capsule 81 mg PO DAILY Qty: 30 0RF nicotine 21 mg/24 hr patch 24 hour 1 patch transdermal DAILY Qty: 28 0RF Trulicity 0.75 mg/0.5 mL pen injector 0.75 mg subcut .weekly Qty: 2 0RF Continued (DME) FreeStyle Semaj 2 Sensor Kit See Rx Instructions .Route Qty: 2 11RF Rx Instructions: As directed metoprolol succinate 50 mg tablet extended release 24 hr 50 mg PO QAM Qty: 90 3RF insulin aspart U-100 [Novolog FlexPen U-100 Insulin] 100 unit/mL (3 mL) insulin pen 15 unit subcut .COMPLEX Qty: 15 4RF Rx Instructions: Pt reports this is now on a sliding scale insulin glargine [Lantus Solostar U-100 Insulin] 100 unit/mL (3 mL) insulin pen 42 unit subcut DAILY Qty: 15 5RF rosuvastatin 40 mg tablet 40 mg PO DAILY 90 Days Qty: 90 3RF metformin 500 mg tablet 2,000 mg PO DAILY Qty: 360 3RF (DME) pen needle, diabetic [BD Ally 2nd Gen Pen Needle] 32 gauge x 5/32" needle See Rx Instructions .Route Qty: 100 11RF Rx Instructions: TESTS 4 TIMES DAILY losartan 50 mg tablet 50 mg PO DAILY 30 Days Qty: 30 2RF clopidogrel [Plavix] 75 mg tablet 75 mg PO DAILY Qty: 30 3RF Rx Instructions: tia treatment Discharge Orders: Discharge Order (Routine); Ordered 10/14/22 Ordered By: Nakul Burks Admission Data Admit Date/Time: 10/13/22 18:36 Attending Provider: Nakul Burks Admit Provider: Sommer Espinosa Primary Care Provider: Gisella Villanueva Other Providers: Sommer Espinosa ; Demetrius Hills Other Interventions: Discharge Summary Assessment (RN) Last Done: 10/14/22 13:50 Coding Level of Care Code 41594 INP/OBS DISCH >30 MIN Diagnoses Headache R51.9 Chest pain R07.9 HTN (hypertension) I10 Diabetes E11.9 Hyperlipidemia E78.5 CAD (coronary artery disease) I25.10 Associated angina: without angina Coronary Disease-Associated Artery/Lesion type: [place] artery [place] vs. transplanted heart: [place] heart ICD (implantable cardioverter-defibrillator) in place Z95.810
[2022-10-14] MEDS ORDERED: INSULIN ASPART PER UNIT CHARGE SC ONE (14:36)
[2022-10-14] MEDS ORDERED: LANTUS PER UNIT CHARGE SQ ONE (14:36)
== END 2022-10-14 14:37 | disposition home or self-care (01) | DRG 66 ==
LOC: ED 17:40 → EDINP 17:40 → SUATTDRO 22:22 → 2S 22:59

== ENCOUNTER 2024-02-21 19:44 | Inpatient (IN) ==
--- NOTE | 2024-02-21 19:59 | Emergency Department Note ---
Impression & Plan CVA (cerebral vascular accident), Left-sided weakness, Tobacco use, Carotid artery stenosis ED Provider Note NAME: BRY CRAWFORD AGE: 63 SEX: M : 1960 ARRIVES VIA: Walk-In INFORMANT: Patient, family, triage note ED PROVIDER(S): Lloyd Monae MD CHIEF COMPLAINT: Weakness MEDICAL DECISION MAKING: Patient presented due to concern for possible strokelike symptoms. Code stroke was initiated. I did speak with Dr. Grey with telestroke neurology and the patient did go to CAT scan. Patient's initial CT Noncon did show concern for hypodensity of the right parietal occipital area. Likely subacute in nature. I did speak with the radiologist. Radiologist Dr. Rizo has a also noted the patient does have stenosis of the right ICA. I did convey these findings to the telestroke neurologist who did evaluate the patient. She recommended head of the bed to be flat and for the patient to receive IV fluid bolus and subsequent 100 cc/h. She recommended permissive hypertension labetalol for blood pressures greater than 220/110. She also recommended Brilinta load aspirin load and atorvastatin 80 mg. These were ordered. Blood work shows a normal white count hemoglobin and platelet count. Kidney function is unremarkable. Blood sugar 287. I did convey the findings and recommendations with the patient the patient's family. I did speak with the on-call hospitalist Dr. Storey and the patient was admitted to the medicine service. Critical Care: I have personally spent 40 minutes of critical care time in direct management of this patient. This includes bedside care, interpretation of diagnostic studies, and testing, discussion with consultants, patient, and family members, and other require inpatient management activities. This 40 minutes is in excess of all separately billable procedures. Discussion w/ other healthcare providers: Dr. Grey telestroke neurology [facility] Dr. Storey inpatient medicine service Prior /Outside records reviewed: I reviewed part of a neurology consultation note from Dr. Hills from September 2022. Patient reportedly had been seen during his stay for that time of her right upper extremity numbness headache and chest pain. Patient's diagnosis at that time was thought to be secondary to TIA versus acute lacunar infarct. Patient was noted to have stenosis of the right A2 segment at the time of his admission. Differential diagnosis: Differential infection, dehydration, metabolic abnormality, hypo/hyperglycemia, electrolyte imbalance, anemia, UTI, pneumonia, thyroid dysfunction among others were considered. Diagnostics, as interpreted by me: ECG: Normal sinus rhythm, rate of 68 normal intervals, normal axis no ST elevations. Cardiac monitoring: An order was placed for continuous cardiac monitoring. The monitor shows a rate of 72 with sinus rhythm. Patient was placed on pulse oximetry Medical decision rules: None Imaging studies: I informally interpreted the patient's CT head shows concern for hypodensity in the right parieto-occipital area with formal report to follow. HPI: Patient presents with children at bedside due to concern for possible strokelike symptoms. Reported that he was having some difficulty with his gait as well as difficulty with using his fork. Last known well per the daughter who noticed this was at 4:30 PM yesterday. She states that some to that he works with stated that he had some erratic driving. The patient did have strokelike symptoms or mini stroke last year. The patient has not been compliant with his medications secondary to cost for the several months. Patient reportedly did have a fall may be 2 weeks ago. Does not take thinners. Does believe that he had a "slight tap on the head." Daughter thinks that the patient may have had some left-sided weakness. PAST MEDICAL HISTORY: See Below PAST SURGICAL HISTORY: See Below SOCIAL HISTORY: See Below HOME MEDICATIONS: See Below ALLERGIES: See Below VITALS: See Below PHYSICAL EXAMINATION: GENERAL: NAD, non-toxic. EYE EXAM: Normal conjunctiva. PERRL, no anisocoria and EOM's grossly intact w/o pain. OROPHARYNX: Moist mucus membranes, noted to be missing a tooth. NECK: Trachea midline, no stridor. LUNGS: Clear to auscultation. Normal chest wall mechanics. HEART: NSR, no MRG. ABDOMEN: Abdomen soft, non-tender, no masses, no rebound or guarding. BACK: No CVA TTP. SKIN: No rashes and no bruising. UPPER EXTREMITIES: Upper extremities are grossly normal. LOWER EXTREMITIES: Grossly normal, no edema. NEURO EXAM: A&O x3, cranial nerves II-XII grossly intact possible slight asymmetry to grimace when smiling although can close both eyes and raise eyebrows without issue, normal speech, moves all 4 extremities perhaps slightly weak in the left upper extremity compared to the right although when trialed again seems to have improved strength, no sensory deficits. Difficult to determine whether or not the patient has occasional neglect versus a visual field deficit to the left or both. 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 Past Med/Surg History Problem List (Updated 02/22/24 @ 01:32 by Lloyd Monae MD) Carotid artery stenosis (Acute) Tobacco use (Acute) Left-sided weakness (Acute) CVA (cerebral vascular accident) (Acute) Acute CVA (cerebrovascular accident) TIA (transient ischemic attack) Diabetes Headache (Acute) Arm paresthesia, right (Acute) Chest pain (Acute) Stroke-like symptom (Acute) History of ventricular tachycardia History of sudden cardiac successfully resuscitated ICD (implantable cardioverter-defibrillator) battery depletion Hyperlipidemia CAD (coronary artery disease) (Chronic) "s/p stent" HTN (hypertension) (Chronic) History of left heart catheterization ICD (implantable cardioverter-defibrillator) in place Lymphadenopathy, abdominal Thoracic back pain (Acute) Sciatica (Acute) Male erectile disorder of organic origin (Acute) Dyslipidemia (Chronic) Chronic lymphocytic leukemia (CLL), B-cell Paresthesias Autonomic neuropathy Erectile dysfunction Obesity Tinea pedis Tobacco abuse (Acute) Diabetic peripheral neuropathy associated with type 2 diabetes mellitus Personal history of diabetic foot ulcer Medical History Osteoarthritis Lung nodule Anemia ICD (implantable cardioverter-defibrillator) in place 2010 IMPLANTED Cardiac arrest 2010 Myocardial Infarction 2002 Hypertension Surgical History History of arthroscopy of knee History of anesthesia reaction APPY PROCEDURE-COULDN'T BREATHE>COMBATIVE History of arthroscopy RT History of appendectomy History of colonoscopy History of vascular access device A-PORT INSERTION History of tooth extraction History of heart artery stent 2002 (1 STENT) History of cardiac cath 2002 Family History Father Diabetes Sister Congenital heart disease Diabetes Mother Hypertension Brother Myocardial infarction Denies family history of Ovarian cancer Prostate cancer Breast cancer Colorectal cancer Social History Smoking Status: Current every day smoker Tobacco Type: Cigarettes Cigarettes Per Day: 10; Second Hand Exposure: No; Do You Dip or Chew Tobacco: No; Hx Alcohol Use: No Hx Substance Use: No Preferred Language: Sinhala Communication Ability: Effective Bracelet Former Required: No Beliefs That Will Affect Care: None Current Living Situation: Alone Current Living Situation Comment: home alone Feels Safe at Home: Yes caffeine: Yes Assistive Devices: Walker Allergies Allergies Allergy/AdvReac Type Severity Reaction Status Date / Time CASSANDRA Inhibitors Allergy Unknown Unknown Verified 02/22/24 00:53 Home Meds Home Medications Medication Instructions Recorded Confirmed No Known Home Medications 02/22/24 02/22/24 Results & Data (ED) Vital Signs Vital Signs - 24 hr 02/21/24 19:48 02/21/24 20:26 02/21/24 20:55 Temperature 36.9 C Temperature Source Temporal Artery Scan Pulse Rate 77 68 Pulse Rate [Apical] 67 Pulse Rate from SpO2 Sensor Respiratory Rate 18 21 Blood Pressure 171/84 H Blood Pressure [Right Arm] 173/87 H Blood Pressure Mean 113 Blood Pressure Mean [Right Arm] 115 Pulse Oximetry 100 99 Oxygen Delivery Method Room Air Room Air Sepsis Recent Fever Within 48 Hours No Sepsis New/Unexplained Change in Mental Status N/A Sepsis Action Taken by Nursing No Action Required 02/21/24 21:00 02/21/24 21:15 02/21/24 21:30 Temperature Temperature Source Pulse Rate 67 64 68 Pulse Rate [Apical] Pulse Rate from SpO2 Sensor 78 Respiratory Rate 18 18 18 Blood Pressure 195/108 H 172/93 H 185/98 H Blood Pressure [Right Arm] Blood Pressure Mean 130 119 142 Blood Pressure Mean [Right Arm] Pulse Oximetry 98 96 96 Oxygen Delivery Method Sepsis Recent Fever Within 48 Hours Sepsis New/Unexplained Change in Mental Status Sepsis Action Taken by Nursing 02/21/24 21:45 02/21/24 22:00 02/21/24 22:25 Temperature Temperature Source Pulse Rate 64 64 Pulse Rate [Apical] 63 Pulse Rate from SpO2 Sensor 64 Respiratory Rate 22 22 16 Blood Pressure 158/89 H 179/77 H Blood Pressure [Right Arm] 202/102 H Blood Pressure Mean 112 125 Blood Pressure Mean [Right Arm] 135 Pulse Oximetry 97 97 95 Oxygen Delivery Method Room Air Sepsis Recent Fever Within 48 Hours Sepsis New/Unexplained Change in Mental Status Sepsis Action Taken by Nursing 02/21/24 22:30 02/21/24 23:00 02/21/24 23:31 Temperature Temperature Source Pulse Rate 66 62 64 Pulse Rate [Apical] Pulse Rate from SpO2 Sensor Respiratory Rate 20 18 18 Blood Pressure 195/103 H 208/115 H 187/103 H Blood Pressure [Right Arm] Blood Pressure Mean 129 150 142 Blood Pressure Mean [Right Arm] Pulse Oximetry 96 95 94 Oxygen Delivery Method Sepsis Recent Fever Within 48 Hours Sepsis New/Unexplained Change in Mental Status Sepsis Action Taken by Nursing 02/21/24 23:51 02/22/24 01:08 Temperature Temperature Source Pulse Rate 63 Pulse Rate [Apical] Pulse Rate from SpO2 Sensor Respiratory Rate 17 Blood Pressure 199/96 H 162/77 H Blood Pressure [Right Arm] Blood Pressure Mean 141 122 Blood Pressure Mean [Right Arm] Pulse Oximetry 94 Oxygen Delivery Method Sepsis Recent Fever Within 48 Hours Sepsis New/Unexplained Change in Mental Status Sepsis Action Taken by [facility] Medications Current Medication List: was personally reviewed by me Laboratory Data Attestation: I reviewed the patient's lab results. 02/21/24 20:04 02/21/24 20:04 Lab Results 02/21/24 02/21/24 02/21/24 Range/Units 20:00 20:04 20:11 WBC 10.19 (4.8-10.8) K/ul RBC 4.77 (4.70-6.10) M/uL Hgb 14.4 (14.0-18.0) g/dl POC Hgb 13.3 L (14.0-18.0) g/dl Hct 40.8 L (42.0-52.0) % POC Hct 39 L (42-52) % MCV 85.5 (80.0-100.0) fL MCH 30.2 (25.0-34.0) pg MCHC 35.3 (32.0-36.0) g/dL RDW Std Deviation 39.8 (36.4-46.3) fL RDW Coeff of [place] 12.9 (11.5-14.5) % Plt Count 214 (130-400) K/uL MPV 10.2 (9.4-12.4) fL Immature Gran % (Auto) 0.5 % Neut % (Auto) 67.4 % Lymph % (Auto) 24.7 % [place] % (Auto) 5.0 % Eos % (Auto) 1.9 % Baso % (Auto) 0.5 % Neut # (Auto) 6.87 H (1.40-6.50) K/uL Lymph # (Auto) 2.52 (1.20-3.40) K/uL [place] # (Auto) 0.51 (0.11-0.59) K/uL Eos # (Auto) 0.19 (0.00-0.50) K/uL Baso # (Auto) 0.05 (0.00-0.20) K/uL Immature Gran # (Auto) 0.05 (0.01-0.20) K/uL PT 10.3 (9.0-12.0) Seconds INR 0.9 (0.9-1.1) APTT 23 (21-31) Seconds PTT Ratio 0.9 POC Sodium 137 (135-144) mmol/L Sodium 135 L (136-145) mmol/L POC Potassium 4.1 (3.3-5.0) mmol/L Potassium 4.1 (3.5-5.1) mmol/L POC Chloride 100 L (101-112) mmol/L Chloride 102 (98-107) mmol/L Carbon Dioxide 28 (21-32) mmol/L POC Total CO2 24 (24-31) mmol/L Anion Gap 5 (3-11) POC Anion Gap 18.0 (16-25) mmol/L POC BUN 14 (7-18) mg/dl BUN 15 (6-23) mg/dl Creatinine 1.06 (0.6-1.4) mg/dl POC Creatinine 1.1 (0.6-1.3) mg/dl Est Cr Clr Drug Dosing 80.8 ml/min Est GFR ( Amer) 84.9 ml/min Est GFR (Non-Af Amer) 73.3 ml/min BUN/Creatinine Ratio 14.2 (10-20) Glucose 287 H (70-99(Fasting)) mg/dl POC Glucose 263 H (70-99) mg/dl POC Glucose (other) 270 H (70-99) mg/dl Calcium 9.7 (8.6-10.3) mg/dl POC Ioniz Calcium [place] 1.21 (1.12-1.32) mmol/l Magnesium 1.7 (1.7-2.4) mg/dl Total Bilirubin 0.7 (0.2-1.0) mg/dl AST 9 L (13-39) U/L ALT 7 (7-52) U/L Alkaline Phosphatase 94 (34-104) U/L Troponin I High Sens 17.3 (0-20) pg/ml Total Protein 6.4 (6.0-8.3) gm/dl Albumin 3.9 (3.4-5.0) gm/dl Globulin 2.5 (2.5-4.0) gm/dl Albumin/Globulin Ratio 1.6 (0.9-2) Administered Medications Discontinued Medications Aspirin (Aspirin Chew 324 Mg) 324 mg PO NOW STA Stop: 02/21/24 20:51 Last Admin: 02/21/24 20:56 Dose: 324 mg Documented By: FLOWER Atorvastatin Calcium (Atorvastatin 40 Mg Tab) 80 mg PO NOW STA Stop: 02/21/24 20:51 Last Admin: 02/21/24 22:22 Dose: 80 mg Documented By: FLOWER Sodium Chloride (Nss) 1,000 mls @ 999 mls/hr IV .Q1H1M ONE Stop: 02/21/24 21:50 Last Infusion: 02/21/24 22:25 Dose: Infused Documented By: Admin: 02/21/24 21:00 Dose: 999 mls/hr Documented By: FLOWER Ioversol (Optiray 320 125ml) 116 ml IV ONCE ONE Stop: 02/21/24 20:18 Last Admin: 02/21/24 20:17 Dose: 116 ml Documented By: FRANK Ticagrelor (Ticagrelor 90 Mg Tab) 180 mg PO ONE ONE Stop: 02/21/24 20:51 Last Admin: 02/21/24 20:56 Dose: 180 mg Documented By: FLOWER Imaging Data Radiologist's Impression: Head CT 02/21/24 20:11 CR Exam(s): CT HEAD Without Contrast EXAM: CT Head Without Intravenous Contrast CLINICAL HISTORY: Reason for exam: neuro deficit, acute stroke suspected. TECHNIQUE: Axial computed tomography images of the head/brain without intravenous contrast. CTDI is 47.66 mGy and DLP is 871.06 mGy-cm. Automated exposure control was utilized for the study. A dose lowering technique was utilized adhering to the principles of ALARA. COMPARISON: MRI brain 10/14/22. FINDINGS: Brain: There is a geographic hypodensity in the RIGHT temporoparietal lobe, probable late acute or subacute infarct. No mass effect or acute hemorrhage. Mild atrophy and chronic white matter disease. No herniation. Ventricles: No hydrocephalus or midline shift. Bones/joints: No acute finding. Soft tissues: No scalp hematoma. Visualized Sinuses: Clear. Mastoid air cells: No mastoid effusion. IMPRESSION: 1. Probable late acute or subacute infarct RIGHT temporoparietal lobe. Communications: Call Doctor Stroke Electronically signed by: Sera Bolye M.D. 02/21/24 20:37 PM Head CTA 02/21/24 20:11 CR Exam(s): CTA HEAD With Contrast IV Amt: 116ml EXAM: CT Angiography Head With Intravenous Contrast CLINICAL HISTORY: Reason for exam: neuro deficit, acute stroke suspected. TECHNIQUE: Axial computed tomographic angiography images of the head with intravenous contrast. CTDI is 22.84 mGy and DLP is 508.41 mGy-cm. Automated exposure control was utilized for the study. A dose lowering technique was utilized adhering to the principles of ALARA. MIP reconstructed images were created and reviewed. Moderate motion artifact. CONTRAST: Patient received 116ml of IV contrast COMPARISON: Head CT done earlier. FINDINGS: Right internal carotid artery: Patent. Right anterior cerebral artery: Patent. Right middle cerebral artery: Patent. Right posterior cerebral artery: Patent. Right vertebral artery: Patent. Left internal carotid artery: Patent. Left anterior cerebral artery: Patent. Left middle cerebral artery: Patent. Left posterior cerebral artery: Patent. Left vertebral artery: Patent. Basilar artery: Patent. Other: No large vessel occlusion. Atherosclerosis bilateral cavernous ICA, with probable severe stenosis on the right. Motion artifact limits evaluation for stenosis. IMPRESSION: 1. Possible severe RIGHT cavernous ICA stenosis. Motion artifact limits evaluation. 2. No aneurysm or large vessel occlusion. Communications: Call Doctor Stroke Electronically signed by: Sera Boyle M.D. 02/21/24 20:41 PM Neck CTA 02/21/24 20:11 CR Exam(s): CTA NECK With Contrast IV Amt: 116ml EXAM: CT Angiography Neck With Intravenous Contrast CLINICAL HISTORY: Reason for exam: neuro deficit, acute stroke suspected. TECHNIQUE: Routine carotid CT angiography protocol was performed with intravenous contrast. NASCET criteria using the distal ICAs for comparison were used for evaluation of stenoses. CTDI is 22.84 mGy and DLP is 508.41 mGy-cm. Automated exposure control was utilized for the study. A dose lowering technique was utilized adhering to the principles of ALARA. 116 ML of IV contrast is given. MIP reconstructed images were created and reviewed. There is moderate artifact from dental metal, and patient motion, particularly at the skull base/C2 region. Pacemaker power pack also present. CONTRAST: Patient received 116ml of IV contrast COMPARISON: None. FINDINGS: Right common carotid artery: Patent. Right internal carotid artery: Patent. Right vertebral artery: Patent. Left common carotid artery: Patent. Left internal carotid artery: Patent. Left vertebral artery: Patent. Codominant. Other: Moderate atherosclerosis of the left carotid bifurcation and mildly on the right, without significant stenosis. IMPRESSION: 1. No dissection, occlusion, or significant stenosis. CAROTID STENOSIS REFERENCE USING NASCET CRITERIA: % ICA stenosis = (1 - narrowest ICA diameter/diameter of distal cervical ICA) x 100. Mild - <50% stenosis. Moderate - 50-69% stenosis. Severe - 70-94% stenosis. Near occlusion - 95-99% stenosis. Occluded - 100% stenosis. Communications: Call Doctor Stroke Electronically signed by: Sera Boyle M.D. 02/21/24 20:37 PM Discharge Plan Visit Data Chief Complaint: TIA Symptoms Stated Complaint: SLURRED SPEECH, CONFUSION, LETHARGIC ED Provider: Lloyd Monae Discharge Problem: CVA (cerebral vascular accident), Left-sided weakness, Tobacco use, Carotid artery stenosis Forms Stand Alone Forms: [employer] Prescriptions Prescriptions: No Action No Known Home Medications Referrals Referrals: PCP,NO [Physician] - Discharge Problem: CVA (cerebral vascular accident) Qualifiers: CVA mechanism: unspecified Qualified Code(s): I63.9 - Cerebral infarction, unspecified Carotid artery stenosis Qualifiers: Laterality: right Qualified Code(s): I65.21 - Occlusion and stenosis of right carotid artery
[2024-02-21] MEDS: OPTIRAY 320 125ml IV ONE (20:17)
[2024-02-21 20:23] LABS: iSTAT Creatinine 1.1 mg/dl (0.6-1.3); iSTAT Hemoglobin 13.3 g/dl (14.0-18.0); iSTAT Ionized Calcium 1.21 mmol/l (1.12-1.32); iSTAT Potassium 4.1 mmol/L (3.3-5.0)
--- NOTE | 2024-02-21 20:38 | CT Scan Report ---
Exam(s): CT HEAD Without Contrast EXAM: CT Head Without Intravenous Contrast CLINICAL HISTORY: Reason for exam: neuro deficit, acute stroke suspected. TECHNIQUE: Axial computed tomography images of the head/brain without intravenous contrast. CTDI is 47.66 mGy and DLP is 871.06 mGy-cm. Automated exposure control was utilized for the study. A dose lowering technique was utilized adhering to the principles of ALARA. COMPARISON: MRI brain 10/14/22. FINDINGS: Brain: There is a geographic hypodensity in the RIGHT temporoparietal lobe, probable late acute or subacute infarct. No mass effect or acute hemorrhage. Mild atrophy and chronic white matter disease. No herniation. Ventricles: No hydrocephalus or midline shift. Bones/joints: No acute finding. Soft tissues: No scalp hematoma. Visualized Sinuses: Clear. Mastoid air cells: No mastoid effusion. IMPRESSION: 1. Probable late acute or subacute infarct RIGHT temporoparietal lobe. Communications: Call Doctor Stroke Electronically signed by: Sera Boyle M.D. 02/21/24 20:37 PM
--- NOTE | 2024-02-21 20:38 | CT Scan Report ---
Exam(s): CTA NECK With Contrast IV Amt: 116ml EXAM: CT Angiography Neck With Intravenous Contrast CLINICAL HISTORY: Reason for exam: neuro deficit, acute stroke suspected. TECHNIQUE: Routine carotid CT angiography protocol was performed with intravenous contrast. NASCET criteria using the distal ICAs for comparison were used for evaluation of stenoses. CTDI is 22.84 mGy and DLP is 508.41 mGy-cm. Automated exposure control was utilized for the study. A dose lowering technique was utilized adhering to the principles of ALARA. 116 ML of IV contrast is given. MIP reconstructed images were created and reviewed. There is moderate artifact from dental metal, and patient motion, particularly at the skull base/C2 region. Pacemaker power pack also present. CONTRAST: Patient received 116ml of IV contrast COMPARISON: None. FINDINGS: Right common carotid artery: Patent. Right internal carotid artery: Patent. Right vertebral artery: Patent. Left common carotid artery: Patent. Left internal carotid artery: Patent. Left vertebral artery: Patent. Codominant. Other: Moderate atherosclerosis of the left carotid bifurcation and mildly on the right, without significant stenosis. IMPRESSION: 1. No dissection, occlusion, or significant stenosis. CAROTID STENOSIS REFERENCE USING NASCET CRITERIA: % ICA stenosis = (1 - narrowest ICA diameter/diameter of distal cervical ICA) x 100. Mild - <50% stenosis. Moderate - 50-69% stenosis. Severe - 70-94% stenosis. Near occlusion - 95-99% stenosis. Occluded - 100% stenosis. Communications: Call Doctor Stroke Electronically signed by: Sera Boyle M.D. 02/21/24 20:37 PM
[2024-02-21 20:40] LABS: Basophils # (auto) 0.05 K/uL (0.00-0.20); Basophils % (auto) 0.5 %; Eosinophils # (auto) 0.19 K/uL (0.00-0.50); Eosinophils % (auto) 1.9 %; Hematocrit (blood only) 40.8 % (42.0-52.0); Hemoglobin 14.4 g/dl (14.0-18.0); Immature Granulocytes # (auto) 0.05 K/uL (0.01-0.20); Immature Granulocytes % (auto) 0.5 %; Lymphocytes # (auto) 2.52 K/uL (1.20-3.40); Lymphocytes % (auto) 24.7 %; Mean Corpuscular Hemoglobin 30.2 pg (25.0-34.0); Mean Corpuscular Hgb Conc 35.3 g/dL (32.0-36.0); Mean Corpuscular Volume 85.5 fL (80.0-100.0); Mean Platelet Volume 10.2 fL (9.4-12.4); Monocytes # (auto) 0.51 K/uL (0.11-0.59); Neutrophils # (auto) 6.87 K/uL (1.40-6.50); Neutrophils % (auto) 67.4 %; Platelet Count 214 K/uL (130-400); RDW Coefficient of Variation 12.9 % (11.5-14.5); RDW Standard Deviation 39.8 fL (36.4-46.3); Red Blood Count 4.77 M/uL (4.70-6.10); White Blood Count 10.19 K/ul (4.8-10.8)
--- NOTE | 2024-02-21 20:42 | CT Scan Report ---
Exam(s): CTA HEAD With Contrast IV Amt: 116ml EXAM: CT Angiography Head With Intravenous Contrast CLINICAL HISTORY: Reason for exam: neuro deficit, acute stroke suspected. TECHNIQUE: Axial computed tomographic angiography images of the head with intravenous contrast. CTDI is 22.84 mGy and DLP is 508.41 mGy-cm. Automated exposure control was utilized for the study. A dose lowering technique was utilized adhering to the principles of ALARA. MIP reconstructed images were created and reviewed. Moderate motion artifact. CONTRAST: Patient received 116ml of IV contrast COMPARISON: Head CT done earlier. FINDINGS: Right internal carotid artery: Patent. Right anterior cerebral artery: Patent. Right middle cerebral artery: Patent. Right posterior cerebral artery: Patent. Right vertebral artery: Patent. Left internal carotid artery: Patent. Left anterior cerebral artery: Patent. Left middle cerebral artery: Patent. Left posterior cerebral artery: Patent. Left vertebral artery: Patent. Basilar artery: Patent. Other: No large vessel occlusion. Atherosclerosis bilateral cavernous ICA, with probable severe stenosis on the right. Motion artifact limits evaluation for stenosis. IMPRESSION: 1. Possible severe RIGHT cavernous ICA stenosis. Motion artifact limits evaluation. 2. No aneurysm or large vessel occlusion. Communications: Call Doctor Stroke Electronically signed by: Sera Boyle M.D. 02/21/24 20:41 PM
[2024-02-21 20:52] LABS: Albumin Globulin Ratio 1.6 (0.9-2); Albumin Level 3.9 gm/dl (3.4-5.0); BUN Creatinine Ratio 14.2 (10-20); Bilirubin,Total 0.7 mg/dl (0.2-1.0); Calcium 9.7 mg/dl (8.6-10.3); Creatinine Clr Calc Pharmacy 80.8 ml/min; Est GFR (African American) 84.9 ml/min; Est GFR (Non-African American) 73.3 ml/min; Globulin 2.5 gm/dl (2.5-4.0); Magnesium 1.7 mg/dl (1.7-2.4); Potassium 4.1 mmol/L (3.5-5.1); Total Protein 6.4 gm/dl (6.0-8.3)
[2024-02-21] MEDS: TICAGRELOR 90 MG TAB PO ONE (20:56)
[2024-02-21] MEDS: ASPIRIN CHEW 324 MG PO STA (20:56)
[2024-02-21 20:59] LABS: Troponin I High Sensitivity 17.3 pg/ml (0-20)
[2024-02-21] MEDS: SODIUM CHLORIDE 0.9% 1,000 ML IV ONE (21:00)
[2024-02-21 21:07] LABS: INR 0.9 (0.9-1.1); Partial Thromboplastin Ratio 0.9; Partial Thromboplastin Time 23 Seconds (21-31); Prothrombin Time 10.3 Seconds (9.0-12.0)
[2024-02-21] MEDS: ATORVASTATIN 40 MG TAB PO STA (22:22)
--- NOTE | 2024-02-22 00:13 | History & Physical Report ---
Date of Service February 21, 2024 Assessment & Plan (1) Acute CVA (cerebrovascular accident): Plan: 63-year-old female with past medical history significant for type 2 diabetes, diabetic nephropathy, peripheral neuropathy, hyperlipidemia, hypomagnesemia, , history of CAD, history of systolic CHF,hypertension, infrarenal abdominal aortic aneurysm, GERD, serrated adenoma of the colon,, history of chemotherapy- induced neutropenia, history of TIA, history of elevated uric acid in blood, ongoing tobacco abuse, history of sudden cardiac arrest on 05/31/2011 cardiac cath showed occluded distal left circumflex. , felt to be chronic and had ICD implanted for secondary prevention on 06/06/2020 and ICD replacement on 10/19/2021, history of B-cell CLL followed by Dr. Bradshaw on observation, multiple lung nodules seems to follow with pulmonary and there is a plan for next CT scan in 2023 , patient seems to be noncompliant with medications because of insurance issues comes because of strokelike symptoms and CAT scan showing acute to subacute CVA. Patient seems to having difficulty with gait as well as difficulty using his fork and as per ER last will known was 4:30 PM yesterday. And patient seems to having some erratic driving lately. Patient currently sleeping. Arousable. Somewhat slow to answer but answering appropriately. Alert and oriented x 3. Currently denies any headache. States vision is not great. No runny nose or sore throat. No difficulty swallowing. Denies chest pain. No shortness of breath. Has chronic cough. No fevers. No nausea. No abdominal pain. Normal bowel and bladder movements . Patient states since his mini stroke last year is having some gait imbalance and uses cane. States he lives alone at home. CT head showing probable late acute or subacute infarct right temporoparietal lobe. CTA head showing possible severe right cavernous ICA stenosis. Telestroke was called and was recommended permissive hypertension for 48 hours and to use IV labetalol as needed for blood pressure greater than 220/110. Loaded with aspirin, Brilinta and statin. Acute CVA CT head showing late acute or subacute infarct right temporoparietal lobe. CTA head possible severe right cavernous ICA stenosis Loaded with aspirin and Brilinta continued daily doses High-dose statin Will follow MRI scan and echo Speech evaluation PT OT evaluation Permissive hypertension per telestroke recommendations for 48 hours IV labetalol as needed for blood pressure greater than 220/110 iv fluids Close monitor in telemetry Neurology consult in a.m. for further recommendations Vascular surgery consult History of cardiac arrest S/p ICD History of CAD Supposed to be on Plavix, aspirin, and rosuvastatin and metoprolol succinate Seems noncompliant Continue aspirin, Brilinta, Lipitor and metoprolol succinate with holding parameters Close monitor History of pulmonary nodules Follow-up with PCP and pulmonology History of CLL Follow-up with heme-onc Abdominal aortic aneurysm 3.4 cm infrarenal abdominal aortic aneurysm on 11/22/2022 Needs follow-up Serrated adenomatous polyps Last colonoscopy seems to be in 2018 Supposed to repeat colonoscopy in 3 years Needs follow-up -Hyperlipidemia Statin Diabetes Sliding scale Follow blood sugars and HbA1c levels History of systolic CHF EF 50 to 55% echo done in 09/202223 Grade 1 diastolic dysfunction follow echo DVT prophylaxis SCDs for now Disposition Telemetry Full code. Addendum; Seems non complaint with medications. Entered home [facility] per [employer]. History of Present Illness Chief Complaint: CVA Primary Care Provider: Luisa Barclay MD 63-year-old female with past medical history significant for type 2 diabetes, diabetic nephropathy, peripheral neuropathy, hyperlipidemia, hypomagnesemia, , history of CAD, history of systolic CHF,hypertension, infrarenal abdominal aortic aneurysm, GERD, serrated adenoma of the colon,, history of chemotherapy- induced neutropenia, history of TIA, history of elevated uric acid in blood, ongoing tobacco abuse, history of sudden cardiac arrest on 05/31/2011 cardiac cath showed occluded distal left circumflex. , felt to be chronic and had ICD implanted for secondary prevention on 06/06/2020 and ICD replacement on 10/19/2021, history of B-cell CLL followed by Dr. Bradshaw on observation, multiple lung nodules seems to follow with pulmonary and there is a plan for next CT scan in 2023 , patient seems to be noncompliant with medications because of insurance issues comes because of strokelike symptoms and CAT scan showing acute to subacute CVA. Patient seems to having difficulty with gait as well as difficulty using his fork and as per ER last will known was 4:30 PM yesterday. And patient seems to having some erratic driving lately. Patient currently sleeping. Arousable. Somewhat slow to answer but answering appropriately. Alert and oriented x 3. Currently denies any headache. States vision is not great. No runny nose or sore throat. No difficulty swallowing. Denies chest pain. No shortness of breath. Has chronic cough. No fevers. No nausea. No abdominal pain. Normal bowel and bladder movements . Patient states since his mini stroke last year is having some gait imbalance and uses cane. States he lives alone at home. CT head showing probable late acute or subacute infarct right temporoparietal lobe. CTA head showing possible severe right cavernous ICA stenosis. Telestroke was called and was recommended permissive hypertension for 48 hours and to use IV labetalol as needed for blood pressure greater than 220/110. Loaded with aspirin, Brilinta and statin. Past medical history. As mentioned above. Past surgical history. Open biopsy of left inguinal lymph node. Colonoscopy. Left heart catheterization. S/p ICD. Right knee arthroscopy. Appendectomy. Social history. Smokes 0.5 pack a day for 50 years. No alcohol use. No drug use. Family history. Father had diabetes. Heart disorder. Brother of heart aneurysm at age 44. Sister had breast cancer. Sister open heart surgery at age 18. Allergies Allergy/AdvReac Type Severity Reaction Status Date / Time CASSANDRA Inhibitors Allergy Unknown Unknown Verified 02/22/24 00:53 Home Medications Medication Instructions Recorded Confirmed Type No Known Home Medications 02/22/24 02/22/24 History Past Med/Surg History Problem List (Updated 02/22/24 @ 01:32 by Lloyd Monae MD) Carotid artery stenosis (Acute) Tobacco use (Acute) Left-sided weakness (Acute) CVA (cerebral vascular accident) (Acute) Acute CVA (cerebrovascular accident) TIA (transient ischemic attack) Diabetes Headache (Acute) Arm paresthesia, right (Acute) Chest pain (Acute) Stroke-like symptom (Acute) History of ventricular tachycardia History of sudden cardiac successfully resuscitated ICD (implantable cardioverter-defibrillator) battery depletion Hyperlipidemia CAD (coronary artery disease) (Chronic) "s/p stent" HTN (hypertension) (Chronic) History of left heart catheterization ICD (implantable cardioverter-defibrillator) in place Lymphadenopathy, abdominal Thoracic back pain (Acute) Sciatica (Acute) Male erectile disorder of organic origin (Acute) Dyslipidemia (Chronic) Chronic lymphocytic leukemia (CLL), B-cell Paresthesias Autonomic neuropathy Erectile dysfunction Obesity Tinea pedis Tobacco abuse (Acute) Diabetic peripheral neuropathy associated with type 2 diabetes mellitus Personal history of diabetic foot ulcer Medical History Osteoarthritis Lung nodule Anemia ICD (implantable cardioverter-defibrillator) in place 2010 IMPLANTED Cardiac arrest 2010 Myocardial Infarction 2002 Hypertension Surgical History History of arthroscopy of knee History of anesthesia reaction APPY PROCEDURE-COULDN'T BREATHE>COMBATIVE History of arthroscopy RT History of appendectomy History of colonoscopy History of vascular access device A-PORT INSERTION History of tooth extraction History of heart artery stent 2002 (1 STENT) History of cardiac cath 2002 Family History Father Diabetes Sister Congenital heart disease Diabetes Mother Hypertension Brother Myocardial infarction Denies family history of Ovarian cancer Prostate cancer Breast cancer Colorectal cancer Social History Smoking Status: Current every day smoker Tobacco Type: Cigarettes Cigarettes Per Day: 10; Second Hand Exposure: No; Do You Dip or Chew Tobacco: No; Hx Alcohol Use: No Hx Substance Use: No Preferred Language: Mohawk Communication Ability: Effective 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 Head- atraumatic Eyes- PERRL. ENT- oropharynx clear Neck- supple, no JVD. Lungs- clear to auscultation no wheezing or crackles Heart- regular rate and rhythm; no murmur, no gallop. Abdomen- normal bowel sounds, soft, nontender, no distension. Extremities- no pretibial edema, no erythema seen Neuro- alert, oriented x 3; PERRL, no facial palsy; no dysarthria; motor 5/5 bilaterally; not able to test for pronator drift. slow co ordination of movements, left leg sensations decreased. Not able to test for position sense. Skin- warm & dry Results & Data Results & Data Vital Signs (Past 12 Hours) Vital Signs Temp Pulse Pulse Resp BP BP Pulse Ox 02/21/24 22:25 63 16 202/102 H 95 02/21/24 20:55 68 02/21/24 20:26 67 21 173/87 H 99 02/21/24 19:48 36.9 C 77 18 171/84 H 100 O2 Del Method 02/21/24 22:25 Room Air 02/21/24 20:55 02/21/24 20:26 Room Air 02/21/24 19:48 Room Air Diagnostic Findings Laboratory Results WBC 10.19 K/ul (4.8-10.8) 02/21/24 20:04 RBC 4.77 M/uL (4.70-6.10) 02/21/24 20:04 Hgb 14.4 g/dl (14.0-18.0) 02/21/24 20:04 POC Hgb 13.3 g/dl (14.0-18.0) L 02/21/24 20:11 Hct 40.8 % (42.0-52.0) L 02/21/24 20:04 POC Hct 39 % (42-52) L 02/21/24 20:11 MCV 85.5 fL (80.0-100.0) 02/21/24 20:04 MCH 30.2 pg (25.0-34.0) 02/21/24 20:04 MCHC 35.3 g/dL (32.0-36.0) 02/21/24 20:04 RDW Std Deviation 39.8 fL (36.4-46.3) 02/21/24 20:04 RDW Coeff of [place] 12.9 % (11.5-14.5) 02/21/24 20:04 Plt Count 214 K/uL (130-400) 02/21/24 20:04 MPV 10.2 fL (9.4-12.4) 02/21/24 20:04 Immature Gran % (Auto) 0.5 % 02/21/24 20:04 Neut % (Auto) 67.4 % 02/21/24 20:04 Lymph % (Auto) 24.7 % 02/21/24 20:04 [place] % (Auto) 5.0 % 02/21/24 20:04 Eos % (Auto) 1.9 % 02/21/24 20:04 Baso % (Auto) 0.5 % 02/21/24 20:04 Neut # (Auto) 6.87 K/uL (1.40-6.50) H 02/21/24 20:04 Lymph # (Auto) 2.52 K/uL (1.20-3.40) 02/21/24 20:04 [place] # (Auto) 0.51 K/uL (0.11-0.59) 02/21/24 20:04 Eos # (Auto) 0.19 K/uL (0.00-0.50) 02/21/24 20:04 Baso # (Auto) 0.05 K/uL (0.00-0.20) 02/21/24 20:04 Immature Gran # (Auto) 0.05 K/uL (0.01-0.20) 02/21/24 20:04 PT 10.3 Seconds (9.0-12.0) 02/21/24 20:04 INR 0.9 (0.9-1.1) 02/21/24 20:04 APTT 23 Seconds (21-31) 02/21/24 20:04 PTT Ratio 0.9 02/21/24 20:04 POC Sodium 137 mmol/L (135-144) 02/21/24 20:11 Sodium 135 mmol/L (136-145) L 02/21/24 20:04 POC Potassium 4.1 mmol/L (3.3-5.0) 02/21/24 20:11 Potassium 4.1 mmol/L (3.5-5.1) 02/21/24 20:04 POC Chloride 100 mmol/L (101-112) L 02/21/24 20:11 Chloride 102 mmol/L (98-107) 02/21/24 20:04 Carbon Dioxide 28 mmol/L (21-32) 02/21/24 20:04 POC Total CO2 24 mmol/L (24-31) 02/21/24 20:11 Anion Gap 5 (3-11) 02/21/24 20:04 POC Anion Gap 18.0 mmol/L (16-25) 02/21/24 20:11 POC BUN 14 mg/dl (7-18) 02/21/24 20:11 BUN 15 mg/dl (6-23) 02/21/24 20:04 Creatinine 1.06 mg/dl (0.6-1.4) 02/21/24 20:04 POC Creatinine 1.1 mg/dl (0.6-1.3) 02/21/24 20:11 Est Cr Clr Drug Dosing 80.8 ml/min 02/21/24 20:04 Est GFR ( Amer) 84.9 ml/min 02/21/24 20:04 Est GFR (Non-Af Amer) 73.3 ml/min 02/21/24 20:04 BUN/Creatinine Ratio 14.2 (10-20) 02/21/24 20:04 Glucose 287 mg/dl (70-99(Fasting)) H 02/21/24 20:04 POC Glucose 263 mg/dl (70-99) H 02/21/24 20:00 POC Glucose (other) 270 mg/dl (70-99) H 02/21/24 20:11 Calcium 9.7 mg/dl (8.6-10.3) 02/21/24 20:04 POC Ioniz Calcium [place] 1.21 mmol/l (1.12-1.32) 02/21/24 20:11 Magnesium 1.7 mg/dl (1.7-2.4) 02/21/24 20:04 Total Bilirubin 0.7 mg/dl (0.2-1.0) 02/21/24 20:04 AST 9 U/L (13-39) L 02/21/24 20:04 ALT 7 U/L (7-52) 02/21/24 20:04 Alkaline Phosphatase 94 U/L (34-104) 02/21/24 20:04 Troponin I High Sens 17.3 pg/ml (0-20) 02/21/24 20:04 Total Protein 6.4 gm/dl (6.0-8.3) 02/21/24 20:04 Albumin 3.9 gm/dl (3.4-5.0) 02/21/24 20:04 Globulin 2.5 gm/dl (2.5-4.0) 02/21/24 20:04 Albumin/Globulin Ratio 1.6 (0.9-2) 02/21/24 20:[address] 02/21/24 20:11 CR Exam(s): CT HEAD Without Contrast EXAM: CT Head Without Intravenous Contrast CLINICAL HISTORY: Reason for exam: neuro deficit, acute stroke suspected. TECHNIQUE: Axial computed tomography images of the head/brain without intravenous contrast. CTDI is 47.66 mGy and DLP is 871.06 mGy-cm. Automated exposure control was utilized for the study. A dose lowering technique was utilized adhering to the principles of ALARA. COMPARISON: MRI brain 10/14/22. FINDINGS: Brain: There is a geographic hypodensity in the RIGHT temporoparietal lobe, probable late acute or subacute infarct. No mass effect or acute hemorrhage. Mild atrophy and chronic white matter disease. No herniation. Ventricles: No hydrocephalus or midline shift. Bones/joints: No acute finding. Soft tissues: No scalp hematoma. Visualized Sinuses: Clear. Mastoid air cells: No mastoid effusion. IMPRESSION: 1. Probable late acute or subacute infarct RIGHT temporoparietal lobe. Communications: Call Doctor Stroke Electronically signed by: Sera Boyle M.D. 02/21/24 20:37 PM Head CTA 02/21/24 20:11 CR Exam(s): CTA HEAD With Contrast IV Amt: 116ml EXAM: CT Angiography Head With Intravenous Contrast CLINICAL HISTORY: Reason for exam: neuro deficit, acute stroke suspected. TECHNIQUE: Axial computed tomographic angiography images of the head with intravenous contrast. CTDI is 22.84 mGy and DLP is 508.41 mGy-cm. Automated exposure control was utilized for the study. A dose lowering technique was utilized adhering to the principles of ALARA. MIP reconstructed images were created and reviewed. Moderate motion artifact. CONTRAST: Patient received 116ml of IV contrast COMPARISON: Head CT done earlier. FINDINGS: Right internal carotid artery: Patent. Right anterior cerebral artery: Patent. Right middle cerebral artery: Patent. Right posterior cerebral artery: Patent. Right vertebral artery: Patent. Left internal carotid artery: Patent. Left anterior cerebral artery: Patent. Left middle cerebral artery: Patent. Left posterior cerebral artery: Patent. Left vertebral artery: Patent. Basilar artery: Patent. Other: No large vessel occlusion. Atherosclerosis bilateral cavernous ICA, with probable severe stenosis on the right. Motion artifact limits evaluation for stenosis. IMPRESSION: 1. Possible severe RIGHT cavernous ICA stenosis. Motion artifact limits evaluation. 2. No aneurysm or large vessel occlusion. Communications: Call Doctor Stroke Electronically signed by: Sera Boyle M.D. 02/21/24 20:41 PM Neck CTA 02/21/24 20:11 CR Exam(s): CTA NECK With Contrast IV Amt: 116ml EXAM: CT Angiography Neck With Intravenous Contrast CLINICAL HISTORY: Reason for exam: neuro deficit, acute stroke suspected. TECHNIQUE: Routine carotid CT angiography protocol was performed with intravenous contrast. NASCET criteria using the distal ICAs for comparison were used for evaluation of stenoses. CTDI is 22.84 mGy and DLP is 508.41 mGy-cm. Automated exposure control was utilized for the study. A dose lowering technique was utilized adhering to the principles of ALARA. 116 ML of IV contrast is given. MIP reconstructed images were created and reviewed. There is moderate artifact from dental metal, and patient motion, particularly at the skull base/C2 region. Pacemaker power pack also present. CONTRAST: Patient received 116ml of IV contrast COMPARISON: None. FINDINGS: Right common carotid artery: Patent. Right internal carotid artery: Patent. Right vertebral artery: Patent. Left common carotid artery: Patent. Left internal carotid artery: Patent. Left vertebral artery: Patent. Codominant. Other: Moderate atherosclerosis of the left carotid bifurcation and mildly on the right, without significant stenosis. IMPRESSION: 1. No dissection, occlusion, or significant stenosis. CAROTID STENOSIS REFERENCE USING NASCET CRITERIA: % ICA stenosis = (1 - narrowest ICA diameter/diameter of distal cervical ICA) x 100. Mild - <50% stenosis. Moderate - 50-69% stenosis. Severe - 70-94% stenosis. Near occlusion - 95-99% stenosis. Occluded - 100% stenosis. Communications: Call Doctor Stroke Electronically signed by: Sera Boyle M.D. 02/21/24 20:37 PM ECG Additional Comments: ECG. Normal sinus rhythm rate of 68. ST and T wave abnormality. No significant changes found. Code Status & VTE Plan VTE Prophylaxis Plan VTE Prophylaxis will be ordered: Yes
--- OUTSIDE RECORDS SUMMARY | 2024-02-22 04:14 | External Medical Summary | Summary of Care ---
Author Name Unknown Organization [facility] Address [address] [place] [address] Phone [phone] Care Team Providers Care Cessation Systems Outreach Specialist Name Role Phone Luisa Barclay MD Primary Care Provider [phone] Encounter Details Date Type Department Care Team (Late st Contact Info) Description 11/29/2023 Result Scan Unspecified Department Lita Brewer IV, MD [address] [place] [address] <No scans attached> Allergies Active Allergy Reactions Criticality Noted Date Comments Chapo Inhibitors 08/23/2022 Other reaction(s): Unknown Adhesive Tape Itching,Rash 06/05/2011 Aluminum High 08/23/2022 Other reaction(s): TEETH TINGLE Latex 08/23/2011 rash documented as of this encounter (statuses as of 11/29/2023) Medications Medication Sig Dispensed Refills Start Date End Date Status MULTIVITAMINS PO CAPS take one cap twicea a day 0 Active FISH OIL 1000 MG PO CAPS 2 caps once per day 0 Active BD Pen Needle Ally 2nd Gen 32G X 4 MM USE 1 NEEDLE 4 TIMES DAILY 0 09/22/2021 Active FreeStyle Semaj 2 Sensor Use as directed. 0 10/19/2021 Active metFORMIN HCl ER 500 MG Oral Tablet Extended Release 24 Hour (Glucophage XR) Take 4 Tablets by mouth daily with dinner. 120 Tablet 11 11/08/2022 Active Aspirin 81 MG Oral Tablet ChewableIndications: Atherosclerosis of [place] coronary artery of [place] heart without angina pectoris Take 1 Tablet by mouth in the morning. with food.. 100 Tablet 5 11/08/2022 Active Empagliflozin 10 MG Oral Tablet (Jardiance)Indicatio ns:Type 2 diabetes mellitus with hemoglobin A1c goal of less than 8.0% ([facility]),Controlled type 2 diabetes mellitus with diabetic nephropathy, without long-term current use of insulin (HCC),DM type 2 with diabetic peripheral neuropathy (HCC) Take 1 Tablet by mouth in the morning. 90 Tablet 3 11/30/2022 Active Additional Information Patient not taking.Reported on 06/02/2023 Vitamin D-3 25 MCG (1000 UT) Oral CapsuleIndications:V itamin D insufficiency Take 1 Capsule by mouth in the morning. 1 Capsule 0 11/30/2022 Active Additional Information Patient not taking.Reported on 06/02/2023 Trulicity 0.75 MG/0.5ML Subcutaneous Solution Pen-injector INJECT 0.75 MG UNDER THE SKIN ONCE WEEKLY 4 mL 5 12/12/2022 Active Additional Information Patient not taking.Reported on 06/02/2023 Losartan Potassium 50 MG Oral Tablet (Cozaar)Indications: Type 2 diabetes mellitus with proteinuria ([facility]) Take 1.5 Tablets by mouth every evening. Inc 11/30/2022 135 Tablet 0 02/03/2023 Active Additional Information Patient not taking.Reported on 06/02/2023 Metoprolol Succinate ER 50 MG Oral Tablet Extended Release 24 Hour (toPROL XL) Take 1 Tablet by mouth in the morning. 90 Tablet 3 02/03/2023 Active Additional Information Patient not taking.Reported on 06/02/2023 Rosuvastatin Calcium 40 MG Oral Tablet (Crestor) Take 1 Tablet by mouth in the morning. 90 Tablet 3 02/03/2023 Active Additional Information Patient not taking.Reported on 06/02/2023 amLODIPine Besylate 2.5 MG Oral Tablet (Norvasc) Take 1 Tablet by mouth every evening. 90 Tablet 3 02/01/2023 Active Additional Information Patient not taking.Reported on 06/02/2023 Clopidogrel Bisulfate 75 MG Oral Tablet (pLAVix) Take 1 Tablet by mouth every evening. 90 Tablet 3 02/01/2023 Active Additional Information Patient not taking.Reported on 06/02/2023 documented as of this encounter (statuses as of 11/29/2023) Active Problems Problem Noted Date Diagnosed Date Controlled type 2 diabetes m gracie with diabetic nephropathy, without long-term current use of insulin 11/29/2022 DM type 2 with diabetic peripheral neuropathy History of TIA (transient ischemic attack) 11/08 Serrated adenoma of colon 11/08/2022 Hypomagnesemia 11/08/2022 Pulmonary nodules 08/04/2020 Tobacco dependency 08/04/2020 Infrarenal abdominal aortic aneurysm (AAA) witho ut rupture 08/15/2018 Chemotherapy-induced neutropenia 04/27/2018 Elevated uric acid in blood 01/08/2018 Encounter for antineoplastic chemotherapy 2017 Hx of cardiac arrest 11/10/2017 Dyslipidemia, goal LDL below 70 10/28/2016 CLL (chronic lymphocytic leukemia) 10/13/2015 HTN, goal below 140/80 03/15/2012 GERD (gastroesophageal reflux disease) 2 Automatic implantable cardioverter-defibrillator in situ 06/13/2011 Coronary atherosclerosis of [place] coronary june ry 05/31/2011 Heart failure, systolic, due to CAD 05/31/2011 Type 2 diabetes mellitus wit h hemoglobin A1c goal of less than 8.0% 05/31/2011 Overview: ICD-10 update of inactive term documented as of this encounter (statuses as of 11/29/2023) Resolved Problems Problem Noted Date Diagnosed Date Resolved Date Restless legs syndrome 11/08/202211/29 Mild dehydration 01/08/2018 11/08/2022 Hand joint pain 10/13/2014 10/28/2016 Acute conjunctivitis 01/07/2014 017 Dermatitis 08/26/2013 10/28/2016 Neuropathic pain, arm 05/30/20132016 Screen for colon cancer 05/30/2013 04/0 01/2017 Heel spur 09/01/2011 05/30/2013 Pain, joint, foot 08/23/2011 05/30/2013 Dermatitis 08/23/2011 05/30/2013 Heart failure, systolic and diastolic, acute on chronic 06/02/2011 10/28/2016 Cardiac arrest 05/31/2011 10/28/2016 PERCUTANEOUS TRANSLUMINAL CO RONARY ANGIOPLASTY STATUS October, 05/31/2011 8 HTN, goal to be determined 05/31/2011 0 08/23/2011 Tobacco use disorder 05/31/2011 013 Acidosis 05/31/2011 10/28/2016 Hyperlipidemia with target LDL less than 70 10/28/2016 Overview: ICD-10 update of inactive term documented as of this encounter (statuses as of 11/29/2023) Immunizations Name Administration Dates Next Due Pneumococcal Polysaccharide PPV23 (Pneumovax) 09/01/2011 Seasonal Influenza, Split, I IV3, With Preserve, Inj 04/09/2014,05/30/2013,09/03/2012 TDAP (age 11 and older)(Adacel) 09/01/2011 documented as of this encounter Social History Tobacco Use Types Packs/Day Years Used Date Smoking Tobacco: Every Day Cigarettes 0.5 50 Cigars Smokeless Tobacco: Never Alcohol Use Standard Drinks/Week Comments Yes 0 (1 standard drink = 0.6 oz pur e alcohol) very little PHQ-2 Answer Date Recorded PHQ Adult Total Score 0 11/29/2022 Hunger Vital Sign Answer Date Recorded Within the past 12 months, y ou worried that your food would run out before you got the money to buy more. Never true 11/30/19 23 Within the past 12 months, t he food you bought just didn't last and you didn't have money to get more. Never true 11/29/2022 Sex and Gender Information Value Date Recorded Sex Assigned at Not on file Gender Identity Not on file Sexual Orientation Not on file Job Start Date Occupation Industry Not on file Not on file Not on file documented as of this encounter Plan of Treatment Upcoming Encounters Date Type Department Care Team (Late st Contact Info) Description 12/27/2023 8:30 AM EDT Office Visit Cardiology, [facility] [address] [place] [address] Lita Brewer IV, MD [address] [facility] [place] [address] Scheduled Procedures Name Priority Associated Diagnoses Date/Ti me COLONOSCOPY FLEXIBLE PROXIMAL DIAGNOSTIC Recall History of colon polyps Health Maintenance Due Date Last Done Comments DISCUSS TOBACCO CESSATION (REFER TO SMARTSET #3291) 1960 COVID-19 Vaccine (#1) 10/15/1963 HIV Screening 1973 Hepatitis C Screening 1976 Zoster Vaccines (1 of 2) 1977 Cologuard 10/15/2003 Fecal Occult Blood Test 10/15/2003 Sigmoidoscopy 10/15/2003 B-12 10/11/2019 10/10/2018, 12/28/2017 Colonoscopy 07/09/2021 07/09/2018, 06/24/2013 Colorectal Cancer Screening 07/09/2021 DTaP,Tdap,and Td Vaccines (2 - Td or Tdap) 09/01/2021 09/01/2011 Diabetic Eye Exam 04/11/2023 04/11/2022, , 12/11/2014, Additional history exists HbA1c 05/18/2023 11/16/2022, 07/25, 04/11/2022, Additional history exists Pneumococcal Vaccine: 65+ Years (4 of 4 - PPSV23 or PCV20) 10/15/2023 07/16/2019, 11/19/2017, 09/01/2011 GFR 11/17/2023 11/16/2022, 03/24, 10/07/2021, Additional history exists Depression Screening 11/30/2023 11/29/2022 Diabetic Foot Exam 11/30/2023 11/29/2022, 0 09/22/2014, 08/26/2013, Additional history exists Albumin/Creatinine Ratio 12/01/2023 023, 09/22/2014, 08/26/2013, Additional history exists Influenza Vaccine (FLU shot) (Season Ended) 2024 07/16/2019, 05/10/2019, 04/09/2014, Additional history exists Lung Cancer Screening Completed 07/26/2022 , 07/26/2021, 08/14/2020, Additional history exists GARDASIL-HPV IMMUNIZATION SERIES Aged Out No longer eligible based on patient's age to complete this topic Hepatitis B Aged Out No longer eligi ble based on patient's age to complete this topic MENINGOCOCCAL (MENACTRA/MENVEO) Aged Out No longer eligible based on patient's age to complete this topic documented as of this encounter Medical Devices Not on filedocumented as of this encounter Procedures Procedure Name Priority Date/Time Associated Diagnosis Comments CARDIOLOGY SCANNED RESULT 11/29/2023 documented in this encounter Results * CARDIOLOGY SCANNED RESULT (11/29/2023) 11/29/2023 Lita Brewer IV, MD OTHER documented in this encounter Advance Directives Latest Code Status on File Code Status Date Activated Date Inactivated Comments Full Code 06/01/2011 12:17 AM 06/07/2011 6:50 PM Thi s order reflects the patients wishes and were consensually agreed upon. Question Answer Comments Discussion of Advance Directives occurred with: Not Discussed Does the patient have a Living Will? No Does the patient have Health Care Power of Art Glass Setter? No Care Teams Cessation Systems Outreach Specialist Relationship Specialty Start Date End Date Luisa Barclay MD [address] [place] [address] PCP - General Internal Medicine 12/12/22 documented as of this encounter
--- OUTSIDE RECORDS SUMMARY | 2024-02-22 04:14 | External Medical Summary | Summary of Care ---
Author Name Unknown Organization [facility] Address [address] [place] [address] Phone [phone] Care Team Providers Care Bar Finish Operator Name Role Phone Luisa Barclay MD Primary Care Provider [phone] Encounter Details Date Type Department Care Team (Late st Contact Info) Description 09/17/2023 Result Scan Unspecified Department Lita Brewer IV, MD [address] [place] [address] <No scans attached> Allergies Active Allergy Reactions Criticality Noted Date Comments Chapo Inhibitors 08/23/2022 Other reaction(s): Unknown Adhesive Tape Itching,Rash 06/05/2011 Aluminum High 08/23/2022 Other reaction(s): TEETH TINGLE Latex 08/23/2011 rash documented as of this encounter (statuses as of 09/17/2023) Medications Medication Sig Dispensed Refills Start Date [...] 81 MG Oral Tablet ChewableIndications: Atherosclerosis of [place] coronary artery of [place] heart without angina pectoris Take 1 Tablet by mouth in the morning. with food.. 100 Tablet 5 11/08/2022 Active Empagliflozin 10 MG Oral Tablet (Jardiance)Indicatio ns:Type 2 diabetes mellitus with hemoglobin A1c goal of less than 8.0% ([facility]),Controlled type 2 diabetes mellitus with diabetic [...] (Cozaar)Indications: Type 2 diabetes mellitus with proteinuria ([facility]) Take 1.5 Tablets by mouth every [...] as of this encounter (statuses as of 09/17/2023) Active Problems Problem Noted Date Diagnosed Date [...] cardioverter-defibrillator in situ 06/13/2011 Coronary atherosclerosis of [place] coronary june ry 05/31/2011 Heart failure, systolic, due to CAD 05/31/2011 Type 2 diabetes mellitus wit h hemoglobin A1c goal of less than 8.0% 05/31/2011 Overview: ICD-10 update of inactive term documented as of this encounter (statuses as of 09/17/2023) Resolved Problems Problem Noted Date Diagnosed Date [...] as of this encounter (statuses as of 09/17/2023) Immunizations Name Administration Dates Next Due Pneumococcal [...] as of this encounter Plan of Treatment Scheduled Procedures Name Priority Associated Diagnoses Date/Ti me COLONOSCOPY FLEXIBLE PROXIMAL DIAGNOSTIC Recall History of colon polyps Health Maintenance Due Date Last Done Comments DISCUSS TOBACCO CESSATION (REFER TO SMARTSET #4271) 1960 COVID-19 Vaccine (#1) 10/15/1963 HIV Screening 1973 Hepatitis C Screening 1976 Zoster Vaccines (1 of 2) 1977 B-12 10/11/2019 10/10/2018, 12/28/2017 COLONOSCOPY-EVERY 3 YRS AGES 18-100 07/09/2021 07/09/2018, 06/24/2013 DTaP,Tdap,and Td Vaccines (2 - Td or Tdap) 09/01/2021 09/01/2011 Influenza Vaccine (FLU shot) (#1) 2023 07/16/2019, 05/10/2019, 04/09/2014, Additional history exists Diabetic Eye Exam 04/11/2023 04/11/2022, , 12/11/2014, Additional history exists HbA1c 05/18/2023 11/16/2022, 07/25, 04/11/2022, Additional history exists Pneumococcal Vaccine: Pediatrics (0 to 5 Years) and At-Risk Patients (6 to 64 Years) (4 of 4 - PPSV23 or PCV20) 10/15/2023 07/16/2019, 11/19/2017, 09/01/2011 GFR 11/17/2023 11/16/2022, 03/24, 10/07/2021, Additional history exists Depression Screening 11/30/2023 11/29/2022 Diabetic Foot Exam 11/30/2023 11/29/2022, 0 09/22/2014, 08/26/2013, Additional history exists Albumin/Creatinine Ratio 12/01/2023 023, 09/22/2014, 08/26/2013, Additional history exists LUNG CANCER SCREENING - USE SMARTSET 56410 Completed 07/26/2022, 07/26/2021, 08/14/2020, Additional history exists GARDASIL-HPV IMMUNIZATION [...] Date/Time Associated Diagnosis Comments CARDIOLOGY SCANNED RESULT 09/17/2023 documented in this encounter Results * CARDIOLOGY SCANNED RESULT (09/17/2023) 09/17/2023 Lita Brewer IV, MD OTHER documented in [...] the patient have Health Care Power of Buyers' Agent? No Care Teams Bar Finish Operator Relationship Specialty Start Date End Date Luisa Barclay MD [address] [facility] [place] [address] PCP - General Internal Medicine 12/12/22 documented as of this encounter
--- OUTSIDE RECORDS SUMMARY | 2024-02-22 04:14 | External Medical Summary | Summary of Care ---
Author Name Unknown Organization [facility] Address [address] [facility] [place] [address] Phone [phone] Care Team Providers Care Hospice Community Liaison Name Role Phone Luisa Barclay MD Primary Care Provider [phone] Reason for Visit * Reason Comments Appointment No Show Encounter Details Date Type Department Care Team (Late st Contact Info) Description 08/29/2023 6:[address] [facility] Pharm[facility] Pharmacy, [facility] [address] [facility] [place] [address] Pharmacist1, [facility] [address] [place] [address] Type 2 diabetes mellitus with hemoglobin A1c goal of less than 8.0% ([facility])* Allergies Active Allergy Reactions Criticality Noted Date Comments Chapo Inhibitors 08/23/2022 Other reaction(s): Unknown Adhesive Tape Itching,Rash 06/05/2011 Aluminum High 08/23/2022 Other reaction(s): TEETH TINGLE Latex 08/23/2011 rash documented as of this encounter (statuses as of 08/29/2023) Medications Medication Sig Dispensed Refills Start Date [...] 81 MG Oral Tablet ChewableIndications: Atherosclerosis of [place] coronary artery of [place] heart without angina pectoris Take 1 Tablet by mouth in the morning. with food.. 100 Tablet 5 11/08/2022 Active Empagliflozin 10 MG Oral Tablet (Jardiance)Indicatio ns:Type 2 diabetes mellitus with hemoglobin A1c goal of less than 8.0% (HCC),Controlled type 2 diabetes mellitus with diabetic nephropathy, [...] (Cozaar)Indications: Type 2 diabetes mellitus with proteinuria ([facility]) Take 1.5 Tablets by mouth every evening. [...] as of this encounter (statuses as of 08/29/2023) Active Problems Problem Noted Date Diagnosed Date [...] cardioverter-defibrillator in situ 06/13/2011 Coronary atherosclerosis of [place] coronary june ry 05/31/2011 Heart failure, systolic, due to CAD 05/31/2011 Type 2 diabetes mellitus wit h hemoglobin A1c goal of less than 8.0% 05/31/2011 Overview: ICD-10 update of inactive term documented as of this encounter (statuses as of 08/29/2023) Resolved Problems Problem Noted Date Diagnosed Date [...] as of this encounter (statuses as of 08/29/2023) Immunizations Name Administration Dates Next Due Pneumococcal [...] on file documented as of this encounter Progress Notes * Tiarra Hu, assistant plant control operator - 08/29/2023 9:53 AM EST Alcides has not contacted the clinic to schedule/reschedule an appointment for diabetes management per referral from PCP despite multiple attempts to do so by our team. Patient is discharged from [facility] services at this time. Thank you, Tiarra Hu Jewelry Department Supervisor [facility] ([facility]) 08/29/2023,9:53 AM documented in this encounter Plan of Treatment Upcoming Encounters Date Type Department Care Team (Late st Contact Info) Description 09/12/2023 2:45 PM EST Office Visit Hematology/Oncology [employer] [address] [facility] [place] [address] Connor Bradshaw MD [address] [facility] [place] [address] Scheduled Procedures Name Priority Associated Diagnoses Date/Ti me COLONOSCOPY FLEXIBLE PROXIMAL DIAGNOSTIC Recall History of colon polyps Health Maintenance Due Date Last Done Comments DISCUSS TOBACCO CESSATION (REFER TO SMARTSET #2117) 1960 COVID-19 Vaccine (#1) 10/15/1963 HIV Screening 1973 Hepatitis C Screening 1976 Zoster Vaccines (1 of 2) 1977 Hepatitis B (1 of 3 - Risk 3-dose series) 2018 B-12 10/11/2019 10/10/2018, 12/28/2017 COLONOSCOPY-EVERY 3 YRS [...] At-Risk Patients (6 to 64 Years) (4 - PPSV23 or PCV20) 10/15/2023 07/16/2019, 11/19/2017, 09/01/2011 GFR 11/17/2023 11/16/2022, 03/24, 10/07/2021, Additional history exists Depression Screening 11/30/2023 11/29/2022 Diabetic Foot Exam 11/30/2023 11/29/2022, 0 09/22/2014, 08/26/2013, Additional history exists Albumin/Creatinine Ratio 12/01/2023 023, 09/22/2014, 08/26/2013, Additional history exists LUNG CANCER SCREENING - USE SMARTSET 14959 Completed 07/26/2022, 07/26/2021, 08/14/2020, Additional history exists GARDASIL-HPV IMMUNIZATION SERIES Aged Out No longer eligible based on patient's age to complete this topic MENINGOCOCCAL (MENACTRA/MENVEO) Aged Out No longer eligible based on patient's age to complete this topic documented as of this encounter Medical Devices Not on filedocumented as of this encounter Visit Diagnoses Diagnosis Type 2 diabetes mellitus with hemoglobin A1c goal of less than 8.0% ([facility])- Primary documented in this encounter Advance Directives Latest [...] the patient have Health Care Power of Vp Of Digital Marketing? No Care Teams Hospice Community Liaison Relationship Specialty Start Date End Date Luisa Barclay MD [address] [place], [place] [address] PCP - General Internal Medicine 12/12/22 documented as of this encounter
[2024-02-22] MEDS ORDERED: DEXTROSE 50% 50 ML SYRINGE IV PRN (07:26)
[2024-02-22] MEDS ORDERED: GLUCOSE 40% GEL 15 GM TUBE PO PRN (07:26)
[2024-02-22] MEDS ORDERED: LABETALOL HCL IV 5 MG/ML 20ML IV PRN (07:26)
[2024-02-22] MEDS ORDERED: CARBOHYDRATES FOR HYPOGLYCEMIA PO PRN (07:26)
[2024-02-22] MEDS ORDERED: POLYETHYLENE (MIRALAX) 17 GM PACK PO PRN (07:26)
[2024-02-22] MEDS ORDERED: GLUCOSE 10 TAB/TUBE PO PRN (07:26)
[2024-02-22] MEDS ORDERED: GLUCAGON FOR INJ 1 MG VIAL SQ PRN (07:26)
[2024-02-22] MEDS ORDERED: PHARMACIST DISCHARGE MED REC CONSULT PRN (07:26)
[2024-02-22] MEDS ORDERED: NITROGLYCERIN SL 0.4 MG/TAB TAB SL PRN (07:26)
--- NOTE | 2024-02-22 08:44 | Communication Note ---
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 This is out of the realm of vascular surgery and should be evaluated by neuro interventionalist.
[2024-02-22] MEDS: ATORVASTATIN 40 MG TAB PO SCH (08:51)
[2024-02-22] MEDS: ASPIRIN 81 MG ECTAB PO SCH (08:51)
[2024-02-22] MEDS: TICAGRELOR 90 MG TAB PO SCH (08:52)
--- NOTE | 2024-02-22 09:41 | Neurology Consultation ---
Date of Consultation February 22, 2024 Assessment & Plan (1) Stroke-like symptom: Recommend continued stroke work up to include the following: MRI brain without contrast Echocardiogram as part of complete stroke workup Continue frequent neurological assessments Obtain stat CT brain without contrast for any acute neurological decline Continue to monitor/control blood glucose Allow permissive HTN Continue to monitor telemetry closely Recommend ZioPatch at DC if no evidence of arrhythmia during inpatient monito ring Continue to monitor renal and hepatic function, keep euvolemic Metabolic workup should include hgbA1c, fasting lipids, homocysteine, TSH, D Dimer, RPR, urinalysis Recommend DAPT for at least 3 weeks Recommend high dose statin therapy indefinitely if tolerated Ok from neurology perspective for VTE prophylaxis PT/OT/SLT to eval and treat Recommend eval for QUANG and consider outpatient polysomnography Telehealth Consultation Telehealth Information Telehealth Information: I performed this visit using a real-time telehealth connection between my location and the patients location ([facility]). After connecting through interactive tele-video, patient was identified by name and date of and/or wristband check.Patient (or authorized healthcare food service sales representatives) was informed that this was a telemedicine visit and it was being conducted confidentially over secure lines. My office door was closed and no one else was present in the room with me.Patient (or authorized healthcare food service sales representatives) provided consent to proceed with the visit, expressed an understanding of privacy and security of the telemedicine visit, and gave permission to have a hospital food service sales representatives in the room in order to assist with the visit and to conduct portions of the visit, as needed. I informed the patient (or authorized healthcare food service sales representatives) that I reviewed their record and presented the opportunity for them to ask any questions regarding the visit today. The patient agreed to participate. History of Present Illness Reason for Consultation: Stroke Attending Physician: Chelsie Armstrong MD History of Present Illness 63yo right handed male with past medical history significant for hyperlipidemia CAD HF HTN TIA DM with neuropathy AAA and colon CA abd B Cell lymphoma. Per documentation review he notably suffered sudden cardiac arrest in 2010 at which time occlusion of his left circumflex artery. He has undergone implantation of cardiac ICD device. He was reportedly looking not so well and not acting like himself per his report of what his Daughter told him prior to bring him to the ER. He was having difficulty ambulating as well. He was seen emergently by Telestroke service. He underwent emergent imaging yielding evidence on CT brain without contrast of possible right temporal/parietal lobe hypodensity concerning for acute to subacute infarct. CTA imaging revealed evidence of severe ICAD- especially intracranial cavernous ICA stenosis on right side. I have performed televideo consultation. Heis alert & oriented; able to answer all questions appropriately, name objects on televideo monitor, repeat phrases and perform complex/embedded commands without deficit. Neurological exam is non lateralizing/nonfocal in terms of motor strength and coordination. Allergies Allergy/AdvReac Type Severity Reaction Status Date / Time CASSANDRA Inhibitors Allergy Unknown Unknown Verified 02/22/24 00:53 Home Medications Medication Instructions Recorded Confirmed Type No Known Home Medications 02/22/24 02/22/24 History Patient History Medical History Osteoarthritis Lung nodule Anemia ICD (implantable cardioverter-defibrillator) in place 2010 IMPLANTED Cardiac arrest 2010 Myocardial Infarction 2002 Hypertension Surgical History History of arthroscopy of knee History of anesthesia reaction APPY PROCEDURE-COULDN'T BREATHE>COMBATIVE History of arthroscopy RT History of appendectomy History of colonoscopy History of vascular access device A-PORT INSERTION History of tooth extraction History of heart artery stent 2002 (1 STENT) History of cardiac cath 2002 Family History Father Diabetes Sister Congenital heart disease Diabetes Mother Hypertension Brother Myocardial infarction Denies family history of Ovarian cancer Prostate cancer Breast cancer Colorectal cancer Social History Smoking Status: Current every day smoker Tobacco Type: Cigarettes Cigarettes Per Day: 10; Second Hand Exposure: No; Do You Dip or Chew Tobacco: No; Hx Alcohol Use: No Hx Substance Use: No Preferred Language: Jordanian Communication Ability: Effective Air Press Operator Required: No Beliefs That Will Affect Care: None Current Living Situation: Alone Current Living Situation Comment: home alone Feels Safe at Home: Yes caffeine: Yes Assistive Devices: Walker Physical Exam Neurological Examination: Mental Status: Awake and alert. Oriented to person, place, and time. Fluency naming repetition and comprehension appear grossly intact. Affect remains appropriate. CN testing: I: Denies changes in ability to smell II:Reports no changes in visual acuity III/IV/: No evidence of gaze preference, hippus, nystagmus or roving eye movements V: Facial sensation reportedly grossly intact to light touch bilaterally VII: Facial movements appear without evidence of asymmetry VIII: Hearing appears grossly intact to loud voice bilaterally IX/X: Palate appears to elevate symmetrically XI: Shoulder shrug appears symmetric/ grossly intact bilaterally XII: Tongue protrudes midline without evidence of biting Motor exam: Strength appears grossly intact/symmetric in all extremities Sensory: Sensation is reportedly grossly intact throughout Coordination: Finger to nose and heel to leonard were intact. No apparent evidence of dysmetria or dysdiadochokinesia Reflexes: Deferred Gait: Deferred Results & Data Vital Signs (Past 12 Hours) Vital Signs Pulse Pulse Resp BP BP Pulse Ox O2 Del Method 02/22/24 09:10 56 L 16 177/89 H 95 Room Air 02/22/24 04:30 73 18 182/80 H 02/22/24 04:00 75 18 163/83 H 02/22/24 03:00 58 L 18 145/71 H 93 02/22/24 02:30 59 L 18 165/85 H 93 02/22/24 02:00 60 18 152/71 H 95 02/22/24 01:30 58 L 18 176/69 H 95 02/22/24 01:08 63 17 162/77 H 94 02/21/24 23:51 199/96 H 02/21/24 23:31 64 18 187/103 H 94 02/21/24 23:00 62 18 208/115 H 95 02/21/24 22:30 66 20 195/103 H 96 02/21/24 22:25 63 16 202/102 H 95 Room Air 02/21/24 22:00 64 22 179/77 H 97 02/21/24 21:45 64 22 158/89 H 97 Laboratory Results Abnormal lab results 02/21/24 02/21/24 02/21/24 Range/Units 20:00 20:04 20:11 POC Hgb 13.3 L (14.0-18.0) g/dl Hct 40.8 L (42.0-52.0) % POC Hct 39 L (42-52) % Neut # (Auto) 6.87 H (1.40-6.50) K/uL Sodium 135 L (136-145) mmol/L POC Chloride 100 L (101-112) mmol/L Glucose 287 H (70-99(Fasting)) mg/dl POC Glucose 263 H (70-99) mg/dl POC Glucose (other) 270 H (70-99) mg/dl AST 9 L (13-39) U/L 02/22/24 Range/Units 08:18 POC Hgb (14.0-18.0) g/dl Hct (42.0-52.0) % POC Hct (42-52) % Neut # (Auto) (1.40-6.50) K/uL Sodium (136-145) mmol/L POC Chloride (101-112) mmol/L Glucose (70-99(Fasting)) mg/dl POC Glucose 219 H (70-99) mg/dl POC Glucose (other) (70-99) mg/dl AST (13-39) U/L Diagnostic Findings Head CT 02/21/24 20:11 CR Exam(s): CT HEAD Without Contrast EXAM: CT Head Without Intravenous Contrast CLINICAL HISTORY: Reason for exam: neuro deficit, acute stroke suspected. TECHNIQUE: Axial computed tomography images of the head/brain without intravenous contrast. CTDI is 47.66 mGy and DLP is 871.06 mGy-cm. Automated exposure control was utilized for the study. A dose lowering technique was utilized adhering to the principles of ALARA. COMPARISON: MRI brain 10/14/22. FINDINGS: Brain: There is a geographic hypodensity in the RIGHT temporoparietal lobe, probable late acute or subacute infarct. No mass effect or acute hemorrhage. Mild atrophy and chronic white matter disease. No herniation. Ventricles: No hydrocephalus or midline shift. Bones/joints: No acute finding. Soft tissues: No scalp hematoma. Visualized Sinuses: Clear. Mastoid air cells: No mastoid effusion. IMPRESSION: 1. Probable late acute or subacute infarct RIGHT temporoparietal lobe. Communications: Call Doctor Stroke Electronically signed by: Sera Boyle M.D. 02/21/24 20:37 PM Head CTA 02/21/24 20:11 CR Exam(s): CTA HEAD With Contrast IV Amt: 116ml EXAM: CT Angiography Head With Intravenous Contrast CLINICAL HISTORY: Reason for exam: neuro deficit, acute stroke suspected. TECHNIQUE: Axial computed tomographic angiography images of the head with intravenous contrast. CTDI is 22.84 mGy and DLP is 508.41 mGy-cm. Automated exposure control was utilized for the study. A dose lowering technique was utilized adhering to the principles of ALARA. MIP reconstructed images were created and reviewed. Moderate motion artifact. CONTRAST: Patient received 116ml of IV contrast COMPARISON: Head CT done earlier. FINDINGS: Right internal carotid artery: Patent. Right anterior cerebral artery: Patent. Right middle cerebral artery: Patent. Right posterior cerebral artery: Patent. Right vertebral artery: Patent. Left internal carotid artery: Patent. Left anterior cerebral artery: Patent. Left middle cerebral artery: Patent. Left posterior cerebral artery: Patent. Left vertebral artery: Patent. Basilar artery: Patent. Other: No large vessel occlusion. Atherosclerosis bilateral cavernous ICA, with probable severe stenosis on the right. Motion artifact limits evaluation for stenosis. IMPRESSION: 1. Possible severe RIGHT cavernous ICA stenosis. Motion artifact limits evaluation. 2. No aneurysm or large vessel occlusion. Communications: Call Doctor Stroke Electronically signed by: Sera Boyle M.D. 02/21/24 20:41 PM Neck CTA 02/21/24 20:11 CR Exam(s): CTA NECK With Contrast IV Amt: 116ml EXAM: CT Angiography Neck With Intravenous Contrast CLINICAL HISTORY: Reason for exam: neuro deficit, acute stroke suspected. TECHNIQUE: Routine carotid CT angiography protocol was performed with intravenous contrast. NASCET criteria using the distal ICAs for comparison were used for evaluation of stenoses. CTDI is 22.84 mGy and DLP is 508.41 mGy-cm. Automated exposure control was utilized for the study. A dose lowering technique was utilized adhering to the principles of ALARA. 116 ML of IV contrast is given. MIP reconstructed images were created and reviewed. There is moderate artifact from dental metal, and patient motion, particularly at the skull base/C2 region. Pacemaker power pack also present. CONTRAST: Patient received 116ml of IV contrast COMPARISON: None. FINDINGS: Right common carotid artery: Patent. Right internal carotid artery: Patent. Right vertebral artery: Patent. Left common carotid artery: Patent. Left internal carotid artery: Patent. Left vertebral artery: Patent. Codominant. Other: Moderate atherosclerosis of the left carotid bifurcation and mildly on the right, without significant stenosis. IMPRESSION: 1. No dissection, occlusion, or significant stenosis. CAROTID STENOSIS REFERENCE USING NASCET CRITERIA: % ICA stenosis = (1 - narrowest ICA diameter/diameter of distal cervical ICA) x 100. Mild - <50% stenosis. Moderate - 50-69% stenosis. Severe - 70-94% stenosis. Near occlusion - 95-99% stenosis. Occluded - 100% stenosis. Communications: Call Doctor Stroke Electronically signed by: Sera Boyle M.D. 02/21/24 20:37 PM Medications Administered Home Medications Medication Instructions Recorded Confirmed Last Taken No Known Home Medications 02/22/24 02/22/24 Unknown Active Medications Generic Name Dose Route Start Last Admin Trade Name Freq PRN Reason Stop Dose Admin Aspirin 81 mg 02/22/24 09:00 02/22/24 08:51 Aspirin 81 Mg Ectab PO 03/23/24 08:59 81 mg DAILY CRISTINA Administration Atorvastatin Calcium 80 mg 02/22/24 09:00 02/22/24 08:51 Atorvastatin 40 Mg Tab PO 03/23/24 08:59 80 mg QAM CRISTINA Administration Ticagrelor 90 mg 02/22/24 09:00 02/22/24 08:52 Ticagrelor 90 Mg Tab PO 03/23/24 08:59 90 mg BID CRISTINA Administration
[2024-02-22] MEDS: INSULIN ASPART PER UNIT CHARGE SC SCH ×2 (10:13→17:04)
[2024-02-22] MEDS: SODIUM CHLORIDE 0.9% 1,000 ML IV SCH (10:56)
--- NOTE | 2024-02-22 11:18 | Pharmacy Report ---
- Date of Service February 22, 2024 - Pharmacy CVA/TIA Medication Review Medications to Prevent Stroke handout has been added to the patients discharge packet. Antiplatelet(s) * Ticagrelor 90mg PO BID + Aspirin 81mg PO Daily Cholesterol * High intensity statin: atorvastatin 80 mg daily DVT Prophylaxis * SCD thigh Therapeutic Anticoagulation * No history of Afib/Aflutter noted Type 2 Diabetes * Patient has T2DM and patient is prescribed empagliflozin, but non-compliance reported.
--- NOTE | 2024-02-22 15:37 | Hospitalist Progress Note ---
Date of Service February 22, 2024 Assessment & Plan (1) Acute CVA (cerebrovascular accident): Plan: 63-year-old female with past medical history significant for type 2 diabetes, diabetic nephropathy, peripheral neuropathy, hyperlipidemia, hypomagnesemia, , history of CAD, history of systolic CHF,hypertension, infrarenal abdominal aortic aneurysm, GERD, serrated adenoma of the colon,, history of chemotherapy- induced neutropenia, history of TIA, history of elevated uric acid in blood, ongoing tobacco abuse, history of sudden cardiac arrest on 05/31/2011 cardiac cath showed occluded distal left circumflex. , felt to be chronic and had ICD implanted for secondary prevention on 06/06/2020 and ICD replacement on 10/19/2021, history of B-cell CLL followed by Dr. Bradshaw on observation, multiple lung nodules seems to follow with pulmonary and there is a plan for next CT scan in 2023 , patient seems to be noncompliant with medications because of insurance issues comes because of strokelike symptoms and CAT scan showing acute to subacute CVA. Patient seems to having difficulty with gait as well as difficulty using his fork and as per ER last will known was 4:30 PM yesterday. And patient seems to having some erratic driving lately. Patient currently sleeping. Arousable. Somewhat slow to answer but answering appropriately. Alert and oriented x 3. Currently denies any headache. States vision is not great. No runny nose or sore throat. No difficulty swallowing. Denies chest pain. No shortness of breath. Has chronic cough. No fevers. No nausea. No abdominal pain. Normal bowel and bladder movements . Patient states since his mini stroke last year is having some gait imbalance and uses cane. States he lives alone at home. CT head showing probable late acute or subacute infarct right temporoparietal lobe. CTA head showing possible severe right cavernous ICA stenosis. Telestroke was called and was recommended permissive hypertension for 48 hours and to use IV labetalol as needed for blood pressure greater than 220/110. Loaded with aspirin, Brilinta and statin. Acute CVA CT head showing late acute or subacute infarct right temporoparietal lobe. CTA head possible severe right cavernous ICA stenosis Loaded with aspirin and Brilinta in ER High-dose statin Will follow MRI scan Speech evaluation PT OT evaluation Permissive hypertension per telestroke recommendations for 48 hours IV labetalol as needed for blood pressure greater than 220/110 Neurology eval noted. Continue DAPT. Patient and daughter reported he has not been compliant due to cost of meds. Per daughter, he lost his insurance but that has been reinstated. Patient reported it has been weeks to months since when he took his meds Per [facility] chart review, he was on aspirin and plavix in the past. DAPT changed to Aspirin and plavix Will have CM assist with assessing coverage/insurance issues Continue Atorvastatin 80mg daily Check HbA1c and Lipid panel Vascular surg noted C-ICA stenosis is out of realm of vascular Discussed with Neuro. Recommends non emergent neuroendovascular referral Counseled extensively regarding smoking cessation, need for med adherence History of cardiac arrest S/p ICD History of CAD Supposed to be on Plavix, aspirin, and rosuvastatin and metoprolol succinate Noncompliant New mildly reduced ejection fraction TTE showed EF of 45-50%, akinetic and thinned inferior wall, post and inferoseptal wall hypokinetic at base(compared to 09/2022 TTE which showed EF 50- 55%, focal severe hypokinesis to akinesis of basilar inf and post wall) Card c/s in view of reduced EF and med optimization History of pulmonary nodules Follow-up with PCP and pulmonology History of CLL Follow-up with heme-onc Abdominal aortic aneurysm 3.4 cm infrarenal abdominal aortic aneurysm on 11/22/2022 PCP to follow up Serrated adenomatous polyps Last colonoscopy seems to be in 2018 Supposed to repeat colonoscopy in 3 years Needs follow-up -Hyperlipidemia Statin Diabetes Sliding scale Follow blood sugars and HbA1c levels DVT prophylaxis hep sq Disposition Telemetry Full code. I spent a total of 50 minutes coordinating, documenting and providing care for this patient excluding time spent in performance of separately billed services Admission and Anticipated Discharge Date Admission Date: February 21, 2024 Subjective Patient seen and examined Per patient and daughter, he has been having some balance issues for months-a year However, yesterday daughter was told by patient's coworker he was having problem driving earlier. She noticed he was more unsteady, some confusion and repeating questions. Patient currently denies focal weakness, dysphagia Reports chronic RUE numbness which he stated has been evaluated Still smokes 0.5ppd Physical Exam Constitutional: + well hydrated; no acute distress Eyes: PERRL, conjunctivae normal, anicteric sclerae ENMT: external ear and nose normal, oropharynx normal Respiratory: normal respiratory effort, lungs clear to auscultation Cardiovascular: Rate/Rhythm: regular rate and regular rhythm Gastrointestinal (Abdomen): normal bowel sounds, soft, nontender, no hepatosplenomegaly Musculoskeletal: No pedal edema Neurologic: PERRL, EOMI, accommodation nl, no face palsy, no dysarthria Psychiatric: A+Ox3, euthymic affect Results & Data Results & Data Vital Signs (Past 12 Hours) Vital Signs Pulse Pulse Resp BP BP Pulse Ox O2 Del Method 02/22/24 14:14 53 L 20 194/92 H 96 Room Air 02/22/24 12:30 64 16 174/99 H 99 Room Air 02/22/24 11:30 57 L 16 189/91 H 99 Room Air 02/22/24 09:52 Room Air 02/22/24 09:10 56 L 16 177/89 H 95 Room Air 02/22/24 04:30 73 18 182/80 H 02/22/24 04:00 75 18 163/83 H Laboratory Results Abnormal lab results 02/21/24 02/21/24 02/21/24 Range/Units 20:00 20:04 20:11 POC Hgb 13.3 L (14.0-18.0) g/dl Hct 40.8 L (42.0-52.0) % POC Hct 39 L (42-52) % Neut # (Auto) 6.87 H (1.40-6.50) K/uL Sodium 135 L (136-145) mmol/L POC Chloride 100 L (101-112) mmol/L Glucose 287 H (70-99(Fasting)) mg/dl POC Glucose 263 H (70-99) mg/dl POC Glucose (other) 270 H (70-99) mg/dl AST 9 L (13-39) U/L 02/22/24 02/22/24 Range/Units 08:18 14:22 POC Hgb (14.0-18.0) g/dl Hct (42.0-52.0) % POC Hct (42-52) % Neut # (Auto) (1.40-6.50) K/uL Sodium (136-145) mmol/L POC Chloride (101-112) mmol/L Glucose (70-99(Fasting)) mg/dl POC Glucose 219 H 176 H (70-99) mg/dl POC Glucose (other) (70-99) mg/dl AST (13-39) U/L
--- NOTE | 2024-02-22 15:48 | Magnetic Resonance Report ---
Brain MRI WITHOUT CONTRAST HISTORY: Right-sided stroke. Follow-up. TECHNIQUE: Multiplanar multisequence MRI of the brain was performed without the use of contrast. COMPARISON STUDY: Brain MRI 10/14/2022. Head CT 02/21/2024. FINDINGS: There is a 7.2 cm area of restricted diffusion involving the right posterior temporal/parie coty lobes consistent with an acute distal right MCA territory infarct. The foci of restricted diffusi on also involve the right subinsular region. There is associated cytotoxic edema within the infarcted region. However, no significant mass effect or midline shift at this time. Mild atrophy and mild mary grace rovascular ischemic changes are again noted. Incidental note is made of a partially empty sella. The remaining midline structures are intact. No intracranial hemorrhage. No masses identified. The orbits are unremarkable. The major vascular flow-voids at the skull base are well-maintained. The paranasal sinuses and mastoid air cells are clear. IMPRESSION: 1. Redemonstration of the large right MCA territory infarct primarily involving the right posterior t emporal and parietal lobes. 2. No acute intracranial hemorrhage. ACT 112: Negative or not required by law. Electronically signed by: Sergio Lind M.D. 02/22/2024 3:45 PM
--- NOTE | 2024-02-22 17:11 | Cardiology Consultation ---
Date of Consultation February 22, 2024 Assessment & Plan (1) Acute CVA (cerebrovascular accident): (2) ICD (implantable cardioverter-defibrillator) in place: (3) History of sudden cardiac successfully resuscitated: (4) Ischemic cardiomyopathy: Plan 63-year-old male presents with acute right MCA stroke Referred for ongoing medical management currently having had a lapse in all therapies due to cost per patient Initial plans for permissive hypertension Antiplatelet therapy has begun Antilipid lowering therapies notable will switch to prior dosing of rosuvastatin at 40 mg/day No prior atrial fibrillation observed with routine device checks Cardiology will follow History of Present Illness Reason for Consultation: Optimize medications, TIA Requesting Physician: Chelsie Armstrong MD Attending Physician: Chelsie Armstrong MD History of Present Illness Patient is a 63-year-old male with complex cardiac history 1. Chronic coronary artery disease status postacute inferior myocardial infarction 2008 receiving PCI left circumflex PDA 2. Acute cardiac arrest May 2011 [id number] with successful resuscitation with AED, cardiac catheterization with chronic occlusion of the distal left circumflex 3. Secondary prevention ICD implantation 06/06/2011, [employer] Visia AF MRI VR [id number](VVI mode rate 40) single RV lead 4. Recurrent TIAs 5. Type 2 diabetes mellitus with peripheral neuropathy 6. B-cell CLL 7. Marked hyperlipidemia Patient presents this admission on urging of family member/daughter patient noted not acting correctly Stroke alert CT and MRI evaluations demonstrated large right MCA territory infarct primarily involving the right posterior temporal and parietal lobes. Intracranial right carotid stenosis Patient referred for aid in adjusting medications Patient notes lapse in medical therapy predominantly due to cost of medications per patient Currently denies any acute cardiac complaints chest pains or shortness of breath "tired" Permissive hypertension currently ongoing Patient started on antiplatelet therapy Allergies Allergy/AdvReac Type Severity Reaction Status Date / Time CASSANDRA Inhibitors Allergy Unknown Unknown Verified 02/22/24 00:53 Home Medications Medication Instructions Recorded Confirmed Type No Known Home Medications 02/22/24 02/22/24 History Patient History Medical History Osteoarthritis Lung nodule Anemia ICD (implantable cardioverter-defibrillator) in place 2010 IMPLANTED Cardiac arrest 2010 Myocardial Infarction 2002 Hypertension Surgical History History of arthroscopy of knee History of anesthesia reaction APPY PROCEDURE-COULDN'T BREATHE>COMBATIVE History of arthroscopy RT History of appendectomy History of colonoscopy History of vascular access device A-PORT INSERTION History of tooth extraction History of heart artery stent 2002 (1 STENT) History of cardiac cath 2002 Family History Father Diabetes Sister Congenital heart disease Diabetes Mother Hypertension Brother Myocardial infarction Denies family history of Ovarian cancer Prostate cancer Breast cancer Colorectal cancer Social History Smoking Status: Current every day smoker Tobacco Type: Cigarettes Cigarettes Per Day: 10; Second Hand Exposure: No; Do You Dip or Chew Tobacco: No; Hx Alcohol Use: No Hx Substance Use: No Preferred Language: Citizen Of [place] Communication Ability: Effective Marble Setter Required: No Beliefs That Will Affect Care: None Current Living Situation: Alone Current Living Situation Comment: home alone Feels Safe at Home: Yes Safety Concerns: Feels Safe At This Time caffeine: Yes Assistive Devices: Cane and Walker Review of Systems Review of Systems: All systems reviewed & are unremarkable except as noted in HPI & below Physical Exam Constitutional: no acute distress Eyes: PERRL, conjunctivae normal, anicteric sclerae ENMT: external ear and nose normal, oropharynx normal Neck: trachea midline, no thyromegaly Respiratory: + cough Auscultation: + diminished radha ng sounds Cardiovascular: Rate/Rhythm: regular rate and regular rhythm Heart Sounds: normal S1 and normal S2 Vessels: no JVD Extremities: no edema Chest (Breasts): Chest: + pacemaker (ICD left chest without irritation) Gastrointestinal (Abdomen): normal bowel sounds, soft, nontender, no hepatosplenomegaly Musculoskeletal: no cyanosis or clubbing, extremities motor strength 5/5 Skin: no rashes, warm and dry Results & Data Vital Signs (Past 12 Hours) Vital Signs Pulse Resp BP Pulse Ox O2 Del Method 02/22/24 15:54 57 L 16 171/95 H 98 Room Air 02/22/24 14:14 53 L 20 194/92 H 96 Room Air 02/22/24 12:30 64 16 174/99 H 99 Room Air 02/22/24 11:30 57 L 16 189/91 H 99 Room Air 02/22/24 09:52 Room Air 02/22/24 09:10 56 L 16 177/89 H 95 Room Air Laboratory Results Laboratory Results - last 24 hr 02/21/24 02/21/24 02/21/24 20:00 20:04 20:11 WBC 10.19 RBC 4.77 Hgb 14.4 POC Hgb 13.3 L Hct 40.8 L POC Hct 39 L MCV 85.5 MCH 30.2 MCHC 35.3 RDW Std Deviation 39.8 RDW Coeff of Francisco 12.9 Plt Count 214 MPV 10.2 Immature Gran % (Auto) 0.5 Neut % (Auto) 67.4 Lymph % (Auto) 24.7 [place] % (Auto) 5.0 Eos % (Auto) 1.9 Baso % (Auto) 0.5 Neut # (Auto) 6.87 H Lymph # (Auto) 2.52 [place] # (Auto) 0.51 Eos # (Auto) 0.19 Baso # (Auto) 0.05 Immature Gran # (Auto) 0.05 PT 10.3 INR 0.9 APTT 23 PTT Ratio 0.9 POC Sodium 137 Sodium 135 L POC Potassium 4.1 Potassium 4.1 POC Chloride 100 L Chloride 102 Carbon Dioxide 28 POC Total CO2 24 Anion Gap 5 POC Anion Gap 18.0 POC BUN 14 BUN 15 Creatinine 1.06 POC Creatinine 1.1 Est Cr Clr Drug Dosing 80.8 Est GFR ( Amer) 84.9 Est GFR (Non-Af Amer) 73.3 BUN/Creatinine Ratio 14.2 Glucose 287 H POC Glucose 263 H POC Glucose (other) 270 H Calcium 9.7 POC Ioniz Calcium [place] 1.21 Magnesium 1.7 Total Bilirubin 0.7 AST 9 L ALT 7 Alkaline Phosphatase 94 Troponin I High Sens 17.3 Total Protein 6.4 Albumin 3.9 Globulin 2.5 Albumin/Globulin Ratio 1.6 02/22/24 02/22/24 08:18 14:22 WBC RBC Hgb POC Hgb Hct POC Hct MCV MCH MCHC RDW Std Deviation RDW Coeff of Francisco Plt Count MPV Immature Gran % (Auto) Neut % (Auto) Lymph % (Auto) [place] % (Auto) Eos % (Auto) Baso % (Auto) Neut # (Auto) Lymph # (Auto) [place] # (Auto) Eos # (Auto) Baso # (Auto) Immature Gran # (Auto) PT INR APTT PTT Ratio POC Sodium Sodium POC Potassium Potassium POC Chloride Chloride Carbon Dioxide POC Total CO2 Anion Gap POC Anion Gap POC BUN BUN Creatinine POC Creatinine Est Cr Clr Drug Dosing Est GFR ( Amer) Est GFR (Non-Af Amer) BUN/Creatinine Ratio Glucose POC Glucose 219 H 176 H POC Glucose (other) Calcium POC Ioniz Calcium [place] Magnesium Total Bilirubin AST ALT Alkaline Phosphatase Troponin I High Sens Total Protein Albumin Globulin Albumin/Globulin Ratio Diagnostic Findings Pacer defibrillator interrogation 11/29/2023 Brief nonsustained VT less than 1 second Normal device function without discharge estimated battery life 10 years Echocardiogram 02/22/2024 Old inferior posterior infarct with basilar scarring EF 45 to 50%. Not significantly changed from prior study
[2024-02-22] MEDS: HEPARIN SOD 5,000 UNIT/0.5 ML VIAL SQ SCH (21:31)
[2024-02-23 06:33] LABS: Basophils # (auto) 0.04 K/uL (0.00-0.20); Basophils % (auto) 0.4 %; Eosinophils # (auto) 0.17 K/uL (0.00-0.50); Eosinophils % (auto) 1.9 %; Hematocrit (blood only) 38.5 % (42.0-52.0); Hemoglobin 13.7 g/dl (14.0-18.0); Immature Granulocytes # (auto) 0.03 K/uL (0.01-0.20); Immature Granulocytes % (auto) 0.3 %; Lymphocytes # (auto) 1.87 K/uL (1.20-3.40); Mean Corpuscular Hemoglobin 30.2 pg (25.0-34.0); Mean Corpuscular Hgb Conc 35.6 g/dL (32.0-36.0); Monocytes # (auto) 0.48 K/uL (0.11-0.59); Monocytes % (auto) 5.4 %; Neutrophils # (auto) 6.33 K/uL (1.40-6.50); Platelet Count 200 K/uL (130-400); RDW Coefficient of Variation 12.9 % (11.5-14.5); RDW Standard Deviation 39.4 fL (36.4-46.3); Red Blood Count 4.53 M/uL (4.70-6.10); White Blood Count 8.92 K/ul (4.8-10.8)
[2024-02-23 06:51] LABS: BUN Creatinine Ratio 12.4 (10-20); Calcium 9.1 mg/dl (8.6-10.3); Chol HDL Ratio 7.5 (0-5); Creatinine Clr Calc Pharmacy 89.3 ml/min; Est GFR (African American) 85.9 ml/min; Est GFR (Non-African American) 74.1 ml/min; Potassium 3.9 mmol/L (3.5-5.1)
[2024-02-23 08:02] LABS: Estimated Average Glucose 272 mg/dl; Hemoglobin A1C 11.1 % (4.5-5.6)
[2024-02-23] MEDS: CLOPIDOGREL BISULFATE 75 MG TAB PO SCH (08:41)
[2024-02-23] MEDS: ROSUVASTATIN CALCIUM 20 MG TAB PO SCH (09:55)
--- NOTE | 2024-02-23 10:57 | Hospitalist Progress Note ---
Date of Service February 23, 2024 Assessment & Plan (1) Acute CVA (cerebrovascular accident): Plan: 63-year-old female with past medical history significant for type 2 diabetes, diabetic nephropathy, peripheral neuropathy, hyperlipidemia, hypomagnesemia, , history of CAD, history of systolic CHF,hypertension, infrarenal abdominal aortic aneurysm, GERD, serrated adenoma of the colon,, history of chemotherapy- induced neutropenia, history of TIA, history of elevated uric acid in blood, ongoing tobacco abuse, history of sudden cardiac arrest on 05/31/2011 cardiac cath showed occluded distal left circumflex. , felt to be chronic and had ICD implanted for secondary prevention on 06/06/2020 and ICD replacement on 10/19/2021, history of B-cell CLL followed by Dr. Bradshaw on observation, multiple lung nodules seems to follow with pulmonary and there is a plan for next CT scan in 2023 , patient seems to be noncompliant with medications because of insurance issues presented with strokelike symptoms and CAT scan showing acute to subacute CVA. Acute CVA CT head showing late acute or subacute infarct right temporoparietal lobe. CTA head possible severe right cavernous ICA stenosis MRI brain showed large right MCA territory infarct involving right posterior temporal and parietal lobes Loaded with aspirin and Brilinta in ER Had permissive hypertension for 48 hours Antihypertensives being resumed gradually. Currently on metoprolol succinate 25mg daily Resumed losartan at 50mg daily Monitor BP Neurology eval noted. Continue DAPT. (ASA and plavix) CM notified to assist with assessing coverage/insurance issues Continue Rosuvastatin Vascular surg noted C-ICA stenosis is out of realm of vascular Neuro recommends non emergent neuroendovascular referral Counseled extensively regarding smoking cessation, need for med adherence Updated Daughter Estela who lives across the street from patient. She plans to take over her medical care/appts/medicine administration/driving. Patient advised not to drive PT/OT/[employer] eval. Gait abnormalities. Rehab recommended History of cardiac arrest S/p ICD History of CAD Supposed to be on Plavix, aspirin, and rosuvastatin and metoprolol succinate Noncompliant as above New mildly reduced ejection fraction TTE showed EF of 45-50%, akinetic and thinned inferior wall, post and inferoseptal wall hypokinetic at base(compared to 09/2022 TTE which showed EF 50- 55%, focal severe hypokinesis to akinesis of basilar inf and post wall) Card eval noted History of pulmonary nodules Follow-up with PCP and pulmonology History of CLL Follow-up with heme-onc Abdominal aortic aneurysm 3.4 cm infrarenal abdominal aortic aneurysm on 11/22/2022 PCP to follow up Serrated adenomatous polyps Last colonoscopy seems to be in 2018 Supposed to repeat colonoscopy in 3 years Needs follow-up -Hyperlipidemia Statin Diabetes mellitus Sliding scale HbA1c 11.1 Poorly controlled diabetes mellitus Continue insulin therapy Will need insulin and po antidiabetic on dc Was on metformin, jardiance in the past per EPIC review DVT prophylaxis hep sq Disposition Telemetry Full code. I spent a total of 50 minutes coordinating, documenting and providing care for this patient excluding time spent in performance of separately billed services Admission and Anticipated Discharge Date Admission Date: February 21, 2024 Subjective Patient seen and examined He is alert and oriented to person, place and time, understands he has a stroke but occasionally confused Denied any headache, focal weakness Denied any new complaints today Physical Exam Constitutional: + well hydrated; no acute distress Eyes: PERRL, conjunctivae normal, anicteric sclerae ENMT: external ear and nose normal, oropharynx normal Respiratory: normal respiratory effort, lungs clear to auscultation Cardiovascular: Rate/Rhythm: regular rate and regular rhythm Gastrointestinal (Abdomen): normal bowel sounds, soft, nontender, no hepatosplenomegaly Musculoskeletal: No pedal edema Neurologic: PERRL, EOMI, accommodation nl, no face palsy, no dysarthria Power is equal in all extremities Psychiatric: A+Ox3, euthymic affect Results & Data Results & Data Vital Signs (Past 12 Hours) Vital Signs Temp Pulse Pulse Resp BP BP Pulse Ox 02/23/24 07:17 70 19 194/103 H 98 02/23/24 02:44 36.9 C 64 20 199/95 H 97 02/22/24 23:23 62 02/22/24 22:59 36.8 C 58 L 18 199/93 H 100 O2 Del Method 02/23/24 07:17 Room Air 02/23/24 02:44 Room Air 02/22/24 23:23 02/22/24 22:59 Room Air Laboratory Results Abnormal lab results 02/22/24 02/23/24 02/23/24 Range/Units 20:31 05:50 07:16 RBC 4.53 L (4.70-6.10) M/uL Hgb 13.7 L (14.0-18.0) g/dl Hct 38.5 L (42.0-52.0) % Glucose 196 H (70-99(Fasting)) mg/dl POC Glucose 149 H 193 H (70-99) mg/dl Hemoglobin A1c 11.1 H (4.5-5.6) % Triglycerides 257 H (0-150) mg/dl Cholesterol 246 H (0-200) mg/dl VLDL Cholesterol, Calc 51 H (0-30) mg/dl Cholesterol/HDL Ratio 7.5 H (0-5) 02/23/24 Range/Units 10:59 RBC (4.70-6.10) M/uL Hgb (14.0-18.0) g/dl Hct (42.0-52.0) % Glucose (70-99(Fasting)) mg/dl POC Glucose 177 H (70-99) mg/dl Hemoglobin A1c (4.5-5.6) % Triglycerides (0-150) mg/dl Cholesterol (0-200) mg/dl VLDL Cholesterol, Calc (0-30) mg/dl Cholesterol/HDL Ratio (0-5)
--- NOTE | 2024-02-23 11:14 | Cardiology Progress Note ---
Date of Service February 23, 2024 Assessment & Plan (1) Acute CVA (cerebrovascular accident): (2) ICD (implantable cardioverter-defibrillator) in place: (3) History of sudden cardiac successfully resuscitated: (4) Ischemic cardiomyopathy: Plan 63-year-old male presents with acute right MCA stroke Referred for ongoing medical management currently having had a lapse in all therapies due to cost per patient Initial plans for permissive hypertension Antiplatelet therapy has begun Antilipid lowering therapies notable will switch to prior dosing of rosuvastatin at 40 mg/day No prior atrial fibrillation observed with routine device checks Cardiology will follow 02/23/2024 63-year-old male with extensive cardiac history as well outlined presenting with confusion and decreased mental status with findings of right middle cerebral artery distribution stroke Patient off all medications at time of admission, patient attributes to cost Recommend gradual resumption of antihypertensive therapy. Per records patient on 3 drug regimen including metoprolol succinate 50 mg p.o. daily, losartan 75 mg p.o. daily, amlodipine 2.5 mg/day as well as antiplatelet therapy with aspirin and clopidogrel Will begin with metoprolol succinate at 25 mg/day given arrhythmia history. Will likely require multiple drug regimen. Next drug resume losartan also initially at reduced dose given LV dysfunction On antiplatelet therapy with aspirin Lipid-lowering resumed at rosuvastatin 40 mg/day Admission and Anticipated Discharge Date Admission Date: February 21, 2024 Subjective Patient was seen and personally examined. Denies any acute complaints. No chest pains, shortness of breath. Blood pressure is elevated No arrhythmias on telemetry Denies headache Review of Systems Review of Systems: All systems reviewed & are unremarkable except as noted in Subjective Physical Exam Constitutional: no acute distress Eyes: PERRL, conjunctivae normal, anicteric sclerae ENMT: external ear and nose normal, oropharynx normal Neck: trachea midline, no thyromegaly Respiratory: + cough Auscultation: + diminished radha ng sounds Cardiovascular: Rate/Rhythm: regular rate and regular rhythm Heart Sounds: normal S1 and normal S2 Vessels: no JVD Extremities: no edema Chest (Breasts): Chest: + pacemaker (ICD left chest without irritation) Gastrointestinal (Abdomen): normal bowel sounds, soft, nontender, no hepatosplenomegaly Musculoskeletal: no cyanosis or clubbing, extremities motor strength 5/5 Skin: no rashes, warm and dry Results & Data Vital Signs (Past 12 Hours) Vital Signs Temp Pulse Pulse Resp BP BP Pulse Ox 02/23/24 11:00 65 17 188/121 H 100 02/23/24 07:17 70 19 194/103 H 98 02/23/24 02:44 36.9 C 64 20 199/95 H 97 02/22/24 23:23 62 O2 Del Method 02/23/24 11:00 Room Air 02/23/24 07:17 Room Air 02/23/24 02:44 Room Air 02/22/24 23:23 Laboratory Results Laboratory Results - last 24 hr 02/22/24 02/22/24 02/23/24 14:22 20:31 05:50 WBC 8.92 RBC 4.53 L Hgb 13.7 L Hct 38.5 L MCV 85.0 MCH 30.2 MCHC 35.6 RDW Std Deviation 39.4 RDW Coeff of Francisco 12.9 Plt Count 200 MPV 10.0 Immature Gran % (Auto) 0.3 Neut % (Auto) 71.0 Lymph % (Auto) 21.0 [place] % (Auto) 5.4 Eos % (Auto) 1.9 Baso % (Auto) 0.4 Neut # (Auto) 6.33 Lymph # (Auto) 1.87 [place] # (Auto) 0.48 Eos # (Auto) 0.17 Baso # (Auto) 0.04 Immature Gran # (Auto) 0.03 Sodium 138 Potassium 3.9 Chloride 104 Carbon Dioxide 27 Anion Gap 7 BUN 13 Creatinine 1.05 Est Cr Clr Drug Dosing 89.3 Est GFR ( Amer) 85.9 Est GFR (Non-Af Amer) 74.1 BUN/Creatinine Ratio 12.4 Glucose 196 H POC Glucose 176 H 149 H Estimat Average Glucose 272 Hemoglobin A1c 11.1 H Calcium 9.1 Triglycerides 257 H Cholesterol 246 H LDL Cholesterol, Calc 162 VLDL Cholesterol, Calc 51 H HDL Cholesterol 33 Cholesterol/HDL Ratio 7.5 H 02/23/24 02/23/24 07:16 10:59 WBC RBC Hgb Hct MCV MCH MCHC RDW Std Deviation RDW Coeff of Francisco Plt Count MPV Immature Gran % (Auto) Neut % (Auto) Lymph % (Auto) [place] % (Auto) Eos % (Auto) Baso % (Auto) Neut # (Auto) Lymph # (Auto) [place] # (Auto) Eos # (Auto) Baso # (Auto) Immature Gran # (Auto) Sodium Potassium Chloride Carbon Dioxide Anion Gap BUN Creatinine Est Cr Clr Drug Dosing Est GFR ( Amer) Est GFR (Non-Af Amer) BUN/Creatinine Ratio Glucose POC Glucose 193 H 177 H Estimat Average Glucose Hemoglobin A1c Calcium Triglycerides Cholesterol LDL Cholesterol, Calc VLDL Cholesterol, Calc HDL Cholesterol Cholesterol/HDL Ratio
[2024-02-23] MEDS: METOPROLOL SUCC 25MG EXT REL TAB PO SCH (12:12)
[2024-02-23] MEDS: LOSARTAN POTASSIUM 50 MG TAB PO SCH (15:26)
--- NOTE | 2024-02-23 18:41 | Electrocardiogram Report ---
Test Reason : Blood Pressure : / mmHG Vent. Rate : 068 BPM Atrial Rate : 068 BPM P-R Int : 192 ms QRS Dur : 102 ms QT Int : 438 ms P-R-T Axes : 027 002 159 degrees QTc Int : 465 ms Normal sinus rhythm Cannot rule out Anterior infarct , age undetermined Possible Inferior infarct Abnormal ECG When compared with ECG of 12-OCT-2022 18:21, No significant change was found Confirmed by Renny Moran ([id number]) on 02/23/2024 6:40:41 PM Referred By: REFERRED SELF Confirmed By:Renny Moran
--- NOTE | 2024-02-23 19:18 | Electrocardiogram Report ---
Test Reason : Blood Pressure : / mmHG Vent. Rate : 064 BPM Atrial Rate : 064 BPM P-R Int : 182 ms QRS Dur : 108 ms QT Int : 454 ms P-R-T Axes : 016 -02 143 degrees QTc Int : 468 ms Normal sinus rhythm Septal infarct (cited on or before 26-OCT-2016) Inferior infarct Abnormal ECG When compared with ECG of 21-FEB-2024 20:43, Questionable change in initial forces of Anteroseptal leads Confirmed by Renny Moran ([id number]) on 02/23/2024 7:18:19 PM Referred By: REFERRED SELF Confirmed By:Renny Moran
[2024-02-23] MEDS: ACETAMINOPHEN 325 MG TAB PO PRN (22:56)
[2024-02-24 07:42] LABS: Basophils # (auto) 0.03 K/uL (0.00-0.20); Basophils % (auto) 0.4 %; Eosinophils # (auto) 0.15 K/uL (0.00-0.50); Hematocrit (blood only) 40.8 % (42.0-52.0); Hemoglobin 14.1 g/dl (14.0-18.0); Immature Granulocytes # (auto) 0.02 K/uL (0.01-0.20); Immature Granulocytes % (auto) 0.3 %; Lymphocytes # (auto) 1.64 K/uL (1.20-3.40); Lymphocytes % (auto) 22.4 %; Mean Corpuscular Hgb Conc 34.6 g/dL (32.0-36.0); Mean Corpuscular Volume 86.8 fL (80.0-100.0); Mean Platelet Volume 9.8 fL (9.4-12.4); Monocytes # (auto) 0.45 K/uL (0.11-0.59); Monocytes % (auto) 6.1 %; Neutrophils # (auto) 5.04 K/uL (1.40-6.50); Neutrophils % (auto) 68.8 %; Platelet Count 196 K/uL (130-400); RDW Coefficient of Variation 12.9 % (11.5-14.5); RDW Standard Deviation 40.2 fL (36.4-46.3); White Blood Count 7.33 K/ul (4.8-10.8)
[2024-02-24] MEDS ORDERED: PHARMACY GLYCEMIC MGMT CONSULT PRN (07:44)
[2024-02-24 07:55] LABS: BUN Creatinine Ratio 14.8 (10-20); Calcium 9.1 mg/dl (8.6-10.3); Creatinine Clr Calc Pharmacy 81.3 ml/min; Est GFR (Non-African American) 66.4 ml/min; Potassium 3.9 mmol/L (3.5-5.1)
[2024-02-24] MEDS: LANTUS PER UNIT CHARGE SQ SCH (09:10)
--- NOTE | 2024-02-24 12:36 | Discharge Summary ---
Date of Service February 24, 2024 Admission HPI Per Admitting Provider 63-year-old female with past medical history significant for type 2 diabetes, diabetic nephropathy, peripheral neuropathy, hyperlipidemia, hypomagnesemia, , history of CAD, history of systolic CHF,hypertension, infrarenal abdominal aortic aneurysm, GERD, serrated adenoma of the colon,, history of chemotherapy- induced neutropenia, history of TIA, history of elevated uric acid in blood, ongoing tobacco abuse, history of sudden cardiac arrest on 05/31/2011 cardiac cath showed occluded distal left circumflex. , felt to be chronic and had ICD implanted for secondary prevention on 06/06/2020 and ICD replacement on 09/22, history of B-cell CLL followed by Dr. Bradshaw on observation, multiple lung nodules seems to follow with pulmonary and there is a plan for next CT scan in 2023 , patient seems to be noncompliant with medications because of insurance issues comes because of strokelike symptoms and CAT scan showing acute to subacute CVA. Patient seems to having difficulty with gait as well as difficulty using his fork and as per ER last will known was 4:30 PM yesterday. And patient seems to having some erratic driving lately. Patient currently sleeping. Arousable. Somewhat slow to answer but answering appropriately. Alert and oriented x 3. Currently denies any headache. States vision is not great. No runny nose or sore throat. No difficulty swallowing. Denies chest pain. No shortness of breath. Has chronic cough. No fevers. No nausea. No abdominal pain. Normal bowel and bladder movements . Patient states since his mini stroke last year is having some gait imbalance and uses cane. States he lives alone at home. CT head showing probable late acute or subacute infarct right temporoparietal lobe. CTA head showing possible severe right cavernous ICA stenosis. Telestroke was called and was recommended permissive hypertension for 48 hours and to use IV labetalol as needed for blood pressure greater than 220/110. Loaded with aspirin, Brilinta and statin. Past medical history. As mentioned above. Past surgical history. Open biopsy of left inguinal lymph node. Colonoscopy. Left heart catheterization. S/p ICD. Right knee arthroscopy. Appendectomy. Social history. Smokes 0.5 pack a day for 50 years. No alcohol use. No drug use. Family history. Father had diabetes. Heart disorder. Brother of heart aneurysm at age 44. Sister had breast cancer. Sister open heart surgery at age 18. Admission Exam Per Admitting Provider General- Not in distress. Head- atraumatic Eyes- PERRL. ENT- oropharynx clear Neck- supple, no JVD. Lungs- clear to auscultation no wheezing or crackles Heart- regular rate and rhythm; no murmur, no gallop. Abdomen- normal bowel sounds, soft, nontender, no distension. Extremities- no pretibial edema, no erythema seen Neuro- alert, oriented x 3; PERRL, no facial palsy; no dysarthria; motor 5/5 bilaterally; not able to test for pronator drift. slow co ordination of movements, left leg sensations decreased. Not able to test for position sense. Skin- warm & dry Principal Diagnosis Stroke Poorly controlled diabetes mellitus Hypertension Ischemic cardiomyopathy Discharge Exam Constitutional + well hydrated; no acute distress Eyes PERRL, conjunctivae normal, anicteric sclerae ENMT external ear and nose normal, oropharynx normal Respiratory normal respiratory effort, lungs clear to auscultation Cardiovascular Rate/Rhythm: regular rate and regular rhythm Gastrointestinal (Abdomen) normal bowel sounds, soft, nontender, no hepatosplenomegaly Musculoskeletal No pedal edema Neurologic PERRL, EOMI, accommodation nl, no face palsy, no dysarthria Normal power Psychiatric A+Ox3, euthymic affect Intermittent confusion Discharge Data Allergies Allergy/AdvReac Type Severity Reaction Status Date / Time CASSANDRA Inhibitors Allergy Unknown Unknown Verified 02/22/24 00:53 Consultations 02/21/24 20:52 ED Decision to Admit Stat 02/22/24 08:00 Consult Neurology Routine 02/22/24 08:07 Consult Vascular Surgery Routine 02/22/24 15:43 Consult Cardiology Routine Ordered Studies 02/21/24 20:11 CT angio head w con Stat CT angio neck with con Stat CT head/brain wo con Stat 02/22/24 07:26 MR brain wo con Routine Hospital Course (1) Acute CVA (cerebrovascular accident): 63-year-old female with past medical history significant for type 2 diabetes, diabetic nephropathy, peripheral neuropathy, hyperlipidemia, hypomagnesemia, , history of CAD, history of systolic CHF,hypertension, infrarenal abdominal aortic aneurysm, GERD, serrated adenoma of the colon,, history of chemotherapy- induced neutropenia, history of TIA, history of elevated uric acid in blood, ongoing tobacco abuse, history of sudden cardiac arrest on 05/31/2011 cardiac cath showed occluded distal left circumflex. , felt to be chronic and had ICD implanted for secondary prevention on 06/06/2020 and ICD replacement on 10/19/2021, history of B-cell CLL followed by Dr. Bradshaw on observation, multiple lung nodules seems to follow with pulmonary and there is a plan for next CT scan in 2023 , patient seems to be noncompliant with medications because of insurance issues presented with strokelike symptoms and CAT scan showing acute to subacute CVA. Acute CVA CT head showing late acute or subacute infarct right temporoparietal lobe. CTA head possible severe right cavernous ICA stenosis MRI brain showed large right MCA territory infarct involving right posterior temporal and parietal lobes Loaded with aspirin and Brilinta in ER Had permissive hypertension for 48 hours Patient had stopped taking all his meds for a long time. He reported this was due to cost/insurance issues Antihypertensives being resumed gradually. Currently on metoprolol succinate 25mg daily and losartan at 50mg daily Continue BP management and adjustment at rehab Neurology evaluated Continue DAPT. (ASA and plavix) Continue Rosuvastatin Vascular surg noted C-ICA stenosis is out of realm of vascular Neuro recommends non emergent neuroendovascular referral Counseled extensively regarding smoking cessation, need for med adherence History of cardiac arrest S/p ICD History of CAD Supposed to be on Plavix, aspirin, and rosuvastatin and metoprolol succinate but had been off them for a long time as above New mildly reduced ejection fraction TTE showed EF of 45-50%, akinetic and thinned inferior wall, post and inferoseptal wall hypokinetic at base(compared to 09/2022 TTE which showed EF 50- 55%, focal severe hypokinesis to akinesis of basilar inf and post wall) Card evaluated Patient to follow up Cardiology outpatient History of pulmonary nodules Follow-up with PCP and pulmonology History of CLL Follow-up with heme-onc Abdominal aortic aneurysm 3.4 cm infrarenal abdominal aortic aneurysm on 11/22/2022 PCP to follow up Serrated adenomatous polyps Last colonoscopy seems to be in 2018 Supposed to repeat colonoscopy in 3 years Needs follow-up Diabetes mellitus HbA1c 11.1 Poorly controlled diabetes mellitus Has been off all antidiabetics as with other meds Started on lantus 10u daily and metformin daily on discharge Discussed with [facility] Personnel Brock. They will continue diabetes management, adjustment of meds and educating family on diabetes management at [facility] Updated Daughter Estela who lives across the street from patient. She plans to take over her medical care/appts/medicine administration/driving. Patient is not to drive Total Time Total Time Spent Total Time Spent (In Minutes): 45 Total Time Includes: Examination of the Patient, Discharge Planning, Medication Reconciliation and Other Discharge Plan Discharge Items Patient Disposition: Transfer Inpatient Rehab Fac Reason For Visit: CVA Discharge Diagnosis: Stroke Poorly controlled diabetes mellitus Hypertension Ischemic cardiomyopathy Activity: As commented below Activity Comment: Per physical therapist recs at rehab Non-emergency contact: Primary Care Provider, Cost Accountant and Neurologist Call non-emergency contact if: you have any medication questions and your symptoms worsen Follow-up/Referrals: Luisa Barclay MD [Primary Care Provider] - Diet: Carb Consistent or DM2, Heart Healthy and Low Sodium (2gm) Addtl Attending Provider Instructions: Mr Jo You were admitted to the hospital and managed for stroke You are being discharged to [facility] for Rehab. You were also started on insulin for poorly controlled diabetes mellitus in addition to metformin Please continue aspirin and plavix You will need to follow up with Neurology outpatient You will need to follow up with Neuroendovascular/Vascular outpatient to evaluate the narrowing in the blood vessel of your brain. You have reduced heart function. Please ensure follow up with Cost Accountant Please quit smoking completely Please do not drive The Doctor at rehab will continue to make adjustments in your medications as appropriate. You will continue to receive diabetes education at rehab and will be prescribed insulin administration supplies on discharge. It was a pleasure taking care of you. Pending Studies at Discharge: No Stand-Alone Forms: My [facility] Unique Blog Designs, Medications to Prevent Stroke Skilled Items Patient informed of condition?: Yes DNR: No Discharge Level of Care: Acute rehab Communicable Disease: No Discharge Prognosis: Stable Lines: None Urinary Catheter: No Medications and DC Order Prescriptions: New losartan 50 mg Tablet 50 mg PO QAM 30 Days Qty: 30 0RF clopidogrel 75 mg Tablet 75 mg PO QAM 30 Days Qty: 30 0RF aspirin 81 mg Tablet,Delayed Release (Dr/Ec) 81 mg PO DAILY 30 Days Qty: 30 0RF metoprolol succinate 25 mg Tablet Extended Release 24 Hr 25 mg PO QAM 30 Days Qty: 30 0RF rosuvastatin 20 mg Tablet 40 mg PO QAM 30 Days Qty: 60 0RF insulin glargine [Lantus Solostar U-100 Insulin] 100 unit/mL (3 mL) insulin pen 10 unit subcut QAM Qty: 3 0RF metformin 500 mg tablet extended release 24 hr 500 mg PO PM Qty: 30 0RF Discharge Orders: Discharge Order (Routine); Ordered 02/24/24 Ordered By: Chelsie Armstrong Admission Data Admit Date/Time: 02/21/24 23:55 Attending Provider: Chelsie Armstrong I. Admit Provider: Robin Storey Primary Care Provider: Luisa Barclay Other Providers: Robin Storey; Keshia Pino; Calos Cancino; Keshia Hodge; Rubio Tineo; Brenton Coombs; Wiliam Betancourt; [place] Gallegos; Vivi Bee; Austen Mcgrath; Danny No; Omid Garcias; Brock Arias; Denita Thomas; Maryjane Reece; [place]io Stallworth; Dimitrios Barriga; Ananda Frazier; [facility] Other Interventions: Discharge Summary Assessment (RN) Last Done: 02/24/24 13:06
== END 2024-02-24 13:50 | DRG 65 ==
LOC: ED 19:44 → EDINP 23:55 → 2E 02-22 07:27

== ENCOUNTER 2024-03-13 17:40 | Inpatient (IN) ==
--- NOTE | 2024-03-13 17:58 | ED Triage Note ---
Date of Service March 13, 2024 Provider in Triage Author: Jeremiah Rubio History of Present Illness This patient was briefly evaluated while in triage. An abbreviated physical exam was performed. This patient is a 63-year-old Male who presents to the ED for evaluation recent admission for CVA 02/20-02/24 nausea and vomiting x 1 week, poor PO intake weakness, fatigue, blood pressure low "doctor told him he was dehydrated" came from Dr. 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 Nontender to palpation. Initial orders for labs and / or imaging were placed and patient was placed in the waiting area until a bed is available. Please see further documentation for the full ED course.
[2024-03-13] MEDS: SODIUM CHLORIDE 0.9% 1,000 ML IV SCH (18:31)
[2024-03-13 18:55] LABS: Basophils # (auto) 0.08 K/uL (0.00-0.20); Basophils % (auto) 0.7 %; Eosinophils % (auto) 0.9 %; Hematocrit (blood only) 45.5 % (42.0-52.0); Hemoglobin 15.9 g/dl (14.0-18.0); Immature Granulocytes # (auto) 0.04 K/uL (0.01-0.20); Immature Granulocytes % (auto) 0.4 %; Lymphocytes # (auto) 2.48 K/uL (1.20-3.40); Lymphocytes % (auto) 21.9 %; Mean Corpuscular Hemoglobin 29.7 pg (25.0-34.0); Mean Corpuscular Hgb Conc 34.9 g/dL (32.0-36.0); Mean Corpuscular Volume 84.9 fL (80.0-100.0); Mean Platelet Volume 10.2 fL (9.4-12.4); Monocytes # (auto) 0.47 K/uL (0.11-0.59); Monocytes % (auto) 4.1 %; Neutrophils # (auto) 8.18 K/uL (1.40-6.50); Platelet Count 292 K/uL (130-400); RDW Coefficient of Variation 12.6 % (11.5-14.5); RDW Standard Deviation 38.8 fL (36.4-46.3); Red Blood Count 5.36 M/uL (4.70-6.10); White Blood Count 11.35 K/ul (4.8-10.8)
[2024-03-13 19:08] LABS: Albumin Globulin Ratio 1.4 (0.9-2); Albumin Level 4.6 gm/dl (3.4-5.0); BUN Creatinine Ratio 17.2 (10-20); Bilirubin,Total 0.9 mg/dl (0.2-1.0); Calcium 10.2 mg/dl (8.6-10.3); Est GFR (African American) 20.5 ml/min; Est GFR (Non-African American) 17.7 ml/min; Globulin 3.3 gm/dl (2.5-4.0); Potassium 4.3 mmol/L (3.5-5.1); Total Protein 7.9 gm/dl (6.0-8.3)
--- NOTE | 2024-03-13 19:11 | Emergency Department Note ---
Impression & Plan Nausea & vomiting, Acute dehydration, JOANIE (acute kidney injury), Non-ST elevation MO (NSTEMI) ED Provider Note HISTORY OF PRESENT ILLNESS: Patient is a 63-year-old male presenting with nausea and vomiting. Patient reports that for the last 10 days he has been feeling generally unwell. He states that he has not been able to eat or drink for about the last 7 days. Reports when he tries to eat or drink anything, he immediately gags or vomits. He states that he has been having loose and soft bowel movements over the last few days. Denies any fevers at home. Denies any chest pain or shortness of breath. He states he had some generalized abdominal pain earlier this week. He denies any dysuria or hematuria. Denies any recent travel or recent sick contact exposures. He denies any specific symptoms at this time other than nausea but reports that "I just feel like crap." Patient was seen at [facility] internal medicine clinic and was referred to the emergency department due to concern for potential dehydration and concern that the patient will likely need admitted for placement in a alf facility for rehab. ROS: as above PHYSICAL EXAM: Constitutional: Patient appears in no acute distress. HENT: Head: Normocephalic and atraumatic. Eyes: EOMI, PERRL Mouth/Throat: Mucous membranes moist. Neck: Trachea midline. Neck supple. Cardiovascular: RRR, No murmurs, rubs or gallops. Intact distal pulses. Pulmonary/Chest: No respiratory distress. Breath sounds clear and equal bilaterally. No wheezes or rales. Abdominal: Abdomen soft, no tenderness, rebound or guarding. Musculoskeletal: No edema, tenderness or deformity noted. Skin: Warm and dry. No rash, erythema, pallor or cyanosis Psychiatric: Appropriate mood and affect for situation. Neurological: Alert and keenly responsive. CN II-XII grossly intact, moving all extremities equally and fully. MDM: - Vitals signs stable. - History obtained via patient. History as above. - Chronic conditions affecting care: CAD; CHF; DM-2; GERD; HTN; chronic lymphocytic leukemia; HLD; AAA; CVA - Differential diagnoses include, but are not limited to: Small bowel obstruction; viral syndrome; ACS; UTI; pneumonia; electrolyte abnormality - Order placed for continuous cardiac monitoring. At this time, monitor showed rate of 72 bpm with normal sinus rhythm, per my interpretation. - External medical records reviewed. Internal medicine office visit note from [facility] dated 03/13/2024 was reviewed. Patient was seen in their clinic for a hospital follow-up. Per documentation, the patient was just discharged from [facility] and has not been doing well at home. He has had persistent nausea and has had some orthostatic changes in blood pressure in the clinic. He has a history of falls and weakness and the provider was concerned that the patient is at risk for falls. Recommended referral to the emergency department and the provider notes the patient will "likely need transfer to alf facility for rehab." - EKG interpreted by myself showed normal sinus rhythm. Rate 80 bpm. QT 404. No acute ischemic changes. Patient does have some ST changes in leads III and aVF. - Laboratory workup interpreted by myself showed leukocytosis (WBC 11.35); normal lactate; stable electrolytes; JOANIE (Cr 3.43 - baseline around 1.0); elevated BUN; elevated anion gap (12); elevated troponin (23.8); normal lipase; normal procalcitonin - UA negative for infection. Noted to have significant protein and ketones - Viral respiratory panel negative - CT abdomen/pelvis wo contrast negative for obvious obstruction or acute pathology. Noted to have severe diffuse atherosclerotic disease of the abdominal aorta, per radiology. - CXR negative for pneumonia, per my interpretation - Patient given 2L NS in ER. Initially given 4 mg IV zofran, but patient continued to vomit through Zofran. Given 25 mg IV Benadryl and 5 mg IV Compazine for further antiemetic properties. - Ordered measurements of ins and outs for the patient every 2 hours to monitor his renal status given his JOANIE. - Family expresses concern about the patient's generalized weakness and inability to care for himself at home. They think the patient needs to go back to rehab and are interested in placement after he has been treated medically. Will admit to hospital service. - Discussion was had with senior case manager about patient's case and need for admission - Hospitalist, Dr. Schmitt, consulted for admission - [facility] ASSESSMENT AND PLAN: Diagnosis: Nausea and vomiting; acute kidney injury; acute dehydration; NSTEMI Plan: Admit Past Med/Surg History Problem List (Updated 03/13/24 @ 23:10 by Dolly Hinojosa MD) Non-ST elevation MO (NSTEMI) (Acute) JOANIE (acute kidney injury) (Acute) Acute dehydration (Acute) Nausea & vomiting (Acute) Ischemic cardiomyopathy Carotid artery stenosis (Acute) Tobacco use (Acute) Left-sided weakness (Acute) CVA (cerebral vascular accident) (Acute) Acute CVA (cerebrovascular accident) TIA (transient ischemic attack) Diabetes Headache (Acute) Arm paresthesia, right (Acute) Chest pain (Acute) Stroke-like symptom (Acute) History of ventricular tachycardia History of sudden cardiac successfully resuscitated ICD (implantable cardioverter-defibrillator) battery depletion Hyperlipidemia CAD (coronary artery disease) (Chronic) "s/p stent" HTN (hypertension) (Chronic) History of left heart catheterization ICD (implantable cardioverter-defibrillator) in place Lymphadenopathy, abdominal Thoracic back pain (Acute) Sciatica (Acute) Male erectile disorder of organic origin (Acute) Dyslipidemia (Chronic) Chronic lymphocytic leukemia (CLL), B-cell Paresthesias Autonomic neuropathy Erectile dysfunction Obesity Tinea pedis Tobacco abuse (Acute) Diabetic peripheral neuropathy associated with type 2 diabetes mellitus Personal history of diabetic foot ulcer Medical History Osteoarthritis Lung nodule Anemia ICD (implantable cardioverter-defibrillator) in place 2011 IMPLANTED Cardiac arrest 2011 Myocardial Infarction 2003 Hypertension Surgical History History of arthroscopy of knee History of anesthesia reaction APPY PROCEDURE-COULDN'T BREATHE>COMBATIVE History of arthroscopy RT History of appendectomy History of colonoscopy History of vascular access device A-PORT INSERTION History of tooth extraction History of heart artery stent 2002 (1 STENT) History of cardiac cath 2002 Family History Father Diabetes Sister Congenital heart disease Diabetes Mother Hypertension Brother Myocardial infarction Denies family history of Ovarian cancer Prostate cancer Breast cancer Colorectal cancer Social History Smoking Status: Current every day smoker Tobacco Type: Cigarettes Cigarettes Per Day: 10; Second Hand Exposure: No; Do You Dip or Chew Tobacco: No; Hx Alcohol Use: No Hx Substance Use: No Preferred Language: Hungarian Communication Ability: Effective Clinical Rehabilitation Specialist Required: No Beliefs That Will Affect Care: None Current Living Situation: Alone Current Living Situation Comment: home alone Other Information That Helps Us Care for You: No Feels Safe at Home: Yes Safety Concerns: Feels Safe At This Time caffeine: Yes Assistive Devices: Cane and Walker Allergies Allergies Allergy/AdvReac Type Severity Reaction Status Date / Time CASSANDRA Inhibitors Allergy Unknown Unknown Verified 03/13/24 21:58 latex Allergy Rash Verified 03/13/24 21:58 Home Meds Home Medications Medication Instructions Recorded Confirmed metformin 500 mg tablet,extended 500 mg PO AMPM 03/13/24 03/13/24 release 24 hr ondansetron HCl 4 mg tablet 4 mg PO Q8H PRN n/v 03/13/24 03/13/24 rosuvastatin 40 mg tablet 40 mg PO QAM 03/13/24 03/13/24 Previous Rx's Medication Instructions Recorded aspirin 81 mg tablet,delayed 81 mg PO DAILY 30 days #30 tabs 02/24/24 release clopidogrel 75 mg tablet 75 mg PO QAM 30 days #30 tabs 02/24/24 insulin glargine 100 unit/mL (3 10 unit (0.1 mL) subcut QAM #3 mL 02/24/24 mL) subcutaneous pen (Lantus Solostar U-100 Insulin) metoprolol succinate 25 mg 25 mg PO QAM 30 days #30 tabs 02/24/24 tablet,extended release 24 hr Results & Data (ED) Vital Signs Vital Signs - 24 hr 03/13/24 17:56 03/13/24 19:03 03/13/24 19:26 Temperature 36.2 C L Temperature Source Temporal Artery Scan Pulse Rate 75 64 Pulse Rate [Finger] Pulse Rhythm Regular Pulse Rhythm [Finger] Pulse Strength Normal Pulse Strength [Finger] Respiratory Rate 20 Respiratory Effort / Characteristics Non-Labored Spontaneous Respiratory Depth Normal Respiratory Pattern Regular Blood Pressure 101/63 Blood Pressure [Left Arm] Blood Pressure Mean 75 Blood Pressure Mean [Left Arm] Blood Pressure Position Sitting Blood Pressure Position [Left Arm] Pulse Oximetry 99 96 Oxygen Delivery Method Room Air Room Air Sepsis Recent Fever Within 48 Hours No Sepsis New/Unexplained Change in Mental Status No Sepsis Action Taken by Nursing No Action Required 03/13/24 20:48 03/13/24 21:00 03/13/24 21:30 Temperature Temperature Source Pulse Rate 69 71 69 Pulse Rate [Finger] Pulse Rhythm Pulse Rhythm [Finger] Pulse Strength Pulse Strength [Finger] Respiratory Rate 17 15 14 Respiratory Effort / Characteristics Respiratory Depth Respiratory Pattern Blood Pressure 128/77 140/72 120/66 Blood Pressure [Left Arm] Blood Pressure Mean 94 80 98 Blood Pressure Mean [Left Arm] Blood Pressure Position Blood Pressure Position [Left Arm] Pulse Oximetry 96 95 95 Oxygen Delivery Method Room Air Room Air Room Air Sepsis Recent Fever Within 48 Hours Sepsis New/Unexplained Change in Mental Status Sepsis Action Taken by Nursing 03/13/24 22:00 03/13/24 22:55 Temperature Temperature Source Pulse Rate 71 Pulse Rate [Finger] 62 Pulse Rhythm Pulse Rhythm [Finger] Regular Pulse Strength Pulse Strength [Finger] Normal Respiratory Rate 17 18 Respiratory Effort / Characteristics Non-Labored Respiratory Depth Normal Respiratory Pattern Regular Blood Pressure 141/77 H Blood Pressure [Left Arm] 127/76 Blood Pressure Mean 97 Blood Pressure Mean [Left Arm] 93 Blood Pressure Position Blood Pressure Position [Left Arm] Lying Pulse Oximetry 95 95 Oxygen Delivery Method Room Air Room Air Sepsis Recent Fever Within 48 Hours Sepsis New/Unexplained Change in Mental Status Sepsis Action Taken by Nursing Laboratory Data 03/13/24 18:27 03/13/24 18:27 Lab Results 03/13/24 03/13/24 03/13/24 Range/Units 18:27 19:07 19:44 WBC 11.35 H (4.8-10.8) K/ul RBC 5.36 (4.70-6.10) M/uL Hgb 15.9 (14.0-18.0) g/dl Hct 45.5 (42.0-52.0) % MCV 84.9 (80.0-100.0) fL MCH 29.7 (25.0-34.0) pg MCHC 34.9 (32.0-36.0) g/dL RDW Std Deviation 38.8 (36.4-46.3) fL RDW Coeff of Francisco 12.6 (11.5-14.5) % Plt Count 292 (130-400) K/uL MPV 10.2 (9.4-12.4) fL Immature Gran % (Auto) 0.4 % Neut % (Auto) 72.0 % Lymph % (Auto) 21.9 % Wilcox % (Auto) 4.1 % Eos % (Auto) 0.9 % Baso % (Auto) 0.7 % Neut # (Auto) 8.18 H (1.40-6.50) K/uL Lymph # (Auto) 2.48 (1.20-3.40) K/uL Wilcox # (Auto) 0.47 (0.11-0.59) K/uL Eos # (Auto) 0.10 (0.00-0.50) K/uL Baso # (Auto) 0.08 (0.00-0.20) K/uL Immature Gran # (Auto) 0.04 (0.01-0.20) K/uL Sodium 133 L (136-145) mmol/L Potassium 4.3 (3.5-5.1) mmol/L Chloride 100 (98-107) mmol/L Carbon Dioxide 21 (21-32) mmol/L Anion Gap 12 H (3-11) BUN 59 H (6-23) mg/dl Creatinine 3.43 H (0.6-1.4) mg/dl Est Cr Clr Drug Dosing 25.0 ml/min Est GFR ( Amer) 20.5 ml/min Est GFR (Non-Af Amer) 17.7 ml/min BUN/Creatinine Ratio 17.2 (10-20) Glucose 84 (70-99(Fasting)) mg/dl Lactate 1.0 (0.4-2.0) mmol/L Calcium 10.2 (8.6-10.3) mg/dl Magnesium 2.0 (1.7-2.4) mg/dl Total Bilirubin 0.9 (0.2-1.0) mg/dl AST 29 (13-39) U/L ALT 25 (7-52) U/L Alkaline Phosphatase 147 H (34-104) U/L Total Creatine Kinase 69 (30-223) U/L Troponin I High Sens 23.8 H 18.9 D (0-20) pg/ml Total Protein 7.9 (6.0-8.3) gm/dl Albumin 4.6 (3.4-5.0) gm/dl Globulin 3.3 (2.5-4.0) gm/dl Albumin/Globulin Ratio 1.4 (0.9-2) Lipase 33 (11-82) U/L Procalcitonin 0.09 (0-0.5) ng/ml Urine Color Urine Appearance (Clear) Urine pH (4.5-7.5) Ur Specific [place] (1.000-1.030) Urine Protein (Negative) Urine Glucose (UA) (Negative) Urine Ketones (Negative) Urine Blood (Negative) Urine Nitrite (Negative) Urine Bilirubin (Negative) Urine Urobilinogen (Negative) Ur Leukocyte Esterase (Negative) Urine WBC (Auto) (0-5) /hpf Urine RBC (Auto) (0-2) /hpf U Hyaline Cast (Auto) (0-2) /lpf U Epithel Cells (Auto) (0-2) /hpf Urine Bacteria (Auto) (None Seen) Ur Renal Epithelial Cell (None Presnt) /lpf Granular Casts (None Prsent) /lpf Ur Random Creatinine mg/dl Ur Random Sodium mmol/L Adenovirus (PCR) Not Detected (NotDetected) B. pertussis DNA (PCR) Not Detected (NotDetected) B.parapertussis DNA PCR Not Detected (NotDetected) C. pneumoniae DNA (PCR) Not Detected (NotDetected) Coronavirus OC43 (PCR) Not Detected (NotDetected) Coronavirus HKU1 (PCR) Not Detected (NotDetected) Coronavirus 229E (PCR) Not Detected (NotDetected) SARS-CoV-2 (PCR) Not Detected (NotDetected) Coronavirus NL63 (PCR) Not Detected (NotDetected) Human Metapneumovir PCR Not Detected (NotDetected) Influenza Type A (PCR) Not Detected (NotDetected) Influenza Type B (PCR) Not Detected (NotDetected) M. pneumoniae (PCR) Not Detected (NotDetected) Parainfluenza 1 (PCR) Not Detected (NotDetected) Parainfluenza 2 (PCR) Not Detected (NotDetected) Parainfluenza 3 (PCR) Not Detected (NotDetected) Parainfluenza 4 (PCR) Not Detected (NotDetected) RSV (PCR) Not Detected (NotDetected) Entero/Rhino (PCR) Not Detected (NotDetected) 03/13/24 Range/Units 20:20 WBC (4.8-10.8) K/ul RBC (4.70-6.10) M/uL Hgb (14.0-18.0) g/dl Hct (42.0-52.0) % MCV (80.0-100.0) fL MCH (25.0-34.0) pg MCHC (32.0-36.0) g/dL RDW Std Deviation (36.4-46.3) fL RDW Coeff of Francisco (11.5-14.5) % Plt Count (130-400) K/uL MPV (9.4-12.4) fL Immature Gran % (Auto) % Neut % (Auto) % Lymph % (Auto) % Wilcox % (Auto) % Eos % (Auto) % Baso % (Auto) % Neut # (Auto) (1.40-6.50) K/uL Lymph # (Auto) (1.20-3.40) K/uL Wilcox # (Auto) (0.11-0.59) K/uL Eos # (Auto) (0.00-0.50) K/uL Baso # (Auto) (0.00-0.20) K/uL Immature Gran # (Auto) (0.01-0.20) K/uL Sodium (136-145) mmol/L Potassium (3.5-5.1) mmol/L Chloride (98-107) mmol/L Carbon Dioxide (21-32) mmol/L Anion Gap (3-11) BUN (6-23) mg/dl Creatinine (0.6-1.4) mg/dl Est Cr Clr Drug Dosing ml/min Est GFR ( Amer) ml/min Est GFR (Non-Af Amer) ml/min BUN/Creatinine Ratio (10-20) Glucose (70-99(Fasting)) mg/dl Lactate (0.4-2.0) mmol/L Calcium (8.6-10.3) mg/dl Magnesium (1.7-2.4) mg/dl Total Bilirubin (0.2-1.0) mg/dl AST (13-39) U/L ALT (7-52) U/L Alkaline Phosphatase (34-104) U/L Total Creatine Kinase (30-223) U/L Troponin I High Sens (0-20) pg/ml Total Protein (6.0-8.3) gm/dl Albumin (3.4-5.0) gm/dl Globulin (2.5-4.0) gm/dl Albumin/Globulin Ratio (0.9-2) Lipase (11-82) U/L Procalcitonin (0-0.5) ng/ml Urine Color Yellow Urine Appearance Turbid A (Clear) Urine pH 5.0 (4.5-7.5) Ur Specific [place] 1.017 (1.000-1.030) Urine Protein 3+ H (Negative) Urine Glucose (UA) Negative (Negative) Urine Ketones Trace H (Negative) Urine Blood 1+ H (Negative) Urine Nitrite Negative (Negative) Urine Bilirubin Negative (Negative) Urine Urobilinogen Negative (Negative) Ur Leukocyte Esterase Negative (Negative) Urine WBC (Auto) 6-10 H (0-5) /hpf Urine RBC (Auto) 0-2 (0-2) /hpf U Hyaline Cast (Auto) >20 H (0-2) /lpf U Epithel Cells (Auto) >20 H (0-2) /hpf Urine Bacteria (Auto) None Seen (None Seen) Ur Renal Epithelial Cell Present A (None Presnt) /lpf Granular Casts Present A (None Prsent) /lpf Ur Random Creatinine 150.7 mg/dl Ur Random Sodium 27 mmol/L Adenovirus (PCR) (NotDetected) B. pertussis DNA (PCR) (NotDetected) B.parapertussis DNA PCR (NotDetected) C. pneumoniae DNA (PCR) (NotDetected) Coronavirus OC43 (PCR) (NotDetected) Coronavirus HKU1 (PCR) (NotDetected) Coronavirus 229E (PCR) (NotDetected) SARS-CoV-2 (PCR) (NotDetected) Coronavirus NL63 (PCR) (NotDetected) Human Metapneumovir PCR (NotDetected) Influenza Type A (PCR) (NotDetected) Influenza Type B (PCR) (NotDetected) M. pneumoniae (PCR) (NotDetected) Parainfluenza 1 (PCR) (NotDetected) Parainfluenza 2 (PCR) (NotDetected) Parainfluenza 3 (PCR) (NotDetected) Parainfluenza 4 (PCR) (NotDetected) RSV (PCR) (NotDetected) Entero/Rhino (PCR) (NotDetected) Administered Medications Discontinued Medications Diphenhydramine HCl (Diphenhydramine 50 Mg/Ml Vial) 25 mg IV NOW STA Stop: 03/13/24 20:31 Last Admin: 03/13/24 20:38 Dose: 25 mg Documented By: PIYUSH Sodium Chloride (Nss) 1,000 mls @ 999 mls/hr IV .Q1H1M CRISTINA Stop: 03/13/24 19:01 Last Infusion: 03/13/24 20:56 Dose: Infused Documented By: Admin: 03/13/24 18:31 Dose: 999 mls/hr Documented By: BEVERLY Sodium Chloride (Nss) 1,000 mls @ 999 mls/hr IV .Q1H1M ONE Stop: 03/13/24 20:11 Last Infusion: 03/13/24 20:56 Dose: Infused Documented By: Admin: 03/13/24 19:30 Dose: 999 mls/hr Documented By: PIYUSH Prochlorperazine (Compazine) 1 mls @ 1 mls/min IV ONE ONE Stop: 03/13/24 20:31 Last Admin: 03/13/24 20:39 Dose: 1 mls/min Documented By: PIYUSH Ondansetron HCl (Ondansetron Inj 2 Mg/Ml 2 Ml Vial) 4 mg IV NOW STA Stop: 03/13/24 19:06 Last Admin: 03/13/24 19:28 Dose: 4 mg Documented By: PIYUSH Imaging Data Radiologist's Impression: Abdomen/Pelvis CT 03/13/24 19:11 Exam(s): CT ABDOMEN + PELVIS Without Contrast EXAM: CT Abdomen and Pelvis Without Intravenous Contrast CLINICAL HISTORY: Reason for exam: abd pain; vomiting; acute renal failure. TECHNIQUE: Axial computed tomography images of the abdomen and pelvis without intravenous contrast. CTDI is 22.6 mGy and DLP is 1238 mGy-cm. Automated exposure control was utilized for the study. A dose lowering technique was utilized adhering to the principles of ALARA. COMPARISON: CT of the pelvis 10/05/15 FINDINGS: Lung bases: Unremarkable. No mass. No consolidation. ABDOMEN: Liver: Unremarkable. Gallbladder and bile ducts: The gallbladder is distended. No evidence of gallstones or wall thickening. No ductal dilation. Pancreas: Unremarkable. No ductal dilation. Spleen: Punctate calcifications within the spleen. Adrenals: Unremarkable. No mass. Kidneys and ureters: Punctate nonobstructing bilateral renal calculi. No hydroureteronephrosis. Stomach and bowel: Scattered diverticula. No obstruction. No mucosal thickening. PELVIS: Appendix: No findings to suggest acute appendicitis. Bladder: Unremarkable. No stones. Reproductive: The prostate measures 4.5 x 3.8 cm. ABDOMEN and PELVIS: Intraperitoneal space: Unremarkable. No free air. No significant fluid collection. Bones/joints: Moderate degenerative changes of the thoracolumbar spine with posterior disc bulge at L3/L4 L4/L5 and L5/S1. No acute fracture. No dislocation. Soft tissues: Small fat-containing inguinal hernias. Vasculature: Severe diffuse atherosclerotic disease of the abdominal aorta with mild aneurysmal dilatation measuring 3.2 x 3.0 cm. Recommend annual follow-up and/or surgical consult. Lymph nodes: Unremarkable. No enlarged lymph nodes. IMPRESSION: Severe diffuse atherosclerotic disease of the abdominal aorta with mild aneurysmal dilatation measuring 3.2 x 3.0 cm. Recommend annual follow-up and/or surgical consult. Electronically signed by: Анна Brownlee MD 03/13/24 21:26 PM Discharge Plan Visit Data Chief Complaint: Hypotension Stated Complaint: DEHYDRATION, LOW BP, DOC REF ED Provider: Dolly Hinojosa Discharge Problem: Nausea & vomiting, Acute dehydration, JOANIE (acute kidney injury), Non-ST elevation MO (NSTEMI) Forms Stand Alone Forms: [facility] [place] [employer] Prescriptions Prescriptions: No Action clopidogrel 75 mg Tablet 75 mg PO QAM 30 Days Qty: 30 0RF aspirin 81 mg Tablet,Delayed Release (Dr/Ec) 81 mg PO DAILY 30 Days Qty: 30 0RF metoprolol succinate 25 mg Tablet Extended Release 24 Hr 25 mg PO QAM 30 Days Qty: 30 0RF insulin glargine [Lantus Solostar U-100 Insulin] 100 unit/mL (3 mL) insulin pen 10 unit subcut QAM Qty: 3 0RF rosuvastatin 40 mg tablet 40 mg PO QAM metformin 500 mg tablet extended release 24 hr 500 mg PO AMPM ondansetron HCl [Zofran] 4 mg Tablet 4 mg PO Q8H PRN (Reason: n/v) Referrals Referrals: Luisa Barclay MD [Primary Care Provider] -
[2024-03-13 19:14] LABS: Troponin I High Sensitivity 23.8 pg/ml (0-20)
[2024-03-13] MEDS: ONDANSETRON INJ 2 MG/ML 2 ML VIAL IV STA (19:28)
[2024-03-13] MEDS: SODIUM CHLORIDE 0.9% 1,000 ML IV ONE (19:30)
[2024-03-13 20:10] LABS: Adenovirus PCR Not Detected (NotDetected); Bordetella parapertussis PCR Not Detected (NotDetected); Bordetella pertussis PCR Not Detected (NotDetected); Chlamydia pneumoniae PCR Not Detected (NotDetected); Coronavirus 229E PCR Not Detected (NotDetected); Coronavirus CoV-2 (COVID19)PCR Not Detected (NotDetected); Coronavirus HKU1 PCR Not Detected (NotDetected); Coronavirus NL63 PCR Not Detected (NotDetected); Coronavirus OC43PCR Not Detected (NotDetected); Human Metapneumovirus PCR Not Detected (NotDetected); Influenza A PCR Not Detected (NotDetected); Influenza B PCR Not Detected (NotDetected); Mycoplasma pneumoniae PCR Not Detected (NotDetected); Parainfluenza Virus 1 PCR Not Detected (NotDetected); Parainfluenza Virus 2 PCR Not Detected (NotDetected); Parainfluenza Virus 3 PCR Not Detected (NotDetected); Parainfluenza Virus 4 PCR Not Detected (NotDetected); Respiratory Syncytial VirusPCR Not Detected (NotDetected); Rhinovirus/Enterovirus PCR Not Detected (NotDetected)
[2024-03-13 20:38] LABS: Troponin I High Sensitivity 18.9 pg/ml (0-20)
[2024-03-13] MEDS: diphenhydrAMINE 50 MG/ML VIAL IV STA (20:38)
[2024-03-13] MEDS: PROCHLORPERAZINE 1 ML IV ONE (20:39)
[2024-03-13 21:03] LABS: Appearance Urine Turbid (Clear); Bacteria Urine Automated None Seen (None Seen); Bilirubin Urine Negative (Negative); Blood Urine 1+ (Negative); Cast Urine Automated >20 /lpf (0-2); Color Urine Yellow; Epithelial Cell Urine Auto >20 /hpf (0-2); Glucose Urine UA Negative (Negative); Granular Casts Urine Present /lpf (None Prsent); Ketones Urine Trace (Negative); Leukocyte Esterase Urine Negative (Negative); Nitrite Urine Negative (Negative); Protein Urine 3+ (Negative); RBC Urine Automated 0-2 /hpf (0-2); Renal Epithelial Cells Urine Present /lpf (None Presnt); Specific Gravity Urine 1.017 (1.000-1.030); Urobilinogen Urine Negative (Negative)
[2024-03-13 21:05] LABS: Creatinine Urine Random 150.7 mg/dl
--- NOTE | 2024-03-13 21:27 | CT Scan Report ---
Exam(s): CT ABDOMEN + PELVIS Without Contrast EXAM: CT Abdomen and Pelvis Without Intravenous Contrast CLINICAL HISTORY: Reason for exam: abd pain; vomiting; acute renal failure. TECHNIQUE: Axial computed tomography images of the abdomen and pelvis without intravenous contrast. CTDI is 22.6 mGy and DLP is 1238 mGy-cm. Automated exposure control was utilized for the study. A dose lowering technique was utilized adhering to the principles of ALARA. COMPARISON: CT of the pelvis 10/05/15 FINDINGS: Lung bases: Unremarkable. No mass. No consolidation. ABDOMEN: Liver: Unremarkable. Gallbladder and bile ducts: The gallbladder is distended. No evidence of gallstones or wall thickening. No ductal dilation. Pancreas: Unremarkable. No ductal dilation. Spleen: Punctate calcifications within the spleen. Adrenals: Unremarkable. No mass. Kidneys and ureters: Punctate nonobstructing bilateral renal calculi. No hydroureteronephrosis. Stomach and bowel: Scattered diverticula. No obstruction. No mucosal thickening. PELVIS: Appendix: No findings to suggest acute appendicitis. Bladder: Unremarkable. No stones. Reproductive: The prostate measures 4.5 x 3.8 cm. ABDOMEN and PELVIS: Intraperitoneal space: Unremarkable. No free air. No significant fluid collection. Bones/joints: Moderate degenerative changes of the thoracolumbar spine with posterior disc bulge at L3/L4 L4/L5 and L5/S1. No acute fracture. No dislocation. Soft tissues: Small fat-containing inguinal hernias. Vasculature: Severe diffuse atherosclerotic disease of the abdominal aorta with mild aneurysmal dilatation measuring 3.2 x 3.0 cm. Recommend annual follow-up and/or surgical consult. Lymph nodes: Unremarkable. No enlarged lymph nodes. IMPRESSION: Severe diffuse atherosclerotic disease of the abdominal aorta with mild aneurysmal dilatation measuring 3.2 x 3.0 cm. Recommend annual follow-up and/or surgical consult. Electronically signed by: Анна Brownlee MD 03/13/24 21:26 PM
--- NOTE | 2024-03-14 | History & Physical Report ---
Date of Service March 14, 2024 Assessment & Plan (1) ARF (acute renal failure): Plan: Outpatient creatinine progressively worsening from outpatient draw February 25, 2024 Likely secondary to decreased p.o. intake and home medications. Possible post CVA depression chronic systolic heart failure (EF 45 to 50%, TTE 2023), patient on the dry side cardiac arrest status post ICD hx CAD status post stent/ PVD hypertension, stable hyperlipidemia, on statin Rx DM 2 insulin requiring, hypoglycemic episode documented at the ER likely from home insulin given current kidney dysfunction, suboptimal baseline control with hemoglobin A1c of 11.1 this month hx CLL s/p chemotherapy hx lung nodules past tobacco abuse medication noncompliance as per records Possible deconditioning GMF Monitor creatinine response to IVF Nephrology consult if without improvement Psychiatry consult re: possible post stroke depression. Hold basal insulin for now given hypoglycemia, ISS BG goal 1 10-1 40, carb count coverage PT OT eval DVT prophylaxis. Heparin subcu Full code for now as per family. Patient daughter requesting updates providers. Ms. Irina Jo, contact #[phone]. Text document was generated using Hypejar voice recognition software. It may contain grammatical or spelling errors. Kindly contact undersigned for clarification of any documentation item in question. History of Present Illness Chief Complaint: Weakness, nausea, vomiting Primary Care Provider: Luisa Barclay MD History obtained from patient, family, and records. Limited history from patient secondary to lethargy. Medical history significant for chronic systolic heart failure (EF 45 to 50%, TTE 2023), cardiac arrest status post ICD, CAD status post stent, CVA, PVD, hypertension, hyperlipidemia, DM 2 insulin requiring, CLL s/p chemotherapy, lung nodules, GERD, past tobacco abuse, medication noncompliance as per records. Recent confinement February 20 to February 24, 2024 for acute CVA. Patient discharged to [facility] facility before being discharged home last week. Patient has not been right since stroke as per family. Not eating properly, intermittent nausea without abdominal pain complaints. Occasional vomiting. Denies headache, chest pain, SOB. Fall at home with some toe bruising on the left side as per family. Patient family suspects patient depressed although patient denies it. Patient has verbalized that he was "hopeless" as per family. Denies suicidality. Family feels patient needs additional rehab. Patient directed to ER after being seen at seen at PCP's office yesterday. 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 Allergies Allergy/AdvReac Type Severity Reaction Status Date / Time CASSANDRA Inhibitors Allergy Unknown Unknown Verified 03/13/24 21:58 latex Allergy Rash Verified 03/13/24 21:58 Home Medications Medication Instructions Recorded Confirmed Type aspirin 81 mg tablet,delayed 81 mg PO DAILY 30 days #30 tabs 02/24/24 03/13/24 Rx release clopidogrel 75 mg tablet 75 mg PO QAM 30 days #30 tabs 02/24/24 03/13/24 Rx insulin glargine 100 unit/mL (3 10 unit (0.1 mL) subcut QAM #3 mL 02/24/24 03/13/24 Rx mL) subcutaneous pen (Lantus Solostar U-100 Insulin) metoprolol succinate 25 mg 25 mg PO QAM 30 days #30 tabs 02/24/24 03/13/24 Rx tablet,extended release 24 hr metformin 500 mg tablet,extended 500 mg PO AMPM 03/13/24 03/13/24 History release 24 hr ondansetron HCl 4 mg tablet 4 mg PO Q8H PRN n/v 03/13/24 03/13/24 History rosuvastatin 40 mg tablet 40 mg PO QAM 03/13/24 03/13/24 History Past Med/Surg History Problem List (Updated 03/14/24 @ 06:06 by Rico Schmitt MD) ARF (acute renal failure) Non-ST elevation NH (NSTEMI) (Acute) JOANIE (acute kidney injury) (Acute) Acute dehydration (Acute) Nausea & vomiting (Acute) Ischemic cardiomyopathy Carotid artery stenosis (Acute) Tobacco use (Acute) Left-sided weakness (Acute) CVA (cerebral vascular accident) (Acute) Acute CVA (cerebrovascular accident) TIA (transient ischemic attack) Diabetes Headache (Acute) Arm paresthesia, right (Acute) Chest pain (Acute) Stroke-like symptom (Acute) History of ventricular tachycardia History of sudden cardiac successfully resuscitated ICD (implantable cardioverter-defibrillator) battery depletion Hyperlipidemia CAD (coronary artery disease) (Chronic) "s/p stent" HTN (hypertension) (Chronic) History of left heart catheterization ICD (implantable cardioverter-defibrillator) in place Lymphadenopathy, abdominal Thoracic back pain (Acute) Sciatica (Acute) Male erectile disorder of organic origin (Acute) Dyslipidemia (Chronic) Chronic lymphocytic leukemia (CLL), B-cell Paresthesias Autonomic neuropathy Erectile dysfunction Obesity Tinea pedis Tobacco abuse (Acute) Diabetic peripheral neuropathy associated with type 2 diabetes mellitus Personal history of diabetic foot ulcer Medical History Osteoarthritis Lung nodule Anemia ICD (implantable cardioverter-defibrillator) in place 2010 IMPLANTED Cardiac arrest 2010 Myocardial Infarction 2003 Hypertension Surgical History History of arthroscopy of knee History of anesthesia reaction APPY PROCEDURE-COULDN'T BREATHE>COMBATIVE History of arthroscopy RT History of appendectomy History of colonoscopy History of vascular access device A-PORT INSERTION History of tooth extraction History of heart artery stent 2002 (1 STENT) History of cardiac cath 2002 Family History Father Diabetes Sister Congenital heart disease Diabetes Mother Hypertension Brother Myocardial infarction Denies family history of Ovarian cancer Prostate cancer Breast cancer Colorectal cancer Social History Smoking Status: Current every day smoker Tobacco Type: Cigarettes Cigarettes Per Day: 10; Second Hand Exposure: No; Do You Dip or Chew Tobacco: No; Hx Alcohol Use: No Hx Substance Use: No Preferred Language: Thai Communication Ability: Effective Rn Case Management Required: No Beliefs That Will Affect Care: None Current Living Situation: Alone Current Living Situation Comment: home alone Other Information That Helps Us Care for You: No Feels Safe at Home: Yes Safety Concerns: Feels Safe At This Time caffeine: Yes Assistive Devices: Cane and Walker Review of Systems Review of Systems: Could not be reliably obtained secondary to lethargy Physical Exam Physical Exam: GENERAL: Lethargic, no respiratory distress SKIN: Normal color, warm HEENT: [place] palpebral conjunctivae, no ptosis, dry buccal mucosa NECK : Supple, no tenderness CHEST : CTA, no tenderness HEART : RRR, no obvious murmurs ABDOMEN: Some distention, nontender EXTREMITIES : Blood blister noted over the two toes of left foot, no LE swelling/tenderness NEUROLOGIC : Lethargic, no facial asymmetry, gait and stance not assessed Results & Data Results & Data Vital Signs (Past 12 Hours) Vital Signs Temp Pulse Pulse Resp BP BP Pulse Ox 03/13/24 23:29 65 03/13/24 22:55 62 18 127/76 95 03/13/24 22:00 71 17 141/77 H 95 03/13/24 21:30 69 14 120/66 95 03/13/24 21:00 71 15 140/72 95 03/13/24 20:48 69 17 128/77 96 03/13/24 19:26 64 03/13/24 19:03 96 03/13/24 17:56 36.2 C L 75 20 101/63 99 O2 Del Method 03/13/24 23:29 03/13/24 22:55 Room Air 03/13/24 22:00 Room Air 03/13/24 21:30 Room Air 03/13/24 21:00 Room Air 03/13/24 20:48 Room Air 03/13/24 19:26 03/13/24 19:03 Room Air 03/13/24 17:56 Room Air Laboratory Results Laboratory Results WBC 11.35 K/ul (4.8-10.8) H 03/13/24 18: RBC 5.36 M/uL (4.70-6.10) 03/13/24 18: Hgb 15.9 g/dl (14.0-18.0) 03/13/24 18: Hct 45.5 % (42.0-52.0) 03/13/24 18: MCV 84.9 fL (80.0-100.0) 03/13/24 18: MCH 29.7 pg (25.0-34.0) 03/13/24 18: MCHC 34.9 g/dL (32.0-36.0) 03/13/24 18: RDW Std Deviation 38.8 fL (36.4-46.3) 03/13/24 18: RDW Coeff of [place] 12.6 % (11.5-14.5) 03/13/24 18: Plt Count 292 K/uL (130-400) 03/13/24 18: MPV 10.2 fL (9.4-12.4) 03/13/24 18: Immature Gran % (Auto) 0.4 % 03/13/24 18: Neut % (Auto) 72.0 % 03/13/24 18: Lymph % (Auto) 21.9 % 03/13/24 18: [place] % (Auto) 4.1 % 03/13/24 18: Eos % (Auto) 0.9 % 03/13/24 18: Baso % (Auto) 0.7 % 03/13/24 18: Neut # (Auto) 8.18 K/uL (1.40-6.50) H 03/13/24 18: Lymph # (Auto) 2.48 K/uL (1.20-3.40) 03/13/24 18: [place] # (Auto) 0.47 K/uL (0.11-0.59) 03/13/24 18: Eos # (Auto) 0.10 K/uL (0.00-0.50) 03/13/24 18: Baso # (Auto) 0.08 K/uL (0.00-0.20) 03/13/24 18: Immature Gran # (Auto) 0.04 K/uL (0.01-0.20) 03/13/24 18: Sodium 133 mmol/L (136-145) L 03/13/24 18: Potassium 4.3 mmol/L (3.5-5.1) 03/13/24 18: Chloride 100 mmol/L (98-107) 03/13/24 18: Carbon Dioxide 21 mmol/L (21-32) 03/13/24 18: Anion Gap 12 (3-11) H 03/13/24 18:27 BUN 59 mg/dl (6-23) H 03/13/24 18: Creatinine 3.43 mg/dl (0.6-1.4) H 03/13/24 18: Est Cr Clr Drug Dosing 25.0 ml/min 03/13/24 18:27 Est GFR ( Amer) 20.5 ml/min 03/13/24 18: Est GFR (Non-Af Amer) 17.7 ml/min 03/13/24 18: BUN/Creatinine Ratio 17.2 (10-20) 03/13/24 18:27 Glucose 84 mg/dl (70-99(Fasting)) 03/13/24 18:27 Lactate 1.0 mmol/L (0.4-2.0) 03/13/24 19:44 Calcium 10.2 mg/dl (8.6-10.3) 03/13/24 18:27 Magnesium 2.0 mg/dl (1.7-2.4) 03/13/24 18:27 Total Bilirubin 0.9 mg/dl (0.2-1.0) 03/13/24 18:27 AST 29 U/L (13-39) 03/13/24 18:27 ALT 25 U/L (7-52) 03/13/24 18:27 Alkaline Phosphatase 147 U/L (34-104) H 03/13/24 18:27 Total Creatine Kinase 69 U/L (30-223) 03/13/24 19:44 Troponin I High Sens 18.9 pg/ml (0-20) D 03/13/24 19:44 Total Protein 7.9 gm/dl (6.0-8.3) 03/13/24 18:27 Albumin 4.6 gm/dl (3.4-5.0) 03/13/24 18:27 Globulin 3.3 gm/dl (2.5-4.0) 03/13/24 18:27 Albumin/Globulin Ratio 1.4 (0.9-2) 03/13/24 18:27 Lipase 33 U/L (11-82) 03/13/24 18:27 Procalcitonin 0.09 ng/ml (0-0.5) 03/13/24 18:27 Urine Color Yellow 03/13/24 20:20 Urine Appearance Turbid (Clear) A 03/13/24 20:20 Urine pH 5.0 (4.5-7.5) 03/13/24 20:20 Ur Specific [place] 1.017 (1.000-1.030) 03/13/24 20:20 Urine Protein 3+ (Negative) H 03/13/24 20:20 Urine Glucose (UA) Negative (Negative) 03/13/24 20:20 Urine Ketones Trace (Negative) H 03/13/24 20:20 Urine Blood 1+ (Negative) H 03/13/24 20:20 Urine Nitrite Negative (Negative) 03/13/24 20:20 Urine Bilirubin Negative (Negative) 03/13/24 20:20 Urine Urobilinogen Negative (Negative) 03/13/24 20:20 Ur Leukocyte Esterase Negative (Negative) 03/13/24 20:20 Urine WBC (Auto) 6-10 /hpf (0-5) H 03/13/24 20:20 Urine RBC (Auto) 0-2 /hpf (0-2) 03/13/24 20:20 U Hyaline Cast (Auto) >20 /lpf (0-2) H 03/13/24 20:20 U Epithel Cells (Auto) >20 /hpf (0-2) H 03/13/24 20:20 Urine Bacteria (Auto) None Seen (None Seen) 03/13/24 20:20 Ur Renal Epithelial Cell Present /lpf (None Presnt) A 03/13/24 20:20 Granular Casts Present /lpf (None Prsent) A 03/13/24 20:20 Ur Random Creatinine 150.7 mg/dl 03/13/24 20:20 Ur Random Sodium 27 mmol/L 03/13/24 20:20 Adenovirus (PCR) Not Detected (NotDetected) 03/13/24 19:07 B. pertussis DNA (PCR) Not Detected (NotDetected) 03/13/24 19:07 B.parapertussis DNA PCR Not Detected (NotDetected) 03/13/24 19:07 C. pneumoniae DNA (PCR) Not Detected (NotDetected) 03/13/24 19:07 Coronavirus OC43 (PCR) Not Detected (NotDetected) 03/13/24 19:07 Coronavirus HKU1 (PCR) Not Detected (NotDetected) 03/13/24 19:07 Coronavirus 229E (PCR) Not Detected (NotDetected) 03/13/24 19:07 SARS-CoV-2 (PCR) Not Detected (NotDetected) 03/13/24 19:07 Coronavirus NL63 (PCR) Not Detected (NotDetected) 03/13/24 19:07 Human Metapneumovir PCR Not Detected (NotDetected) 03/13/24 19:07 Influenza Type A (PCR) Not Detected (NotDetected) 03/13/24 19:07 Influenza Type B (PCR) Not Detected (NotDetected) 03/13/24 19:07 M. pneumoniae (PCR) Not Detected (NotDetected) 03/13/24 19:07 Parainfluenza 1 (PCR) Not Detected (NotDetected) 03/13/24 19:07 Parainfluenza 2 (PCR) Not Detected (NotDetected) 03/13/24 19:07 Parainfluenza 3 (PCR) Not Detected (NotDetected) 03/13/24 19:07 Parainfluenza 4 (PCR) Not Detected (NotDetected) 03/13/24 19:07 RSV (PCR) Not Detected (NotDetected) 03/13/24 19:07 Entero/Rhino (PCR) Not Detected (NotDetected) 03/13/24 19:07 Impressions Abdomen/Pelvis CT 03/13/24 19:11 Exam(s): CT ABDOMEN + PELVIS Without Contrast EXAM: CT Abdomen and Pelvis Without Intravenous Contrast CLINICAL HISTORY: Reason for exam: abd pain; vomiting; acute renal failure. TECHNIQUE: Axial computed tomography images of the abdomen and pelvis without intravenous contrast. CTDI is 22.6 mGy and DLP is 1238 mGy-cm. Automated exposure control was utilized for the study. A dose lowering technique was utilized adhering to the principles of ALARA. COMPARISON: CT of the pelvis 10/05/15 FINDINGS: Lung bases: Unremarkable. No mass. No consolidation. ABDOMEN: Liver: Unremarkable. Gallbladder and bile ducts: The gallbladder is distended. No evidence of gallstones or wall thickening. No ductal dilation. Pancreas: Unremarkable. No ductal dilation. Spleen: Punctate calcifications within the spleen. Adrenals: Unremarkable. No mass. Kidneys and ureters: Punctate nonobstructing bilateral renal calculi. No hydroureteronephrosis. Stomach and bowel: Scattered diverticula. No obstruction. No mucosal thickening. PELVIS: Appendix: No findings to suggest acute appendicitis. Bladder: Unremarkable. No stones. Reproductive: The prostate measures 4.5 x 3.8 cm. ABDOMEN and PELVIS: Intraperitoneal space: Unremarkable. No free air. No significant fluid collection. Bones/joints: Moderate degenerative changes of the thoracolumbar spine with posterior disc bulge at L3/L4 L4/L5 and L5/S1. No acute fracture. No dislocation. Soft tissues: Small fat-containing inguinal hernias. Vasculature: Severe diffuse atherosclerotic disease of the abdominal aorta with mild aneurysmal dilatation measuring 3.2 x 3.0 cm. Recommend annual follow-up and/or surgical consult. Lymph nodes: Unremarkable. No enlarged lymph nodes. IMPRESSION: Severe diffuse atherosclerotic disease of the abdominal aorta with mild aneurysmal dilatation measuring 3.2 x 3.0 cm. Recommend annual follow-up and/or surgical consult. Electronically signed by: Анна Brownlee MD 03/13/24 21:26 PM Diagnostic Findings Chest x-ray as per my interpretation defibrillator in place, atelectasis
[2024-03-14] MEDS: LACTATED RINGER'S 1,000 ML IV STA (00:13)
[2024-03-14] MEDS: DEXTROSE 50% 50 ML SYRINGE IV STA (00:42)
[2024-03-14] MEDS: DEXTROSE 50% 50 ML SYRINGE IV ONE (00:43)
[2024-03-14 00:45] LABS: Thyroid Stimulating Hormone 1.061 uIu/ml (0.300-4.500)
[2024-03-14] MEDS ORDERED: GLUCAGON FOR INJ 1 MG VIAL SQ PRN (02:44)
[2024-03-14] MEDS ORDERED: CARBOHYDRATES FOR HYPOGLYCEMIA PO PRN (02:44)
[2024-03-14] MEDS ORDERED: GLUCOSE 10 TAB/TUBE PO PRN (02:44)
[2024-03-14] MEDS ORDERED: DEXTROSE 50% 50 ML SYRINGE IV PRN (02:44)
[2024-03-14] MEDS ORDERED: GLUCOSE 40% GEL 15 GM TUBE PO PRN (02:44)
[2024-03-14] MEDS: INSULIN ASPART PER UNIT CHARGE SC SCH (03:14)
[2024-03-14] MEDS: HEPARIN SOD 5,000 UNIT/0.5 ML VIAL SQ SCH (05:36)
[2024-03-14 06:03] LABS: Base Excess VBG -5.7 mEq/L; HCO3 VBG 19 mmol/L; Oxygen Saturation VBG 92.6 %; PCO2 VBG 36 mmHg (38-50); PO2 VBG 60 mmHg; pH VBG 7.34 (7.36-7.41)
[2024-03-14 06:12] LABS: Basophils # (auto) 0.06 K/uL (0.00-0.20); Basophils % (auto) 0.6 %; Eosinophils # (auto) 0.16 K/uL (0.00-0.50); Eosinophils % (auto) 1.6 %; Hematocrit (blood only) 38.3 % (42.0-52.0); Hemoglobin 13.7 g/dl (14.0-18.0); Immature Granulocytes # (auto) 0.02 K/uL (0.01-0.20); Immature Granulocytes % (auto) 0.2 %; Lymphocytes # (auto) 2.14 K/uL (1.20-3.40); Lymphocytes % (auto) 21.9 %; Mean Corpuscular Hemoglobin 30.1 pg (25.0-34.0); Mean Corpuscular Hgb Conc 35.8 g/dL (32.0-36.0); Mean Corpuscular Volume 84.2 fL (80.0-100.0); Mean Platelet Volume 10.3 fL (9.4-12.4); Monocytes # (auto) 0.57 K/uL (0.11-0.59); Monocytes % (auto) 5.8 %; Neutrophils # (auto) 6.84 K/uL (1.40-6.50); Neutrophils % (auto) 69.9 %; Platelet Count 206 K/uL (130-400); RDW Coefficient of Variation 12.4 % (11.5-14.5); RDW Standard Deviation 37.5 fL (36.4-46.3); Red Blood Count 4.55 M/uL (4.70-6.10); White Blood Count 9.79 K/ul (4.8-10.8)
[2024-03-14 06:29] LABS: BUN Creatinine Ratio 18.2 (10-20); Calcium 8.7 mg/dl (8.6-10.3); Creatinine Clr Calc Pharmacy 28.3 ml/min; Est GFR (African American) 23.9 ml/min; Est GFR (Non-African American) 20.6 ml/min
--- NOTE | 2024-03-14 06:53 | XRay Report ---
XR chest 1V portable CLINICAL HISTORY: arf TECHNIQUE: Single frontal radiograph of the chest was obtained. Comparison: Comparison is made to chest radiograph 12/19/2017 FINDINGS: Pacemaker defibrillator is seen. The cardiomediastinal silhouette is normal. Lungs are underinflated but clear. No evidence of pleural effusion or pneumothorax. IMPRESSION: No acute chest disease. ACT 112: Negative or not required by law. Electronically signed by: Bautista Jenkins M.D. 03/14/2024 6:51 AM
--- NOTE | 2024-03-14 08:04 | Electrocardiogram Report ---
Test Reason : Blood Pressure : */* mmHG Vent. Rate : 80 BPM Atrial Rate : 80 BPM P-R Int : 178 ms QRS Dur : 102 ms QT Int : 404 ms P-R-T Axes : 47 -18 100 degrees QTcB Int : 465 ms Normal sinus rhythm Old Inferior infarct , age undetermined Old Anteroseptal infarct (cited on or before 26-Oct-2016) Left ventricular hypertrophy with repolarization abnormality Abnormal ECG When compared with ECG of 23-Feb-2024 05:05, No significant change Confirmed by Indio Couch ([id number]) on 03/14/2024 8:03:31 AM Referred By: Luisa Barclay Confirmed By: Indio Couch
[2024-03-14] MEDS: ASPIRIN 81 MG ECTAB PO SCH (08:14)
[2024-03-14] MEDS: METOPROLOL SUCC 25MG EXT REL TAB PO SCH (08:15)
[2024-03-14] MEDS: ROSUVASTATIN CALCIUM 20 MG TAB PO SCH (08:15)
[2024-03-14] MEDS: CLOPIDOGREL BISULFATE 75 MG TAB PO SCH (08:15)
--- OUTSIDE RECORDS SUMMARY | 2024-03-14 08:46 | External Medical Summary ---
Author Name Unknown Address Unknown Organization [id number]:[facility] [place] [address] Laboratory Report Ordering Provider Test Date Status HY,DEPAMPHILIS 03/04/2024 05:52:16 Final Observation Date Value Abnormality Reference (Units ) Status BUN 03/04/2024 05:52:16 35 Above high normal 6-20 (mg/dL) Final Creatinine 03/04/2024 05:52:16 1.7 Above high normal 0.6-1.2 (mg/dL) Final Glomerular filtration rate/1.73 sq M.predicted [Volume Rate/Area] in Serum, Plasma or Blood by Creatinine-based formula (CKD-EPI) 03/04/2024 05:52:16 45 Below low normal >=60 (mL/min) Final eGFR is calculated based on the CKD-EPI 2020 equation. Sodium 03/04/2024 05:52:16 142 135-146 (m mol/L) Final Potassium 03/04/2024 05:52:16 4.4 3.5-5.1 (m mol/L) Final Cl 03/04/2024 05:52:16 106 98-107 (mm ol/L) Final CO2 03/04/2024 05:52:16 24 22-32 (mmo l/L) Final Anion gap 03/04/2024 05:52:16 12 7-15 (mmol /L) Final Glucose 03/04/2024 05:52:16 68 Below low normal 70- 120 (mg/dL) Final Calcium 03/04/2024 05:52:16 10.0 8.4-10.2 ( mg/dL) Final Performing Location [facility] [place] [address]
--- OUTSIDE RECORDS SUMMARY | 2024-03-14 08:46 | External Medical Summary ---
Author Name Unknown Address Unknown Organization [id number]:[facility] [place] [address] Laboratory Report Ordering Provider Test Date Status LYNN MCNAIR 03/05/2024 05:40:06 Final Observation Date Value Abnormality Reference (Units ) Status BUN 03/05/2024 05:40:06 36 Above high normal 6-20 (mg/dL) Final Creatinine 03/05/2024 05:40:06 1.7 Above high normal 0.6-1.2 (mg/dL) Final Glomerular filtration rate/1.73 sq M.predicted [Volume Rate/Area] in Serum, Plasma or Blood by Creatinine-based formula (CKD-EPI) 03/05/2024 05:40:06 43 Below low normal >=60 (mL/min) Final eGFR is calculated based on the CKD-EPI 2020 equation. Sodium 03/05/2024 05:40:06 142 135-146 (m mol/L) Final Potassium 03/05/2024 05:40:06 4.3 3.5-5.1 (m mol/L) Final Cl 03/05/2024 05:40:06 105 98-107 (mm ol/L) Final CO2 03/05/2024 05:40:06 24 22-32 (mmo l/L) Final Anion gap 03/05/2024 05:40:06 13 7-15 (mmol /L) Final Glucose 03/05/2024 05:40:06 71 70-120 (mg /dL) Final Calcium 03/05/2024 05:40:06 9.6 8.4-10.2 ( mg/dL) Final Performing Location [facility] [place] [address]
--- OUTSIDE RECORDS SUMMARY | 2024-03-14 08:46 | External Medical Summary | Summary of Care ---
Author Name Unknown Organization [facility] Address [address] [facility] [place] [place] [address] Phone [phone] Care Team Providers Care Supervisor Water Treatment Plant Name Role Phone Luisa Barclay MD Primary Care Provider [phone] Reason for Visit * Reason Onset Date Comments Advice 03/07/2024 Immunizations Encounter Details Date Type Department Care Team (Late st Contact Info) Description 03/07/2024 Telephone General Internal Medicine [facility] [address] [place] [address] Luisa Barclay MD [address] [place] [address] Advice (Immunizations ) Allergies Active Allergy Reactions Criticality Noted Date Comments Chapo Inhibitors 08/23/2022 Other reaction(s): Unknown Adhesive Tape Itching,Rash 06/05/2011 Aluminum High 08/23/2022 Other reaction(s): TEETH TINGLE Latex 08/23/2011 rash documented as of this encounter (statuses as of 03/07/2024) Medications Medication Sig Dispensed Refills Start Date End Date Status MULTIVITAMINS PO CAPS take one cap twicea a day Active FISH OIL 1000 MG PO CAPS 2 caps once per day Active BD Pen Needle Ally 2nd Gen 32G X 4 MM USE 1 NEEDLE 4 TIMES DAILY 09/22/2021 Active FreeStyle Semaj 2 Sensor Use as directed. 10/19/2021 Active metFORMIN HCl ER 500 MG Oral Tablet Extended Release 24 Hour (Glucophage XR) Take 4 Tablets by mouth daily with dinner. 120 Tablet 11 11/08/2022 Active Aspirin 81 MG Oral Tablet ChewableIndications: Atherosclerosis of [place] coronary artery of [place] heart without angina pectoris Take 1 Tablet by mouth in the morning. with food.. 100 Tablet 5 11/08/2022 Active Empagliflozin 10 MG Oral Tablet (Jardiance)Indicatio ns:Type 2 diabetes mellitus with hemoglobin A1c goal of less than 8.0% ([facility]),Controlled type 2 diabetes mellitus with diabetic nephropathy, without long-term current use of insulin ([facility]),DM type 2 with diabetic peripheral neuropathy (HCC) Take 1 Tablet by mouth in the morning. 90 Tablet 3 11/30/2022 Active Additional Information Patient not taking.Reported on 06/02/2023 Vitamin D-3 25 MCG (1000 UT) Oral CapsuleIndications:V itamin D insufficiency Take 1 Capsule by mouth in the morning. 1 Capsule 11/30/2022 Active Additional Information Patient not taking.Reported on 06/02/2023 Trulicity 0.75 MG/0.5ML Subcutaneous Solution Pen-injector INJECT 0.75 MG UNDER THE SKIN ONCE WEEKLY 4 mL 5 12/12/2022 Active Additional Information Patient not taking.Reported on 06/02/2023 Losartan Potassium 50 MG Oral Tablet (Cozaar)Indications: Type 2 diabetes mellitus with proteinuria ([facility]) Take 1.5 Tablets by mouth every evening. Inc 11/30/2022 135 Tablet 02/03/2023 Active Additional Information Patient not taking.Reported [...] as of this encounter (statuses as of 03/07/2024) Active Problems Problem Noted Date Diagnosed Date [...] cardioverter-defibrillator in situ 06/13/2011 Coronary atherosclerosis of [place] coronary june ry 05/31/2011 Heart failure, systolic, due to CAD 05/31/2011 Type 2 diabetes mellitus wit h hemoglobin A1c goal of less than 8.0% 05/31/2011 Overview: ICD-10 update of inactive term documented as of this encounter (statuses as of 03/07/2024) Resolved Problems Problem Noted Date Diagnosed Date [...] as of this encounter (statuses as of 03/07/2024) Immunizations Name Administration Dates Next Due Pneumococcal Polysaccharide PPV23 (Pneumovax) 09/01/2011 Seasonal Influenza, Split, I IV3, With Preserve, Inj 04/09/2014,05/30/2013,09/03/2012 TDAP, Age 7 and older, IM (Adacel) 09/01/2011 documented as of this encounter Social [...] money to get more. Never true 11/29/2022 Utilities Answer Date Recorded Do you have trouble paying y our heating, water, or electric bill? (Adult - for ages 18 years and over) Not on file 01/09/2024 Is your family able to pay t he heat, water, or electric bill? (Household - for ages 0-17 years) Not on file 01/09/2024 Does your family have access to good internet? (Household - for ages 0-17 years) Not on file 01/09/2024 Social Connections Answer Date Recorded How often do you feel lonely or isolated from those around you? (Adult - for ages 18 years and over) Not on file 01/09/2024 Sex and Gender Information Value Date Recorded Sex Assigned at Not on file Gender Identity Not on file Sexual Orientation Not on file Job Start Date Occupation Industry Not on file Not on file Not on file documented as of this encounter Miscellaneous Notes * Telephone Encounter - Jessica Hernandez LPN - 03/07/2024 10:58 AM EDT Y[place] from [facility] care calling to request a copy of immunization record. Faxed to [facility], received confirmation that the transmission was successful. * Telephone Encounter - Missy Espinal OSA - 03/07/2024 10:52 AM EDT Reason for patient's call: regarding immunizations Caller was transferred to Elyssa at the nurse line. documented in this encounter Plan of Treatment Upcoming Encounters Date Type Department Care Team (Late st Contact Info) Description 03/13/2024 4:00 PM EDT Office Visit General Internal Medicine [facility] [address] [place] [address] Luisa Barclay MD [address] [place] [address] Scheduled Procedures Name Priority Associated Diagnoses Date/Ti me COLONOSCOPY FLEXIBLE PROXIMAL DIAGNOSTIC Recall History of colon polyps Health Maintenance Due Date Last Done Comments DISCUSS TOBACCO CESSATION (REFER TO SMARTSET #0736) 1960 COVID-19 Vaccine (#1) 10/15/1963 HIV Screening [...] PPSV23 or PCV20) 10/15/2023 07/16/2019, 11/19/2017, 09/01/2011 Depression Screening 11/30/2023 11/29/2022 Diabetic Foot Exam 11/30/2023 11/29/2022, 0 09/22/2014, 08/26/2013, Additional history exists Albumin/Creatinine Ratio 12/01/2023 023, 09/22/2014, 08/26/2013, Additional history exists Influenza Vaccine (FLU shot) (#1) 2024 07/16/2019, 05/10/2019, 04/09/2014, Additional history exists GFR 03/05/2025 03/05/2024, 02/21, 03/03/2024, Additional history exists Lung Cancer Screening Completed 07/26/2022 , 07/26/2021, 08/14/2020, Additional history exists HPV (Gardasil) Vaccine Aged Out No lo nger eligible based on patient's age to complete this topic Hepatitis B Vaccine Aged Out No longe r eligible based on patient's age to complete this topic MENINGOCOCCAL (MENACTRA/MENVEO) Aged Out No longer eligible based on patient's age to complete this topic documented as of this encounter Medical Devices Not on filedocumented as of this encounter Advance Directives * Full Code (Latest Code Status on File) Date Activated Date Inactivated Comments 06/01/2011 12:17 AM 06/07/2011 6:50 PM This order reflects the patients wishes and were consensually agreed upon. Question Answer Comments Discussion of Advance Directives occurred with: Not Discussed Does the patient have a Living Will? No Does the patient have Health Care Power of Attor erlin? No Care Teams Supervisor Water Treatment Plant Relationship Specialty Start Date End Date Luisa Barclay MD [address] [facility] [place] [address] PCP - General Internal Medicine 12/12/22 documented as of this encounter
--- OUTSIDE RECORDS SUMMARY | 2024-03-14 08:47 | External Medical Summary ---
Author Name Unknown Address Unknown Organization K0[facility] [place] [address] [place] [id number] Laboratory Report Ordering Provider Test Date Status LYNN MCNAIR 03/03/2024 05:43:29 Final Observation Date Value Abnormality Reference (Units ) Status BUN 03/03/2024 05:43:29 36 Above high normal 6-20 (mg/dL) Final Creatinine 03/03/2024 05:43:29 1.9 Above high normal 0.6-1.2 (mg/dL) Final Glomerular filtration rate/1.73 sq M.predicted [Volume Rate/Area] in Serum, Plasma or Blood by Creatinine-based formula (CKD-EPI) 03/03/2024 05:43:29 40 Below low normal >=60 (mL/min) Final eGFR is calculated based on the CKD-EPI 2020 equation. Sodium 03/03/2024 05:43:29 141 135-146 (m mol/L) Final Potassium 03/03/2024 05:43:29 4.2 3.5-5.1 (m mol/L) Final Cl 03/03/2024 05:43:29 104 98-107 (mm ol/L) Final CO2 03/03/2024 05:43:29 24 22-32 (mmo l/L) Final Anion gap 03/03/2024 05:43:29 13 7-15 (mmol /L) Final Glucose 03/03/2024 05:43:29 80 70-120 (mg /dL) Final Calcium 03/03/2024 05:43:29 9.8 8.4-10.2 ( mg/dL) Final [facility] [place] [id number]
--- OUTSIDE RECORDS SUMMARY | 2024-03-14 08:47 | External Medical Summary ---
Author Name Unknown Address Unknown Organization [facility] [place] [address] [place] [address] Laboratory Report Ordering Provider Test Date Status LYNN MCNAIR 03/03/2024 05:43:29 Final Observation Date Value Abnormality Reference (Units ) Status WBC, Total 03/03/2024 05:43:29 7.14 4.00-10.8 0 (K/uL) Final RBC 03/03/2024 05:43:29 4.66 4.50-5.25 (M/uL) Final Hemoglobin 03/03/2024 05:43:29 14.4 14.0-16.8 (g/dL) Final HCT 03/03/2024 05:43:29 41.2 40.0-48.4 (%) Final MCV 03/03/2024 05:43:29 88.4 82.0-99.5 (fL) Final MCH 03/03/2024 05:43:29 30.9 27.0-34.0 (pg) Final MCHC 03/03/2024 05:43:29 35.0 32.0-36.0 (g/dL) Final RDW 03/03/2024 05:43:29 13.3 11.5-15.5 (%) Final Platelets 03/03/2024 05:43:29 235 140-400 (K /uL) Final MPV 03/03/2024 05:43:29 10.5 6.6-11.1 ( fL) Final Performing Location [facility] [place] [address] [place] [address]
--- OUTSIDE RECORDS SUMMARY | 2024-03-14 08:47 | External Medical Summary ---
Author Name Unknown Address Unknown [facility] [address] [place] [address] Laboratory Report Ordering Provider Test Date Status LYNN MCNAIR 02/25/2024 05:56:06 Final Observation Date Value Abnormality Reference (Units ) Status WBC, Total 02/25/2024 05:56:06 6.91 4.00-10.8 0 (K/uL) Final RBC 02/25/2024 05:56:06 4.74 4.50-5.25 (M/uL) Final Hemoglobin 02/25/2024 05:56:06 14.5 14.0-16.8 (g/dL) Final HCT 02/25/2024 05:56:06 41.9 40.0-48.4 (%) Final MCV 02/25/2024 05:56:06 88.4 82.0-99.5 (fL) Final MCH 02/25/2024 05:56:06 30.6 27.0-34.0 (pg) Final MCHC 02/25/2024 05:56:06 34.6 32.0-36.0 (g/dL) Final RDW 02/25/2024 05:56:06 13.2 11.5-15.5 (%) Final Platelets 02/25/2024 05:56:06 212 140-400 (K /uL) Final MPV 02/25/2024 05:56:06 10.4 6.6-11.1 ( fL) Final Performing Location [facility] [place] [address] [place] [address]
--- OUTSIDE RECORDS SUMMARY | 2024-03-14 08:47 | External Medical Summary | Continuity of Care Document ---
Author Name Unknown Organization [facility] [address] Address [address] [place], [place] [id number] Care Team Providers Care Gas Roller Operator Name Role Phone Demetrius Leung Primary Care Physician [phone] [id number] Date(s): 02/21/24 - 02/21/24 [facility] [address] [place], [place] [id number] [place] Discharge Disposition: Home or Self Care Attending Physician: MD Grey Raphaella Referring Physician: MD Monae Kyle Allergies, Adverse Reactions, Alerts No Known Medication Allergies Immunizations Given and Recorded Vaccine Date Status Refusal Reason influenza virus vaccine, inactivated 04/23/15 Kilo rded Medications amLODIPine 2.5 mg oral tablet Start: 12/02/22 3:43:00 PM EDT Start Date: 12/02/22 Status: Ordered BD PEN NEEDLE/BARRY 2ND GE 32G X 4 M Start: 09/30/21 8:50:00 AM EST, See Instructions Start Date: 09/30/21 Status: Ordered clopidogrel 75 mg oral tablet Start: 12/02/22 3:43:00 PM EDT Start Date: 12/02/22 Status: Ordered FREESTYLE BEATRIZ 2 SENSOR KIT Start: 09/30/21 8:50:00 AM EST Start Date: 09/30/21 Status: Ordered FREESTYLE BEATRIZ 2/SENSOR/ MISCELLA Start: 09/30/21 8:50:00 AM EST, See Instructions Start Date: 09/30/21 Status: Ordered Jardiance 10 mg oral tablet Start: 12/02/22 3:43:00 PM EDT Start Date: 12/02/22 Status: Ordered losartan 50 mg oral tablet Start: 12/02/22 3:43:00 PM EDT Start Date: 12/02/22 Status: Ordered metFORMIN 500 mg oral tablet Start: 12/02/22 3:43:00 PM EDT Start Date: 12/02/22 Status: Ordered METFORMIN HYDROCHLORIDE 500MG TAB(S Start: 09/30/21 8:51:00 AM EST, See Instructions Start Date: 09/30/21 Status: Ordered Metoprolol Succinate ER 50 mg oral tablet, extended release Start: 09/30/21 8:50:00 AM EST Start Date: 09/30/21 Status: Ordered rosuvastatin 40 mg oral tablet Start: 09/30/21 8:50:00 AM EST Start Date: 09/30/21 Status: Ordered Trulicity Pen 0.75 mg/0.5 mL subcutaneous solution Start: 12/02/22 3:43:00 PM EDT Start Date: 12/02/22 Status: Ordered Problem List Condition Confirmation Course Effective Dates Status H ealth Status Informant Acute vomiting Confirmed Active Hand arthritis Confirmed Active Right carpal tunnel syndrome Confirmed Active Diabetes Confirmed Active Hyperlipidemia Confirmed Active Hypertension Confirmed Active Mass of left hand Confirmed Active Tinea unguium Confirmed Active Abdominal pain, acute, right upper quadrant Confirmed Active Tinea pedis of both feet Confirmed Active Tobacco user Confirmed Active Trigger finger Confirmed Active Ulnar neuropathy Confirmed Active Weight disorder Confirmed Active Procedures Procedure Date Related Diagnosis Body Site Status CAT scan 1 10/05/15 Completed Colonoscopy 2013 Completed Appendectomy Completed 1No kidney stones, +hepatosplenomegaly, lymphadenopathy of upper abdominal, retroperitoneal & retrocrural nodes. Social History Social History Type Response Tobacco Current some day smo ker, Cigarettes Smoking Status Never smoked cigaret zakiya Sex Male Sex Representation Male (finding) Patient Care team information Care Team Personnel Name: DO Leung Brian Scott Position: Referring DIRECT Member Role: Primary Care Provider Address: [facility] [address] [place] Care Team Related Persons Name: BEN CRAWFORD
--- OUTSIDE RECORDS SUMMARY | 2024-03-14 08:47 | External Medical Summary ---
Author Name Unknown Address Unknown Organization [facility] [place] [address] [place] [address] Laboratory Report Ordering Provider Test Date Status LYNN MCNAIR 02/25/2024 05:56:06 Final Observation Date Value Abnormality Reference (Units ) Status BUN 02/25/2024 05:56:06 22 Above high normal 6-20 (mg/dL) Final Creatinine 02/25/2024 05:56:06 1.3 Above high normal 0.6-1.2 (mg/dL) Final Glomerular filtration rate/1.73 sq M.predicted [Volume Rate/Area] in Serum, Plasma or Blood by Creatinine-based formula (CKD-EPI) 02/25/2024 05:56:06 63 >=60 (mL/min) Final eGFR is calculated based on the CKD-EPI 2020 equation. Sodium 02/25/2024 05:56:06 140 135-146 (m mol/L) Final Potassium 02/25/2024 05:56:06 4.8 3.5-5.1 (m mol/L) Final Cl 02/25/2024 05:56:06 104 98-107 (mm ol/L) Final CO2 02/25/2024 05:56:06 25 22-32 (mmo l/L) Final Anion gap 02/25/2024 05:56:06 11 7-15 (mmol /L) Final Glucose 02/25/2024 05:56:06 153 Above high normal 70 -120 (mg/dL) Final Calcium 02/25/2024 05:56:06 9.7 8.4-10.2 ( mg/dL) Final Performing Location [facility] [place] [address] [place] [address]
--- OUTSIDE RECORDS SUMMARY | 2024-03-14 10:34 | External Medical Summary | Summary of Care ---
Author Name Unknown Organization [facility] Address [address] [place] [address] Phone [phone] Care Team Providers Care Communications Instructor Name Role Phone Luisa Barclay MD Primary Care Provider [phone] Encounter Details Date Type Department Care Team (Late st Contact Info) Description 03/13/2024 Referral Triage Care Coordination and Integration [address], [place] [phone] Raven Martinez OSA [address], [place] [phone] Allergies Active Allergy Reactions Criticality Noted Date Comments Chapo Inhibitors 08/23/2022 Other reaction(s): Unknown Adhesive Tape Itching,Rash 06/05/2011 Aluminum High 08/23/2022 Other reaction(s): TEETH TINGLE Latex 08/23/2011 rash documented as of this encounter (statuses as of 03/13/2024) Medications Medication Sig Dispensed Refills Start Date End Date Status MULTIVITAMINS PO CAPS Take by mouth. Active FISH OIL 1000 MG PO CAPS 2 caps once per day Activ e BD Pen Needle Ally 2nd Gen 32G X 4 MM 09/22/2021 Active FreeStyle Semaj 2 Sensor Use as directed. 10/19/2021 Active Aspirin 81 MG Oral Tablet ChewableIndications: Atherosclerosis of [place] coronary artery of [place] heart without angina pectoris Take 1 Tablet by mouth in the morning. with food.. 100 Tablet 5 11/08/2022 Active Vitamin D-3 25 MCG (1000 UT) Oral CapsuleIndications:V itamin D insufficiency Take 1 Capsule by mouth in the morning. 1 Capsule 11/30/2022 Active Additional Information Patient not taking.Reported on 06/02/2023 Rosuvastatin Calcium 40 MG Oral Tablet (Crestor) Take 1 Tablet by mouth in the morning. 90 Tablet 3 02/03/2023 Active Clopidogrel Bisulfate 75 MG Oral Tablet (pLAVix) Take 1 Tablet by mouth every evening. 90 Tablet 3 02/01/2023 Active Ondansetron HCl 4 MG Oral TabletIndications:Na usea Take 1 Tablet by mouth every 8 hours as needed for Nausea. 21 Tablet 03/12/2024 Active Lantus SoloStar 100 UNIT/ML Subcutaneous Solution Pen-injector INJECT 10 UNITS SUBCUTANEOUSLY IN THE MORNING 03/07/2024 Active metFORMIN HCl ER 500 MG Oral Tablet Extended Release 24 Hour (Glucophage XR)Indications:Hospi coty discharge follow-up,Recent cerebrovascular accident (CVA),Type 2 diabetes mellitus with hemoglobin A1c goal of less than 8.0% (HCC) Take 1 Tablet by mouth in the morning and 1 Tablet in the evening. 03/13/2024 Active Metoprolol Succinate ER 25 MG Oral Tablet Extended Release 24 Hour (Toprol XL)Indications:Hospi coty discharge follow-up,Recent cerebrovascular accident (CVA),Atherosclerosi s of [place] coronary artery of [place] heart without angina pectoris,Automatic implantable cardioverter-defibri llator in situ,Hx of cardiac arrest,HTN, goal below 140/80 Take 1 Tablet by mouth in the morning. Dc [facility] 02/24/24. 03/13/2024 Active documented as of this encounter (statuses as of 03/13/2024) Active Problems Problem Noted Date Diagnosed Date [...] cardioverter-defibrillator in situ 06/13/2011 Coronary atherosclerosis of [place] coronary june ry 05/31/2011 Heart failure, systolic, due to CAD 05/31/2011 Type 2 diabetes mellitus wit h hemoglobin A1c goal of less than 8.0% 05/31/2011 Overview: ICD-10 update of inactive term documented as of this encounter (statuses as of 03/13/2024) Resolved Problems Problem Noted Date Diagnosed Date [...] as of this encounter (statuses as of 03/13/2024) Immunizations Name Administration Dates Next Due Pneumococcal Conjugate Vacc, 13 Valent (Prevnar) 07/16/2019 Pneumococcal Polysaccharide PPV23 (Pneumovax) 11/19/2017,09/01/2011 Seasonal Influenza Virus Vac cine, Unspecified Formulation 07/16/2019,05/10/2019,04/23/2015,04/07,04/09/2014,05/30/2013,09/03/2012 Seasonal Influenza, Recombin ant, RIV4, PF, ([place]) 07/16/2019,05/10/2019 Seasonal Influenza, Split, I IV3, With Preserve, [...] as of this encounter Progress Notes * Raven Martinez, QUANG - 03/13/2024 4:56 PM EDT Images from the original note were not included. Received via [place] [id number] Referral work queue. Patient Care Team: Dolly Wilson, RN as Cryptographic Vulnerability Analyst (Registered Nurse) Order Details Procedure: POPULATION HEALTH REFERRAL OP Associated diagnoses: Z09 (ICD-10-CM) - Hospital discharge follow-up Z86.73 (ICD-10-CM) - Recent cerebrovascular accident (CVA) Z86.73 (ICD-10-CM) - History of TIA (transient ischemic attack) Z91.148 (ICD-10-CM) - History of medication noncompliance E86.0 (ICD-10-CM) - Dehydration N17.9 (ICD-10-CM) - JOANIE (acute kidney injury) (HCC) R11.0 (ICD-10-CM) - Nausea without vomiting Date: 03/13/2024 Provider: Luias Barclay MD Department: [facility] POD3 Progress Note Office Visit with LUISA BARCLAY Order Questions Question Answer Referral Priority Within 3 days (urgent) Where should this appointment be scheduled? [facility] Role Electrotype Finisher Electrotype Finisher Referral Reason Transition of Care (MINNIE)/High Risk for Readmission Coverage Information MEDICARE/MEDICARE A AND B (E-Verified) Response History Effective from: 09/22/2023 Subscriber name: Alcides Jo Benefits Inquiry Notes Expand All Collapse All Provider Comments 03/13/2024 4:31 PM EDT by Luisa Barclay Is patient being transitioned from [facility] to Complex Case Management? No documented in this encounter Plan of Treatment Scheduled Procedures [...] Influenza Vaccine (FLU shot) (#1) 2024 07/16/2019, 07/16/2019, 05/10/2019, Additional history exists GFR 03/05/2025 03/05/2024, 02/21, [...] Power of Attor erlin? No Care Teams Communications Instructor Relationship Specialty Start Date End Date Luisa Barclay MD [address] [facility] [place], [place] [id number] PCP - General Internal Medicine 12/12/22 documented as of this encounter
--- NOTE | 2024-03-14 12:10 | Nephrology Consultation ---
Date of Consultation March 14, 2024 Assessment & Plan (1) ARF (acute renal failure): slowly improving presume nonoliguric stage 2 JOANIE. baseline creatinine 1.2 at recent hospital d/c from here. Admitted 03/13 w/ creatinine 3.4 in the setting of poor po intake + emesis/diarrhea. improved to 3.0 this am w/ 3L IVF. UA notable for ketonuria, nephritic sediment, no e/o infection. -swallow eval and if diarrhea recurs stool studies -no urgent indication for [employer] -no fluid limit; no specific food needs from CKD stand point -w/ borderline heart function / EF and minimal po intake, will give gentle IVF >> 1/2 NS w/ 75 mEq/L sodium bicarb and 10 K mEq/L continuous History of Present Illness Reason for Consultation: JOANIE Requesting Physician: Dr Gonzalez Attending Physician: Oren Gonzalez MD History of Present Illness 63-year-old male home asked to evaluate for acute kidney injury was admitted yesterday for same. Past medical history includes HFrEF (EF 45 to 50%, TTE 2023), cardiac arrest status post ICD, CAD status post stent, acute stroke last month, PVD, hypertension, hyperlipidemia, DM 2 insulin requiring, CLL s/p chemotherapy, lung nodules, GERD, past tobacco abuse, reported nonadherence to medications. He was admitted here 02/20-02/24 for an acute stroke; he was d/c to rehab. He has a large extended family at bedside and they give much of the hx. he has had poor appetite and poor po intake with ongoing diarrhea since a few days after arrival to rehab. some diarrhea has been explosive/poor sphincter control though this is a bit better now. prior to worsening appetite he was per report eating about half of his meals but it since dropped off dramatically. he gags when taking po and has noticed big changes in his sense of smell (more sensitive) and finds that foods are often "too sweet, too flavorful" to tolerate. he also lives alone and was d/c home w/o help preparing meals or ?visiting nurses. does have OP PT 2X weekly. Occasional emesis yesterday prior to admission. also fell at home; no report of injury. denies NSAID use prior to admission. stopped at least some of his meds a few days ago "b/c I'm not keeping anything down anyway." currently w/ some N and ongoing hyperawareness of smells; no sob, no cough, no edema, no musculoskeletal pain, no abdominal or chest pain; denies decreased UOP or sense of incomplete void. emesis as above; no loose bm since arrival. no f/c, no rash. d/c creatinine on 02/23 was 1.2; presented yesterday w/ creatinine 3.4, improved to 3.0 today. Since admission, he has had 2L NS and 1L LR; no IVF currently. He is on RA and SBP have generally been well controlled. I/O are incomplete. HE did have a hypoglycemic episode in ER after reciving insulin Allergies Allergy/AdvReac Type Severity Reaction Status Date / Time CASSANDRA Inhibitors Allergy Unknown Unknown Verified 03/13/24 21:58 latex Allergy Rash Verified 03/13/24 21:58 Home Medications Medication Instructions Recorded Confirmed Type aspirin 81 mg tablet,delayed 81 mg PO DAILY 30 days #30 tabs 02/24/24 03/13/24 Rx release clopidogrel 75 mg tablet 75 mg PO QAM 30 days #30 tabs 02/24/24 03/13/24 Rx insulin glargine 100 unit/mL (3 10 unit (0.1 mL) subcut QAM #3 mL 02/24/24 03/13/24 Rx mL) subcutaneous pen (Lantus Solostar U-100 Insulin) metoprolol succinate 25 mg 25 mg PO QAM 30 days #30 tabs 02/24/24 03/13/24 Rx tablet,extended release 24 hr metformin 500 mg tablet,extended 500 mg PO AMPM 03/13/24 03/13/24 History release 24 hr ondansetron HCl 4 mg tablet 4 mg PO Q8H PRN n/v 03/13/24 03/13/24 History rosuvastatin 40 mg tablet 40 mg PO QAM 03/13/24 03/13/24 History Patient History Medical History Osteoarthritis Lung nodule Anemia ICD (implantable cardioverter-defibrillator) in place 2010 IMPLANTED Cardiac arrest 2010 Myocardial Infarction 2002 Hypertension Surgical History History of arthroscopy of knee History of anesthesia reaction APPY PROCEDURE-COULDN'T BREATHE>COMBATIVE History of arthroscopy RT History of appendectomy History of colonoscopy History of vascular access device A-PORT INSERTION History of tooth extraction History of heart artery stent 2002 (1 STENT) History of cardiac cath 2002 Family History Father Diabetes Sister Congenital heart disease Diabetes Mother Hypertension Brother Myocardial infarction Denies family history of Ovarian cancer Prostate cancer Breast cancer Colorectal cancer Social History Smoking Status: Current every day smoker Tobacco Type: Cigarettes Cigarettes Per Day: 10; Second Hand Exposure: No; Do You Dip or Chew Tobacco: No; Hx Alcohol Use: No Hx Substance Use: No Preferred Language: Ugandan Communication Ability: Effective [employer] 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 Required: No Beliefs That Will Affect Care: None Current Living Situation: Alone Current Living Situation Comment: home alone Other Information That Helps Us Care for You: No Feels Safe at Home: Yes Safety Concerns: Feels Safe At This Time caffeine: Yes Assistive Devices: Cane and Walker Review of Systems 2 Review of Systems: All systems reviewed & are unremarkable except as noted in HPI & below Physical Exam 2 Constitutional: well developed, well nourished, + physical limitations (can't sit up w/o asst) and + lethargic (doses off at times in interview/exam); no acute distress Eyes: EOM intact bilaterally ENMT: Ears: no external ear abnormality Nose: no external nose abnormality Mouth: + dry oral mucous membranes Neck: no nuchal rigidity Respiratory: normal respiratory effort Auscultation: + diminished lung sounds Cardiovascular: RRR, no murmur, no edema Gastrointestinal (Abdomen): Inspection/Auscultation: normal bowel sounds P ercussion/Palpation: abdomen soft; abdomen nontender Musculoskeletal: Extremities: strength 5/5 throughout Skin: no rashes, warm and dry Neurologic: casas, fluent speech, no tremor Psychiatric: Orientation: alert and oriented x 3 Insight: + limited insight Results & Data Vital Signs (Past 12 Hours) Vital Signs Temp Pulse Resp BP BP Pulse Ox O2 Del Method 03/14/24 07:05 36.4 C L 68 16 169/83 H 98 Room Air 03/14/24 03:09 36.5 C 65 16 128/65 98 Room Air Laboratory Results 03/14/24 05:47 03/14/24 05:47 serum albumin 4.6 UA pH 5; 1017; 3+ protein 1+ blood; trace ketones, > 20 epithel and hyaline cells, no LE or bacteria or rbc Diagnostic Findings CXR w/o acute chest disease CT a/p non con (images personally reviewed; agree w/ report w/ exception that kidneys look mildly enlarged BL on imaging) ABDOMEN: Liver: Unremarkable. Gallbladder and bile ducts: The gallbladder is distended. No evidence of gallstones or wall thickening. No ductal dilation. Pancreas: Unremarkable. No ductal dilation. Spleen: Punctate calcifications within the spleen. Adrenals: Unremarkable. No mass. Kidneys and ureters: Punctate nonobstructing bilateral renal calculi. No hydroureteronephrosis. Stomach and bowel: Scattered diverticula. No obstruction. No mucosal thickening. PELVIS: Appendix: No findings to suggest acute appendicitis. Bladder: Unremarkable. No stones. Reproductive: The prostate measures 4.5 x 3.8 cm. ABDOMEN and PELVIS: Intraperitoneal space: Unremarkable. No free air. No significant fluid collection. Bones/joints: Moderate degenerative changes of the thoracolumbar spine with posterior disc bulge at L3/L4 L4/L5 and L5/S1. No acute fracture. No dislocation. Soft tissues: Small fat-containing inguinal hernias. Vasculature: Severe diffuse atherosclerotic disease of the abdominal aorta with mild aneurysmal dilatation measuring 3.2 x 3.0 cm. Recommend annual follow-up and/or surgical consult. Lymph nodes: Unremarkable. No enlarged lymph nodes. IMPRESSION: Severe diffuse atherosclerotic disease of the abdominal aorta with mild aneurysmal dilatation measuring 3.2 x 3.0 cm. Recommend annual follow-up and/or surgical consult.
[2024-03-14] MEDS: PROMETHAZINE 6.25 MG/50.25 ML BAG IV PRN (12:11)
[2024-03-14] MEDS: SODIUM BICARBONATE 8.4% 75 MEQ, POTASSIUM CHLORIDE 10 MEQ in SODIUM CHLORIDE 0.45 % 1,0... IV SCH (14:44)
--- NOTE | 2024-03-14 14:44 | Psychiatric Consultation ---
Date of Consultation March 14, 2024 Impression / Recommendations Impression Patient is a domiciled with family 63-year-old male history of chronic systolic heart failure (EF 45 to 50%, TTE 2023), cardiac arrest status post ICD, CAD status post stent, CVA, PVD, hypertension, hyperlipidemia, DM 2 insulin requiring, CLL s/p chemotherapy, lung nodules, GERD, past tobacco abuse currently admitted for acute renal failure. family concerned about patient's mood and hopelessness. Psychiatry consulted for evaluation. Patient presents significant cognitive deficits from recent stroke and likely regaining function. Patient has no history of major mood disorders or psychosis . Active problems include lack of appetite, transient sadness, hypersomnia, hopelessness due to loss of independence. Does not meet criteria for a major depressive episode. Recent changes in mood likely a direct physiological consequence of the stroke. No acute safety concerns presented. Family history of major depression. Would likely benefit from low-dose antidepressant for mood and function. Could consider mirtazapine low-dose for appetite stimulation. Overall, I spent a total of 80 minutes with this case including review of chart records, nursing report, review of lab work, direct evaluation of the patient at bedside, counseling the patient, discussion of the patient with the hospitalist provider, discussion with the psychiatric liaison during clinical rounds, gathering collateral from family and documentation in the electronic health record. 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): (2) CVA (cerebral vascular accident): CVA mechanism: unspecified Qualified Code(s): I63.9 - Cerebral infarction, unspecified (3) Cognitive impairment: Plan Recommendations Start sertraline 25 mg daily Consider mirtazapine 7.5 mg at bedtime as needed for appetite Can follow up with PCP for management Psych History Identifying Data Patient is a domiciled with family 63-year-old male history of chronic systolic heart failure (EF 45 to 50%, TTE 2023), cardiac arrest status post ICD, CAD status post stent, CVA, PVD, hypertension, hyperlipidemia, DM 2 insulin requiring, CLL s/p chemotherapy, lung nodules, GERD, past tobacco abuse currently admitted for acute renal failure. family concerned about patient's mood and hopelessness. Psychiatry consulted for evaluation. Chief Complaint Hopelessness History of Present Illness Chart review indicates right temporal and parietal lobe stroke with right ICA stenosis. Concern for recent poor appetite and falls. Patient seen with family at bedside. Prefers to have family during interview. Stroke on February 21, 2024. Family concerned about patient's hypersomnia and low energy. They report patient has intermittent passive suicidal ideation and hopelessness. Poor food and fluid intake. Patient reports lack of taste. Denies recent mood lability including crying spells, aggression, cursing. Concerns for poor orientation and trouble with attention. Patient denies suicidal ideation. He denies history of mental health problems. He denies history of major depressive episodes. 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 Denies head trauma. On interview patient is pleasant, maintains humor, presents a reactive affect. He reports a loss of independence and was previously working very long days and is having difficulty coping. Completed SLUMS cognitive assessment, score of 12/30. Patient presented difficulties with orientation, object registration and recall, calculations, digit span, visual spatial abilities for clock draw, and attention. Note from nurse liaison: "Rounded on patient for initial interaction. Patient was pleasant but did not spontaneously interact at first. As conversation went on, patient began to talk more. Patient denies having suicidal thoughts, depressive symptoms, thoughts to harm others. He reports that he feels down sometimes about his current physical condition. Patient stated "but no one knows this, we get sick for a reason", he would not elaborate. Patient then asked this RN to "pull my finger", the ring finger of his right hand. When asked why he would request this, patient stated "I have neuropathy and it cramps up". Asked patient what caused the neuropathy and he made an inappropriate statement that it's because of "all the sex I've had". When asked to clarify statement patient began talking about type 2 diabetes. Patient was appropriate during the rest of the conversation and is aware that he can reach out to our service if needed. Spoke with patient's daughter, Maricel, via phone. She was able to provide collateral. She is one of the patient's main supports. Patient has intermittent confusion. Patient has difficulty using the left side of his body, especially moving his left leg. He had a mini-stroke September 2022 that affected the right side of his body but not as drastically. Patient is labile emotionally. He will make statements that he doesn't want to be alive and states "just shoot me". Per Maricel, this has been his baseline since he began declining medically. She does not feel the patient should be home alone. His two sister's are visiting from [place] to help the patient but they will both be leaving to return home within th e next week. Patient was supposed to be released earlier than he was from [facility] but Maricel and patient's other daughter appealed the discharge due to patient's inability to stand for more than 30 seconds or ambulate well. Maricel has concerns about the patient's safety if he is discharged to home alone. They would like to either see the patient placed in a SNF or with 24 hour home health care. Patient is incontinent frequently since he has difficulty ambulating himself to the restroom. Patient's mood declined substantially since going to [facility]. Maricel reports that the patient has always been known to make inappropriate sexual comments and odd statements in an attempt to joke with people. She would like to see the patient started on a medication for depression" Allergies Allergy/AdvReac Type Severity Reaction Status Date / Time CASSANDRA Inhibitors Allergy Unknown Unknown Verified 03/13/24 21:58 latex Allergy Rash Verified 03/13/24 21:58 Home Medications Medication Instructions Recorded Confirmed Type aspirin 81 mg tablet,delayed 81 mg PO DAILY 30 days #30 tabs 02/24/24 03/13/24 Rx release clopidogrel 75 mg tablet 75 mg PO QAM 30 days #30 tabs 02/24/24 03/13/24 Rx insulin glargine 100 unit/mL (3 10 unit (0.1 mL) subcut QAM #3 mL 02/24/24 03/13/24 Rx mL) subcutaneous pen (Lantus Solostar U-100 Insulin) metoprolol succinate 25 mg 25 mg PO QAM 30 days #30 tabs 02/24/24 03/13/24 Rx tablet,extended release 24 hr metformin 500 mg tablet,extended 500 mg PO AMPM 03/13/24 03/13/24 History release 24 hr ondansetron HCl 4 mg tablet 4 mg PO Q8H PRN n/v 03/13/24 03/13/24 History rosuvastatin 40 mg tablet 40 mg PO QAM 03/13/24 03/13/24 History Patient History Medical History Osteoarthritis Lung nodule Anemia ICD (implantable cardioverter-defibrillator) in place 2010 IMPLANTED Cardiac arrest 2010 Myocardial Infarction 2002 Hypertension Surgical History History of arthroscopy of knee History of anesthesia reaction APPY PROCEDURE-COULDN'T BREATHE>COMBATIVE History of arthroscopy RT History of appendectomy History of colonoscopy History of vascular access device A-PORT INSERTION History of tooth extraction History of heart artery stent 2002 (1 STENT) History of cardiac cath 2002 Family History Father Diabetes Sister Congenital heart disease Diabetes Mother Hypertension Brother Myocardial infarction Denies family history of Ovarian cancer Prostate cancer Breast cancer Colorectal cancer Social History Smoking Status: Current every day smoker Tobacco Type: Cigarettes Cigarettes Per Day: 10; Second Hand Exposure: No; Do You Dip or Chew Tobacco: No; Hx Alcohol Use: No Hx Substance Use: No Preferred Language: Lao Communication Ability: Effective Childhood Teacher Required: No Beliefs That Will Affect Care: None Current Living Situation: Alone Current Living Situation Comment: home alone Other Information That Helps Us Care for You: No Feels Safe at Home: Yes Safety Concerns: Feels Safe At This Time caffeine: Yes Assistive Devices: Cane and Walker Physical Exam Mental Examination: Appearance: Unkempt Eye Contact: Diverts Contact (often times looks away and loses attention) Motor Behavior: Unremarkable Speech: Delayed Mood: Dyphoric Affect: Appropriate (reactive) and Happy Thought Process: Intact and Linear Thought Content: Slowed Thinking Hallucinations: None Insight: Poor Judgement: Poor Vital Signs (Past 24 Hours): Last Vital Signs Temp 36.7 C 03/14/24 14:36 Pulse 59 L 03/14/24 14:36 Resp 17 03/14/24 14:36 BP 131/75 03/14/24 14:36 Pulse Ox 98 03/14/24 14:36 O2 Del Method Room Air 03/14/24 14:36 Results & Data (PSY) Medications Administered Aspirin (Aspirin 81 Mg Ectab) 81 mg PO DAILY CRISTINA Stop: 04/13/24 08:59 Last Admin: 03/14/24 08:14 Dose: 81 mg Documented By: ADB Clopidogrel Bisulfate (Clopidogrel Bisulfate 75 Mg Tab) [facility] [place] Stop: 04/13/24 08:59 Last Admin: 03/14/24 08:15 Dose: 75 mg Documented By: ANDRIA Heparin Sodium (Porcine) (Heparin Sod 5,000 Unit/0.5 Ml Vial) 5,000 units SQ Q8 [facility] Stop: 04/13/24 05:59 Last Admin: 03/14/24 05:36 Dose: 5,000 units Documented By: JIMMIE Promethazine HCl (Phenergan) 6.25 mg in 50.25 mls @ 201 mls/hr IV Q6H PRN PRN Reason: Nausea And Vomiting Stop: 04/13/24 00:03 Last Infusion: 03/14/24 12:26 Dose: Infused Documented By: Admin: 03/14/24 12:11 Dose: 201 mls/hr Documented By: ANRDIA Insulin Aspart (Insulin Aspart Per Unit Charge) 0 units SC ACHS [facility] Stop: 04/13/24 02:43 Last Admin: 03/14/24 12:21 Dose: Not Given Documented By: Admin: 03/14/24 08:18 Dose: Not Given Documented By: Admin: 03/14/24 03:14 Dose: Not Given Documented By: JIMMIE Co-signed By: BETZY Metoprolol Succinate (Metoprolol Succ 25mg Ext Rel Tab) [address] [facility] Stop: 04/13/24 08:59 Last Admin: 03/14/24 08:15 Dose: 25 mg Documented By: ANDRIA Rosuvastatin Calcium (Rosuvastatin Calcium 20 Mg Tab) [address] 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
--- NOTE | 2024-03-14 16:06 | Hospitalist Progress Note ---
Date of Service March 14, 2024 Assessment & Plan (1) Intractable nausea and vomiting: Plan: very poor oral intake x 1 week 30Lb weight loss in 2 weeks in acute renal failure secondary to poor intake possible gastroparesis, gastritis/ulcer? Protonix 40mg BID Phenergan Q6h soft diet, NPO post midnight GI consulted for EGD (2) ARF (acute renal failure): Plan: Outpatient creatinine progressively worsening from outpatient draw February 25, 2024 Likely secondary to decreased p.o. intake and home medications crea still at 3 Nephro consulted 1/2 nss with HCO3 ordered Possible post CVA depression Psych consulted Sertraline 25mg po daily started Left foot poor pedal pulse, small ecchymoses Doppler US ordered chronic systolic heart failure (EF 45 to 50%, TTE 2023), patient on the dry side cardiac arrest status post ICD hx CAD status post stent/ PVD hypertension, stable hyperlipidemia, on statin Rx DM 2 insulin requiring, hypoglycemic episode documented at the ER likely from home insulin given current kidney dysfunction, suboptimal baseline control with hemoglobin A1c of 11.1 this month hx CLL s/p chemotherapy hx lung nodules past tobacco abuse medication noncompliance as per records Possible deconditioning PT OT eval DVT prophylaxis. Heparin subcu Full code for now as per family. plan of care discussed with patient and his family at bedside in detail and at length all questions answered they are understanding, agreeable, comfortable with the plan of care Admission and Anticipated Discharge Date Admission Date: March 14, 2024 Subjective ff up for persistent nausea/vomiting, etc seen resting in bed, sleeping but easily awakened appears tired, unmotivated reports 1 week history of nausea/vomiting, non bloody, 2 loose bm's per day, poor appetite, lost at least 30 lbs per family in 2 weeks has not been tolerating any food/drink for the past week denies abdominal pain, fever/chills no other new symptoms Review of Systems Review of Systems: all noted and negative except for above Physical Exam Physical Exam: General- oriented x 3, not in distress, speaks in sentences with no effort or accessory muscle use Head- atraumatic Eyes- PERRL, EOMI, anicteric ENT- oropharynx clear Neck- supple, no JVD, no adenopathy, no thyromegaly; carotids +2/2, no bruits appreciated Lungs- clear to auscultation bilaterally, no rales/wheezes Heart- normal rate, regular rhythm; no murmur, no gallop, no rub appreciated Abdomen- normal bowel sounds, nondistended, soft, nontender, no masses or hepatosplenomegaly Extremities- no pretibial edema, no calf tenderness; peripheral pulses intact Left foot: (+) small area of ecchymoses on the tip of toes #3 and #4 Neuro- alert, oriented x 3; CN 2-12 grossly intact; motor 5/5 bilaterally;sensation 50% on lower extremities; no other gross focal neurologic deficits Skin- warm & dry Results & Data Results & Data Vital Signs (Past 12 Hours) Vital Signs Temp Pulse Resp BP Pulse Ox O2 Del Method 03/14/24 14:36 36.7 C 59 L 17 131/75 98 Room Air 03/14/24 08:30 Room Air 03/14/24 07:05 36.4 C L 68 16 169/83 H 98 Room Air all noted and reviewed including below
--- NOTE | 2024-03-14 17:55 | Ultrasound Report ---
ULTRASOUND LEFT LOWER EXTREMITY ARTERIAL CLINICAL HISTORY: Left leg pain. COMPARISON STUDY: No priors. TECHNIQUE: Real-time grayscale and color Doppler sonography of the arteries of the left lower extremi ty is performed from the inguinal crease to the foot. FINDINGS: Atherosclerotic plaque and irregularity is seen throughout the arteries of the left lower e xtremity. There are triphasic arterial waveforms in the common femoral artery with velocities measuri ng up to 133 cm/s. The profunda femoris artery is patent with velocities measuring up to 135 cm/s. Th ere are triphasic waveforms throughout the superficial, femoral and popliteal arteries. Velocities in the superficial femoral artery measure up to 115 cm/s and velocities in the popliteal artery measure up to 61 cm/s. There is three-vessel runoff to the foot. Velocities throughout the calf arteries debra sure up to 88 cm/s. The dorsalis pedis artery is patent with velocities measuring up to 31 cm/s. IMPRESSION: Atherosclerotic plaque with no sonographic evidence of high-grade stenosis or focal vesse l cut off throughout the arteries of the left lower extremity. Dictated: 03/14/2024 5:18 PM Transcribed: 03/14/2024 5:23 PM Stan [id number] [email or web address] Electronically signed by: Deepak Manuel M.D. 03/14/2024 5:54 PM
[2024-03-14] MEDS: PROMETHAZINE 6.25 MG/50.25 ML BAG IV SCH (17:57)
[2024-03-14] MEDS: PANTOprazole 40 MG in SYRINGE 0 ML IV SCH (17:57)
[2024-03-15] MEDS: INSULIN ASPART PER UNIT CHARGE SC SCH ×2 (05:48→22:49)
[2024-03-15] MEDS: SERTRALINE HCL 50 MG TABLET PO SCH (08:43)
--- NOTE | 2024-03-15 08:58 | Anesthesiology Consultation ---
Date of Service March 15, 2024 Assessment & Plan Chart Review Chart Review: Acceptable Risk for Surgery, Patient NOT seen in Pre Admission Testing and order entry initiated Consults Requested none Proposed Anesthesia Anesthesia Type: MAC History Surgery Operation Date: 03/15/24 17:40 Proposed Procedures p Esophagogastroduodenoscopy Junie Zaman MD Height/Weight Height: 6 ft 2 in Weight: 96.5 kg Allergies Allergy/AdvReac Type Severity Reaction Status Date / Time CASSANDRA Inhibitors Allergy Unknown Unknown Verified 03/13/24 21:58 latex Allergy Rash Verified 03/13/24 21:58 Medications Home Medications Medication Instructions Recorded Confirmed Last Taken aspirin 81 mg tablet,delayed 81 mg PO DAILY 30 days #30 tabs 02/24/24 03/13/24 Unknown release clopidogrel 75 mg tablet 75 mg PO QAM 30 days #30 tabs 02/24/24 03/13/24 Unknown insulin glargine 100 unit/mL (3 10 unit (0.1 mL) subcut QAM #3 mL 02/24/24 03/13/24 Unknown mL) subcutaneous pen (Lantus Solostar U-100 Insulin) metoprolol succinate 25 mg 25 mg PO QAM 30 days #30 tabs 02/24/24 03/13/24 Unknown tablet,extended release 24 hr metformin 500 mg tablet,extended 500 mg PO AMPM 03/13/24 03/13/24 Unknown release 24 hr ondansetron HCl 4 mg tablet 4 mg PO Q8H PRN n/v 03/13/24 03/13/24 Unknown rosuvastatin 40 mg tablet 40 mg PO QAM 03/13/24 03/13/24 Unknown Active Medications Generic Name Dose Route Start Last Admin Trade Name Freq PRN Reason Stop Dose Admin Aspirin 81 mg 03/14/24 09:00 03/15/24 08:42 Aspirin 81 Mg Ectab PO 04/13/24 08:59 81 mg DAILY CRISTINA Administration Clopidogrel Bisulfate 75 mg 03/14/24 09:00 03/15/24 08:43 Clopidogrel Bisulfate 75 Mg Tab PO 04/13/24 08:59 75 mg QAM CRISTINA Administration Heparin Sodium (Porcine) 5,000 units 03/14/24 06:00 03/15/24 05:39 Heparin Sod 5,000 Unit/0.5 Ml Vial SQ 04/13/24 05:59 5,000 units Q8 CRISTINA Administration Sodium Bicarbonate 75 meq/ 1,080 mls @ 80 mls/hr 03/14/24 14:30 03/15/24 06:00 Potassium Chloride 10 meq/ IV 04/13/24 14:29 80 mls/hr Sodium Chloride .[id number] CRISITNA Infusion Pantoprazole Sodium 40 mg/ 10 mls @ 5 mls/min 03/14/24 15:30 03/15/24 08:42 Syringe IV 04/13/24 15:29 5 mls/min BID CRISTINA Administration Promethazine HCl 6.25 mg in 50.25 mls @ 201 mls/hr 03/14/24 18:00 03/15/24 06:00 Phenergan IV 04/13/24 17:59 Infused Q6H CRISTINA Infusion Insulin Aspart 0 units 03/15/24 06:00 03/15/24 05:48 Insulin Aspart Per Unit Charge SC 04/14/24 05:59 Not Given Q6 CRISTINA Metoprolol Succinate 25 mg 03/14/24 09:00 03/15/24 08:43 Metoprolol Succ 25mg Ext Rel Tab PO 04/13/24 08:59 Not Given QAM CRISTINA Rosuvastatin Calcium 40 mg 03/14/24 09:00 03/15/24 08:43 Rosuvastatin Calcium 20 Mg Tab PO 04/13/24 08:59 40 mg QAM CRISTINA Administration Sertraline HCl 25 mg 03/15/24 09:00 03/15/24 08:43 Sertraline Hcl 50 Mg Tablet PO 04/14/24 08:59 25 mg QAM CRISTINA Administration Past Medical History Medical History Osteoarthritis Lung nodule Anemia ICD (implantable cardioverter-defibrillator) in place 2010 IMPLANTED Cardiac arrest 2010 Myocardial Infarction 2003 Hypertension Past Family History Family History Father Diabetes Sister Congenital heart disease Diabetes Mother Hypertension Brother Myocardial infarction Denies family history of Ovarian cancer Prostate cancer Breast cancer Colorectal cancer Past Surgical History Surgical History History of arthroscopy of knee History of anesthesia reaction APPY PROCEDURE-COULDN'T BREATHE>COMBATIVE History of arthroscopy RT History of appendectomy History of colonoscopy History of vascular access device A-PORT INSERTION History of tooth extraction History of heart artery stent 2002 (1 STENT) History of cardiac cath 2002 Social History Smoking Status: Current every day smoker tobacco type: cigarettes Smoking cigarettes per day: 10 Do You Dip or Chew Tobacco: No Hx Alcohol Use: No Alcohol type: beer alcohol intake frequency: holidays/special occasions only Hx Substance Use: No substance use type: does not use Physical Exam Vital Signs Last Vital Signs Temp 36.9 C 03/15/24 08:15 Pulse 55 L 03/15/24 08:15 Resp 14 03/15/24 08:15 BP 146/76 H 03/15/24 08:15 Pulse Ox 98 03/15/24 08:15 O2 Del Method Room Air 03/15/24 08:15 Testing Laboratory Results 03/14/24 05:47 03/14/24 05:47 Urine Color Yellow 03/13/24 20:20 Urine Appearance Turbid (Clear) A 03/13/24 20:20 Urine pH 5.0 (4.5-7.5) 03/13/24 20:20 Ur Specific Chauncey 1.017 (1.000-1.030) 03/13/24 20:20 Urine Protein 3+ (Negative) H 03/13/24 20:20 Urine Glucose (UA) Negative (Negative) 03/13/24 20:20 Urine Ketones Trace (Negative) H 03/13/24 20:20 Urine Nitrite Negative (Negative) 03/13/24 20:20 Ur Leukocyte Esterase Negative (Negative) 03/13/24 20:20 Urine WBC (Auto) 6-10 /hpf (0-5) H 03/13/24 20:20 Urine RBC (Auto) 0-2 /hpf (0-2) 03/13/24 20:20 U Hyaline Cast (Auto) >20 /lpf (0-2) H 03/13/24 20:20 U Epithel Cells (Auto) >20 /hpf (0-2) H 03/13/24 20:20 Urine Bacteria (Auto) None Seen (None Seen) 03/13/24 20:20 03/15/24 05:46 POC Glucose 83 Electrocardiogram Date: 03/13/24 Blood Pressure : */* mmHG Vent. Rate : 80 BPM Atrial Rate : 80 BPM P-R Int : 178 ms QRS Dur : 102 ms QT Int : 404 ms P-R-T Axes : 47 -18 100 degrees QTcB Int : 465 ms Normal sinus rhythm Old Inferior infarct , age undetermined Old Anteroseptal infarct (cited on or before 26-Oct-2016) Left ventricular hypertrophy with repolarization abnormality Abnormal ECG When compared with ECG of 23-Feb-2024 05:05, No significant change Confirmed by Indio Couch ([id number]) on 03/14/2024 8:03:31 AM Chest X-Ray Date: 03/13/24 TECHNIQUE: Single frontal radiograph of the chest was obtained. Comparison: Comparison is made to chest radiograph 12/19/2017 FINDINGS: Pacemaker defibrillator is seen. The cardiomediastinal silhouette is normal. Lungs are underinflated but clear. No evidence of pleural effusion or pneumothorax. IMPRESSION: No acute chest disease. Echocardiogram Date: 02/22/24 EF: 45-50 LV Function: dysfunctional RWMA: + akinetic and + hypokinetic Other Findings: + LVH (mod) and + diastolic dysfunction (grade 1)
--- NOTE | 2024-03-15 09:58 | Gastrointestinal Consultation ---
Date of Consultation March 15, 2024 Assessment & Plan (1) Intractable nausea and vomitin63 year old male with history of chronic systolic heart failure (EF 45 to 50%, TTE 2023), cardiac arrest status post ICD, CAD status post stent, CVA, PVD, hypertension, hyperlipidemia, DM 2 insulin requiring, CLL s/p chemotherapy, lung nodules, GERD, past tobacco abuse, medication noncompliance admitted with abd pain, nausea/vomiting and weight loss. DDX discussed: gastritis, esophagitis, PUD, gastroparesis vs other Maintain NPO status for EGD Pending results, may consider GES given history of T2DM, A1C 11.1 We appreciate assistance in the management of any serological abnormality and corrections to include: hemoglobin >7, INR <2, platelets >50,000, potassium levels >3.5 but <5.3, and sodium levels within 5 points of the reference range prior to endoscopic evaluation. Thank you for allowing us to participate in the care of this patient. Please call with any acute changes, questions or concerns. Please see addendum below with additional recommendation from my supervising physician. I spent a total of 60 minutes on the date of service in review of patient's record, and previously obtained information in person and appropriate medical visit, discussion and education of plan, with patient and/or caregiver, placing orders for tests/referral/procedures as medically necessary and documentation of pertinent clinical information in patient's medical records for their visit today. Supervising Physician Co-Signing Physician Notes I personally saw and examined the patient. I have reviewed the chart and agree with the documentation provided by the [employer] SPECIALIST including discussion about the assessment, treatment and plan. Briefly, 63 year old male with history of chronic systolic heart failure (EF 45 to 50%, TTE 2023), cardiac arrest status post ICD, CAD status post stent, CVA, PVD, hypertension, hyperlipidemia, DM 2 insulin requiring, CLL s/p chemotherapy, lung nodules, GERD, past tobacco abuse, medication noncompliance admitted with intractable nausea/vomiting. + 31 lbs weight loss in 1 month with some early satiety. EGD first to eval to r/o mechanical issue: pud, du gastritis. IF negative, proceed with solid phase gastric emptying study. History of Present Illness Reason for Consultation: nausea/vomiting, weight loss Requesting Physician: Carlos Attending Physician: Oren Gonzalez MD History of Present Illness 63 year old male with history of chronic systolic heart failure (EF 45 to 50%, TTE 2023), cardiac arrest status post ICD, CAD status post stent, CVA, PVD, hypertension, hyperlipidemia, DM 2 insulin requiring, CLL s/p chemotherapy, lung nodules, GERD, past tobacco abuse, medication noncompliance admitted with intractable nausea/vomiting - GI asked to evaluate. He notes he has had generalized abd pain for many months. Associated with frequent bouts of nausea/emesis. Emesis is bilious or food. Does not see black or bloody. No GERD. No heartburn. No dysphagia. Stools alternate at baseline. Denies black or bloody stools. CTAP 2023: Liver: Unremarkable. Gallbladder and bile ducts: The gallbladder is distended. No evidence of gallstones or wall thickening. No ductal dilation. Pancreas: Unremarkable. No ductal dilation. Spleen: Punctate calcifications within the spleen. Adrenals: Unremarkable. No mass. Kidneys and ureters: Punctate nonobstructing bilateral renal calculi. No hydroureteronephrosis. Stomach and bowel: Scattered diverticula. No obstruction. No mucosal thickening. EGD: none Colonoscopy 2018: - The examined portion of the ileum was normal. - No abnormalities seen in the transverse colon. - Two 6 mm polyps in the ascending colon, removed with a cold snare. Resected and retrieved. - Diverticulosis in the ascending colon. - One 4 mm polyp in the rectum, removed with a cold snare. Resected and retrieved. - Non-bleeding internal hemorrhoids. Allergies Allergy/AdvReac Type Severity Reaction Status Date / Time CASSANDRA Inhibitors Allergy Unknown Unknown Verified 03/15/24 11:16 latex Allergy Rash Verified 03/15/24 11:16 Home Medications Medication Instructions Recorded Confirmed Type aspirin 81 mg tablet,delayed 81 mg PO DAILY 30 days #30 tabs 02/24/24 03/13/24 Rx release clopidogrel 75 mg tablet 75 mg PO QAM 30 days #30 tabs 02/24/24 03/13/24 Rx insulin glargine 100 unit/mL (3 10 unit (0.1 mL) subcut QAM #3 mL 02/24/24 03/13/24 Rx mL) subcutaneous pen (Lantus Solostar U-100 Insulin) metoprolol succinate 25 mg 25 mg PO QAM 30 days #30 tabs 02/24/24 03/13/24 Rx tablet,extended release 24 hr metformin 500 mg tablet,extended 500 mg PO AMPM 03/13/24 03/13/24 History release 24 hr ondansetron HCl 4 mg tablet 4 mg PO Q8H PRN n/v 03/13/24 03/13/24 History rosuvastatin 40 mg tablet 40 mg PO QAM 03/13/24 03/13/24 History Patient History Medical History Osteoarthritis Lung nodule Anemia ICD (implantable cardioverter-defibrillator) in place 2010 IMPLANTED Cardiac arrest 2010 Myocardial Infarction 2002 Hypertension Surgical History History of arthroscopy of knee History of anesthesia reaction APPY PROCEDURE-COULDN'T BREATHE>COMBATIVE History of arthroscopy RT History of appendectomy History of colonoscopy History of vascular access device A-PORT INSERTION History of tooth extraction History of heart artery stent 2002 (1 STENT) History of cardiac cath 2002 Family History Father Diabetes Sister Congenital heart disease Diabetes Mother Hypertension Brother Myocardial infarction Denies family history of Ovarian cancer Prostate cancer Breast cancer Colorectal cancer Social History Smoking Status: Current every day smoker Tobacco Type: Cigarettes Cigarettes Per Day: 10; Second Hand Exposure: No; Do You Dip or Chew Tobacco: No; Hx Alcohol Use: No Hx Substance Use: No Preferred Language: Irish Communication Ability: Effective 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 Physical Exam Constitutional: WD/WN, vitals as above Respiratory: normal respiratory effort Cardiovascular: Rate/Rhythm: regular rate and regular rhythm Gastrointestinal (Abdomen): normal bowel sounds, soft, nontender, no hepatosplenomegaly Skin: no rashes, warm and dry Results & Data Vital Signs (Past 12 Hours) Vital Signs Temp Pulse Pulse Resp BP Pulse Ox O2 Del Method 03/15/24 08:15 36.9 C 55 L 14 146/76 H 98 Room Air 03/15/24 07:01 36.7 C 68 20 148/78 H 98 Room Air Laboratory Results 03/15/24 03/14/24 03/14/24 Range/Units 05:46 20:49 17:15 POC Glucose 83 80 87 (70-99) mg/dl 03/14/24 Range/Units 11:45 POC Glucose 87 (70-99) mg/dl PG Care Time/CCT Total # of Minutes Spent Total Time Spent with Patient: Total time spent is greater than 50% in coordination of care (as documented) at patient's floor/unit and/or counseling patient: Coding Level of Care Code 40540 IN/OBS CONSULT LVL 4,60M Diagnoses Intractable nausea and vomiting R11.2
--- NOTE | 2024-03-15 10:30 | Nephrology Progress Note ---
Date of Service March 15, 2024 Assessment & Plan (1) ARF (acute renal failure): Plan: plateau'd and until yesterday slowly improving presume nonoliguric stage 2 JOANIE baseline creatinine 1.2 at recent hospital d/c from here. Admitted 03/13 w/ creatinine 3.4 in the setting of poor po intake + emesis/diarrhea. improved to 3.0 03/14 w/ 3L IVF. UA notable for ketonuria, nephritic sediment, no e/o infection. 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 -no fluid limit; no specific food needs from CKD stand point -mindful of borderline heart function / EF and minimal po intake, will change 1/2 NS w/ 75 mEq/L sodium bicarb and 10 K mEq/L continuous to 1/2 NS w/ 30 mEq/L K same rate > should help some w/ HTN (2) Hypertension: Plan: uncontrolled on last readings; and no report of n/v; should have some improvement with IVF change above; also added amlodipine 5 mg daily first dose today; else continue metoprolol and monitor Admission and Anticipated Discharge Date Admission Date: March 14, 2024 Subjective no interval events except EGD w/ small hiatal hernia and gastritis, gastric polyps. tells me he's eating welll, no sob, no edema, no uncontrolled pain Review of Systems 2 Review of Systems: All systems reviewed & are unremarkable except as noted in Subjective Physical Exam 2 Constitutional: well developed, well nourished, + physical limitations (can't sit up w/o asst) and + lethargic (not dosing but tired in interview/exam); no acute distress Eyes: EOM intact bilaterally ENMT: Ears: no external ear abnormality Nose: no external nose abnormality Mouth: + dry oral mucous membranes Neck: no nuchal rigidity Respiratory: normal respiratory effort Auscultation: + diminished lung sounds Cardiovascular: RRR, no murmur, no edema Gastrointestinal (Abdomen): Inspection/Auscultation: normal bowel sounds P ercussion/Palpation: abdomen soft; abdomen nontender Musculoskeletal: Extremities: strength 5/5 throughout Skin: no rashes, warm and dry Psychiatric: Orientation: alert and oriented x 3 Insight: + limited insight Results & Data Vital Signs (Past 12 Hours) Vital Signs Temp Pulse Pulse Resp BP Pulse Ox O2 Del Method 03/15/24 08:15 36.9 C 55 L 14 146/76 H 98 Room Air 03/15/24 07:01 36.7 C 68 20 148/78 H 98 Room Air Laboratory Results 03/15/24 10:16 03/15/24 10:16 (2) Hypertension Hypertension type: unspecified Qualified Code(s): I10 - Essential (primary) hypertension
[2024-03-15 10:49] LABS: Basophils # (auto) 0.04 K/uL (0.00-0.20); Basophils % (auto) 0.6 %; Eosinophils # (auto) 0.15 K/uL (0.00-0.50); Eosinophils % (auto) 2.1 %; Hematocrit (blood only) 36.9 % (42.0-52.0); Hemoglobin 13.3 g/dl (14.0-18.0); Immature Granulocytes # (auto) 0.03 K/uL (0.01-0.20); Immature Granulocytes % (auto) 0.4 %; Lymphocytes # (auto) 1.44 K/uL (1.20-3.40); Lymphocytes % (auto) 20.5 %; Mean Corpuscular Hemoglobin 30.2 pg (25.0-34.0); Mean Corpuscular Volume 83.7 fL (80.0-100.0); Mean Platelet Volume 10.1 fL (9.4-12.4); Monocytes # (auto) 0.42 K/uL (0.11-0.59); Neutrophils # (auto) 4.94 K/uL (1.40-6.50); Neutrophils % (auto) 70.4 %; Platelet Count 194 K/uL (130-400); RDW Coefficient of Variation 12.4 % (11.5-14.5); RDW Standard Deviation 37.9 fL (36.4-46.3); Red Blood Count 4.41 M/uL (4.70-6.10); White Blood Count 7.02 K/ul (4.8-10.8)
[2024-03-15 11:06] LABS: BUN Creatinine Ratio 14.7 (10-20); Calcium 8.8 mg/dl (8.6-10.3); Creatinine Clr Calc Pharmacy 29.9 ml/min; Est GFR (African American) 25.6 ml/min; Est GFR (Non-African American) 22.1 ml/min; Potassium 3.8 mmol/L (3.5-5.1)
[2024-03-15] MEDS ORDERED: SIMETHICONE (ENDO) IR PRN (11:34)
--- NOTE | 2024-03-15 13:30 | GI REPORT ---
[facility] Patient: BRY CRAWFORD : 1960 Sex at : Male Age: 63 Years Procedure: Upper GI endoscopy Date: 03/15/2024 Attending Physician: Edward Zaman MD Referring MD: CALEB HILL Indications: - Nausea with vomiting - Weight loss Medications: - Monitored Anesthesia Care Complications: - No immediate complications., No immediate complications. Estimated Blood Loss: - Estimated blood loss: None. Procedure: - Prior to the procedure, a History and Physical was performed, and patient medications and allergies were reviewed. The patient's tolerance of previous anesthesia was also reviewed. The risks and benefits of the procedure and the sedation options and risks were discussed with the patient. All questions were answered, and informed consent was obtained. Prior Anticoagulants: The patient has taken Plavix (clopidogrel), last dose was day of procedure. ASA Grade Assessment: III - A patient with severe systemic disease. After reviewing the risks and benefits, the patient was deemed in satisfactory condition to undergo the procedure. - The egd scope was introduced through the mouth and advanced to the third part of the duodenum. - The upper GI endoscopy was accomplished without difficulty. - The patient tolerated the procedure well. - The upper GI endoscopy was accomplished without difficulty. - The patient tolerated the procedure well. Findings: - A small hiatal hernia was present. - Patchy moderate inflammation characterized by erythema was found in the entire examined stomach. No biopsies done as on asa, plavix and sc heparin. - A few semi-sessile polyps were found in the gastric body. - The examined duodenum was normal. Impression: - Small hiatal hernia. - Acute gastritis, characterized by erythema. - No biopsies done as on asa, plavix and sc heparin. - A few gastric polyps. - Normal examined duodenum. - No specimens collected. Recommendation: - Discharge patient to home (ambulatory). - Resume previous diet. - Continue present medications. - Await pathology results. - Resume Plavix (clopidogrel) at prior dose today. - Return to primary care physician as previously scheduled. - Patient has a contact number available for emergencies. The signs and symptoms of potential delayed complications were discussed with the patient. Return to normal activities tomorrow. Written discharge instructions were provided to the patient. - Discharge patient to home (ambulatory). - Resume previous diet. - Continue present medications. - Await pathology results. - Return to primary care physician as previously scheduled. - Patient has a contact number available for emergencies. The signs and symptoms of potential delayed complications were discussed with the patient. Return to normal activities tomorrow. Written discharge instructions were provided to the patient. - Check h pylori stool antigen, Check a solid phase gastric emptying study. GI will sign off. Procedure Code(s): - 25012, Esophagogastroduodenoscopy, flexible, transoral; diagnostic, including collection of specimen(s) by brushing or washing, when performed (separate procedure) Diagnosis Code(s): - R11.2, Nausea with vomiting, unspecified - R63.4, Abnormal weight loss - K44.9, Diaphragmatic hernia without obstruction or gangrene - K29.00, Acute gastritis without bleeding - K31.7, Polyp of stomach and duodenum CPT(R) - 2022 copyright [employer]. All Rights Reserved. The CPT codes, CCI edits and ICD codes generated are intended as suggestions and were generated based on input data. These codes are preliminary and upon senior javascript developer review may be revised to meet current compliance and payer requirements. The provider is responsible for the final determination of appropriate codes, and modifiers. Edward Zaman MD This document has been electronically signed. Note Initiated:03/15/2024 Note Completed:03/15/2024 1:29 PM \\[email or web address]\Results\[id number]
--- NOTE | 2024-03-15 13:36 | Anesthesiology Progress Note ---
Date of Service March 15, 2024 Anesthesia Post Procedure Vital Signs Vital Signs: Temp Pulse Pulse Resp BP BP Pulse Ox 03/15/24 13:29 62 18 160/86 H 100 03/15/24 13:13 57 L 18 127/71 97 03/15/24 12:58 66 16 105/57 L 97 03/15/24 11:19 36.3 C L 59 L 16 170/78 H 98 03/15/24 08:15 36.9 C 55 L 14 146/76 H 98 03/15/24 07:01 36.7 C 68 20 148/78 H 98 03/14/24 20:50 36.8 C 63 18 134/72 98 03/14/24 14:36 36.7 C 59 L 17 131/75 98 O2 Del Method 03/15/24 13:29 Room Air 03/15/24 13:13 Room Air 03/15/24 12:58 Room Air 03/15/24 11:19 Room Air 03/15/24 08:15 Room Air 03/15/24 07:01 Room Air 03/14/24 20:50 Room Air 03/14/24 14:36 Room Air Pain Intensity Abdomen: Pain Intensity: 0 Transfer of Care Handoff Completed per policy Notes Mental Status: alert / awake / arousable and participated in evaluation Patient Amnestic to Procedure: Yes Nausea / Vomiting: adequately controlled Pain: adequately controlled Airway Patency, RR, SpO2: stable & adequate BP & HR: stable & adequate Hydration State: stable & adequate Anesthetic Complications: no major complications apparent
--- NOTE | 2024-03-15 13:57 | Hospitalist Progress Note ---
Date of Service March 15, 2024 delayed entry date of service noted above Assessment & Plan (1) Intractable nausea and vomiting: Plan: very poor oral intake x 1 week 30 lb weight loss in 2 weeks in acute renal failure secondary to poor intake possible gastroparesis, gastritis/ulcer? Protonix 40mg BID Phenergan Q6h soft diet, NPO post midnight GI consulted for EGD 03/15 Status post EGD: Moderate gastritis, polyps Biopsies not performed as patient on aspirin and Plavix Discussed with GI Continue Protonix IV, Phenergan scheduled Advance diet to soft (2) ARF (acute renal failure): Plan: Outpatient creatinine progressively worsening from outpatient draw February 25, 2024 Likely secondary to decreased p.o. intake and home medications crea still at 3 Nephro consulted / nss with HCO3 ordered 03/15 crea 2.8 continue IV fluids with HCO3 Possible post CVA depression Psych consulted Sertraline 25mg po daily started Left foot poor pedal pulse, small ecchymoses Doppler US ordered: Atherosclerotic plaque with no sonographic evidence of high- grade stenosis or focal vessel cut off throughout the arteries of the left lower extremity. 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 Heparin subcu Full code for now as per family. plan of care discussed with patient and his family at bedside in detail and at length all questions answered they are understanding, agreeable, comfortable with the plan of care Admission and Anticipated Discharge Date Admission Date: March 14, 2024 Subjective Follow-up for intractable nausea /vomiting, etc. Seen status post EGD Patient is resting in bed, comfortable, not in distress States he feels a little bit better today Less nausea, no abdominal pain Appetite still poor but requesting for hashbrowns No other new symptoms Review of Systems Review of Systems: all noted and negative except for above Physical Exam Physical Exam: General- oriented x 3, not in distress, speaks in sentences with no effort or accessory muscle use Eyes- anicteric Neck- no JVD Lungs- clear breath sounds bilaterally, no rales/wheezes Heart- normal rate, regular rhythm; no murmurs Abdomen- normal bowel sounds, nondistended, soft, nontender Extremities- no pretibial edema, no calf tenderness Neuro- alert, oriented x 3; no gross focal neurologic deficits Skin- warm & dry Results & Data Results & Data Vital Signs (Past 12 Hours) Vital Signs Temp Pulse Pulse Resp BP BP Pulse Ox 03/15/24 13:29 62 18 160/86 H 100 03/15/24 13:13 57 L 18 127/71 97 03/15/24 12:58 66 16 105/57 L 97 03/15/24 11:19 36.3 C L 59 L 16 170/78 H 98 03/15/24 08:15 36.9 C 55 L 14 146/76 H 98 03/15/24 07:01 36.7 C 68 20 148/78 H 98 O2 Del Method 03/15/24 13:29 Room Air 03/15/24 13:13 Room Air 03/15/24 12:58 Room Air 03/15/24 11:19 Room Air 03/15/24 08:15 Room Air 03/15/24 07:01 Room Air all noted and reviewed including below
[2024-03-15] MEDS: SODIUM CHLORIDE 0.9% 500 ML IV SCH (14:00)
[2024-03-15] MEDS: LIDOCAINE 2% 2 ML VIAL/AMP(20MG/ML) INFIL ONE (14:00)
[2024-03-15] MEDS: PROPOFOL IV EMULSION 10 MG/ML 20 ML VIAL IV ONE (14:01)
[2024-03-15] MEDS ORDERED: Nursing to Pharmacy Communication SCH (19:45)
[2024-03-16 07:39] LABS: BUN Creatinine Ratio 11.6 (10-20); Calcium 8.7 mg/dl (8.6-10.3); Creatinine Clr Calc Pharmacy 28.4 ml/min; Est GFR (Non-African American) 20.7 ml/min; Potassium 3.6 mmol/L (3.5-5.1)
[2024-03-16 08:37] LABS: Urea Nitrogen, Random Urine 595 mg/dL
--- NOTE | 2024-03-16 11:12 | Hospitalist Progress Note ---
Date of Service March 16, 2024 Assessment & Plan (1) Intractable nausea and vomiting: Plan: very poor oral intake x 1 week 30 lb weight loss in 2 weeks in acute renal failure secondary to poor intake possible gastroparesis, gastritis/ulcer? Protonix 40mg BID Phenergan Q6h soft diet, NPO post midnight GI consulted for EGD 03/15 Status post EGD: Moderate gastritis, polyps Biopsies not performed as patient on aspirin and Plavix Discussed with GI Continue Protonix IV, Phenergan scheduled Advance diet to soft (2) ARF (acute renal failure): Plan: Outpatient creatinine progressively worsening from outpatient draw February 25, 2024 Likely secondary to decreased p.o. intake and home medications crea still at 3 Nephro consulted 07/25 nss with HCO3 ordered 03/15 crea 2.8 continue IV fluids with HCO3 03/16 Creatinine remains at 3.0 Continue IV fluids with bicarbonate Nephrology service on board, appreciate the recommendations Possible post CVA depression Psych consulted Sertraline 25mg po daily started Left foot poor pedal pulse, small ecchymoses Doppler US ordered: Atherosclerotic plaque with no sonographic evidence of high- grade stenosis or focal vessel cut off throughout the arteries of the left lower extremity. 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 Heparin subcu Full code for now as per family. plan of care discussed with patient and his family at bedside in detail and at length all questions answered they are understanding, agreeable, comfortable with the plan of care Admission and Anticipated Discharge Date Admission Date: March 14, 2024 Subjective Follow-up for intractable nausea vomiting, etc. Seen resting in bed, sleeping but easily awakened Patient states he feels improved this morning No nausea, abdominal pain Would like to try cereal, banana etc. for breakfast No headache, dizziness, chest pain, palpitations, shortness of breath No other symptoms Review of Systems Review of Systems: all noted and negative except for above Physical Exam Physical Exam: General- oriented x 3, not in distress, speaks in sentences with no effort or accessory muscle use Eyes- anicteric Neck- no JVD Lungs- clear breath sounds bilaterally, no rales/wheezes Heart- normal rate, regular rhythm; no murmurs Abdomen- normal bowel sounds, nondistended, soft, nontender Extremities- no pretibial edema, no calf tenderness Neuro- alert, oriented x 3; no gross focal neurologic deficits Skin- warm & dry Results & Data Results & Data Vital Signs (Past 12 Hours) Vital Signs Temp Pulse Resp BP Pulse Ox O2 Del Method 03/16/24 07:33 36.6 C 72 16 149/79 H 97 Room Air 03/16/24 07:30 Room Air 03/16/24 04:39 67 15 166/73 H 97 Room Air 03/15/24 23:58 36.3 C L 66 15 155/72 H 97 Room Air
[2024-03-16] MEDS: amLODIPine BESYLATE 5 MG TAB PO ONE (13:19)
[2024-03-16] MEDS: POTASSIUM CHLORIDE 30 MEQ in SODIUM CHLORIDE 0.45 % 1,000 ML IV SCH (17:08)
[2024-03-17 05:43] LABS: Urine Potassium 38.6 mmol/L
[2024-03-17 06:04] LABS: Appearance Urine Turbid (Clear); Bacteria Urine Automated 1+ (None Seen); Bilirubin Urine Negative (Negative); Blood Urine 2+ (Negative); Cast Urine Automated >20 /lpf (0-2); Color Urine Yellow; Glucose Urine UA 1+ (Negative); Ketones Urine 2+ (Negative); Leukocyte Esterase Urine Negative (Negative); Nitrite Urine Negative (Negative); Protein Urine 2+ (Negative); RBC Urine Automated 0-2 /hpf (0-2); Specific Gravity Urine 1.013 (1.000-1.030); Urobilinogen Urine Negative (Negative)
[2024-03-17 07:44] LABS: BUN Creatinine Ratio 10.1 (10-20); Calcium 8.7 mg/dl (8.6-10.3); Creatinine Clr Calc Pharmacy 28.7 ml/min; Est GFR (African American) 24.3 ml/min; Potassium 3.7 mmol/L (3.5-5.1)
[2024-03-17] MEDS: amLODIPine BESYLATE 5 MG TAB PO SCH (08:37)
--- NOTE | 2024-03-17 11:13 | Nephrology Progress Note ---
Date of Service March 17, 2024 Assessment & Plan (1) ARF (acute renal failure): Plan: plateau'd x 48 hrs, and until 03/15 slowly improving presume nonoliguric stage 2 JOANIE from ischemic ATN >> combination of uncontrolled HTN and poor po intake baseline creatinine 1.2 at recent hospital d/c from here. Admitted 03/13 w/ creatinine 3.4 in the setting of poor po intake + emesis/diarrhea. improved to 3.0 03/14 w/ 3L IVF. UA notable for ketonuria, nephritic sediment, no e/o infection at admission; still w/ ketonuria 03/17. abd CT non con w/ acute findings; notable for punctate BL stones and diffuse severe aortic plaque. 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 -no fluid limit; no specific food needs from CKD stand point >>still w/ ketonuria on UA, which confirms he's still eating poorly Care coordinated w/ Dr Gonzalez (2) Hypertension: Plan: uncontrolled on last readings x days; in the setting of ischemic cardiomyopathy, hx of sudden cardiac s/p successful resuscitation, w/ mild chronic systolic HF (EF 45% 2023) and ICD in place; no report of emesis on scheduled phenergan; as of 03/16, IVF should not contribute; also added amlodipine 5 mg daily first dose 03/16; else continue metoprolol and monitor >pls check bp q 4h for now -increased amlodipine to 10 mg daily, starting today -increased toprol XL to 50 mg daily starting 03/17 >reluctant to add diuretic or ceci/arb w/ JOANIE > could consider hydralazine -low threshold to check orthostatics Admission and Anticipated Discharge Date Admission Date: March 14, 2024 Subjective no interval events clinically. remains quite tired, taking at most a few bites to eat daily; ongoing N and w/ getting up to commode w/ vertigo; no sob; BLUQ pain endorsed Review of Systems 2 Review of Systems: All systems reviewed & are unremarkable except as noted in Subjective Physical Exam 2 Constitutional: well developed, well nourished, + physical limitations (can't sit up w/o asst) and + lethargic (again not dosing but tired in interview/exam); no acute distress Eyes: EOM intact bilaterally ENMT: Ears: no external ear abnormality Nose: no external nose abnormality Mouth: + dry oral mucous membranes Neck: no nuchal rigidity Respiratory: normal respiratory effort Auscultation: + diminished lung sounds Cardiovascular: RRR, no murmur, no edema Gastrointestinal (Abdomen): Inspection/Auscultation: normal bowel sounds P ercussion/Palpation: abdomen soft; abdomen nontender Musculoskeletal: Extremities: strength 5/5 throughout Skin: no rashes, warm and dry Psychiatric: Orientation: alert and oriented x 3 Insight: + limited insight Results & Data Vital Signs (Past 12 Hours) Vital Signs Temp Pulse Resp BP Pulse Ox O2 Del Method 03/17/24 07:36 37.1 C 63 16 167/80 H 98 Room Air Laboratory Results 03/15/24 10:16 03/17/24 06:12 (2) Hypertension Hypertension type: unspecified Qualified Code(s): I10 - Essential (primary) hypertension
[2024-03-17] MEDS: METOPROLOL SUCC 25MG EXT REL TAB PO ONE (11:47)
[2024-03-17] MEDS: amLODIPine BESYLATE 5 MG TAB PO ONE (12:10)
--- NOTE | 2024-03-17 15:17 | Hospitalist Progress Note ---
Date of Service March 17, 2024 Assessment & Plan (1) Intractable nausea and vomiting: Plan: very poor oral intake x 1 week 30 lb weight loss in 2 weeks in acute renal failure secondary to poor intake possible gastroparesis, gastritis/ulcer? Protonix 40mg BID Phenergan Q6h soft diet, NPO post midnight GI consulted for EGD 03/15 Status post EGD: Moderate gastritis, polyps Biopsies not performed as patient on aspirin and Plavix Discussed with GI Continue Protonix IV, Phenergan scheduled Advance diet to soft 03/16 continue Protonix, Phenergan scheduled doses if with persistent n/v, will request GI to re-evaluate patient in AM Emergency Medcl Emt on boad (2) ARF (acute renal failure): Plan: Outpatient creatinine progressively worsening from outpatient draw February 25, 2024 Likely secondary to decreased p.o. intake and home medications crea still at 3 Nephro consulted 07/25 nss with HCO3 ordered 03/15 crea 2.8 continue IV fluids with HCO3 03/16 Creatinine remains at 3.0 Continue IV fluids with bicarbonate Nephrology service on board, appreciate the recommendations 03/17 crea the same discussed with Nephro MRA to r/o renal artery stenosis planned HTN - Amlodipine increased to 10mg daily Possible post CVA depression Psych consulted Sertraline 25mg po daily started Left foot poor pedal pulse, small ecchymoses Doppler US ordered: Atherosclerotic plaque with no sonographic evidence of high- grade stenosis or focal vessel cut off throughout the arteries of the left lower extremity. Severe Malnutrition - Emergency Medcl Emt consulted chronic systolic heart failure (EF 45 to 50%, TTE 2023) - patient on the dry side cardiac arrest status post ICD hx CAD status post stent/ PVD hyperlipidemia, on statin Rx DM 2 insulin requiring -- on ISS monitor closely hx CLL s/p chemotherapy hx lung nodules past tobacco abuse medication noncompliance as per records Possible deconditioning PT OT eval DVT prophylaxis. Heparin subcu Full code for now as per family. Admission and Anticipated Discharge Date Admission Date: March 14, 2024 Subjective ff up for Persistent nausea, poor appetite, acute renal failure, etc. Seen resting in bed, sleeping but easily awakened Inquiring when he can go home Explained medical treatment is still in progress Had some nausea and 1 episode of vomiting this morning Appetite still poor No other new symptoms Review of Systems Review of Systems: all noted and negative except for above Physical Exam Physical Exam: General- oriented x 3, not in distress, speaks in sentences with no effort or accessory muscle use Eyes- anicteric Neck- no JVD Lungs- clear breath sounds bilaterally, no crackles/wheezing Heart- normal rate, regular rhythm; no murmurs Abdomen- normal bowel sounds, nondistended, soft, nontender Extremities- no pretibial edema, no calf tenderness Neuro- alert, oriented x 3; no gross focal neurologic deficits Skin- warm & dry Results & Data Results & Data Vital Signs (Past 12 Hours) Vital Signs Temp Pulse Resp BP Pulse Ox O2 Del Method 03/17/24 14:32 37.3 C 72 18 112/58 L 99 Room Air 03/17/24 11:18 70 175/83 H 98 Room Air 03/17/24 07:36 37.1 C 63 16 167/80 H 98 Room Air all noted and reviewed including below
[2024-03-18 06:03] LABS: Total Protein Urine Random 143.2 mg/dl (0-11.9)
[2024-03-18 06:09] LABS: Creatinine Urine Random 69.8 mg/dl; Protein Creatinine Ratio Urine 2.1 (0-0.2)
[2024-03-18 07:36] LABS: BUN Creatinine Ratio 8.8 (10-20); Calcium 8.7 mg/dl (8.6-10.3); Creatinine Clr Calc Pharmacy 28.8 ml/min; Est GFR (African American) 24.4 ml/min; Est GFR (Non-African American) 21.1 ml/min; Potassium 3.4 mmol/L (3.5-5.1)
[2024-03-18] MEDS: amLODIPine BESYLATE 5 MG TAB PO SCH (07:51)
[2024-03-18] MEDS: METOPROLOL SUCC 50MG EXT REL TAB PO SCH (07:52)
--- NOTE | 2024-03-18 11:00 | Nephrology Progress Note ---
Date of Service March 18, 2024 Assessment & Plan Admission and Anticipated Discharge Date Admission Date: March 14, 2024 Subjective Assessment & Plan (1) ARF (acute renal failure): Plan: Slowly improving nonoliguric JOANIE from ischemic ATN >> combination of uncontrolled HTN and poor po intake in Susceptible vasculopathic patient. baseline creatinine 1.2 at recent hospital d/c from here. Admitted 03/13 w/ creatinine 3.4 in the setting of poor po intake + emesis/diarrhea. improved to 3.0 03/14 w/ 3L IVF but no furtehr improvement since then very unlikely GN but GN workup done and pending. abd CT non con w/ acute findings. notable for punctate BL stones and diffuse severe aortic plaque. on today's labs creat about same as yesterday 2.97 and seems to have plateaued around 3 No need of Iv fluid. Most likely he has some e/o fluid overload but no need to push diuretics yet. no fluid limit; no specific food needs from CKD stand point K is low and give 40 meq today. patient is barely interactive and has no insight about all his health problems. Given Long standing DM and Severe Diffuse PVD his renal recovery will be very slow and sometime not complete. He needs nephrology f/u after discharge Plan above discussed with Dr Gonzalez and in agreement. (2) Hypertension: Plan: uncontrolled on last readings x days; in the setting of ischemic cardiomyopathy, hx of sudden cardiac s/p successful resuscitation, w/ mild chronic systolic HF (EF 45% 2023) and ICD in place reluctant to add diuretic or ceci/arb w/ JOANIE > could consider hydralazine. BP is likely higher from some degree of Fluid retention with ATN. Subjective no interval events clinically. remains quite tired. Poor oral intake of food. NO SOB and on RA. BP is still high most times. Sister present at bedside. Review of Systems Review of Systems: All systems reviewed & are unremarkable except as noted in Subjective Physical Exam Constitutional: well developed, well nourished, + physical limitations (can't sit up w/o asst) and + lethargic (again not dosing but tired in interview/exam); no acute distress Eyes: EOM intact bilaterally ENMT: Ears: no external ear abnormality Nose: no external nose abnormality Mouth: + dry oral mucous membranes Neck: no nuchal rigidity Respiratory: normal respiratory effort Auscultation: + diminished lung sounds Cardiovascular: RRR, no murmur, no edema Gastrointestinal (Abdomen): Inspection/Auscultation: normal bowel sounds Percussion/Palpation: abdomen soft; abdomen nontender Musculoskeletal: Extremities: strength 5/5 throughout Skin: no rashes, warm and dry Psychiatric: Orientation: alert and oriented x 3 Insight: + limited insight Results & Data Vital Signs (Past 12 Hours) Vital Signs Temp Pulse Resp BP Pulse Ox O2 Del Method 03/18/24 07:58 36.6 C 64 16 172/84 H 99 Room Air 03/18/24 07:45 Room Air
[2024-03-18 11:46] LABS: Hep B Surface Ag with confirm Negative (Negative)
[2024-03-18 11:47] LABS: Hep C Ab Rflx HepCQuant RNA Negative (Negative)
[2024-03-18] MEDS: POTASSIUM CHLORIDE CRTAB 20 MEQ TABCR PO STA (12:11)
--- NOTE | 2024-03-18 17:52 | Hospitalist Progress Note ---
Date of Service March 18, 2024 delayed entry date of service noted above Assessment & Plan (1) Intractable nausea and vomiting: Plan: (1) Intractable nausea and vomiting: (2) ARF (acute renal failure): (3) Acute dehydration: (4) CVA (cerebral vascular accident): (5) Diabetes: (6) HTN (hypertension): (7) CAD (coronary artery disease): Plan: (1) Intractable nausea and vomiting Possible gastroparesis, uncontrolled DM type II Gastritis Plan: very poor oral intake x 1 week 30 lb weight loss in 2 weeks in acute renal failure secondary to poor intake Protonix 40mg BID Scheduled Phenergan Q6h soft diet, NPO post midnight 03/15 Status post EGD: Moderate gastritis, polyps Biopsies not performed as patient on aspirin and Plavix Continue Protonix IV, Phenergan scheduled Advance diet to soft GI symptoms seems to be better Able to eat 25 to 30% of meals now No recurrence of nausea or vomiting 03/18 appetite somewhat improving GI symptoms mostly resolved Continue Protonix, scheduled Phenergan, slowly wean off accordingly Quill Reamer on board (2) ARF (acute renal failure): Plan: Outpatient creatinine progressively worsening from outpatient draw February 25, 2024 Likely secondary to decreased p.o. intake and home medications Nephro consulted 1/2 nss with HCO3 ordered Glomerulonephritis panel ordered, pending Creatinine has not improved much, from 3.0, currently 2.7 May take a while to see improvement as per nephro HTN - Amlodipine increased to 10mg daily Metoprolol also increased Hydralazine 25 mg p.o. twice daily added - Monitor closely Possible post CVA depression Psych consulted Sertraline 25mg po daily started denies suicidal ideation Left Foot, Dorsal Aspect, Wound Wounds, Tip of 4th and 5th toes Doppler US ordered: Atherosclerotic plaque with no sonographic evidence of high- grade stenosis or focal vessel cut off throughout the arteries of the left lower extremity. 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 Heparin subcu Full code for now as per family. Disposition Anticipate to transition to acute rehab or SNF when accepted Admission and Anticipated Discharge Date Admission Date: March 14, 2024 Subjective ff up for acute renal failure, etc seen resting in bed, comfortable states he feels ok overall no recurrence of abdominal pain, nausea trying to eat more no other symptoms Review of Systems Review of Systems: all noted and negative except for above Physical Exam Physical Exam: General- oriented x 3, not in distress, speaks in sentences with no effort or accessory muscle use Eyes- anicteric Neck- no JVD Lungs- clear breath sounds bilaterally, no crackles/wheezing Heart- normal rate, regular rhythm; no murmurs Abdomen- normal bowel sounds, nondistended, soft, no tenderness Extremities- no pretibial edema, no calf tenderness Neuro- alert, oriented x 3; no gross focal neurologic deficits Skin- warm & dry Results & Data Results & Data Vital Signs (Past 12 Hours) Vital Signs Temp Pulse Pulse Resp BP Pulse Ox O2 Del Method 03/18/24 14:44 37.0 C 59 L 16 152/74 H 100 Room Air 03/18/24 12:36 36.4 C L 56 L 15 138/78 98 Room Air 03/18/24 07:58 36.6 C 64 16 172/84 H 99 Room Air 03/18/24 07:45 Room Air all noted and reviewed including below
--- NOTE | 2024-03-18 18:37 | XRay Report ---
XR foot LT min 3V routine CLINICAL HISTORY: wound COMPARISON: Left ankle radiographs March 26, 2022. FINDINGS: Alignment of the left foot is anatomic. Tarsometatarsal joints are intact. No acute fractu res within the left foot are identified. No areas of bony erosion to suggest acute osteomyelitis are noted. There is moderate vascular calcification. 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 IMPRESSION: No fractures or evidence for acute osteomyelitis within the left foot. ACT 112: Negative or not required by law. Electronically signed by: Cody Lawson M.D. 03/18/2024 6:35 PM
[2024-03-19 07:49] LABS: BUN Creatinine Ratio 7.8 (10-20); Calcium 8.7 mg/dl (8.6-10.3); Creatinine Clr Calc Pharmacy 31.8 ml/min; Est GFR (African American) 27.6 ml/min; Est GFR (Non-African American) 23.8 ml/min; Potassium 3.5 mmol/L (3.5-5.1)
--- NOTE | 2024-03-19 09:16 | Orthopedic Consultation ---
Date of Consultation March 19, 2024 Assessment & Plan (1) Wound of foot: Findings discussed with patient and . I think care needs to be taken to avoid pressure on the toes with blankets etc. Also with shoe wear. The blood blisters are dried and unroofed. I do not think anything further needs to be done surgically. X-rays look fine and the circulation appears to be acceptable. Will discuss with vascular to see if any further intervention is needed. Will consult the wound care nurse for her assistance. The patient would benefit from outpatient diabetic foot care in the diabetic foot clinic if he is not already a patient there. He may follow-up as needed. May weight-bear as tolerated. History of Present Illness Attending Physician: Oren Gonzalez MD History of Present Illness The patient is 63 years old and has multiple medical problems. He has been admitted to the hospital for medical reasons. He and his report that he has had some black spots on the left foot for about a week. There is not been any injury. He may have had some pressure on the toes or got them tangled up in some blankets. Allergies Allergy/AdvReac Type Severity Reaction Status Date / Time CASSANDRA Inhibitors Allergy Unknown Unknown Verified 03/15/24 11:16 latex Allergy Rash Verified 03/15/24 11:16 Home Medications Medication Instructions Recorded Confirmed Type aspirin 81 mg tablet,delayed 81 mg PO DAILY 30 days #30 tabs 02/24/24 03/13/24 Rx release clopidogrel 75 mg tablet 75 mg PO QAM 30 days #30 tabs 02/24/24 03/13/24 Rx insulin glargine 100 unit/mL (3 10 unit (0.1 mL) subcut QAM #3 mL 02/24/24 03/13/24 Rx mL) subcutaneous pen (Lantus Solostar U-100 Insulin) metoprolol succinate 25 mg 25 mg PO QAM 30 days #30 tabs 02/24/24 03/13/24 Rx tablet,extended release 24 hr metformin 500 mg tablet,extended 500 mg PO AMPM 03/13/24 03/13/24 History release 24 hr ondansetron HCl 4 mg tablet 4 mg PO Q8H PRN n/v 03/13/24 03/13/24 History rosuvastatin 40 mg tablet 40 mg PO QAM 03/13/24 03/13/24 History Patient History Medical History Osteoarthritis Lung nodule Anemia ICD (implantable cardioverter-defibrillator) in place 2010 IMPLANTED Cardiac arrest 2010 Myocardial Infarction 2002 Hypertension Surgical History History of arthroscopy of knee History of anesthesia reaction APPY PROCEDURE-COULDN'T BREATHE>COMBATIVE History of arthroscopy RT History of appendectomy History of colonoscopy History of vascular access device A-PORT INSERTION History of tooth extraction History of heart artery stent 2002 (1 STENT) History of cardiac cath 2002 Family History Father Diabetes Sister Congenital heart disease Diabetes Mother Hypertension Brother Myocardial infarction Denies family history of Ovarian cancer Prostate cancer Breast cancer Colorectal cancer Social History Smoking Status: Current every day smoker Tobacco Type: Cigarettes Cigarettes Per Day: 10; Second Hand Exposure: No; Do You Dip or Chew Tobacco: No; Hx Alcohol Use: No Hx Substance Use: No Preferred Language: Occitan Communication Ability: Effective Sales & Service Associate Required: No Beliefs That Will Affect Care: None Current Living Situation: Alone Current Living Situation Comment: home alone Other Information That Helps Us Care for You: No Feels Safe at Home: Yes Safety Concerns: Feels Safe At This Time caffeine: Yes Assistive Devices: Cane Physical Exam Physical Exam: DP and PT pulses are nonpalpable but they are dopplerable. 5 out of 5 ankle and toe plantarflexion dorsiflexion inversion and eversion strength. Claw toe deformities. Multiple superficial abrasions on the dorsum of the foot and toes benign in appearance. There are two 4 to 5 mm hardened blood blisters over the tips of the fourth and fifth toes. No surrounding cellulitis. These are manually debrided with the patient's permission and skin is trimmed back. These involve the epidermis only. The dermis is intact but raw. There is no exposed bone no erythema drainage or purulence.No swelling. Reports intact sensation.Foot appears to be neutrally aligned Results & Data Vital Signs (Past 12 Hours) Vital Signs Temp Pulse Pulse Resp BP Pulse Ox O2 Del Method 03/19/24 06:56 37.0 C 58 L 16 167/78 H 99 Room Air 03/18/24 23:18 36.3 C L 58 L 16 161/81 H 97 Room Air 03/18/24 22:03 Room Air Laboratory Results X-rays noted and reviewed. They are negative. Ultrasound of the left leg is noted and reviewed showing apparent triphasic flow into the foot.
--- NOTE | 2024-03-19 10:23 | Nephrology Progress Note ---
Date of Service March 19, 2024 Assessment & Plan Admission and Anticipated Discharge Date Admission Date: March 14, 2024 Subjective Assessment & Plan (1) ARF (acute renal failure): Plan: Slowly improving nonoliguric JOANIE from ischemic ATN >> combination of uncontrolled HTN and poor po intake in Susceptible vasculopathic patient. baseline creatinine 1.2 at recent hospital d/c from here. Admitted 03/13 w/ creatinine 3.4 in the setting of poor po intake + emesis/diarrhea. improved to 3.0 03/14 w/ 3L IVF but no furtehr improvement since then very unlikely GN but GN workup done and pending. abd CT non con w/ acute findings. notable for punctate BL stones and diffuse severe aortic plaque. No need of Iv fluid. Most likely he has some e/o fluid overload but no need to push diuretics yet. no fluid limit. No specific food needs from CKD stand point K is borderline and give 20 meq today. hgb and PLT normal/Acceptable range on today's labs creat better than yesterday at 2.6 and urine output also picked up a lot. So hopefully creat will start trending down faster. He has some degree of urine retention as he has PVRU of about 200 ml last checked. will check again today. No need of castaneda--better to avoid as much as possible and allow the bladder function to normalize to baseline patient is barely interactive and has no insight about all his health problems. Given Long standing DM and Severe Diffuse PVD his renal recovery will be slow and sometime not complete. He needs nephrology f/u after discharge Plan above discussed with Dr Gonzalez and in agreement. Discussed in detail with Sister at the bedside (2) Hypertension: Plan: uncontrolled on last readings x days; in the setting of ischemic cardiomyopathy, hx of sudden cardiac s/p successful resuscitation, w/ mild chronic systolic HF (EF 45% 2023) and ICD in place reluctant to add diuretic or ceci/arb w/ JOANIE > could consider hydralazine. BP is likely higher from some degree of Fluid retention with ATN. Given recovering JOANIE acceptable to allow somewhat high BP for now. Subjective no interval events clinically. remains quite tired and barely interactive. Poor oral intake of food. NO SOB and on RA. BP is still high most times. Sister present at bedside. Urine did go up a lot. Has some urine retention also. PVRU about 200 ml. Review of Systems Review of Systems: All systems reviewed & are unremarkable except as noted in Subjective Physical Exam Constitutional: well developed, well nourished, + physical limitations (can't sit up w/o asst) and + lethargic (again not dosing but tired in interview/exam); no acute distress Eyes: EOM intact bilaterally ENMT: Ears: no external ear abnormality Nose: no external nose abnormality Mouth: + dry oral mucous membranes Neck: no nuchal rigidity Respiratory: normal respiratory effort Auscultation: + diminished lung sounds Cardiovascular: RRR, no murmur, no edema Gastrointestinal (Abdomen): Inspection/Auscultation: normal bowel sounds Percussion/Palpation: abdomen soft; abdomen nontender Musculoskeletal: Extremities: strength 5/5 throughout Skin: no rashes, warm and dry Psychiatric: Orientation: alert and oriented x 3 Insight: + limited insight Results & Data Vital Signs (Past 12 Hours) Vital Signs Temp Pulse Pulse Resp BP Pulse Ox O2 Del Method 03/19/24 06:56 37.0 C 58 L 16 167/78 H 99 Room Air 03/18/24 23:18 36.3 C L 58 L 16 161/81 H 97 Room Air
[2024-03-19] MEDS: hydrALAZINE HCL 25 MG TAB PO SCH (10:40)
[2024-03-19] MEDS: ACETAMINOPHEN 325 MG TAB PO PRN (10:40)
[2024-03-19] MEDS: POTASSIUM CHLORIDE 20 MEQ/15 ML UDC PO STA (12:30)
--- NOTE | 2024-03-19 17:02 | Hospitalist Progress Note ---
Date of Service March 19, 2024 Assessment & Plan (1) Intractable nausea and vomiting: (2) ARF (acute renal failure): (3) Acute dehydration: (4) CVA (cerebral vascular accident): (5) Diabetes: (6) HTN (hypertension): (7) CAD (coronary artery disease): Plan: (1) Intractable nausea and vomiting Possible gastroparesis, uncontrolled DM type II Gastritis Plan: very poor oral intake x 1 week 30 lb weight loss in 2 weeks in acute renal failure secondary to poor intake Protonix 40mg BID Scheduled Phenergan Q6h soft diet, NPO post midnight 03/15 Status post EGD: Moderate gastritis, polyps Biopsies not performed as patient on aspirin and Plavix Continue Protonix IV, Phenergan scheduled Advance diet to soft GI symptoms seems to be better Able to eat 25 to 30% of meals now No recurrence of nausea or vomiting Continue Protonix, scheduled Phenergan, slowly wean off accordingly Salt Operator on board (2) ARF (acute renal failure): Plan: Outpatient creatinine progressively worsening from outpatient draw February 25, 2024 Likely secondary to decreased p.o. intake and home medications Nephro consulted 1/2 nss with HCO3 ordered Glomerulonephritis panel ordered, pending Creatinine has not improved much, from 3.0, currently 2.7 May take a while to see improvement as per nephro HTN - Amlodipine increased to 10mg daily Metoprolol also increased Hydralazine 25 mg p.o. twice daily added - Monitor closely Possible post CVA depression Psych consulted Sertraline 25mg po daily started denies suicidal ideation Left Foot, Dorsal Aspect, Wound Wounds, Tip of 4th and 5th toes Doppler US ordered: Atherosclerotic plaque with no sonographic evidence of high- grade stenosis or focal vessel cut off throughout the arteries of the left lower extremity. - Orthopedic surgery consulted Blood blisters and removed at bedside No other surgical intervention per Ortho Wound care service consulted Follow-up with vascular surgery as an outpatient Severe Malnutrition - Due to poor oral intake - Salt Operator consulted chronic systolic heart failure (EF 45 to 50%, TTE 2023) - patient on the dry side Given IV fluids cardiac arrest status post ICD hx CAD status post stent/ PVD hyperlipidemia, on statin Rx DM 2 --Uncontrolled --A1c 11 Needs better control personal development educator to be consulted -- on ISS monitor closely hx CLL s/p chemotherapy hx lung nodules past tobacco abuse medication noncompliance as per records PT OT eval DVT prophylaxis. Heparin subcu Full code for now as per family. Disposition Anticipate to transition to acute rehab or SNF when accepted Admission and Anticipated Discharge Date Admission Date: March 14, 2024 Subjective Follow-up for recent CVA, poor appetite, nausea and vomiting, acute renal failure, etc. Seen resting in bed, sleeping but easily awakened States he feels okay overall No recurrence of nausea or vomiting today, had a few bites of breakfast No abdominal pain Ambulated in the hallways with physical therapy, denies dizziness or shortness of breath No problems with voiding No other new symptoms Review of Systems Review of Systems: all noted and negative except for above Physical Exam Physical Exam: General- oriented x 3, not in distress, speaks in sentences with no effort or accessory muscle use Eyes- anicteric Neck- no JVD Lungs- clear breath sounds bilaterally, no rales/wheezes Heart- normal rate, regular rhythm; no murmurs Abdomen- normal bowel sounds, nondistended, soft, nontender Extremities- Right foot: Essentially normal Left foot: Small open wound tip of fourth and fifth toes Small open wound dorsal lateral aspect of the foot No bleeding or discharge, no erythema or tenderness Neuro- alert, oriented x 3; no new gross focal neurologic deficits Skin- warm & dry Results & Data Results & Data Vital Signs (Past 12 Hours) Vital Signs Temp Pulse Resp BP Pulse Ox O2 Del Method 03/19/24 14:39 36.9 C 71 16 153/80 H 99 Room Air 03/19/24 06:56 37.0 C 58 L 16 167/78 H 99 Room Air all noted and reviewed including below (4) CVA (cerebral vascular accident) CVA mechanism: unspecified Qualified Code(s): I63.9 - Cerebral infarction, unspecified (7) CAD (coronary artery disease) Associated angina: without angina Coronary Disease-Associated Artery/Lesion type: [place] artery [place] vs. transplanted heart: [place] heart Qualified Code(s): I25.10 - Atherosclerotic heart disease of [place] coronary artery without angina pectoris
[2024-03-20 07:01] LABS: BUN Creatinine Ratio 6.8 (10-20); Calcium 8.5 mg/dl (8.6-10.3); Creatinine Clr Calc Pharmacy 34.4 ml/min; Est GFR (African American) 30.2 ml/min; Est GFR (Non-African American) 26.1 ml/min; Potassium 3.2 mmol/L (3.5-5.1)
[2024-03-20 08:22] LABS: Albumin 2.9 g/dL (3.8-4.8); Alpha 1 Globulin 0.3 g/dL (0.2-0.3); Alpha 2 Globulin 0.7 g/dL (0.5-0.9); Beta-1-Globulin 0.3 g/dL (0.4-0.6); Beta-2-Globulin 0.4 g/dL (0.2-0.5); Gamma Globulin 0.6 g/dL (0.8-1.7); Monoclonal Protein Band 1 DNR g/dL (NONE DETECTED); Monoclonal Protein Band 2 DNR g/dL (NONE DETECTED); Monoclonal Protein Band 3 DNR g/dL (NONE DETECTED); Total Protein 5.3 g/dL (6.1-8.1)
--- NOTE | 2024-03-20 10:13 | Nephrology Progress Note ---
Date of Service March 20, 2024 Assessment & Plan Admission and Anticipated Discharge Date Admission Date: March 14, 2024 Subjective Assessment & Plan (1) ARF (acute renal failure): Plan: Slowly improving nonoliguric JOANIE from ischemic ATN >> combination of uncontrolled HTN and poor po intake in Susceptible vasculopathic patient. baseline creatinine 1.2 at recent hospital d/c from here. Admitted 03/13 w/ creatinine 3.4 in the setting of poor po intake + emesis/diarrhea. improved to 3.0 03/14 w/ 3L IVF but no furtehr improvement since then very unlikely GN but GN workup done and pending. abd CT non con w/ acute findings. notable for punctate BL stones and diffuse severe aortic plaque. No need of Iv fluid. Most likely he has some e/o fluid overload but no need to push diuretics yet. no fluid limit. No specific food needs from CKD stand point K is low again at 3.2 and give 40 meq today. hgb and PLT normal/Acceptable range on today's blood work. on today's labs creat better than yesterday at 2.4 and urine output also picked up. So hopefully creat will start trending down faster. But Given Long standing DM and Severe Diffuse PVD his renal recovery will be slow and sometime not complete. He has some degree of urine retention as he has PVRU of about 140 ml last checked. No need of castaneda--better to avoid as much as possible and allow the bladder function to normalize to baseline. patient is barely interactive and has no insight about all his health problems. He needs nephrology f/u after discharge Plan above discussed with Dr Gonzalez and in agreement. Discussed in detail with Sister at the bedside (2) Hypertension: Plan: uncontrolled on last readings first few days; in the setting of ischemic cardiomyopathy, hx of sudden cardiac s/p successful resuscitation, w/ mild chronic systolic HF (EF 45% 2023) and ICD in place reluctant to add diuretic or ceci/arb w/ JOANIE BP is now normal. on Amlo and adding Hydralazine Subjective no interval events clinically. remains quite tired and barely interactive. Poor oral intake of food. NO SOB and on RA. BP is still high most times. Sister present at bedside. Urine did go up a lot. Has some urine retention also. PVRU about 140 ml. Review of Systems Review of Systems: All systems reviewed & are unremarkable except as noted in Subjective Physical Exam Constitutional: well developed, well nourished, + physical limitations (can't sit up w/o asst) and + lethargic (again not dosing but tired in interview/exam); no acute distress Eyes: EOM intact bilaterally ENMT: Ears: no external ear abnormality Nose: no external nose abnormality Mouth: + dry oral mucous membranes Neck: no nuchal rigidity Respiratory: normal respiratory effort Auscultation: + diminished lung sounds Cardiovascular: RRR, no murmur, no edema Gastrointestinal (Abdomen): Inspection/Auscultation: normal bowel sounds Percussion/Palpation: abdomen soft; abdomen nontender Musculoskeletal: Extremities: strength 5/5 throughout Skin: no rashes, warm and dry Psychiatric: Orientation: alert and oriented x 3 Insight: + limited insight Results & Data Vital Signs (Past 12 Hours) Vital Signs Temp Pulse Resp BP Pulse Ox O2 Del Method 03/20/24 07:51 37.0 C 66 15 114/58 L 99 Room Air
[2024-03-20] MEDS: POTASSIUM CHLORIDE CRTAB 20 MEQ TABCR PO STA (11:43)
[2024-03-20] MEDS: POLYETHYLENE (MIRALAX) 17 GM PACK PO SCH (13:08)
--- NOTE | 2024-03-20 16:11 | Hospitalist Progress Note ---
Date of Service March 20, 2024 Assessment & Plan (1) Intractable nausea and vomiting: (2) ARF (acute renal failure): (3) Acute dehydration: (4) CVA (cerebral vascular accident): (5) Diabetes: (6) HTN (hypertension): (7) CAD (coronary artery disease): Plan: (1) Intractable nausea and vomiting Possible gastroparesis, uncontrolled DM type II Gastritis Plan: Patient presented with poor oral intake, nausea and weight loss in acute renal failure secondary to poor intake 03/15:Status post EGD: Moderate gastritis, polyps. Biopsies not performed as patient on aspirin and Plavix Protonix 40mg BID Started on Zyprexa 2.5 at bedtime for persistent nausea. Discussed with family at bedside; they are agreeable for trial. (2) ARF (acute renal failure): Plan: Outpatient creatinine progressively worsening from outpatient draw February 25, 2024 Likely secondary to decreased p.o. intake and home medications Nephro consulted ; patient received iv fluids. Glomerulonephritis panel ordered, pending Creatinine has not improved much, from 3.0, currently 2.49 May take a while to see improvement as per nephro HTN - Amlodipine increased to 10mg daily Metoprolol also increased Hydralazine 25 mg p.o. twice daily added - Monitor closely Possible post CVA depression Psych consulted Sertraline 25mg po daily started denies suicidal ideation Left Foot, Dorsal Aspect, Wound Wounds, Tip of 4th and 5th toes Doppler US ordered: Atherosclerotic plaque with no sonographic evidence of high- grade stenosis or focal vessel cut off throughout the arteries of the left lower extremity. - Orthopedic surgery consulted Blood blisters and removed at bedside No other surgical intervention per Ortho Wound care service consulted Follow-up with vascular surgery as an outpatient Severe Malnutrition - Due to poor oral intake - Housekeeper Manager consulted chronic systolic heart failure (EF 45 to 50%, TTE 2023) - patient on the dry side Given IV fluids cardiac arrest status post ICD hx CAD status post stent/ PVD hyperlipidemia, on statin Rx DM 2 --Uncontrolled --A1c 11 Needs better control art educator to be consulted -- on ISS monitor closely hx CLL s/p chemotherapy hx lung nodules past tobacco abuse medication noncompliance as per records PT OT eval DVT prophylaxis. Heparin subcu Full code for now as per family. Disposition Anticipate to transition to acute rehab or SNF when accepted Discussed with patient's daughter and sister at bedside. Answer questions/queries Time spent evaluating patient, direct bedside care, chart review, placing orders, interpretation of diagnostic studies, discussion with consultants, mamta ent, and family members, as well as other required patient management activities is 50 minutes Please note the above document was generated using voice recognition software. It may contain grammatical, syntax or spelling errors. Any formal questions or concerns about the content, text or information contained within the body of this dictation should be directly addressed to the provider for clarification Admission and Anticipated Discharge Date Admission Date: March 14, 2024 Subjective Patient seen and examined at bedside He reports his appetite has slightly improved He has not had bowel movement Still continues to report feeling nauseou Review of Systems Review of Systems: All systems reviewed & are unremarkable except as noted in Subjective Physical Exam Physical Exam: General- oriented x 3, not in distress, speaks in sentences with no effort or accessory muscle use Eyes- anicteric Neck- no JVD Lungs- clear breath sounds bilaterally, no rales/wheezes Heart- normal rate, regular rhythm; no murmurs Abdomen- normal bowel sounds, nondistended, soft, nontender Extremities- Right foot: Essentially normal Left foot: Small open wound tip of fourth and fifth toes Small open wound dorsal lateral aspect of the foot No bleeding or discharge, no erythema or tenderness Neuro- alert, oriented x 3; no new gross focal neurologic deficits Skin- warm & dry Results & Data Results & Data Vital Signs (Past 12 Hours) Vital Signs Temp Pulse Pulse Resp BP BP Pulse Ox 03/20/24 14:11 36.3 C L 61 16 116/59 L 96 03/20/24 13:14 36.2 C L 62 16 132/78 99 03/20/24 07:51 37.0 C 66 15 114/58 L 99 O2 Del Method 03/20/24 14:11 Room Air 03/20/24 13:14 Room Air 03/20/24 07:51 Room Air (4) CVA (cerebral vascular accident) CVA mechanism: unspecified Qualified Code(s): I63.9 - Cerebral infarction, unspecified (7) CAD (coronary artery disease) Associated angina: without angina Coronary Disease-Associated Artery/Lesion type: [place] artery [place] vs. transplanted heart: [place] heart Qualified Code(s): I25.10 - Atherosclerotic heart disease of [place] coronary artery without angina pectoris
[2024-03-20] MEDS: PROMETHAZINE 6.25 MG/50.25 ML BAG IV PRN (17:39)
[2024-03-20] MEDS: PANTOprazole 40 MG TAB PO SCH (21:34)
[2024-03-20] MEDS: OLANZAPINE 2.5 MG TAB PO SCH (21:35)
[2024-03-21 08:06] LABS: Calcium 8.8 mg/dl (8.6-10.3); Creatinine Clr Calc Pharmacy 34.5 ml/min; Est GFR (African American) 30.4 ml/min; Est GFR (Non-African American) 26.2 ml/min; Potassium 3.4 mmol/L (3.5-5.1)
--- NOTE | 2024-03-21 09:55 | Hospitalist Progress Note ---
Date of Service March 21, 2024 Assessment & Plan (1) Intractable nausea and vomiting: (2) ARF (acute renal failure): (3) Acute dehydration: (4) CVA (cerebral vascular accident): (5) Diabetes: (6) HTN (hypertension): (7) CAD (coronary artery disease): Plan: (1) Intractable nausea and vomiting Possible gastroparesis, uncontrolled DM type II Gastritis Plan: Patient presented with poor oral intake, nausea and weight loss in acute renal failure secondary to poor intake 03/15:Status post EGD: Moderate gastritis, polyps. Biopsies not performed as patient on aspirin and Plavix on Protonix 40mg BID, continue Increase zyprexa to 5mg hs at bedtime for persistent nausea. promethazine as needed for nausea (2) ARF (acute renal failure): Plan: Outpatient creatinine progressively worsening from outpatient draw February 25, 2024 Likely secondary to decreased p.o. intake and home medications Nephro consulted ; patient received iv fluids. Glomerulonephritis panel ordered, pending Creatinine has not improved much, from 3.0, currently around 2.4 May take a while to see improvement as per nephro HTN - Amlodipine increased to 10mg daily Metoprolol also increased Hydralazine 25 mg p.o. twice daily added - Monitor closely Possible post CVA depression Psych consulted Sertraline 25mg po daily started denies suicidal ideation Left Foot, Dorsal Aspect, Wound Wounds, Tip of 4th and 5th toes Doppler US ordered: Atherosclerotic plaque with no sonographic evidence of high-grade stenosis or focal vessel cut off throughout the arteries of the left lower extremity. 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 Will start him on Jardiance and insulin glargine. rn diabetes educator consulted for comanagement. hx CLL s/p chemotherapy hx lung nodules past tobacco abuse medication noncompliance as per records PT OT eval DVT prophylaxis. Heparin subcu Full code for now as per family. Disposition Anticipate to transition to acute rehab or SNF when accepted Discussed with patient's daughter and sister at bedside. Answer questions/queries Please note the above document was generated using voice recognition software. It may contain grammatical, syntax or spelling errors. Any formal questions or concerns about the content, text or information contained within the body of this dictation should be directly addressed to the provider for clarification Admission and Anticipated Discharge Date Admission Date: March 14, 2024 Subjective Patient seen and examined at bedside. Comfortable; not in distress. Denies fever, chills, chest pain, shortness of breath, abdominal pain or urinary symptoms. No significant overnight events Review of Systems Review of Systems: All systems reviewed & are unremarkable except as noted in Subjective Physical Exam Physical Exam: General- oriented x 3, not in distress, speaks in sentences with no effort or accessory muscle use Eyes- anicteric Neck- no JVD Lungs- clear breath sounds bilaterally, no rales/wheezes Heart- normal rate, regular rhythm; no murmurs Abdomen- normal bowel sounds, nondistended, soft, nontender Extremities- Left foot: Small open wound tip of fourth and fifth toes Small open wound dorsal lateral aspect of the foot No bleeding or discharge, no erythema or tenderness Neuro- alert, oriented x 3; no new gross focal neurologic deficits Skin- warm & dry Results & Data Results & Data Vital Signs (Past 12 Hours) Vital Signs Temp Pulse Resp BP Pulse Ox O2 Del Method 03/21/24 07:24 37.1 C 63 16 135/72 100 Room Air (4) CVA (cerebral vascular accident) CVA mechanism: unspecified Qualified Code(s): I63.9 - Cerebral infarction, unspecified (7) CAD (coronary artery disease) Associated angina: without angina Coronary Disease-Associated Artery/Lesion type: [place] artery [place] vs. transplanted heart: [place] heart Qualified Code(s): I25.10 - Atherosclerotic heart disease of [place] coronary artery without angina pectoris
[2024-03-21] MEDS ORDERED: EMPAGLIFLOZIN 10 MG TAB PO SCH (10:00)
--- NOTE | 2024-03-21 10:32 | Nephrology Progress Note ---
Date of Service March 21, 2024 Assessment & Plan Admission and Anticipated Discharge Date Admission Date: March 14, 2024 Subjective Assessment & Plan (1) ARF (acute renal failure): Plan: Slowly improving nonoliguric JOANIE from ischemic ATN >> combination of uncontrolled HTN and poor po intake in Susceptible vasculopathic patient. baseline creatinine 1.2 at recent hospital d/c from here. Admitted 03/13 w/ creatinine 3.4 in the setting of poor po intake + emesis/diarrhea. improved to 3.0 03/14 w/ 3L IVF but no furtehr improvement since then very unlikely GN but GN workup done and pending. abd CT non con w/ acute findings. notable for punctate BL stones and diffuse severe aortic plaque. No need of Iv fluid. Most likely he has some e/o fluid overload but no need to push diuretics yet. no fluid limit. No specific food needs from CKD stand point K is low again at 3.4 and give 40 meq today. hgb and PLT normal/Acceptable range on today's blood work. on today's labs creat about same as yesterday at 2.4. Hopefully creat will start trending down. But Given Long standing DM and Severe Diffuse PVD and current issue with Infection his renal recovery will be slow and most likely not complete. He has some degree of urine retention but No need of castaneda--better to avoid as much as possible and allow the bladder function to normalize to baseline. patient is barely interactive and has no clear insight about all his health problems. He needs nephrology f/u after discharge Plan above discussed with primary team and in agreement. Discussed in detail with Sister at the bedside (2) Hypertension: Plan: uncontrolled on last readings first few days; in the setting of ischemic cardiomyopathy, hx of sudden cardiac s/p successful resuscitation, w/ mild chronic systolic HF (EF 45% 2023) and ICD in place reluctant to add diuretic or ceci/arb w/ JOANIE BP is now normal. on Amlo and adding Hydralazine Subjective no interval events clinically. remains quite tired and poorly interactive. Poor oral intake of food. NO SOB and on RA. BP is good now Sister present at bedside. Urine did go up a lot. Has some urine retention also. PVRU about 140 ml. Review of Systems Review of Systems: All systems reviewed & are unremarkable except as noted in Subjective Physical Exam Constitutional: well developed, well nourished, + physical limitations (can't sit up w/o asst) and + lethargic (again not dosing but tired in interview/exam); no acute distress Eyes: EOM intact bilaterally ENMT: Ears: no external ear abnormality Nose: no external nose abnormality Mouth: + dry oral mucous membranes Neck: no nuchal rigidity Respiratory: normal respiratory effort Auscultation: + diminished lung sounds Cardiovascular: RRR, no murmur, no edema Gastrointestinal (Abdomen): Inspection/Auscultation: normal bowel sounds Percussion/Palpation: abdomen soft; abdomen nontender Musculoskeletal: Extremities: strength 5/5 throughout Skin: no rashes, warm and dry Psychiatric: Orientation: alert and oriented x 3 Insight: + limited insight Results & Data Vital Signs (Past 12 Hours) Vital Signs Temp Pulse Resp BP Pulse Ox O2 Del Method 03/21/24 07:24 37.1 C 63 16 135/72 100 Room Air
[2024-03-21] MEDS: POTASSIUM CHLORIDE PWD 20 MEQ PACK PO SCH (12:54)
[2024-03-21] MEDS: OLANZapine 5 MG TABLET PO SCH (21:15)
[2024-03-21] MEDS: LANTUS PER UNIT CHARGE SQ SCH (21:23)
[2024-03-22 08:07] LABS: BUN Creatinine Ratio 5.8 (10-20); Calcium 8.7 mg/dl (8.6-10.3); Creatinine Clr Calc Pharmacy 33.3 ml/min; Est GFR (African American) 29.1 ml/min; Est GFR (Non-African American) 25.1 ml/min; Potassium 3.3 mmol/L (3.5-5.1)
--- NOTE | 2024-03-22 09:37 | Nephrology Progress Note ---
Date of Service March 22, 2024 Assessment & Plan Admission and Anticipated Discharge Date Admission Date: March 14, 2024 Subjective Assessment & Plan (1) ARF (acute renal failure): Plan: Slowly improving nonoliguric JOANIE from ischemic ATN >> combination of uncontrolled HTN and poor po intake in Susceptible vasculopathic patient. baseline creatinine 1.2 at recent hospital d/c from here. Admitted 03/13 w/ creatinine 3.4 in the setting of poor po intake + emesis/diarrhea. improved to 3.0 03/14 w/ 3L IVF but no furtehr improvement since then very unlikely GN but GN workup done and pending. abd CT non con w/ acute findings. notable for punctate BL stones and diffuse severe aortic plaque. no fluid limit. No specific food needs from CKD stand point K is low again at 3.2 and give 40 meq today. hgb and PLT normal/Acceptable range on today's blood work. on today's labs creat very slightly worse than yesterday at 2.5. Given Long standing DM and Severe Diffuse PVD and current issue with Infection his renal recovery will be slow and most likely not complete. Currently creat is stuck at around 2.5 . He has some degree of urine retention but No need of castaneda--better to avoid as much as possible and allow the bladder function to normalize to baseline. patient is barely interactive and has no clear insight about all his health p robmarkms. He is not eating much. K is consistently low despite daily supplement. BP starting to get lower now. So Stop Hydralazine. NS 1000 ml today. He needs nephrology f/u after discharge Plan above discussed with primary team and in agreement. Discussed in detail with Sister at the bedside (2) Hypertension: Plan: uncontrolled on last readings first few days; in the setting of ischemic cardiomyopathy, hx of sudden cardiac s/p successful resuscitation, w/ mild chronic systolic HF (EF 45% 2023) and ICD in place reluctant to add diuretic or ceci/arb w/ JOANIE BP is now low from poor PO intake. So stop Hydralazine. on Amlo Subjective no interval events clinically. remains quite tired and poorly interactive. Poor oral intake of food. NO SOB and on RA. BP is low now Review of Systems Review of Systems: All systems reviewed & are unremarkable except as noted in Subjective Physical Exam Constitutional: well developed, well nourished, + physical limitations (can't sit up w/o asst) and + lethargic (again not dosing but tired in interview/exam); no acute distress Eyes: EOM intact bilaterally ENMT: Ears: no external ear abnormality Nose: no external nose abnormality Mouth: + dry oral mucous membranes Neck: no nuchal rigidity Respiratory: normal respiratory effort Auscultation: + diminished lung sounds Cardiovascular: RRR, no murmur, no edema Gastrointestinal (Abdomen): Inspection/Auscultation: normal bowel sounds Percussion/Palpation: abdomen soft; abdomen nontender Musculoskeletal: Extremities: strength 5/5 throughout Skin: no rashes, warm and dry Psychiatric: Orientation: alert and oriented x 3 Insight: + limited insight Results & Data Vital Signs (Past 12 Hours) Vital Signs Temp Pulse Resp BP Pulse Ox O2 Del Method 03/22/24 07:51 36.8 C 66 15 108/64 99 Room Air
--- NOTE | 2024-03-22 09:57 | Hospitalist Progress Note ---
Date of Service March 22, 2024 Assessment & Plan (1) Intractable nausea and vomiting: (2) ARF (acute renal failure): (3) Acute dehydration: (4) CVA (cerebral vascular accident): (5) Diabetes: (6) HTN (hypertension): (7) CAD (coronary artery disease): Plan: (1) Intractable nausea and vomiting Possible gastroparesis, uncontrolled DM type II Gastritis Plan: Patient presented with poor oral intake, nausea and weight loss in acute renal failure secondary to poor intake 03/15:Status post EGD: Moderate gastritis, polyps. Biopsies not performed as patient on aspirin and Plavix on Protonix 40mg BID, continue Continue on zyprexa 5mg hs at bedtime for persistent nausea. promethazine as needed for nausea (2) ARF (acute renal failure): Plan: Outpatient creatinine progressively worsening from outpatient draw February 25, 2024 Likely secondary to decreased p.o. intake and home medications Nephro consulted ; patient received iv fluids. Glomerulonephritis panel ordered, pending Creatinine has not improved much, from 3.0, currently around 2.4 to 2.5 May take a while to see improvement as per nephro on iv fluids HTN - Amlodipine increased to 10mg daily Metoprolol also increased Hydralazine stopped. Possible post CVA depression Psych consulted Sertraline 25mg po daily started denies suicidal ideation Left Foot, Dorsal Aspect, Wound Wounds, Tip of 4th and 5th toes Doppler US ordered: Atherosclerotic plaque with no sonographic evidence of high- grade stenosis or focal vessel cut off throughout the arteries of the left lower extremity. 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 Will start him on insulin glargine at discharge. hx CLL s/p chemotherapy hx lung nodules past tobacco abuse medication noncompliance as per records PT OT eval DVT prophylaxis. Heparin subcu Full code for now as per family. Disposition Anticipate to transition to acute rehab or SNF when accepted Discussed with patient's sister at bedside. Answer questions/queries Please note the above document was generated using voice recognition software. It may contain grammatical, syntax or spelling errors. Any formal questions or concerns about the content, text or information contained within the body of this dictation should be directly addressed to the provider for clarification Admission and Anticipated Discharge Date Admission Date: March 14, 2024 Subjective Patient seen and examined at bedside. Comfortable; not in distress. Reports that nausea and appetite has improved. Review of Systems Review of Systems: All systems reviewed & are unremarkable except as noted in Subjective Physical Exam Physical Exam: General- oriented x 3, not in distress, speaks in sentences with no effort or accessory muscle use Eyes- anicteric Neck- no JVD Lungs- clear breath sounds bilaterally, no rales/wheezes Heart- normal rate, regular rhythm; no murmurs Abdomen- normal bowel sounds, nondistended, soft, nontender Extremities- Left foot: Small open wound tip of fourth and fifth toes Small open wound dorsal lateral aspect of the foot No bleeding or discharge, no erythema or tenderness Neuro- alert, oriented x 3; no new gross focal neurologic deficits Skin- warm & dry Results & Data Results & Data Vital Signs (Past 12 Hours) Vital Signs Temp Pulse Resp BP Pulse Ox O2 Del Method 03/22/24 07:51 36.8 C 66 15 108/64 99 Room Air (4) CVA (cerebral vascular accident) CVA mechanism: unspecified Qualified Code(s): I63.9 - Cerebral infarction, unspecified (7) CAD (coronary artery disease) Associated angina: without angina Coronary Disease-Associated Artery/Lesion type: [place] artery [place] vs. transplanted heart: [place] heart Qualified Code(s): I25.10 - Atherosclerotic heart disease of [place] coronary artery without angina pectoris
[2024-03-22] MEDS: POTASSIUM CHLORIDE CRTAB 20 MEQ TABCR PO STA (10:01)
[2024-03-22] MEDS: SODIUM CHLORIDE 0.9% 1,000 ML IV SCH (10:02)
[2024-03-22] MEDS: MAGNESIUM HYDROXIDE SUSP 30 ML UDC PO ONE (13:52)
[2024-03-22] MEDS: DOCUSATE SODIUM/SENNA 50/8.6MG TAB PO SCH (13:52)
[2024-03-22 15:31] LABS: ANCA Screen Negative (Negative); Anti Nuclear Antibody Screen NEGATIVE (NEGATIVE); Anti-DNASE B Ab <95 U/mL (<301); Complement C3 109 mg/dL (82-185); Free Kappa 38.3 mg/L (3.3-19.4); Free Kappa/Lambda Ratio 1.26 (0.26-1.65); Free Lambda 30.3 mg/L (5.7-26.3); Kappa 191 mg/dL (176-443); Lambda 106 mg/dL (91-240)
[2024-03-23] MEDS: ONDANSETRON INJ 2 MG/ML 2 ML VIAL IV STA (02:51)
[2024-03-23 06:27] LABS: BUN Creatinine Ratio 6.2 (10-20); Calcium 8.3 mg/dl (8.6-10.3); Creatinine Clr Calc Pharmacy 35.5 ml/min; Est GFR (African American) 31.5 ml/min; Est GFR (Non-African American) 27.1 ml/min; Potassium 3.5 mmol/L (3.5-5.1)
--- NOTE | 2024-03-23 15:20 | Hospitalist Progress Note ---
Date of Service March 23, 2024 Assessment & Plan (1) Intractable nausea and vomiting: (2) ARF (acute renal failure): (3) Acute dehydration: (4) CVA (cerebral vascular accident): (5) Diabetes: (6) HTN (hypertension): (7) CAD (coronary artery disease): Plan: (1) Intractable nausea and vomiting Possible gastroparesis, uncontrolled DM type II Gastritis Plan: Patient presented with poor oral intake, nausea and weight loss in acute renal failure secondary to poor intake 03/15:Status post EGD: Moderate gastritis, polyps. Biopsies not performed as patient on aspirin and Plavix on Protonix 40mg BID, continue Continue on zyprexa 5mg hs at bedtime for persistent nausea. promethazine as needed for nausea (2) ARF (acute renal failure): Plan: Outpatient creatinine progressively worsening from outpatient draw February 25, 2024 Likely secondary to decreased p.o. intake and home medications Nephro consulted ; patient received iv fluids. Glomerulonephritis panel ordered, pending Creatinine has not improved much, from 3.0, currently around 2.4 to 2.5 May take a while to see improvement as per nephro HTN - Amlodipine increased to 10mg daily Metoprolol also increased Hydralazine stopped. Possible post CVA depression Psych consulted Sertraline 25mg po daily started denies suicidal ideation Left Foot, Dorsal Aspect, Wound Wounds, Tip of 4th and 5th toes Doppler US ordered: Atherosclerotic plaque with no sonographic evidence of high- grade stenosis or focal vessel cut off throughout the arteries of the left lower extremity. 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 Will start him on insulin glargine at discharge. hx CLL s/p chemotherapy hx lung nodules past tobacco abuse medication noncompliance as per records PT OT eval DVT prophylaxis. Heparin subcu Full code for now as per family. Disposition Anticipate to transition to acute rehab or SNF when accepted Please note the above document was generated using voice recognition software. It may contain grammatical, syntax or spelling errors. Any formal questions or concerns about the content, text or information contained within the body of this dictation should be directly addressed to the provider for clarification Admission and Anticipated Discharge Date Admission Date: March 14, 2024 Subjective Patient seen and examined at bedside. Comfortable; not in distress. Denies fever, chills, chest pain, shortness of breath, abdominal pain or urinary symptoms. No significant overnight events Review of Systems Review of Systems: All systems reviewed & are unremarkable except as noted in Subjective Physical Exam Physical Exam: General- oriented x 3, not in distress, speaks in sentences with no effort or accessory muscle use Eyes- anicteric Neck- no JVD Lungs- clear breath sounds bilaterally, no rales/wheezes Heart- normal rate, regular rhythm; no murmurs Abdomen- normal bowel sounds, nondistended, soft, nontender Extremities- Left foot: Small open wound tip of fourth and fifth toes Small open wound dorsal lateral aspect of the foot No bleeding or discharge, no erythema or tenderness Neuro- alert, oriented x 3; no new gross focal neurologic deficits Skin- warm & dry Results & Data Results & Data Vital Signs (Past 12 Hours) Vital Signs Temp Pulse Resp BP Pulse Ox O2 Del Method 03/23/24 07:40 Room Air 03/23/24 07:33 37.2 C 64 16 133/60 98 Room Air (4) CVA (cerebral vascular accident) CVA mechanism: unspecified Qualified Code(s): I63.9 - Cerebral infarction, unspecified (7) CAD (coronary artery disease) Associated angina: without angina Coronary Disease-Associated Artery/Lesion type: [place] artery [place] vs. transplanted heart: [place] heart Qualified Code(s): I25.10 - Atherosclerotic heart disease of [place] coronary artery without angina pectoris
[2024-03-23 22:50] LABS: Appearance Urine Cloudy (Clear); Bacteria Urine Automated None Seen (None Seen); Bilirubin Urine Negative (Negative); Blood Urine Negative (Negative); Color Urine Yellow; Glucose Urine UA 1+ (Negative); Granular Casts Urine Present /lpf (None Prsent); Ketones Urine Trace (Negative); Leukocyte Esterase Urine Negative (Negative); Nitrite Urine Negative (Negative); Protein Urine 2+ (Negative); RBC Urine Automated 0-2 /hpf (0-2); Specific Gravity Urine 1.014 (1.000-1.030); Urobilinogen Urine Negative (Negative); WBC Urine Automated 0-5 /hpf (0-5); pH Urine 5.5 (4.5-7.5)
--- NOTE | 2024-03-23 23:34 | CT Scan Report ---
Exam(s): CT HEAD Without Contrast EXAM: CT Head Without Intravenous Contrast CLINICAL HISTORY: confusion. TECHNIQUE: Axial computed tomography images of the head/[place] [address] m[place] and DLP is 703.85 mGy-cm. Automated exposure control was utilized for the study. A dose lowering technique was utilized adhering to the principles of ALARA. COMPARISON: MRI brain 02/22/2024. FINDINGS: Brain: Age-appropriate generalized atrophy. Redemonstrated acute nonhemorrhagic large right middle cerebral artery. Her infarct involving the right posterior temporal and parietal lobes with minimal mass-effect on the right lateral ventricle. No new infarct identified. Old left posterior limb internal capsule lacunar infarct. Mild supratentorial periventricular and subcortical white matter changes. No acute hemorrhage or abnormal extra-axial fluid collection. Ventricles: No hydrocephalus. No midline shift. Bones/joints: Unremarkable. No acute fracture. Soft tissues: Unremarkable. Sinuses: Unremarkable as visualized. No acute sinusitis. IMPRESSION: No significant change. Acute nonhemorrhagic right posterior temporal and parietal infarct with minimal mass-effect on the right lateral ventricle. Electronically signed by: Juanpablo Chau M.D. 03/23/24 23:33 PM
[2024-03-24 06:44] LABS: BUN Creatinine Ratio 6.2 (10-20); Calcium 8.6 mg/dl (8.6-10.3); Creatinine Clr Calc Pharmacy 38.1 ml/min; Est GFR (African American) 34.2 ml/min; Est GFR (Non-African American) 29.5 ml/min; Potassium 3.4 mmol/L (3.5-5.1)
--- NOTE | 2024-03-24 10:15 | Hospitalist Progress Note ---
Date of Service March 24, 2024 Assessment & Plan (1) Intractable nausea and vomiting: (2) ARF (acute renal failure): (3) Acute dehydration: (4) CVA (cerebral vascular accident): (5) Diabetes: (6) HTN (hypertension): (7) CAD (coronary artery disease): Plan: (1) Intractable nausea and vomiting Possible gastroparesis, uncontrolled DM type II Gastritis Plan: Patient presented with poor oral intake, nausea and weight loss in acute renal failure secondary to poor intake 03/15:Status post EGD: Moderate gastritis, polyps. Biopsies not performed as patient on aspirin and Plavix on Protonix 40mg BID, continue Continue on zyprexa 5mg hs at bedtime for persistent nausea. promethazine as needed for nausea (2) ARF (acute renal failure): Plan: Outpatient creatinine progressively worsening from outpatient draw February 25, 2024 Likely secondary to decreased p.o. intake and home medications Nephro consulted ; patient received iv fluids. Glomerulonephritis panel ordered, pending Creatinine has not improved much, from 3.0, currently around 2 May take a while to see improvement as per nephro HTN - Amlodipine increased to 10mg daily Metoprolol also increased Hydralazine stopped. Possible post CVA depression Recent CVA; seen in the MRI brain on 02/22/2024. Large MCA territory infarct primarily involving the right posterior temporal and parietal lobes CT head done on 03/23redemonstrated acute nonhemorrhagic left right MCA stroke with minimal mass effect on right lateral ventricle Psych consulted Sertraline 25mg po daily started denies suicidal ideation Left Foot, Dorsal Aspect, Wound Wounds, Tip of 4th and 5th toes Doppler US ordered: Atherosclerotic plaque with no sonographic evidence of high- grade stenosis or focal vessel cut off throughout the arteries of the left lower extremity. 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 Will start him on insulin glargine at discharge. hx CLL s/p chemotherapy hx lung nodules past tobacco abuse medication noncompliance as per records PT OT eval DVT prophylaxis. Heparin subcu Full code for now as per family. Disposition Anticipate to transition to acute rehab or SNF when accepted Please note the above document was generated using voice recognition software. It may contain grammatical, syntax or spelling errors. Any formal questions or concerns about the content, text or information contained within the body of this dictation should be directly addressed to the provider for clarification Admission and Anticipated Discharge Date Admission Date: March 14, 2024 Subjective Patient seen and examined at bedside. Mental status appears at baseline; family also feel the same Vital signs stable and he is saturating well on room air Review of Systems Review of Systems: All systems reviewed & are unremarkable except as noted in Subjective Physical Exam Physical Exam: General- oriented x 3, not in distress, speaks in sentences with no effort or accessory muscle use Eyes- anicteric Neck- no JVD Lungs- clear breath sounds bilaterally, no rales/wheezes Heart- normal rate, regular rhythm; no murmurs Abdomen- normal bowel sounds, nondistended, soft, nontender Extremities- Left foot: Small open wound tip of fourth and fifth toes Small open wound dorsal lateral aspect of the foot No bleeding or discharge, no erythema or tenderness Neuro- alert, oriented x 3; no new gross focal neurologic deficits Skin- warm & dry Results & Data Results & Data Vital Signs (Past 12 Hours) Vital Signs Temp Pulse Resp BP Pulse Ox O2 Del Method 03/24/24 09:20 Room Air 03/24/24 08:57 36.6 C 55 L 16 145/75 H 99 Room Air (4) CVA (cerebral vascular accident) CVA mechanism: unspecified Qualified Code(s): I63.9 - Cerebral infarction, unspecified (7) CAD (coronary artery disease) Associated angina: without angina Coronary Disease-Associated Artery/Lesion type: [place] artery [place] vs. transplanted heart: [place] heart Qualified Code(s): I25.10 - Atherosclerotic heart disease of [place] coronary artery without angina pectoris
[2024-03-25 06:18] LABS: BUN Creatinine Ratio 7.2 (10-20); Calcium 8.7 mg/dl (8.6-10.3); Creatinine Clr Calc Pharmacy 41.4 ml/min; Est GFR (African American) 37.8 ml/min; Est GFR (Non-African American) 32.6 ml/min; Potassium 3.1 mmol/L (3.5-5.1)
[2024-03-25] MEDS: POTASSIUM CHLORIDE PWD 20 MEQ PACK PO SCH (09:34)
--- NOTE | 2024-03-25 09:38 | Hospitalist Progress Note ---
Date of Service March 25, 2024 Assessment & Plan (1) Intractable nausea and vomiting: (2) ARF (acute renal failure): (3) Acute dehydration: (4) CVA (cerebral vascular accident): (5) Diabetes: (6) HTN (hypertension): (7) CAD (coronary artery disease): Plan: (1) Intractable nausea and vomiting Possible gastroparesis, uncontrolled DM type II Gastritis Plan: Patient presented with poor oral intake, nausea and weight loss in acute renal failure secondary to poor intake 03/15:Status post EGD: Moderate gastritis, polyps. Biopsies not performed as patient on aspirin and Plavix on Protonix 40mg BID, continue Continue on zyprexa 5mg hs at bedtime for persistent nausea. promethazine as needed for nausea (2) ARF (acute renal failure): Plan: Outpatient creatinine progressively worsening from outpatient draw February 25, 2024 Likely secondary to decreased p.o. intake and home medications Nephro consulted ; patient received iv fluids. Glomerulonephritis panel ordered, pending Monitor HTN - Amlodipine increased to 10mg daily Metoprolol also increased Hydralazine stopped. Possible post CVA depression Recent CVA; seen in the MRI brain on 02/22/2024. Large MCA territory infarct primarily involving the right posterior temporal and parietal lobes CT head done on 03/23redemonstrated acute nonhemorrhagic left right MCA stroke with minimal mass effect on right lateral ventricle Psych consulted Sertraline 25mg po daily started denies suicidal ideation Left Foot, Dorsal Aspect, Wound Wounds, Tip of 4th and 5th toes Doppler US ordered: Atherosclerotic plaque with no sonographic evidence of high- grade stenosis or focal vessel cut off throughout the arteries of the left lower extremity. 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 Will start him on insulin glargine at discharge. hx CLL s/p chemotherapy hx lung nodules past tobacco abuse medication noncompliance as per records PT OT eval DVT prophylaxis. Heparin subcu Full code for now as per family. Disposition Anticipate to transition to acute rehab or SNF when accepted Please note the above document was generated using voice recognition software. It may contain grammatical, syntax or spelling errors. Any formal questions or concerns about the content, text or information contained within the body of this dictation should be directly addressed to the provider for clarification Admission and Anticipated Discharge Date Admission Date: March 14, 2024 Subjective Patient seen and examined at bedside. Comfortable; not in distress. No significant overnight events Review of Systems Review of Systems: All systems reviewed & are unremarkable except as noted in Subjective Physical Exam Physical Exam: General- oriented x 3, not in distress, speaks in sentences with no effort or accessory muscle use Eyes- anicteric Neck- no JVD Lungs- clear breath sounds bilaterally, no rales/wheezes Heart- normal rate, regular rhythm; no murmurs Abdomen- normal bowel sounds, nondistended, soft, nontender Extremities- Left foot: Small open wound tip of fourth and fifth toes Small open wound dorsal lateral aspect of the foot No bleeding or discharge, no erythema or tenderness Neuro- alert, oriented x 3; no new gross focal neurologic deficits Skin- warm & dry Results & Data Results & Data Vital Signs (Past 12 Hours) Vital Signs Temp Pulse Resp BP Pulse Ox O2 Del Method 03/25/24 07:47 37.2 C 61 14 156/76 H 99 Room Air 03/24/24 21:39 36.0 C L 53 L 14 145/61 H 98 Room Air (4) CVA (cerebral vascular accident) CVA mechanism: unspecified Qualified Code(s): I63.9 - Cerebral infarction, unspecified (7) CAD (coronary artery disease) Associated angina: without angina Coronary Disease-Associated Artery/Lesion type: [place] artery [place] vs. transplanted heart: [place] heart Qualified Code(s): I25.10 - Atherosclerotic heart disease of [place] coronary artery without angina pectoris
[2024-03-25] MEDS: POTASSIUM CHLORIDE CRTAB 20 MEQ TABCR PO SCH (15:14)
[2024-03-26 09:41] LABS: BUN Creatinine Ratio 6.5 (10-20); Calcium 9.1 mg/dl (8.6-10.3); Creatinine Clr Calc Pharmacy 42.6 ml/min; Est GFR (African American) 39.2 ml/min; Est GFR (Non-African American) 33.8 ml/min; Potassium 3.3 mmol/L (3.5-5.1)
--- NOTE | 2024-03-26 12:33 | Hospitalist Progress Note ---
Date of Service March 26, 2024 Assessment & Plan (1) Intractable nausea and vomiting: (2) ARF (acute renal failure): (3) Acute dehydration: (4) CVA (cerebral vascular accident): (5) Diabetes: (6) HTN (hypertension): (7) CAD (coronary artery disease): Plan: (1) Intractable nausea and vomiting Possible gastroparesis, uncontrolled DM type II Gastritis Plan: Patient presented with poor oral intake, nausea and weight loss in acute renal failure secondary to poor intake 03/15:Status post EGD: Moderate gastritis, polyps. Biopsies not performed as patient on aspirin and Plavix on Protonix 40mg BID, continue Continue on zyprexa 5mg hs at bedtime for persistent nausea. Improved appetite noted on the medications. Discussed with family, they are agreeable to conitnue it. promethazine as needed for nausea (2) ARF (acute renal failure): Plan: Outpatient creatinine progressively worsening from outpatient draw February 25, 2024 Likely secondary to decreased p.o. intake and home medications Nephro consulted ; patient received iv fluids. Monitor Creatinine; Creatinine will likely take long time to correct as per nephrology. HTN - Amlodipine increased to 10mg daily Metoprolol also increased Hydralazine stopped. Possible post CVA depression Recent CVA; seen in the MRI brain on 02/22/2024. Large MCA territory infarct primarily involving the right posterior temporal and parietal lobes CT head done on 03/23redemonstrated acute nonhemorrhagic left right MCA stroke with minimal mass effect on right lateral ventricle Psych consulted Sertraline 25mg po daily started denies suicidal ideation Left Foot, Dorsal Aspect, Wound Wounds, Tip of 4th and 5th toes Doppler US ordered: Atherosclerotic plaque with no sonographic evidence of high- grade stenosis or focal vessel cut off throughout the arteries of the left lower extremity. 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 Will start him on insulin glargine at discharge. hx CLL s/p chemotherapy hx lung nodules past tobacco abuse medication noncompliance as per records PT OT eval DVT prophylaxis. Heparin subcu Full code for now as per family. Disposition Anticipate to transition to SNF when accepted Please note the above document was generated using voice recognition software. It may contain grammatical, syntax or spelling errors. Any formal questions or concerns about the content, text or information contained within the body of this dictation should be directly addressed to the provider for clarification Admission and Anticipated Discharge Date Admission Date: March 14, 2024 Subjective Patient seen and examined at bedside. Comfortable; not in distress. No significant overnight events Physical Exam Physical Exam: General- oriented x 3, not in distress, speaks in sentences with no effort or accessory muscle use Eyes- anicteric Neck- no JVD Lungs- clear breath sounds bilaterally, no rales/wheezes Heart- normal rate, regular rhythm; no murmurs Abdomen- normal bowel sounds, nondistended, soft, nontender Extremities- Left foot: Small open wound tip of fourth and fifth toes Small open wound dorsal lateral aspect of the foot No bleeding or discharge, no erythema or tenderness Neuro- alert, oriented x 3; no new gross focal neurologic deficits Skin- warm & dry Results & Data Results & Data Vital Signs (Past 12 Hours) Vital Signs Temp Pulse Resp BP Pulse Ox O2 Del Method 03/26/24 07:48 36.8 C 54 L 17 152/73 H 97 Room Air (4) CVA (cerebral vascular accident) CVA mechanism: unspecified Qualified Code(s): I63.9 - Cerebral infarction, unspecified (7) CAD (coronary artery disease) Associated angina: without angina Coronary Disease-Associated Artery/Lesion type: [place] artery [place] vs. transplanted heart: [place] heart Qualified Code(s): I25.10 - Atherosclerotic heart disease of [place] coronary artery without angina pectoris
[2024-03-27 07:15] LABS: BUN Creatinine Ratio 6.1 (10-20); Calcium 9.1 mg/dl (8.6-10.3); Creatinine Clr Calc Pharmacy 43.2 ml/min; Est GFR (African American) 39.9 ml/min; Est GFR (Non-African American) 34.4 ml/min; Potassium 3.7 mmol/L (3.5-5.1)
--- NOTE | 2024-03-27 11:45 | Discharge Summary ---
Date of Service March 28, 2024 Admission HPI Per Admitting Provider History obtained from patient, family, and records. Limited history from patient secondary to lethargy. Medical history significant for chronic systolic heart failure (EF 45 to 50%, TTE 2023), cardiac arrest status post ICD, CAD status post stent, CVA, PVD, hypertension, hyperlipidemia, DM 2 insulin requiring, CLL s/p chemotherapy, lung nodules, GERD, past tobacco abuse, medication noncompliance as per records. Recent confinement February 20 to February 24, 2024 for acute CVA. Patient discharged to [facility] before being discharged home last week. Patient has not been right since stroke as per family. Not eating properly, intermittent nausea without abdominal pain complaints. Occasional vomiting. Denies headache, chest pain, SOB. Fall at home with some toe bruising on the left side as per family. Patient family suspects patient depressed although patient denies it. Patient has verbalized that he was "hopeless" as per family. Denies suicidality. Family feels patient needs additional rehab. Patient directed to ER after being seen at seen at PCP's office yesterday. 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 Admission Exam Per Admitting Provider GENERAL: Lethargic, no respiratory distress SKIN: Normal color, warm HEENT: [place] palpebral conjunctivae, no ptosis, dry buccal mucosa NECK : Supple, no tenderness CHEST : CTA, no tenderness HEART : RRR, no obvious murmurs ABDOMEN: Some distention, nontender EXTREMITIES : Blood blister noted over the two toes of left foot, no LE swelling/tenderness NEUROLOGIC : Lethargic, no facial asymmetry, gait and stance not assessed Principal Diagnosis Intractable nausea and vomiting Possible gastroparesis Gastritis Possible post CVA depression Left foot wound, dorsal aspect - Not infected Discharge Exam General- oriented x 3, not in distress, speaks in sentences with no effort or accessory muscle use Eyes- anicteric Neck- no JVD Lungs- clear breath sounds bilaterally, no rales/wheezes Heart- normal rate, regular rhythm; no murmurs Abdomen- normal bowel sounds, nondistended, soft, nontender Extremities- Left foot: Small open wound tip of fourth and fifth toes Small open wound dorsal lateral aspect of the foot covered w/ clean dressing wo soakage. No bleeding or discharge, no tracking erythema or tenderness or swelling. Neuro- alert, oriented x 3; no new gross focal neurologic deficits Skin- warm & dry Discharge Data Allergies Allergy/AdvReac Type Severity Reaction Status Date / Time CASSANDRA Inhibitors Allergy Unknown Unknown Verified 03/15/24 11:16 latex Allergy Rash Verified 03/15/24 11:16 Consultations 03/13/24 22:02 ED Decision to Admit Stat 03/14/24 08:51 Consult Nephrology Routine 03/14/24 15:30 Consult Gastroenterology Routine 03/18/24 17:29 Consult Orthopedic Surgery Routine Procedures Performed Operation Date: 03/15/24 17:40 Actual Procedures p Esophagogastroduodenoscopy - Edward Zaman MD Ordered Studies 03/13/24 19:11 CT Abd and Pelvis [CT abd pelvis wo con] Stat 03/14/24 15:33 US arterial duplex LE LT Routine 03/23/24 20:15 CT head/brain wo con Urgent Hospital Course (1) Intractable nausea and vomiting: (2) ARF (acute renal failure): (3) Acute dehydration: (4) CVA (cerebral vascular accident): (5) Diabetes: (6) HTN (hypertension): (7) CAD (coronary artery disease): Per prior attending with addendum: (1) Intractable nausea and vomiting Possible gastroparesis, uncontrolled DM type II Gastritis Plan: Patient presented with poor oral intake, nausea and weight loss in acute renal failure secondary to poor intake 03/15:Status post EGD: Moderate gastritis, polyps. Biopsies not performed as patient on aspirin and Plavix on Protonix 40mg BID, continue Continue on zyprexa 5mg hs at bedtime for persistent nausea. Improved appetite noted on the medications. Discussed with family, they are agreeable to conitnue it. promethazine as needed for nausea (2) ARF (acute renal failure): Plan: Outpatient creatinine progressively worsening from outpatient draw February 25, 2024 Likely secondary to decreased p.o. intake and home medications Nephro consulted ; patient received iv fluids. Monitor Creatinine; Creatinine will likely take long time to correct as per nephrology. HTN - Amlodipine increased to 10mg daily Metoprolol also increased Hydralazine stopped. Possible post CVA depression Recent CVA; seen in the MRI brain on 02/22/2024. Large MCA territory infarct primarily involving the right posterior temporal and parietal lobes CT head done on 03/23redemonstrated acute nonhemorrhagic left right MCA stroke with minimal mass effect on right lateral ventricle Psych consulted Sertraline 25mg po daily started denies suicidal ideation Left Foot, Dorsal Aspect, Wound Wounds, Tip of 4th and 5th toes Doppler US ordered: Atherosclerotic plaque with no sonographic evidence of high- grade stenosis or focal vessel cut off throughout the arteries of the left lower extremity. - Orthopedic surgery consulted Blood blisters and removed at bedside No other surgical intervention per Ortho Wound care service consulted Follow-up with vascular surgery as an outpatient Severe Malnutrition - Due to poor oral intake - E Business Manager consulted chronic systolic heart failure (EF 45 to 50%, TTE 2023) - Monitor for volume overload cardiac arrest status post ICD hx CAD status post stent/ PVD hyperlipidemia, on statin Rx DM 2 --Uncontrolled --A1c 11 Given his low creatinine clearance; metformin would not be ideal at discharge. Will start him on insulin glargine at discharge. hx CLL s/p chemotherapy hx lung nodules past tobacco abuse medication noncompliance as per records PT OT eval DVT prophylaxis. Heparin subcu Full code for now as per family. Disposition Anticipate to transition to SNF when accepted Addendum 03/28/2024: Patient was seen and examined at bedside. Patient's daughter at bedside who had concern over left foot dorsal wound yesterday. Explained her the signs and symptoms of infection and asked both patient and his daughter to watch out for any signs of infection. The wound does not currently look infected. Continue with wound care. Patient otherwise feels better. He is being discharged with following instruction at the point of discharge: Follow-up with your primary care physician within a week time and likely you will need labs CBC/CMP/magnesium/phosphorus. Continue with Protonix for mild gastritis. For concern of gastroparesis you will benefit from following up with GI as an outpatient, coordinate with your PCP office to set up the referral. You have been started on Zyprexa 5 mg at bedtime for persistent nausea, you had improved appetite and improved nausea on this medication. You will need QTc monitoring as an outpatient, coordinate with your PCP office to set up EKG monitoring as an outpatient. You have been started on sertraline for possible post CVA depression, continue follow-up with PCP office for long-term monitoring. For your left foot wound on the dorsal aspect, as discussed at the bedside monitor for signs and symptoms of infection [tracking erythema, tenderness, pus, fever, swelling]. Follow-up with orthopedics. You will benefit from following up with vascular surgery as an outpatient, coordinate with your PCP office to set up the referral. Continue to follow-up with wound care. Given your poor kidney function, metformin would not be ideal and hence you will be discharged on insulin glargine. Follow-up with your diabetic clinic in a week time upon discharge and further recommendation from the diabetic clinic. Given your progressive kidney disease and hypokalemia, you will benefit by visiting nephrology in 1 to 2 weeks time upon discharge. Coordinate with your PCP office to set up the referral. You are being discharged on potassium supplement for about 2 weeks duration, you will need evaluation prior to that finishing up regarding your kidney function. Take your medications as prescribed. Please make sure that you are able to get your medications today by calling your pharmacy before you leave the hospital so that your treatment continuity is not broken. Please note the above document was generated using voice recognition software. It may contain grammatical, syntax or spelling errors. Any formal questions or concerns about the content, text or information contained within the body of this dictation should be directly addressed to the provider for clarification Home Health Attestation I certify that this patient is under my care and that I, or a physicians recruitment assistant working with me, had a face to-face encounter that meets the home health [id number] encounter requirements with this patient. The encounter with the patient was in whole, or in part, for the following medical condition, which is the primary reason for home health care (list medical condition): I certify that, based on my findings, the following services are medically necessary home health services: My clinical findings support the need for the above services because: Further, I certify that my clinical findings support that this patient is homebound (i.e. absences from home require considerable and taxing effort and are for medical reasons or baptism services or infrequently or of short duration when for other reasons) because: Certification for Home Health Services: Based on the above findings, I certify that this patient is confined to the home and needs intermittent fci care, physical therapy and/or speech therapy or continues to need occupational therapy. The patient is under my care, and I have initiated the establishment of the plan of care. This patient will be followed by a physician who will periodically review the plan of care. Total Time Total Time Spent Total Time Spent (In Minutes): 45 Discharge Plan Discharge Items Patient Disposition: Transfer [facility] Reason For Visit: ARF Discharge Diagnosis: Intractable nausea and vomiting Possible gastroparesis Gastritis Possible post CVA depression Left foot wound, dorsal aspect - Not infected Activity: Resume your previous activity Non-emergency contact: Primary Care Provider Call non-emergency contact if: you have any medication questions Follow-up/Referrals: Luisa Barclay MD [Primary Care Provider] - Diet: Regular Addtl Attending Provider Instructions: Follow-up with your primary care physician within a week time and likely you will need labs CBC/CMP/magnesium/phosphorus. Continue with Protonix for mild gastritis. For concern of gastroparesis you will benefit from following up with GI as an outpatient, coordinate with your PCP office to set up the referral. You have been started on Zyprexa 5 mg at bedtime for persistent nausea, you had improved appetite and improved nausea on this medication. You will need QTc monitoring as an outpatient, coordinate with your PCP office to set up EKG monitoring as an outpatient. You have been started on sertraline for possible post CVA depression, continue follow-up with PCP office for long-term monitoring. For your left foot wound on the dorsal aspect, as discussed at the bedside monitor for signs and symptoms of infection [tracking erythema, tenderness, pus, fever, swelling]. Follow-up with orthopedics. You will benefit from following up with vascular surgery as an outpatient, coordinate with your PCP office to set up the referral. Continue to follow-up with wound care. Given your poor kidney function, metformin would not be ideal and hence you will be discharged on insulin glargine. Follow-up with your diabetic clinic in a week time upon discharge and further recommendation from the diabetic clinic. Given your progressive kidney disease and hypokalemia, you will benefit by [facility] in 1 to 2 weeks time upon discharge. Coordinate with your PCP office to set up the referral. You are being discharged on potassium supplement for about 2 weeks duration, you will need evaluation prior to that finishing up regarding your kidney function. Take your medications as prescribed. Please make sure that you are able to get your medications today by calling your pharmacy before you leave the hospital so that your treatment continuity is not broken. Addtl Nurse Supervisor Provider Instructions: Orthopedic Instructions: - Weight bear as tolerated - Follow up with Diabetic foot clinic - Off loading shoewear as needed - Follow up with [facility] Orthopedics as needed Pending Studies at Discharge: No Stand-Alone Forms: My [facility] Skilled Items Patient informed of condition?: Yes DNR: No Discharge Level of Care: Skilled Communicable Disease: No Discharge Prognosis: Stable Lines: None Urinary Catheter: No Medications and DC Order Prescriptions: New amlodipine 10 mg tablet 10 mg PO DAILY Qty: 30 0RF metoprolol succinate 50 mg Tablet Extended Release 24 Hr 50 mg PO QAM Qty: 30 0RF olanzapine 5 mg Tablet 5 mg PO HS Qty: 30 0RF sertraline 50 mg Tablet 25 mg PO QAM Qty: 15 0RF potassium chloride 20 mEq Tablet,Er Particles/Crystals 20 meq PO BID Qty: 30 0RF sennosides-docusate sodium [Senokot-S] 8.6-50 mg Tablet 1 tab PO QAM Qty: 30 0RF pantoprazole 40 mg Tablet,Delayed Release (Dr/Ec) 40 mg PO BID Qty: 60 0RF Continued clopidogrel 75 mg Tablet 75 mg PO QAM 30 Days Qty: 30 0RF aspirin 81 mg Tablet,Delayed Release (Dr/Ec) 81 mg PO DAILY 30 Days Qty: 30 0RF rosuvastatin 40 mg tablet 40 mg PO QAM ondansetron HCl [Zofran] 4 mg Tablet 4 mg PO Q8H PRN (Reason: n/v) Changed insulin glargine [Lantus Solostar U-100 Insulin] 100 unit/mL (3 mL) insulin p en 5 unit subcut HS Qty: 3 0RF Discontinued metoprolol succinate 25 mg Tablet Extended Release 24 Hr 25 mg PO QAM 30 Days Qty: 30 0RF metformin 500 mg tablet extended release 24 hr 500 mg PO AMPM Discharge Orders: Discharge Order (Routine); Ordered 03/28/24 Ordered By: Peter Braden Admission Data Admit Date/Time: 03/14/24 00:02 Attending Provider: Peter Braden Admit Provider: Rico Schmitt Primary Care Provider: Luisa Barclay Other Providers: Rico Schmitt; Evette Johnson; Edward Zaman; [facility]; Darien Harper; Rj Geller; Bran Briggs; Jaimee Coles; Sandy Vargas; Amos Interiano; Kevin Talavera; Abe Pizarro; Abe Marcial; Rocío Rodriguez; Harmony Vasquez; Jia Jain; Christiana Hdez; Barry Fitzpatrick; Bakari Hickman; Eulalio Fermin Other Interventions: Discharge Summary Assessment (RN) Last Done: 03/15/24 13:20
[2024-03-27 14:06] VITALS: RESP 16
--- NOTE | 2024-03-27 15:35 | Hospitalist Progress Note ---
Date of Service March 27, 2024 Assessment & Plan (1) Intractable nausea and vomiting: (2) ARF (acute renal failure): (3) Acute dehydration: (4) CVA (cerebral vascular accident): (5) Diabetes: (6) HTN (hypertension): (7) CAD (coronary artery disease): Plan: Per prior attending with addendum: (1) Intractable nausea and vomiting Possible gastroparesis, uncontrolled DM type II Gastritis Plan: Patient presented with poor oral intake, nausea and weight loss in acute renal failure secondary to poor intake 03/15:Status post EGD: Moderate gastritis, polyps. Biopsies not performed as patient on aspirin and Plavix on Protonix 40mg BID, continue Continue on zyprexa 5mg hs at bedtime for persistent nausea. Improved appetite noted on the medications. Discussed with family, they are agreeable to conitnue it. promethazine as needed for nausea (2) ARF (acute renal failure): Plan: Outpatient creatinine progressively worsening from outpatient draw February 24 Likely secondary to decreased p.o. intake and home medications Nephro consulted ; patient received iv fluids. Monitor Creatinine; Creatinine will likely take long time to correct as per nephrology. HTN - Amlodipine increased to 10mg daily Metoprolol also increased Hydralazine stopped. Possible post CVA depression Recent CVA; seen in the MRI brain on 02/22/2024. Large MCA territory infarct primarily involving the right posterior temporal and parietal lobes CT head done on 03/23redemonstrated acute nonhemorrhagic left right MCA stroke with minimal mass effect on right lateral ventricle Psych consulted Sertraline 25mg po daily started denies suicidal ideation Left Foot, Dorsal Aspect, Wound Wounds, Tip of 4th and 5th toes Doppler US ordered: Atherosclerotic plaque with no sonographic evidence of high- grade stenosis or focal vessel cut off throughout the arteries of the left lower extremity. - Orthopedic surgery consulted Blood blisters and removed at bedside No other surgical intervention per Ortho Wound care service consulted Follow-up with vascular surgery as an outpatient Severe Malnutrition - Due to poor oral intake - Floor Framer consulted chronic systolic heart failure (EF 45 to 50%, TTE 2023) - Monitor for volume overload cardiac arrest status post ICD hx CAD status post stent/ PVD hyperlipidemia, on statin Rx DM 2 --Uncontrolled --A1c 11 Given his low creatinine clearance; metformin would not be ideal at discharge. Will start him on insulin glargine at discharge. hx CLL s/p chemotherapy hx lung nodules past tobacco abuse medication noncompliance as per records PT OT eval DVT prophylaxis. Heparin subcu Full code for now as per family. Disposition Anticipate to transition to SNF when accepted Addendum 03/27/2024: Patient was seen and examined at bedside. Patient's daughter at bedside who had concern over left foot dorsal wound. Explained her the signs and symptoms of infection and asked both patient and his daughter to watch out for any signs of infection. The wound does not currently look infected. Continue with wound care. Patient otherwise feels better. Patient daughter would like to take him tomorrow. Will discharge him tomorrow. Please note the above document was generated using voice recognition software. It may contain grammatical, syntax or spelling errors. Any formal questions or concerns about the content, text or information contained within the body of this dictation should be directly addressed to the provider for clarification Admission and Anticipated Discharge Date Admission Date: March 14, 2024 Subjective Patient seen and examined at bedside. Comfortable; not in distress. No significant overnight events Patient's daughter at bedside who was also updated on plan of care. Physical Exam Physical Exam: General- oriented x 3, not in distress, speaks in sentences with no effort or accessory muscle use Eyes- anicteric Neck- no JVD Lungs- clear breath sounds bilaterally, no rales/wheezes Heart- normal rate, regular rhythm; no murmurs Abdomen- normal bowel sounds, nondistended, soft, nontender Extremities- Left foot: Small open wound tip of fourth and fifth toes Small open wound dorsal lateral aspect of the foot No bleeding or discharge, no tracking erythema or tenderness or swelling. Neuro- alert, oriented x 3; no new gross focal neurologic deficits Skin- warm & dry Results & Data Results & Data Vital Signs (Past 12 Hours) Vital Signs Temp Pulse Pulse Resp BP Pulse Ox O2 Del Method 03/27/24 14:06 36.3 C L 67 16 154/79 H 100 Room Air 03/27/24 12:26 36.4 C L 86 19 132/78 100 Room Air 03/27/24 07:48 36.2 C L 56 L 17 144/76 H 99 Room Air (4) CVA (cerebral vascular accident) CVA mechanism: unspecified Qualified Code(s): I63.9 - Cerebral infarction, unspecified (7) CAD (coronary artery disease) Associated angina: without angina Coronary Disease-Associated Artery/Lesion type: [place] artery [place] vs. transplanted heart: [place] heart Qualified Code(s): I25.10 - Atherosclerotic heart disease of [place] coronary artery without angina pectoris
[2024-03-28 06:45] LABS: BUN Creatinine Ratio 6.7 (10-20); Calcium 9.1 mg/dl (8.6-10.3); Creatinine Clr Calc Pharmacy 43.9 ml/min; Est GFR (African American) 40.6 ml/min; Est GFR (Non-African American) 35.1 ml/min
[2024-03-28 07:32] VITALS: PULSE 67; TEMP 97.2; O2SAT 100
[2024-03-28 11:33] VITALS: BP 133/60
== END 2024-03-28 12:52 | DRG 73 ==
LOC: ED 17:40 → SUATTDRO 03-14 00:02 → 3E 03-14 00:02